=== PATIENT | male | born 1960 | race Caucasian/White ===

== ENCOUNTER → 2016-10-28 | Outpatient (REF) | payer MEDICARE, OTHER ==
[2016-10-28 08:29] LABS: BASO # 0.1 K/mm3 (0.0-0.2); BASO % 1.2 % (0.0-1.0); EOS # 0.4 K/mm3 (0.0-0.50); EOS % 6.2 % (0.0-3.0); LARGE UNSTAINED CELL # 0.1 K/mm3 (0.0-0.4); LARGE UNSTAINED CELL % 1.9 % (0.0-4.0); LYMPH # 1.8 K/mm3 (1.5-4.5); LYMPH % 24.3 % (24.0-44.0); MEAN CORPUSCULAR HEMOGLOBIN 29.3 pg (27.0-33.0); MEAN CORPUSCULAR HGB CONC 34.1 g/dl (32.0-36.5); MEAN CORPUSCULAR VOLUME 86.1 fl (80.0-96.0); MONO # 0.4 K/mm3 (0.0-0.8); MONO % 5.2 % (0.0-5.0); NEUTROPHILS # 4.1 K/mm3 (1.8-7.7); NEUTROPHILS % 61.2 % (36.0-66.0); PLATELET COUNT, AUTOMATED 217 k/mm3 (150-450); RED CELL DISTRIBUTION WIDTH 14.1 % (11.5-14.5); WHITE BLOOD COUNT 6.7 K/mm3 (4.0-10.0)
[2016-10-28 09:59] LABS: ANION GAP 10 MEQ/L (8-16); BLOOD UREA NITROGEN 18 MG/DL (7-18); CALCIUM LEVEL 9.3 MG/DL (8.5-10.1); CARBON DIOXIDE LEVEL 29 MEQ/L (21-32); CHLORIDE LEVEL 101 MEQ/L (98-107); CHOLESTEROL LEVEL 179 MG/DL (<200); CREATININE FOR GFR 0.52 MG/DL (0.70-1.30); GLOMERULAR FILTRATION RATE > 60.0 (>56); GLUCOSE, FASTING 139 MG/DL (70-105); POTASSIUM SERUM 3.7 MEQ/L (3.5-5.1); SODIUM LEVEL 140 MEQ/L (136-145); TRIGLYCERIDES LEVEL 194 MG/DL (<150)
== END ==
LOC: SKLAB7 07:00
PROVIDERS: ATTEND Family Medicine
DX: E11.9 Type 2 diabetes mellitus without complications (principal); I10 Essential (primary) hypertension; E78.5 Hyperlipidemia, unspecified; G40.909 Epilepsy, unspecified, not intractable, without status epilepticus; E55.9 Vitamin D deficiency, unspecified

== ENCOUNTER → 2017-01-24 | Outpatient (REF) | payer MEDICARE, OTHER ==
[2017-01-24 08:45] LABS: BASO # 0.1 K/mm3 (0.0-0.2); BASO % 0.7 % (0.0-1.0); EOS # 0.4 K/mm3 (0.0-0.50); EOS % 4.3 % (0.0-3.0); LARGE UNSTAINED CELL # 0.1 K/mm3 (0.0-0.4); LARGE UNSTAINED CELL % 1.4 % (0.0-4.0); LYMPH # 1.7 K/mm3 (1.5-4.5); MEAN CORPUSCULAR HEMOGLOBIN 28.8 pg (27.0-33.0); MEAN CORPUSCULAR HGB CONC 33.3 g/dl (32.0-36.5); MEAN CORPUSCULAR VOLUME 86.4 fl (80.0-96.0); MONO # 0.5 K/mm3 (0.0-0.8); MONO % 5.5 % (0.0-5.0); NEUTROPHILS # 5.8 K/mm3 (1.8-7.7); NEUTROPHILS % 69.1 % (36.0-66.0); PLATELET COUNT, AUTOMATED 284 k/mm3 (150-450); WHITE BLOOD COUNT 8.4 K/mm3 (4.0-10.0)
[2017-01-24 09:26] LABS: ALT/SGPT 18 U/L (12-78); ANION GAP 7 MEQ/L (8-16); BLOOD UREA NITROGEN 15 MG/DL (7-18); CALCIUM LEVEL 9.1 MG/DL (8.5-10.1); CARBON DIOXIDE LEVEL 31 MEQ/L (21-32); CHLORIDE LEVEL 103 MEQ/L (98-107); CHOLESTEROL LEVEL 169 MG/DL (<200); CREATININE FOR GFR 0.58 MG/DL (0.70-1.30); GLOMERULAR FILTRATION RATE > 60.0 (>56); GLUCOSE, FASTING 157 MG/DL (70-105); POTASSIUM SERUM 3.5 MEQ/L (3.5-5.1); SODIUM LEVEL 141 MEQ/L (136-145); TRIGLYCERIDES LEVEL 280 MG/DL (<150)
== END ==
LOC: SKLAB7 08:00
PROVIDERS: ATTEND Family Medicine
DX: Z87.820 Personal history of traumatic brain injury (principal); E11.9 Type 2 diabetes mellitus without complications; I10 Essential (primary) hypertension; E56.9 Vitamin deficiency, unspecified

== ENCOUNTER → 2017-01-26 | Outpatient (REF) | LOC: SKLAB7 08:00 | PROVIDERS: ATTEND Family Medicine | DX: Z51.81 Encounter for therapeutic drug level monitoring (principal); Z79.899 Other long term (current) drug therapy ==

== ENCOUNTER → 2017-04-28 | Outpatient (REF) | payer MEDICARE, OTHER ==
[2017-04-28 08:18] LABS: BASO % 0.4 % (0.0-1.0); EOS # 0.3 K/mm3 (0.0-0.50); EOS % 4.8 % (0.0-3.0); LARGE UNSTAINED CELL # 0.1 K/mm3 (0.0-0.4); LARGE UNSTAINED CELL % 1.5 % (0.0-4.0); LYMPH # 1.2 K/mm3 (1.5-4.5); LYMPH % 16.5 % (24.0-44.0); MEAN CORPUSCULAR HEMOGLOBIN 29.5 pg (27.0-33.0); MEAN CORPUSCULAR HGB CONC 34.3 g/dl (32.0-36.5); MONO # 0.5 K/mm3 (0.0-0.8); MONO % 7.3 % (0.0-5.0); NEUTROPHILS # 4.7 K/mm3 (1.8-7.7); NEUTROPHILS % 69.4 % (36.0-66.0); PLATELET COUNT, AUTOMATED 213 k/mm3 (150-450); RED CELL DISTRIBUTION WIDTH 13.5 % (11.5-14.5); WHITE BLOOD COUNT 6.8 K/mm3 (4.0-10.0)
[2017-04-28 09:10] LABS: ANION GAP 10 MEQ/L (8-16); BLOOD UREA NITROGEN 16 MG/DL (7-18); CALCIUM LEVEL 9.2 MG/DL (8.5-10.1); CARBON DIOXIDE LEVEL 28 MEQ/L (21-32); CHLORIDE LEVEL 101 MEQ/L (98-107); CREATININE FOR GFR 0.56 MG/DL (0.70-1.30); GLOMERULAR FILTRATION RATE > 60.0 (>56); GLUCOSE, FASTING 158 MG/DL (70-105); POTASSIUM SERUM 3.3 MEQ/L (3.5-5.1); SODIUM LEVEL 139 MEQ/L (136-145)
== END ==
LOC: SKLAB7 07:00
PROVIDERS: ATTEND Family Medicine
DX: I10 Essential (primary) hypertension (principal); Z86.73 Personal history of transient ischemic attack (TIA), and cerebral infarction without residual deficits; Z86.69 Personal history of other diseases of the nervous system and sense organs; E55.9 Vitamin D deficiency, unspecified; E11.9 Type 2 diabetes mellitus without complications

== ENCOUNTER → 2017-07-28 | Outpatient (REF) | payer MEDICARE, OTHER ==
[2017-07-28 09:28] LABS: BASO % 0.6 % (0.0-1.0); EOS # 0.3 10^3/uL (0.0-0.50); EOS % 3.9 % (0.0-3.0); IMMATURE GRANULOCYTE % 0.7 % (0-0); LYMPH # 1.2 10^3/uL (1.5-4.5); LYMPH % 17.1 % (24.0-44.0); MEAN CORPUSCULAR HEMOGLOBIN 28.7 pg (27.0-33.0); MONO # 0.6 10^3/uL (0.0-0.8); NEUTROPHILS # 5.1 10^3/uL (1.8-7.7); NEUTROPHILS % 69.7 % (36.0-66.0); PLATELET COUNT, AUTOMATED 277 10^3/uL (150-450); RED CELL DISTRIBUTION WIDTH 13.4 % (11.5-14.5); WHITE BLOOD COUNT 7.3 10^3/uL (4.0-10.0)
[2017-07-28 10:18] LABS: ALT/SGPT 28 U/L (12-78); ANION GAP 7 MEQ/L (8-16); BLOOD UREA NITROGEN 14 MG/DL (7-18); CALCIUM LEVEL 9.8 MG/DL (8.5-10.1); CARBON DIOXIDE LEVEL 32 MEQ/L (21-32); CHLORIDE LEVEL 100 MEQ/L (98-107); CREATININE FOR GFR 0.57 MG/DL (0.70-1.30); GLOMERULAR FILTRATION RATE > 60.0 (>56); GLUCOSE, FASTING 178 MG/DL (70-105); POTASSIUM SERUM 3.4 MEQ/L (3.5-5.1); SODIUM LEVEL 139 MEQ/L (136-145)
== END ==
LOC: SKLAB7 07:00
PROVIDERS: ATTEND Family Medicine
DX: I10 Essential (primary) hypertension (principal); E11.9 Type 2 diabetes mellitus without complications

== ENCOUNTER → 2017-08-17 | Outpatient (REF) | payer MEDICARE, OTHER | LOC: SKLAB7 13:42 | PROVIDERS: ATTEND Family Medicine | DX: N39.0 Urinary tract infection, site not specified (principal); J31.0 Chronic rhinitis ==

== ENCOUNTER → 2017-09-29 | Outpatient (REF) | payer MEDICARE, OTHER | LOC: SKLAB7 07:00 | PROVIDERS: ATTEND Family Medicine | DX: E78.5 Hyperlipidemia, unspecified (principal) ==

== ENCOUNTER → 2017-10-27 | Outpatient (REF) | payer MEDICARE, OTHER ==
[2017-10-27 09:40] LABS: BASO % 0.5 % (0.0-1.0); EOS # 0.3 10^3/uL (0.0-0.50); HEMATOCRIT 43.5 % (42.0-52.0); HEMOGLOBIN 14.5 g/dl (14.0-18.0); IMMATURE GRANULOCYTE % 0.5 % (0-0); LYMPH # 1.2 10^3/uL (1.5-4.5); LYMPH % 19.3 % (24.0-44.0); MEAN CORPUSCULAR HEMOGLOBIN 28.3 pg (27.0-33.0); MEAN CORPUSCULAR HGB CONC 33.3 g/dl (32.0-36.5); MONO # 0.5 10^3/uL (0.0-0.8); MONO % 7.3 % (0.0-5.0); NEUTROPHILS # 4.3 10^3/uL (1.8-7.7); NEUTROPHILS % 68.4 % (36.0-66.0); PLATELET COUNT, AUTOMATED 222 10^3/uL (150-450); RED BLOOD COUNT 5.12 10^6/uL (4.30-6.10); RED CELL DISTRIBUTION WIDTH 13.2 % (11.5-14.5); WHITE BLOOD COUNT 6.3 10^3/uL (4.0-10.0)
[2017-10-27 09:55] LABS: ESTIMATED AVERAGE GLUCOSE 151 MG/DL (60-110); HEMOGLOBIN A1c 6.9 %
[2017-10-27 10:11] LABS: ALT/SGPT 49 U/L (12-78); ANION GAP 9 MEQ/L (8-16); BLOOD UREA NITROGEN 15 MG/DL (7-18); CALCIUM LEVEL 8.9 MG/DL (8.5-10.1); CARBON DIOXIDE LEVEL 30 MEQ/L (21-32); CHLORIDE LEVEL 102 MEQ/L (98-107); CREATININE FOR GFR 0.48 MG/DL (0.70-1.30); GLOMERULAR FILTRATION RATE > 60.0 (>56); GLUCOSE, FASTING 145 MG/DL (70-105); PHENYTOIN (DILANTIN) 15.2 UG/ML (10.0-20.0); POTASSIUM SERUM 3.5 MEQ/L (3.5-5.1); SODIUM LEVEL 141 MEQ/L (136-145)
[2017-10-27 10:18] LABS: TOTAL 25(OH) VITAMIN D 38.3 NG/ML (30.0-100.0)
== END ==
LOC: SKLAB7 07:00
DX: E11.9 Type 2 diabetes mellitus without complications (principal); I10 Essential (primary) hypertension; R56.9 Unspecified convulsions
CPT/HCPCS: 84460

== ENCOUNTER → 2017-11-21 | Outpatient (REF) | payer MEDICARE, OTHER ==
[2017-11-21 14:45] LABS: INFLUENZA A AMPLIFICATION NEGATIVE (NEGATIVE); INFLUENZA B AMPLIFICATION NEGATIVE (NEGATIVE); RSV AMPLIFICATION POSITIVE (NEGATIVE)
== END ==
LOC: SKLAB3 10:55
DX: R05 Cough (principal)
CPT/HCPCS: 87631

== ENCOUNTER → 2017-12-07 | Outpatient (REF) | payer MEDICARE, OTHER ==
[2017-12-07 12:11] LABS: CHOLESTEROL LEVEL 156 MG/DL (<200); CHOLESTEROL RISK RATIO 4.333 (<5); HDL CHOLESTEROL 36 MG/DL (>40); LDL CHOLESTEROL 64.8 MG/DL (<100); NON-HDL-C 120 MG/DL; TRIGLYCERIDES LEVEL 276 MG/DL (<150)
== END ==
LOC: SKLAB7 14:42
DX: E78.5 Hyperlipidemia, unspecified (principal)
CPT/HCPCS: 36415

== ENCOUNTER → 2018-01-26 | Outpatient (REF) | payer MEDICARE, OTHER ==
[2018-01-26 11:33] LABS: BASO % 0.5 % (0.0-1.0); EOS # 0.4 10^3/uL (0.0-0.50); EOS % 4.3 % (0.0-3.0); HEMATOCRIT 45.8 % (42.0-52.0); HEMOGLOBIN 15.3 g/dl (13.5-17.5); IMMATURE GRANULOCYTE % 0.6 % (0-3.0); LYMPH # 1.3 10^3/uL (1.5-4.5); LYMPH % 14.9 % (24.0-44.0); MEAN CORPUSCULAR HEMOGLOBIN 28.1 pg (27.0-33.0); MEAN CORPUSCULAR HGB CONC 33.4 g/dl (32.0-36.5); MEAN CORPUSCULAR VOLUME 84.2 fl (80.0-96.0); MONO # 0.7 10^3/uL (0.0-0.8); MONO % 7.8 % (0.0-5.0); NEUTROPHILS # 6.4 10^3/uL (1.8-7.7); NEUTROPHILS % 71.9 % (36.0-66.0); PLATELET COUNT, AUTOMATED 240 10^3/uL (150-450); RED BLOOD COUNT 5.44 10^6/uL (4.30-6.10); WHITE BLOOD COUNT 8.8 10^3/uL (4.0-10.0)
[2018-01-26 12:08] LABS: ALBUMIN 3.8 GM/DL (3.2-5.2); ALBUMIN/GLOBULIN RATIO 1.03 (1.00-1.93); ALKALINE PHOSPHATASE 155 U/L (45-117); ALT/SGPT 29 U/L (12-78); ANION GAP 10 MEQ/L (8-16); AST/SGOT 62 U/L (7-37); BILIRUBIN,TOTAL 0.3 MG/DL (0.2-1.0); BLOOD UREA NITROGEN 8 MG/DL (7-18); CALCIUM LEVEL 9.5 MG/DL (8.5-10.1); CARBON DIOXIDE LEVEL 29 MEQ/L (21-32); CHLORIDE LEVEL 101 MEQ/L (98-107); CREATININE FOR GFR 0.51 MG/DL (0.70-1.30); GLOMERULAR FILTRATION RATE > 60.0 (>56); GLUCOSE, FASTING 176 MG/DL (70-100); PHENYTOIN (DILANTIN) 11.2 UG/ML (10.0-20.0); POTASSIUM SERUM 3.6 MEQ/L (3.5-5.1); SODIUM LEVEL 140 MEQ/L (136-145); TOTAL PROTEIN 7.5 GM/DL (6.4-8.2)
[2018-01-26 12:25] LABS: ESTIMATED AVERAGE GLUCOSE 140 MG/DL (60-110); HEMOGLOBIN A1c 6.5 %
[2018-01-27 08:46] LABS: TOTAL 25(OH) VITAMIN D 53.3 NG/ML (30.0-100.0)
== END ==
LOC: SKLAB7 11:43
DX: R56.9 Unspecified convulsions (principal); E11.9 Type 2 diabetes mellitus without complications; I10 Essential (primary) hypertension; Z79.899 Other long term (current) drug therapy; E55.9 Vitamin D deficiency, unspecified
CPT/HCPCS: 80185

== ENCOUNTER → 2018-03-22 | Outpatient (CLI) | payer MEDICARE, OTHER | LOC: M RAD 12:45 | DX: G24.3 Spasmodic torticollis (principal); M50.21 Other cervical disc displacement, high cervical region; M50.221 Other cervical disc displacement at C4-C5 level | CPT/HCPCS: 72141 ==

== ENCOUNTER → 2018-04-27 | Outpatient (REF) | payer MEDICARE, OTHER ==
[2018-04-27 09:11] LABS: BASO % 0.4 % (0.0-1.0); EOS # 0.3 10^3/uL (0.0-0.50); EOS % 3.1 % (0.0-3.0); HEMATOCRIT 42.4 % (42.0-52.0); HEMOGLOBIN 14.1 g/dl (13.5-17.5); LYMPH # 1.4 10^3/uL (1.5-4.5); LYMPH % 15.5 % (24.0-44.0); MEAN CORPUSCULAR HEMOGLOBIN 28.3 pg (27.0-33.0); MEAN CORPUSCULAR HGB CONC 33.3 g/dl (32.0-36.5); MEAN CORPUSCULAR VOLUME 85.1 fl (80.0-96.0); MONO # 0.7 10^3/uL (0.0-0.8); NEUTROPHILS # 6.7 10^3/uL (1.8-7.7); PLATELET COUNT, AUTOMATED 248 10^3/uL (150-450); RED BLOOD COUNT 4.98 10^6/uL (4.30-6.10); RED CELL DISTRIBUTION WIDTH 13.9 % (11.5-14.5); WHITE BLOOD COUNT 9.2 10^3/uL (4.0-10.0)
[2018-04-27 09:22] LABS: ESTIMATED AVERAGE GLUCOSE 157 MG/DL (60-110); HEMOGLOBIN A1c 7.1 %
[2018-04-27 09:36] LABS: ALBUMIN 3.3 GM/DL (3.2-5.2); ALBUMIN/GLOBULIN RATIO 0.97 (1.00-1.93); ALKALINE PHOSPHATASE 152 U/L (45-117); ALT/SGPT 31 U/L (12-78); ANION GAP 12 MEQ/L (8-16); AST/SGOT 87 U/L (7-37); BILIRUBIN,TOTAL 0.3 MG/DL (0.2-1.0); BLOOD UREA NITROGEN 10 MG/DL (7-18); CALCIUM LEVEL 8.8 MG/DL (8.5-10.1); CARBON DIOXIDE LEVEL 31 MEQ/L (21-32); CHLORIDE LEVEL 100 MEQ/L (98-107); CREATININE FOR GFR 0.46 MG/DL (0.70-1.30); GLOMERULAR FILTRATION RATE > 60.0 (>56); GLUCOSE, FASTING 141 MG/DL (70-100); PHENYTOIN (DILANTIN) 12.5 UG/ML (10.0-20.0); POTASSIUM SERUM 3.7 MEQ/L (3.5-5.1); SODIUM LEVEL 143 MEQ/L (136-145); TOTAL PROTEIN 6.7 GM/DL (6.4-8.2)
== END ==
LOC: SKLAB7 08:00
DX: I10 Essential (primary) hypertension (principal); E11.9 Type 2 diabetes mellitus without complications
CPT/HCPCS: 80185

== ENCOUNTER → 2018-06-29 | Outpatient (REF) | payer MEDICARE, OTHER ==
[2018-06-29 09:50] LABS: CHOLESTEROL LEVEL 188 MG/DL (<200); CHOLESTEROL RISK RATIO 5.222 (<5); HDL CHOLESTEROL 36 MG/DL (>40); LDL CHOLESTEROL 95 MG/DL (<100); NON-HDL-C 152 MG/DL; TRIGLYCERIDES LEVEL 284 MG/DL (<150)
== END ==
LOC: SKLAB7 12:50
DX: E78.5 Hyperlipidemia, unspecified (principal)
CPT/HCPCS: 80061

== ENCOUNTER → 2018-07-27 | Outpatient (REF) | payer MEDICARE, OTHER ==
[2018-07-27 08:35] LABS: BASO % 0.5 % (0.0-1.0); EOS # 0.3 10^3/uL (0.0-0.50); EOS % 3.8 % (0.0-3.0); HEMATOCRIT 42.5 % (42.0-52.0); HEMOGLOBIN 13.7 g/dl (13.5-17.5); IMMATURE GRANULOCYTE % 0.4 % (0-3.0); LYMPH # 1.2 10^3/uL (1.5-4.5); LYMPH % 16.1 % (24.0-44.0); MEAN CORPUSCULAR HEMOGLOBIN 27.3 pg (27.0-33.0); MEAN CORPUSCULAR HGB CONC 32.2 g/dl (32.0-36.5); MEAN CORPUSCULAR VOLUME 84.7 fl (80.0-96.0); MONO # 0.6 10^3/uL (0.0-0.8); MONO % 7.9 % (0.0-5.0); NEUTROPHILS # 5.4 10^3/uL (1.8-7.7); NEUTROPHILS % 71.3 % (36.0-66.0); PLATELET COUNT, AUTOMATED 270 10^3/uL (150-450); RED BLOOD COUNT 5.02 10^6/uL (4.30-6.10); RED CELL DISTRIBUTION WIDTH 14.3 % (11.5-14.5); WHITE BLOOD COUNT 7.6 10^3/uL (4.0-10.0)
[2018-07-27 08:56] LABS: ALBUMIN 3.5 GM/DL (3.2-5.2); ALBUMIN/GLOBULIN RATIO 0.95 (1.00-1.93); ALKALINE PHOSPHATASE 186 U/L (45-117); ALT/SGPT 31 U/L (12-78); ANION GAP 9 MEQ/L (8-16); AST/SGOT 101 U/L (7-37); BILIRUBIN,TOTAL 0.3 MG/DL (0.2-1.0); BLOOD UREA NITROGEN 13 MG/DL (7-18); CALCIUM LEVEL 9.3 MG/DL (8.5-10.1); CARBON DIOXIDE LEVEL 32 MEQ/L (21-32); CHLORIDE LEVEL 101 MEQ/L (98-107); CREATININE FOR GFR 0.33 MG/DL (0.70-1.30); GLOMERULAR FILTRATION RATE > 60.0 (>56); GLUCOSE, FASTING 119 MG/DL (70-100); PHENYTOIN (DILANTIN) 13.4 UG/ML (10.0-20.0); POTASSIUM SERUM 3.5 MEQ/L (3.5-5.1); SODIUM LEVEL 142 MEQ/L (136-145); TOTAL PROTEIN 7.2 GM/DL (6.4-8.2)
[2018-07-27 11:46] LABS: ESTIMATED AVERAGE GLUCOSE 134 MG/DL (60-110); HEMOGLOBIN A1c 6.3 %
== END ==
LOC: SKLAB7 07:00
DX: R56.9 Unspecified convulsions (principal); I10 Essential (primary) hypertension; E11.9 Type 2 diabetes mellitus without complications
CPT/HCPCS: 80185

== ENCOUNTER → 2018-08-03 | Outpatient (REF) | payer MEDICARE, OTHER ==
[2018-08-05 16:16] LABS: LEVETIRACETAM (KEPPRA) 11.5 ug/mL (10.0-40.0)
== END ==
LOC: SKLAB7 09:47
DX: R56.9 Unspecified convulsions (principal)
CPT/HCPCS: 36415

== ENCOUNTER → 2018-10-05 | Outpatient (REF) | payer MEDICARE, OTHER | LOC: SKLAB7 12:57 | PROVIDERS: ATTEND Family Medicine | DX: J06.9 Acute upper respiratory infection, unspecified (principal) ==

== ENCOUNTER → 2018-10-25 | Outpatient (REF) | payer MEDICARE, OTHER ==
[2018-10-25 14:00] LABS: HEMOGLOBIN 15.5 g/dl (13.5-17.5); MEAN CORPUSCULAR HEMOGLOBIN 27.4 pg (27.0-33.0); MEAN CORPUSCULAR VOLUME 83.2 fl (80.0-96.0); PLATELET COUNT, AUTOMATED 309 10^3/uL (150-450); RED BLOOD COUNT 5.65 10^6/uL (4.30-6.10); WHITE BLOOD COUNT 9.1 10^3/uL (4.0-10.0)
[2018-10-25 14:36] LABS: ALBUMIN 3.4 GM/DL (3.2-5.2); ALT/SGPT 31 U/L (12-78); BILIRUBIN,TOTAL 0.2 MG/DL (0.2-1.0); BLOOD UREA NITROGEN 12 MG/DL (7-18); CALCIUM LEVEL 9.1 MG/DL (8.5-10.1); CARBON DIOXIDE LEVEL 30 MEQ/L (21-32); CHLORIDE LEVEL 100 MEQ/L (98-107); GLOMERULAR FILTRATION RATE > 60.0 (>56); GLUCOSE, FASTING 123 MG/DL (70-100); PHENYTOIN (DILANTIN) 12.6 UG/ML (10.0-20.0); SODIUM LEVEL 140 MEQ/L (136-145); TOTAL PROTEIN 7.2 GM/DL (6.4-8.2)
[2018-10-25 15:00] LABS: HEMOGLOBIN A1c 6.4 %
== END ==
LOC: SKLAB7 13:13
PROVIDERS: ATTEND Family Medicine
DX: R56.9 Unspecified convulsions (principal); E03.9 Hypothyroidism, unspecified; E11.9 Type 2 diabetes mellitus without complications; I10 Essential (primary) hypertension; E55.9 Vitamin D deficiency, unspecified; E78.5 Hyperlipidemia, unspecified

== ENCOUNTER → 2018-11-09 | Outpatient (REF) | payer MEDICARE, OTHER ==
[2018-11-09 16:24] LABS: BASO # 0.1 10^3/uL (0.0-0.2); BASO % 0.4 % (0.0-1.0); EOS # 0.7 10^3/uL (0.0-0.50); EOS % 4.8 % (0.0-3.0); HEMATOCRIT 44.3 % (42.0-52.0); HEMOGLOBIN 14.2 g/dl (13.5-17.5); LYMPH % 7.2 % (24.0-44.0); MEAN CORPUSCULAR HEMOGLOBIN 27.4 pg (27.0-33.0); MEAN CORPUSCULAR HGB CONC 32.1 g/dl (32.0-36.5); MEAN CORPUSCULAR VOLUME 85.4 fl (80.0-96.0); MONO # 0.6 10^3/uL (0.0-0.8); MONO % 4.5 % (0.0-5.0); NEUTROPHILS # 11.4 10^3/uL (1.8-7.7); NEUTROPHILS % 81.9 % (36.0-66.0); PLATELET COUNT, AUTOMATED 320 10^3/uL (150-450); RED BLOOD COUNT 5.19 10^6/uL (4.30-6.10); WHITE BLOOD COUNT 13.9 10^3/uL (4.0-10.0)
[2018-11-09 16:43] LABS: ALBUMIN 2.9 GM/DL (3.2-5.2); ALT/SGPT 25 U/L (12-78); BILIRUBIN,TOTAL 0.1 MG/DL (0.2-1.0); BLOOD UREA NITROGEN 18 MG/DL (7-18); CALCIUM LEVEL 8.9 MG/DL (8.5-10.1); CARBON DIOXIDE LEVEL 27 MEQ/L (21-32); CHLORIDE LEVEL 100 MEQ/L (98-107); CREATININE FOR GFR 0.46 MG/DL (0.70-1.30); GLOMERULAR FILTRATION RATE > 60.0 (>56); GLUCOSE, FASTING 165 MG/DL (70-100); POTASSIUM SERUM 3.9 MEQ/L (3.5-5.1); SODIUM LEVEL 139 MEQ/L (136-145); TOTAL PROTEIN 6.9 GM/DL (6.4-8.2)
== END ==
LOC: SKLAB7 14:51
PROVIDERS: ATTEND Family Medicine
DX: R21 Rash and other nonspecific skin eruption (principal)

== ENCOUNTER → 2018-11-22 | Outpatient (REF) | payer MEDICARE, OTHER ==
[~2018-11-22] MED LIST: ACET650S3 PR; ACTO30TA15 PO; ALB2.5NEB INH; AMLO5TAB6 PO; ASPI81TAEC PO; ATOR80TA59 PO; BENA25TA10 PO; BYST10TA2 PO; CHLO125TA PO; DULC10SU2 PR; ENEMENE6 PR; FIRS3SUS GT; FLOM0.4C39 PO; INSUHUMDS SC; KEPP1TAB PO; KETO2CR TOP; LEVE15SO GT; METF10004 PO; MILK120011 PO; MINO100C4 PO; NYST10CR TOP; PERCOCET FT; POTA10CA32 PO; POTA20EL PO; PRED20TA PO; RANI150T PO; SALI0.6528; SIME80TA GT; SODI3NEB INH; TELM1TAB37 PO; TYLE325T5 PO; VITA500055 PO
== END ==
LOC: SKLAB7 07:00
PROVIDERS: ATTEND Family Medicine
DX: Z79.899 Other long term (current) drug therapy (principal)

== ENCOUNTER 2018-11-26 12:54 | Inpatient (IN) | payer OTHER, MEDICARE ==
[2018-11-26] VITALS (15 sets, daily range): BP systolic 85–122; BP diastolic 54–77; O2SAT 99
[~2018-11-26] VITALS: Ht 172.7 cm; Wt 71.2 kg
[2018-11-26 13:14] LABS: ABG BASE EXCESS 4.2 (-2.0-2.0); ABG HCO3 39.7 MEQ/L (22.0-26.0); ABG O2 SATURATION 81.2 % (95.0-99.0); ABG STANDARD HCO3 27.7 MEQ/L (22.0-26.0); ABG TOTAL CO2 43.5 MEQ/L (22.0-29.0)
[2018-11-26] MEDS ORDERED: VANCOMYCIN HCL 1,000 MG, VIAL MATE ADAPTER 1 EACH in D5W 250 ML IV ONE ×2 (13:15→17:00)
[2018-11-26] MEDS ORDERED: PIPERACILLIN/TAZOBACTAM SOD 3.375 GM in D5W MINI-BAG PLUS 50 ML IV ONE (13:15)
[2018-11-26] MEDS ORDERED: IPRATROPIUM 0.5MG/ALBUTEROL 2.5MG INH SOL UD 3ML (DUONEB)(J7620) NEB ONE (13:15)
[2018-11-26 13:18] LABS: ABG PARTIAL PRESSURE CO2 124.1 mmHg (35.0-45.0); ABG pH (ARTERIAL) 7.123 UNITS (7.350-7.450)
[2018-11-26] MEDS ORDERED: PROPOFOL 1,000 MG/100 ML VIAL As Ordered ONE ×2 (13:22→18:14)
[2018-11-26 13:23] LABS: HEMATOCRIT 56.4 % (42.0-52.0); HEMOGLOBIN 17.7 g/dl (13.5-17.5); MEAN CORPUSCULAR HEMOGLOBIN 27.6 pg (27.0-33.0); MEAN CORPUSCULAR HGB CONC 31.4 g/dl (32.0-36.5); MEAN CORPUSCULAR VOLUME 87.9 fl (80.0-96.0); PLATELET COUNT, AUTOMATED 361 10^3/uL (150-450); RED BLOOD COUNT 6.42 10^6/uL (4.30-6.10); WHITE BLOOD COUNT 20.1 10^3/uL (4.0-10.0)
[2018-11-26] MEDS ORDERED: PROPOFOL 200 MG/20 ML VIAL IV ONE (13:30)
[2018-11-26 13:56] LABS: BLOOD UREA NITROGEN 26 MG/DL (7-18); CALCIUM LEVEL 9.5 MG/DL (8.5-10.1); CARBON DIOXIDE LEVEL 37 MEQ/L (21-32); CHLORIDE LEVEL 103 MEQ/L (98-107); CREATININE FOR GFR 0.44 MG/DL (0.70-1.30); GLOMERULAR FILTRATION RATE > 60.0 (>56); GLUCOSE, FASTING 326 MG/DL (70-100); POTASSIUM SERUM 4.5 MEQ/L (3.5-5.1); SODIUM LEVEL 146 MEQ/L (136-145)
[2018-11-26 13:59] LABS: ANISOCYTOSIS 1+; ATYPICAL LYMPH 1 % (0-5); EOSINOPHILS 1 % (0-5); LYMPHOCYTES 19 % (16-52); MONOCYTES 10 % (0-8); NEUTROPHILS 69 % (35-75); PLATELET ESTIMATE NORMAL (NORMAL)
[2018-11-26] MEDS ORDERED: SALI0.6528 (14:03)
[2018-11-26] MEDS ORDERED: ALB2.5NEB INH ×2 (14:03)
[2018-11-26] MEDS ORDERED: PRED20TA PO (14:03)
[2018-11-26] MEDS ORDERED: RANI150T PO (14:03)
[2018-11-26] MEDS ORDERED: DULC10SU2 PR (14:03)
[2018-11-26] MEDS ORDERED: AMLO5TAB6 PO (14:03)
[2018-11-26] MEDS ORDERED: ACET650S3 PR (14:03)
[2018-11-26] MEDS ORDERED: ASPI81TAEC PO (14:03)
[2018-11-26] MEDS ORDERED: BENA25TA10 PO (14:03)
[2018-11-26] MEDS ORDERED: MINO100C4 PO (14:03)
[2018-11-26] MEDS ORDERED: ATOR80TA59 PO (14:03)
[2018-11-26] MEDS ORDERED: METF10004 PO (14:03)
[2018-11-26] MEDS ORDERED: TYLE325T5 PO (14:03)
[2018-11-26] MEDS ORDERED: MILK120011 PO (14:03)
[2018-11-26] MEDS ORDERED: KEPP1TAB PO (14:03)
[2018-11-26] MEDS ORDERED: VITA500055 PO (14:14)
[2018-11-26] MEDS ORDERED: ACTO30TA15 PO (14:14)
[2018-11-26] MEDS ORDERED: BYST10TA2 PO (14:14)
[2018-11-26] MEDS ORDERED: TELM1TAB37 PO (14:26)
[2018-11-26] MEDS ORDERED: CHLO125TA PO (14:26)
[2018-11-26] MEDS ORDERED: POTA10CA32 PO (14:26)
[2018-11-26] MEDS ORDERED: FLOM0.4C39 PO (14:26)
[2018-11-26] MEDS ORDERED: PROPOFOL 1,000 MG in APPROPRIATE DILUENT 1 EA IV SCH (14:30)
[2018-11-26] MEDS ORDERED: ONDANSETRON 4MG/2ML VIAL (J2405) IV PRN (14:30)
[2018-11-26] MEDS ORDERED: ACETAMINOPHEN 650 MG SUPP PR PRN (14:30)
[2018-11-26] MEDS ORDERED: BISACODYL 10 MG SUPP PR PRN (14:30)
[2018-11-26] MEDS ORDERED: MORPHINE 4 MG/ML 1ML VIAL/SYRINGE (J2270) IV PRN (14:30)
[2018-11-26] MEDS ORDERED: MIDAZOLAM INJ 2 MG/2 ML VIAL (J2250) IV PRN (14:30)
[2018-11-26] MEDS ORDERED: VANCOMYCIN HCL 1,000 MG in IV FLUID PLACE HOLDER 1 EA IV SCH (14:30)
[2018-11-26] MEDS ORDERED: ALBUTEROL SULFATE 2.5 MG/0.5 ML INH NEB SOLN NEB PRN (14:30)
[2018-11-26] MEDS ORDERED: ENEMENE6 PR (14:35)
--- NOTE | 2018-11-26 14:37 | REP ---
AP PORTABLE CHEST: 11/26/2018 at 01:36PM. COMPARISON: Portable chest this a.m. CLINICAL HISTORY: Intubation. FINDINGS: Endotracheal tube is seen, now with its tip about 3.5 cm from the kimberlee. The right lung shows further consolidation/collapse with only a small apical air space remaining opacified and worsening atelectasis, infiltrate and/or effusion. Left lung remains clear. Electronically Signed by Clarence Obrien MD 11/26/2018 07:19 P
--- NOTE | 2018-11-26 14:39 | REP ---
AP PORTABLE CHEST: 11/26/2018 at 2:10 PM. COMPARISON: Two prior chest x-rays today. CLINICAL HISTORY: Right subclavian placement. FINDINGS: Endotracheal tube again seen, tip about 4 cm from the kimberlee. There is a nasogastric tube now present with its tip well into the body of the stomach. A new right subclavian central catheter is noted. Appearance suggests it is in the SVC. No pneumothorax. Extensive consolidation and atelectasis with right effusion filling most of the right hemithorax. There is some volume loss. Degree of aeration similar to the study 1/2 hour ago upon intubation. The left lung remains clear. Electronically Signed by Clarence Obrien MD 11/26/2018 07:20 P
[2018-11-26] MEDS ORDERED: LIDOCAINE 1% MDV 20ML VIAL As Ordered ONE (14:52)
[2018-11-26] MEDS ORDERED: LevoFLOXacin IV 750 MG in APPROPRIATE DILUENT 1 EA IV ONE (15:00)
[2018-11-26] MEDS ORDERED: LIDOCAINE 1% MDV 20ML VIAL SC ONE (15:30)
[2018-11-26] MEDS: ALBUTEROL SULFATE 2.5 MG/0.5 ML INH NEB SOLN NEB SCH ×3 (16:00→23:52)
[2018-11-26] MEDS ORDERED: PIPERACILLIN/TAZOBACTAM SOD 3.375 GM in D5W MINI-BAG PLUS 50 ML IV SCH (16:00)
[2018-11-26] MEDS: HEPARIN SOD (PORCINE) 5000 UNITS/ML VIAL SC SCH ×2 (16:43→21:13)
--- NOTE | 2018-11-26 16:43 | ECGEPIP ---
Stationary ECG Study [facility] [place] - ED Test Date: 2018-11-26 Pat Name: LIZ THAPA Department: Room: - Gender: M Stockfeed Miller: : 1960 Requested By: DARSHANA Argueta Order Number: [id number] Reading MD: Ann Sheets Measurements Intervals [place] Rate: 124 P: 29 [place]: 173 QRS: 20 QRSD: 98 T: 55 QT: 287 QTc: 413 Interpretive Statements SINUS TACHYCARDIA LEFT VENTRICULAR HYPERTROPHY AND ST-T CHANGE VS ISCHEMIA, CLINICAL CORRELATION Electronically Signed On 11-26-2018 16:43:19 EST by Ann Sheets
[2018-11-26] MEDS: NS 1,000 ML IV SCH ×2 (16:44→20:43)
[2018-11-26] MEDS ORDERED: VANCOMYCIN HCL 500 MG in D5W MINI-BAG PLUS 100 ML IV ONE (18:00)
[2018-11-26] MEDS: PANTOPRAZOLE 40MG INJ (PROTONIX) (C9113) IV SCH (18:15)
[2018-11-26] MEDS: PROPOFOL 1,000 MG in APPROPRIATE DILUENT 1 EA IV SCH (19:32)
[2018-11-26 20:49] LABS: ABG BASE EXCESS 1.3 (-2.0-2.0); ABG HCO3 26.1 MEQ/L (22.0-26.0); ABG O2 SATURATION 99.6 % (95.0-99.0); ABG PARTIAL PRESSURE O2 216.6 mmHg (75.0-100.0); ABG STANDARD HCO3 25.6 MEQ/L (22.0-26.0); ABG TOTAL CO2 27.4 MEQ/L (22.0-29.0); ABG pH (ARTERIAL) 7.411 UNITS (7.350-7.450)
[2018-11-26] MEDS: CHLORHEXIDINE GLUCONATE 0.12 % 15ML UDC (PERIDEX ORAL RINSE) MT SCH (21:12)
[2018-11-27] VITALS (24 sets, daily range): BP systolic 92–128; BP diastolic 58–77
[2018-11-27] MEDS ORDERED: NS 1,000 ML IV ONE (00:30)
[2018-11-27] MEDS: VANCOMYCIN HCL 1,000 MG, VIAL MATE ADAPTER 1 EACH in D5W 250 ML IV SCH ×4 (00:32→21:16)
[2018-11-27] MEDS ORDERED: GLUCAGON FOR INJ 1 MG VIAL (J1610) SC PRN (01:00)
[2018-11-27] MEDS ORDERED: DEXTROSE 50% 50 ML SYRINGE IV PRN (01:00)
[2018-11-27] MEDS ORDERED: GLUCOSE 4 GM CHEW TABLET PO PRN (01:00)
[2018-11-27] MEDS: levETIRAcetam INJection 1,500 MG in D5W 100 ML IV SCH ×2 (01:43→14:04)
[2018-11-27] MEDS: NS 1,000 ML IV SCH ×3 (03:56→21:17)
[2018-11-27] MEDS: PROPOFOL 1,000 MG in APPROPRIATE DILUENT 1 EA IV SCH ×3 (03:57→18:32)
[2018-11-27 04:04] LABS: BASO % 0.1 % (0.0-1.0); EOS % 0.1 % (0.0-3.0); HEMATOCRIT 39.7 % (42.0-52.0); LYMPH # 1.4 10^3/uL (1.5-4.5); LYMPH % 9.6 % (24.0-44.0); MEAN CORPUSCULAR HEMOGLOBIN 28.1 pg (27.0-33.0); MEAN CORPUSCULAR HGB CONC 32.2 g/dl (32.0-36.5); MEAN CORPUSCULAR VOLUME 87.3 fl (80.0-96.0); MONO # 0.9 10^3/uL (0.0-0.8); MONO % 6.3 % (0.0-5.0); NEUTROPHILS # 11.7 10^3/uL (1.8-7.7); NEUTROPHILS % 83.5 % (36.0-66.0); RED BLOOD COUNT 4.55 10^6/uL (4.30-6.10)
[2018-11-27 04:16] LABS: HEMOGLOBIN 12.8 g/dl (13.5-17.5)
[2018-11-27 04:33] LABS: ALBUMIN 2.3 GM/DL (3.2-5.2); ALT/SGPT 25 U/L (12-78); BILIRUBIN,TOTAL 0.4 MG/DL (0.2-1.0); BLOOD UREA NITROGEN 23 MG/DL (7-18); CALCIUM LEVEL 7.2 MG/DL (8.5-10.1); CARBON DIOXIDE LEVEL 29 MEQ/L (21-32); CHLORIDE LEVEL 108 MEQ/L (98-107); CHOLESTEROL LEVEL 108 MG/DL (< 200); CPK CREATINE PHOSPHOKINASE 485 U/L (39-308); CREATININE FOR GFR 0.32 MG/DL (0.70-1.30); GLOMERULAR FILTRATION RATE > 60.0 (>56); GLUCOSE, FASTING 244 MG/DL (70-100); LDH LACTATE DEHYDROGENASE 186 U/L (87-241); PHOSPHORUS LEVEL 2.4 MG/DL (2.5-4.9); POTASSIUM SERUM 2.8 MEQ/L (3.5-5.1); SODIUM LEVEL 145 MEQ/L (136-145); TOTAL PROTEIN 5.2 GM/DL (6.4-8.2); TRIGLYCERIDES LEVEL 234 MG/DL (<150)
[2018-11-27] MEDS: KCL 20MEQ IN 100ML SWI (KRUN) 20 MEQ in APPROPRIATE DILUENT 1 EA IV SCH ×6 (05:00→06:58)
[2018-11-27] MEDS: ALBUTEROL SULFATE 2.5 MG/0.5 ML INH NEB SOLN NEB SCH ×6 (05:17→23:20)
[2018-11-27] MEDS: HEPARIN SOD (PORCINE) 5000 UNITS/ML VIAL SC SCH ×3 (05:59→21:16)
[2018-11-27] MEDS: HumaLOG INSULIN (NovoLOG) PER UNIT SC SCH ×5 (06:00→23:54)
--- NOTE | 2018-11-27 07:34 | REP ---
AP PORTABLE CHEST: 11/26/2018 at 4:04 PM. Comparison: Study today at 2:09 PM. Clinical history: Hypoxemia, status post bronchoscopy. Findings: Endotracheal tube and nasogastric tubes along with the right subclavian catheter are unchanged. There is now some better aeration of the mid and upper lung zone than on the previous study. No pneumothorax. There is still consolidation and atelectasis with air bronchograms in the right base representing significant infiltrate and atelectasis. Left lung remains clear. Nasogastric tube seen coursing into the fundus of the stomach in the left upper quadrant. Electronically Signed by Clarence Obrien MD 11/27/2018 09:23 A
--- NOTE | 2018-11-27 08:40 | REP ---
AP PORTABLE CHEST: 11/27/2018. Comparison: 11/26/2018 multiple chest x-rays. Clinical history: Intubated. Findings: Endotracheal tube is again seen about 2.5 cm above the kimberlee. Indwelling right subclavian catheter tip in SVC remains. Nasogastric tube is unchanged. Tip in the gastric fundus. There is some improvement overnight in aeration in the right upper lung zone. Air bronchograms and consolidative opacity in the right base persist. Left lung, unchanged. Impression: 1. Some slight improvement in aeration in the right lung with still extensive consolidative opacity and some air bronchograms in the right base. 2. Endotracheal tube, right subclavian catheter and nasogastric tubes unchanged. Electronically Signed by Clarence Obrien MD 11/27/2018 09:28 A
[2018-11-27] MEDS ORDERED: methylPREDNISolone INJ 125 MG/2 ML VIAL (J2930) IV SCH (09:00)
[2018-11-27] MEDS: CHLORHEXIDINE GLUCONATE 0.12 % 15ML UDC (PERIDEX ORAL RINSE) MT SCH ×2 (09:08→21:16)
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
[2018-11-27] MEDS: NYSTATIN 500,000 U/5 ML SUSP UDC PO SCH ×3 (12:58→23:54)
--- NOTE | 2018-11-27 13:18 | IPN ---
DATE OF SERVICE: 11/27/2018 SUBJECTIVE: Mr. Jones remains critically ill with acute respiratory failure leading to mechanical ventilation. He required one fluid bolus over night Per nursing staff this morning, he continues to have a strong cough with pale green content on suction. The amount of his secretions is large. He is able to follow commands, and he has purposeful movements. He can move all extremities (limited) on command except his left lower extremity. He is status post bronchoscopy yesterday. His urine output over the last 24 hours has been good. OBJECTIVE: PHYSICAL EXAMINATION: VITAL SIGNS: Pulse of 74, respiratory rate of 16, blood pressure 102/60, pulse oximetry 94%, vent settings 30% FIO2, PEEP of 5, respiratory rate of 12, tidal volume of 450. GENERAL: The patient is resting comfortably in bed with endotracheal tube in place. He is blinking his eyes spontaneously and does not appear to be in any acute distress. HEENT: Head is normocephalic, atraumatic. Sclerae are anicteric. Extraocular movements intact (EOMI). NECK: Is supple. No signs of jugular venous distention (JVD). Neck is without thyromegaly or masses. No lymphadenopathy. CARDIOVASCULAR: Regular rate and rhythm. Normal S1 and S2. No murmurs, rubs, or gallops LUNGS: Symmetric chest rise. Rhonchi present throughout lung [place]. Right middle lobe with mild fine crackles. No wheezes. No accessory muscle use or retractions. ABDOMEN: Soft, nontender, nondistended. Positive bowel sounds. EXTREMITIES: Warm. Perfusing well in bilateral upper and lower extremities. No clubbing, cyanosis, or edema. SKIN: There is a red nonraised contiguous discoid-like rash on both posterior upper extremities, only on his forearms, that was present prior to admission. He also has a similar rash present in his right axilla. NEUROLOGIC: Lela Coma Scale (GCS) of 10. Eye equals 4, motor equals 6, verbal equals ET tube in place. Strength is +3/5 in bilateral upper extremities and +2/5 in bilateral lower extremities. Lower extremities: +2/5 in right lower extremity and +0/5 in left lower extremity. Able to wiggle toes on command. Cranial nerves unable to be assessed due to endotracheal tube in the way. LABORATORY DATA: White blood cell count of 14, hemoglobin of 12.8, hematocrit of 39.7, platelet clump seen. Chemistry: Sodium of 145, potassium of 2.8, chloride of 108, carbon dioxide of 29, BUN of 23, creatinine of 0.32, glucose of 244, calcium of 7.2, AST of 30, ALT of 25, alkaline phosphatase of 78, lactate dehydrogenase of 186, total creatine kinase 45, albumin 2.3. His central venous pressure (CVP) is 7. Urinalysis (UA) positive for 3+ blood, negative for nitrites, leukocyte esterase. Gram stain from bronchoalveolar lavage (BAL) showing few gram positive cocci in chains, few gram positive rods. Respiratory panel negative. We reviewed his chest x-ray from 11/27/2018. That xray shows significant improvement in aeration in the right lung with some residual opacity and air bronchograms in the right base, Endotracheal tube, right subclavian catheter, and nasogastric tubes are in good position. IMPRESSION: 1. Acute hypoxemic and hypercapnic respiratory failure secondary to right lung collapse/consolidation and leading to mechanical ventilation. 2. Right lung collapse and consolidation. 3. Traumatic brain injury (TBI). 4. History of seizures. 5. Diabetes mellitus, on sliding scale insulin and every 6 hour fingersticks. 6. Christiano (and perhaps igor) paresis. 7. Hypertension. 8. Upper extremity Rash. 9. Infectious Disease. On levofloxacin and vancomycin. RECOMMENDATIONS: 1. We changed his vent settings to pressure support in anticipation of possible weaning off of ventilation. 2. This morning, he continues to have a pale green sputum suctioned from his lungs. Until he starts to have fewer secretions and we are confident that he is able to clear the secretions on his own, we will keep him on mechanical ventilation. 3. We will narrow these antibiotics as soon as the cultures return. 4. Will start tube feedings today with Glucerna with the intent to wean down his intravenous (IV) fluids. 5. We are currently trying to obtain outside records to find out what his baseline is for both physical activity and mental activity. Currently, he is nonverbal, and we have been told that he is nonverbal. 6. We will continue him with his antiseizure medications. 7. Physical therapy consult and order for MPO boots. 8. He is currently on a proton pump inhibitor for stress ulcer prophylaxis. 9. Trying to obtain outside records regarding his outpatient 60 mg prednisone to see how long he has been on that and if there is any insight as to what the rash is on his posterior forearms. 10. Subcutaneous heparin for deep venous thrombosis (DVT) prophylaxis. Also, thromboembolic deterrents (TEDs) and sequentials. CRITICAL CARE TIME: 40 minutes, not including procedure time. My faculty preceptor for this patient encounter was physically present during the encounter and was fully available. All aspects of the patient interview, examination, medical decision-making process, and medical care plan development were reviewed and approved by the faculty preceptor. The faculty preceptor is aware and concurs with the plan as stated in the body of this note and will attest to such by his/her cosignature. ADDENDUM: I, Dr. Jojo Chris, was present and participated in the history and physical examination and agree with the documentation. I discussed the assessment and plan and agree with the documentation. JEMMA
[2018-11-27] MEDS: methylPREDNISolone INJ 125 MG/2 ML VIAL (J2930) IV SCH (14:05)
[2018-11-27] MEDS: LevoFLOXacin IV 750 MG in APPROPRIATE DILUENT 1 EA IV SCH (15:08)
[2018-11-27] MEDS: PANTOPRAZOLE 40MG INJ (PROTONIX) (C9113) IV SCH (18:32)
--- NOTE | 2018-11-27 20:12 | PHACANCOPD ---
PHARMACY VANCOMYCIN DOSING Pt Demographics Demographics Patient Age:58 , Weight:74.400 , Gender: male Events Past 24 Hours Events Past 24 Hours: YES: Elevation in WBC; NO: Dialysis, Diuretic Therapy, Change in CrCl, Fever, Pending Diagnostics, Pending Procedures, Other Vancomycin Vancomycin indication: HAP Vancomycin Target Ranges: 15-20 mcg/ml Vancomycin Load Y/N: Yes Load Dose Date Time Vancomycin Load Dose: 1500MG Date: 11/26/17 Time: 1700 Vancomycin Dose Date: 11/27/18. Current Vancomycin Dose: 1000MG Q8H Intermittent Dosing?: No Labs Labs Laboratory Tests 11/27/18 04:00 Red Blood Count 4.55, Mean Corpuscular Volume 87.3, Mean Corpuscular Hemoglobin 28.1, Mean Corpuscular Hemoglobin Concent 32.2, Red Cell Distribution Width 15.4 H, Neutrophils (%) (Auto) 83.5 H, Lymphocytes (%) (Auto) 9.6 L, Monocytes (%) (Auto) 6.3 H, Eosinophils (%) (Auto) 0.1, Basophils (%) (Auto) 0.1, Neutrophils # (Auto) 11.7 H, Lymphocytes # (Auto) 1.4 L, Monocytes # (Auto) 0.9 H, Eosinophils # (Auto) 0.0, Basophils # (Auto) 0.0, Calcium Level 7.2 #L, Phosphorus Level 2.4 L, Aspartate Amino Transf (AST/SGOT) 30, Alanine Aminotrans ferase (ALT/SGPT) 25, Lactate Dehydrogenase 186, Total Creatine Kinase 485 H, Alkaline Phosphatase 78, Total Bilirubin 0.4, Triglycerides Level 234 H, Cholesterol Level 108, Total Protein 5.2 L, Albumin 2.3 L Item Value Date Time White Blood Count 14.0 10^3/uL H 11/27/18 0400 White Blood Count 20.1 10^3/uL H 11/26/18 1307 Albumin 2.3 GM/DL L 11/27/18 0400 Blood Urea Nitrogen 26 MG/DL H 11/26/18 1307 Blood Urea Nitrogen 23 MG/DL H 11/27/18 0400 Creatinine 0.44 MG/DL L 11/26/18 1307 Creatinine 0.32 MG/DL L 11/27/18 0400 Vancomycin Level Trough 10.5 UG/ML 11/27/18 1601 Micro Microbiology 11/27/18 MRSA Screen, Received Pending 11/26/18 Gram Stain - Final, Resulted 11/26/18 Bronchoalveolar Lavage Culture, Resulted Pending 11/26/18 Respiratory Virus Panel (PCR) ([facility]) - Final, Complete Creatinine Clearance Date:11/27/18. Creatinine Clearance: >80 ml/min Assessment and Plan Maintaining Current Dose?: Yes Reason for dose change: No Dose Change Pharmacist Note Pharmacist Note Date: 11/27/18. Pharmacist note: On 11/26/2018 gave initial load of 1500mg vanco IV @1700 followed by 1g q8h @0100. Trough taken on 11/27/2018 before the 3rd dose came back low at 10.5. As a result, I scheduled 1G IV vanco @ 1700 followed by 1G q8h @2100. [facility] Nov 27, 2018 20:12
[2018-11-28] VITALS (26 sets, daily range): BP systolic 111–151; BP diastolic 64–83; O2SAT 91–98
[2018-11-28] MEDS: levETIRAcetam INJection 1,500 MG in D5W 100 ML IV SCH ×2 (03:00→15:20)
[2018-11-28] MEDS: ALBUTEROL SULFATE 2.5 MG/0.5 ML INH NEB SOLN NEB SCH ×6 (03:58→23:59)
[2018-11-28] MEDS: HEPARIN SOD (PORCINE) 5000 UNITS/ML VIAL SC SCH ×3 (05:17→21:24)
[2018-11-28] MEDS: VANCOMYCIN HCL 1,000 MG, VIAL MATE ADAPTER 1 EACH in D5W 250 ML IV SCH ×3 (05:17→21:24)
[2018-11-28] MEDS: NYSTATIN 500,000 U/5 ML SUSP UDC PO SCH ×4 (05:17→23:45)
[2018-11-28] MEDS: PROPOFOL 1,000 MG in APPROPRIATE DILUENT 1 EA IV SCH (05:18)
[2018-11-28 05:51] LABS: BASO % 0.1 % (0.0-1.0); EOS % 0.4 % (0.0-3.0); HEMATOCRIT 37.6 % (42.0-52.0); HEMOGLOBIN 12.3 g/dl (13.5-17.5); LYMPH # 1.1 10^3/uL (1.5-4.5); MEAN CORPUSCULAR HEMOGLOBIN 27.8 pg (27.0-33.0); MEAN CORPUSCULAR HGB CONC 32.7 g/dl (32.0-36.5); MEAN CORPUSCULAR VOLUME 84.9 fl (80.0-96.0); MONO # 0.6 10^3/uL (0.0-0.8); MONO % 6.5 % (0.0-5.0); NEUTROPHILS # 7.8 10^3/uL (1.8-7.7); NEUTROPHILS % 81.6 % (36.0-66.0); PLATELET COUNT, AUTOMATED 168 10^3/uL (150-450); RED BLOOD COUNT 4.43 10^6/uL (4.30-6.10); WHITE BLOOD COUNT 9.6 10^3/uL (4.0-10.0)
[2018-11-28 06:16] LABS: ALBUMIN 2.3 GM/DL (3.2-5.2); ALT/SGPT 29 U/L (12-78); BILIRUBIN,TOTAL 0.5 MG/DL (0.2-1.0); BLOOD UREA NITROGEN 14 MG/DL (7-18); CALCIUM LEVEL 7.8 MG/DL (8.5-10.1); CARBON DIOXIDE LEVEL 33 MEQ/L (21-32); CHLORIDE LEVEL 101 MEQ/L (98-107); CHOLESTEROL LEVEL 118 MG/DL (< 200); CPK CREATINE PHOSPHOKINASE 927 U/L (39-308); GLOMERULAR FILTRATION RATE > 60.0 (>56); GLUCOSE, FASTING 281 MG/DL (70-100); LDH LACTATE DEHYDROGENASE 221 U/L (87-241); PHOSPHORUS LEVEL 2.1 MG/DL (2.5-4.9); POTASSIUM SERUM 2.7 MEQ/L (3.5-5.1); SODIUM LEVEL 139 MEQ/L (136-145); TOTAL PROTEIN 5.1 GM/DL (6.4-8.2); TRIGLYCERIDES LEVEL 337 MG/DL (<150)
[2018-11-28] MEDS: HumaLOG INSULIN (NovoLOG) PER UNIT SC SCH ×4 (06:30→23:45)
[2018-11-28] MEDS: KCL 20MEQ IN 100ML SWI (KRUN) 20 MEQ in APPROPRIATE DILUENT 1 EA IV SCH ×6 (06:46→10:34)
[2018-11-28 06:52] LABS: MAGNESIUM LEVEL 1.4 MG/DL (1.8-2.4)
[2018-11-28] MEDS: methylPREDNISolone INJ 125 MG/2 ML VIAL (J2930) IV SCH (08:25)
[2018-11-28] MEDS: CHLORHEXIDINE GLUCONATE 0.12 % 15ML UDC (PERIDEX ORAL RINSE) MT SCH (08:26)
--- NOTE | 2018-11-28 08:50 | REP ---
Chest one-view HISTORY: Intubated Comparison: 11/27/2018 Parenchymal densities are present in the right lower lobe consistent with atelectasis or infiltrate unchanged compared to the previous study. The left lung is clear. The heart is normal in size. The pulmonary vasculature is normal in appearance. An ET tube , NG tube and central line are present. Impression: Right lower lobe atelectasis or infiltrate unchanged compared to the previous study. Electronically Signed by Mikal Johnson MD 11/28/2018 08:42 A
[2018-11-28] MEDS ORDERED: MAG SULF 1GM/100ML (MAG RUN) 1 GM in APPROPRIATE DILUENT 1 EA IV ONE (10:15)
--- NOTE | 2018-11-28 11:53 | RO ---
DATE OF PROCEDURE: 11/26/2018 PREOPERATIVE DIAGNOSES: Hypoxemia, near total right lung collapse. POSTOPERATIVE DIAGNOSES: Hypoxemia, near total right lung collapse. PROCEDURE: Bronchoscopy with aspiration of secretions and right middle lobe bronchoalveolar lavage (BAL). SURGEON: Dr. Jennifer Chris BROADCAST MAINTENANCE TECHNICIAN: ANESTHESIA: DESCRIPTION OF PROCEDURE: Procedure note: The procedure was considered emergent, given hypoxemia despite intubation and on an FIO2 of 1.0. Whiting procedure was followed. The patient's tidal volume was decreased for the procedure. 2 mg of Versed was given in addition to the propofol drip. Following this, the bronchoscope was introduced through the endotracheal tube into the trachea. The left lung was examined, and showed normal-appearing mucosa with with no significant secretions. On the right there were secretions up to the kimberlee which were these were evacuated. There were significant secretions in right upper lobe, right middle lobe, and right lower lobe. The mucosa was beefy and erythematous. All visible secretions from the three lobes were evacuated. Following this, the bronchoscope was positioned in the right middle lobe, and a BAL was done. Following this, a revisit to all orifices was done and any residual secretions were removed. The bronchoscope was then withdrawn. He also had had several breaks throughout the procedure to allow ventilation. Tolerated well. Post procedure CXR pending. FINDINGS: 1. Secretions throughout the right lung, which were evacuated. 2. Beefy erythematous right lung mucosa. SPECIMENS: Right middle lobe BAL sent for gram stain and culture. JEMMA
[2018-11-28 13:18] LABS: ABG BASE EXCESS 5.8 (-2.0-2.0); ABG HCO3 29.9 MEQ/L (22.0-26.0); ABG O2 SATURATION 97.9 % (95.0-99.0); ABG PARTIAL PRESSURE CO2 41.5 mmHg (35.0-45.0); ABG PARTIAL PRESSURE O2 98.2 mmHg (75.0-100.0); ABG STANDARD HCO3 29.7 MEQ/L (22.0-26.0); ABG TOTAL CO2 31.1 MEQ/L (22.0-29.0); ABG pH (ARTERIAL) 7.475 UNITS (7.350-7.450)
[2018-11-28 15:36] LABS: BLOOD UREA NITROGEN 11 MG/DL (7-18); CALCIUM LEVEL 8.4 MG/DL (8.5-10.1); CARBON DIOXIDE LEVEL 31 MEQ/L (21-32); CHLORIDE LEVEL 101 MEQ/L (98-107); CREATININE FOR GFR 0.31 MG/DL (0.70-1.30); GLOMERULAR FILTRATION RATE > 60.0 (>56); GLUCOSE, FASTING 339 MG/DL (70-100); POTASSIUM SERUM 3.7 MEQ/L (3.5-5.1); SODIUM LEVEL 139 MEQ/L (136-145)
[2018-11-28] MEDS: POTASSIUM CHLORIDE 10% LIQ 20 MEQ/15 ML UDC PO SCH ×2 (15:47→21:00)
[2018-11-28] MEDS: LevoFLOXacin IV 750 MG in APPROPRIATE DILUENT 1 EA IV SCH (15:47)
[2018-11-28] MEDS ORDERED: POTASSIUM CHLORIDE 10 MEQ SR TABLET PO SCH (16:00)
[2018-11-28] MEDS ORDERED: SODIUM CHLORIDE HYPERTONIC 3% 15ML NEB SOL INH PRN (16:15)
[2018-11-28] MEDS: PANTOPRAZOLE 40MG INJ (PROTONIX) (C9113) IV SCH (17:14)
[2018-11-28] MEDS: D5W/0.45% SODIUM CHLORIDE 1,000 ML IV SCH (17:14)
--- NOTE | 2018-11-28 22:59 | CCN ---
DATE: 11/28/2018 NOTE: Mr. Jones remains critically ill with acute hypoxemic and hypercapnic respiratory failure leading to mechanical ventilation secondary to right lung collapse/consolidation. He has had no hemodynamic difficulties. On his sedation holiday, he appears to be nodding appropriately. He has quadriparesis and cannot move significantly. He does wiggle his right toes and will move both upper extremities and squeeze hands to command. He indicated some chest discomfort, though we could not elicit the type of discomfort from him. He believes he is getting enough air. He remains with a large amount of secretions that are predominantly thin with an occasional mucous plug. He has a good cough. He is tolerating full tube feeds. PHYSICAL EXAMINATION: General: Mr. Jones is lying in bed in no acute distress. He is synchronous with the ventilator. Vital Signs: Temperature 97.8 with a maximum temperature (T max) of 98.8, pulse 74, respiratory rate 14, SpO2 of 93% and FiO2 of 0.3. HEENT: Anicteric. Nares: Patent bilaterally. Moist mucosa. Oropharynx: Endotracheal (ET) tube and orogastric (OG) tube in place. Neck: Supple, without thyromegaly or masses. Trachea is midline. Lymph: Without cervical or supraclavicular lymphadenopathy. Lungs: Symmetric excursion, good air entry. No rhonchi on the right when I first listened, occasional rhonchi depending upon when he had been suctioned. No crackle or wheezes. Normal I:E. No accessory muscle use or retractions. Cardiovascular: Regular rate and rhythm with a normal S1, S2. No murmur, rub, or gallop appreciated. Abdomen: Positive bowel sounds. Soft, nondistended. He does not indicate tenderness. No hepatosplenomegaly or masses appreciated. Extremities: Warm and well perfused, without significant edema. No clubbing or cyanosis. Palpable pedal pulses bilaterally. LABORATORY DATA: CBC showed a hemoglobin of 12.3, hematocrit of 37.6, platelet count 168,000, white blood cell count 9600 with a differential of 82% neutrophils, 11% lymphocytes, and 7% monocytes. Chemistry showed a sodium of 139, potassium 3.7, chloride 101, bicarbonate 31, anion gap 7, BUN 11, creatinine 0.3, glucose 339, calcium 8.4. Bronchoalveolar lavage (BAL) showed a few yeast-like organisms but otherwise was negative. I reviewed his chest x-ray, as well as the report from earlier today. That x-ray showed normal appearing cardiac silhouette, pulmonary vascular shadows. Normal appearing mediastinal region. There is a right lower lobe infiltrate. No consolidated region. ET tube is in good position. Yesterday's intake and output showed 4518 in and 1330 out, making him positive 3188. Weight 74.4 kg. IMPRESSION: 1. Acute hypoxic and hypercapnic respiratory failure secondary to pneumonia and malclearance of secretions leading to atelectasis. 2. Right lower lobe pneumonia. 3. Quadriparesis. Apparently at baseline he can minimally move three extremities but cannot move his left leg. 4. Diabetes mellitus, on sliding scale insulin. 5. History of seizures. 6. Hypertension. 7. DVT and stress ulcer prophylaxis in place. 8. Nutrition, tolerating full tube feeds. RECOMMENDATIONS: 1. Will go on to a weaning trial. 2. Continue current antibiotics and will begin to wean given bronchoscopy results. 3. Will continue full tube feeds pending evaluation for extubation. ADDENDUM #1: Mr. Jones went on for a weaning trial consisting of pressure support of 5 and PEEP of 5. He did well on that trial with a rapid shallow breathing index in the 30s. An arterial blood gas on these settings was 7.48/42/98 with a measured saturation of 98%. All of these aiyana well for extubation. Initially extubation was not considered as a vest or means of hyperinflation therapy was not available. ADDENDUM #2: The hoses for the vest became available this afternoon, and it was felt reasonable to extubate him with plans to use the vest and positioning to help with sputum clearance. He did well post-extubation, but he did not a great cough. We, therefore, instituted the vest and hypertonic saline nebulization and he had a good response to that therapy. Given that he is no longer on tube feeds, we will start gentle hydration. CRITICAL CARE TIME: 40 minutes not including procedure time. [facility]
[2018-11-29] VITALS (24 sets, daily range): BP systolic 124–160; BP diastolic 72–94; O2SAT 95–100
[2018-11-29] MEDS: levETIRAcetam INJection 1,500 MG in D5W 100 ML IV SCH ×2 (01:49→15:03)
[2018-11-29] MEDS: ALBUTEROL SULFATE 2.5 MG/0.5 ML INH NEB SOLN NEB SCH ×6 (04:03→23:47)
[2018-11-29] MEDS: VANCOMYCIN HCL 1,000 MG, VIAL MATE ADAPTER 1 EACH in D5W 250 ML IV SCH (05:22)
[2018-11-29] MEDS: HEPARIN SOD (PORCINE) 5000 UNITS/ML VIAL SC SCH ×3 (05:22→21:18)
[2018-11-29] MEDS: NYSTATIN 500,000 U/5 ML SUSP UDC PO SCH (05:23)
[2018-11-29 05:41] LABS: BASO % 0.1 % (0.0-1.0); EOS # 0.1 10^3/uL (0.0-0.50); EOS % 1.3 % (0.0-3.0); HEMATOCRIT 38.8 % (42.0-52.0); HEMOGLOBIN 12.8 g/dl (13.5-17.5); LYMPH # 1.1 10^3/uL (1.5-4.5); LYMPH % 12.9 % (24.0-44.0); MEAN CORPUSCULAR HEMOGLOBIN 27.8 pg (27.0-33.0); MEAN CORPUSCULAR VOLUME 84.2 fl (80.0-96.0); MONO # 0.6 10^3/uL (0.0-0.8); MONO % 7.6 % (0.0-5.0); NEUTROPHILS # 6.6 10^3/uL (1.8-7.7); NEUTROPHILS % 77.6 % (36.0-66.0); PLATELET COUNT, AUTOMATED 177 10^3/uL (150-450); RED BLOOD COUNT 4.61 10^6/uL (4.30-6.10); WHITE BLOOD COUNT 8.4 10^3/uL (4.0-10.0)
[2018-11-29 06:43] LABS: ALBUMIN 2.3 GM/DL (3.2-5.2); ALT/SGPT 30 U/L (12-78); BILIRUBIN,TOTAL 0.6 MG/DL (0.2-1.0); BLOOD UREA NITROGEN 8 MG/DL (7-18); CALCIUM LEVEL 8.1 MG/DL (8.5-10.1); CARBON DIOXIDE LEVEL 33 MEQ/L (21-32); CHLORIDE LEVEL 104 MEQ/L (98-107); CHOLESTEROL LEVEL 127 MG/DL (< 200); CPK CREATINE PHOSPHOKINASE 887 U/L (39-308); CREATININE FOR GFR 0.15 MG/DL (0.70-1.30); GLOMERULAR FILTRATION RATE > 60.0 (>56); GLUCOSE, FASTING 239 MG/DL (70-100); LDH LACTATE DEHYDROGENASE 355 U/L (87-241); MAGNESIUM LEVEL 1.8 MG/DL (1.8-2.4); PHOSPHORUS LEVEL 2.5 MG/DL (2.5-4.9); POTASSIUM SERUM 3.2 MEQ/L (3.5-5.1); SODIUM LEVEL 143 MEQ/L (136-145); TOTAL PROTEIN 5.2 GM/DL (6.4-8.2); TRIGLYCERIDES LEVEL 153 MG/DL (<150)
[2018-11-29] MEDS: HumaLOG INSULIN (NovoLOG) PER UNIT SC SCH ×4 (07:24→23:33)
[2018-11-29] MEDS: D5W/0.45% SODIUM CHLORIDE 1,000 ML IV SCH (07:53)
--- NOTE | 2018-11-29 09:01 | NUR ---
Pt w/ severe oropharyngeal phase dysphagia which is complicated by inability to self-feed & poor positioning. Recommend pureed solids and pudding thick liquids by spoon. Medications crushed in puree. Pt must be positioned upright and fed by staff only. Please give pt extra time to swallow and provide cues to tilt head up to right side. Please complete thorough oral care 3x/day w/ suction toothbrush. Addendum: 11/29/[address] [facility] Amended: Links added.
--- NOTE | 2018-11-29 09:14 | REP ---
AP PORTABLE CHEST: 11/29/2018. Comparison: 11/28, 11/27 and 11/26/2018. Clinical history: Extubated. Findings: Right sided central catheter again seen and unchanged, tip in SVC. The endotracheal tube has been removed. Consolidation with infiltrate and/or atelectasis or both in the right base persists with some effusion suspected as well. Left lung shows some linear atelectatic change. Subsegmental atelectasis with crowding of markings in the base. No gross effusion. Left atrium appears enlarged. The aorta is mildly tortuous, unchanged. Heart not grossly enlarged. Impression: 1. Endotracheal tube removed with slightly lesser degree of inflation overall. The consolidative opacity with atelectasis, infiltrate with probable effusion at the right base similar to yesterday's study. Left base now with a little more linear atelectatic change and crowding of markings but otherwise unchanged. 2. Indwelling central catheter on the right with tip in SVC unchanged. Electronically Signed by Clarence Obrien MD 11/29/2018 09:12 P
[2018-11-29] MEDS: methylPREDNISolone INJ 40 MG/1 ML VIAL (J2920) IV SCH (10:17)
[2018-11-29] MEDS: KCL 20MEQ IN 100ML SWI (KRUN) 20 MEQ in APPROPRIATE DILUENT 1 EA IV SCH ×6 (10:18→21:20)
[2018-11-29] MEDS: NYSTATIN 500,000 U/5 ML SUSP UDC SS SCH ×3 (13:16→23:33)
[2018-11-29] MEDS: LevoFLOXacin IV 750 MG in APPROPRIATE DILUENT 1 EA IV SCH (15:03)
[2018-11-29] MEDS: PANTOPRAZOLE 40MG INJ (PROTONIX) (C9113) IV SCH (18:08)
[2018-11-30] VITALS (41 sets, daily range): BP systolic 122–188; BP diastolic 72–105; O2SAT 97
[2018-11-30] MEDS: levETIRAcetam INJection 1,500 MG in D5W 100 ML IV SCH ×2 (01:58→14:17)
[2018-11-30] MEDS: ALBUTEROL SULFATE 2.5 MG/0.5 ML INH NEB SOLN NEB SCH ×6 (04:24→23:34)
[2018-11-30] MEDS: D5W/0.45% SODIUM CHLORIDE 1,000 ML IV SCH (05:10)
[2018-11-30 05:33] LABS: BASO % 0.1 % (0.0-1.0); EOS # 0.3 10^3/uL (0.0-0.50); EOS % 2.9 % (0.0-3.0); HEMATOCRIT 43.8 % (42.0-52.0); HEMOGLOBIN 14.1 g/dl (13.5-17.5); LYMPH # 1.4 10^3/uL (1.5-4.5); LYMPH % 13.8 % (24.0-44.0); MEAN CORPUSCULAR HEMOGLOBIN 27.4 pg (27.0-33.0); MEAN CORPUSCULAR HGB CONC 32.2 g/dl (32.0-36.5); MEAN CORPUSCULAR VOLUME 85.2 fl (80.0-96.0); MONO # 0.8 10^3/uL (0.0-0.8); MONO % 8.1 % (0.0-5.0); NEUTROPHILS # 7.3 10^3/uL (1.8-7.7); NEUTROPHILS % 74.3 % (36.0-66.0); PLATELET COUNT, AUTOMATED 217 10^3/uL (150-450); RED BLOOD COUNT 5.14 10^6/uL (4.30-6.10); WHITE BLOOD COUNT 9.8 10^3/uL (4.0-10.0)
[2018-11-30 05:57] LABS: ALBUMIN 2.5 GM/DL (3.2-5.2); ALT/SGPT 34 U/L (12-78); BILIRUBIN,TOTAL 0.7 MG/DL (0.2-1.0); BLOOD UREA NITROGEN 5 MG/DL (7-18); CALCIUM LEVEL 8.4 MG/DL (8.5-10.1); CARBON DIOXIDE LEVEL 37 MEQ/L (21-32); CHLORIDE LEVEL 100 MEQ/L (98-107); CHOLESTEROL LEVEL 143 MG/DL (< 200); CPK CREATINE PHOSPHOKINASE 874 U/L (39-308); CREATININE FOR GFR 0.15 MG/DL (0.70-1.30); GLOMERULAR FILTRATION RATE > 60.0 (>56); GLUCOSE, FASTING 169 MG/DL (70-100); LDH LACTATE DEHYDROGENASE 322 U/L (87-241); MAGNESIUM LEVEL 1.5 MG/DL (1.8-2.4); PHOSPHORUS LEVEL 2.9 MG/DL (2.5-4.9); POTASSIUM SERUM 3.3 MEQ/L (3.5-5.1); SODIUM LEVEL 142 MEQ/L (136-145); TOTAL PROTEIN 5.6 GM/DL (6.4-8.2); TRIGLYCERIDES LEVEL 228 MG/DL (<150)
[2018-11-30] MEDS: NYSTATIN 500,000 U/5 ML SUSP UDC SS SCH ×4 (06:09→23:58)
[2018-11-30] MEDS: HEPARIN SOD (PORCINE) 5000 UNITS/ML VIAL SC SCH ×3 (06:09→21:58)
[2018-11-30] MEDS: HumaLOG INSULIN (NovoLOG) PER UNIT SC SCH ×4 (06:10→23:59)
[2018-11-30] MEDS: KCL 20MEQ IN 100ML SWI (KRUN) 20 MEQ in APPROPRIATE DILUENT 1 EA IV SCH ×6 (07:22→08:31)
[2018-11-30] MEDS: methylPREDNISolone INJ 40 MG/1 ML VIAL (J2920) IV SCH (08:32)
[2018-11-30] MEDS ORDERED: MIDAZOLAM INJ 2 MG/2 ML VIAL (J2250) As Ordered ONE ×2 (08:50→08:51)
[2018-11-30] MEDS ORDERED: LIDOCAINE 1% MDV 20ML VIAL As Ordered ONE (08:52)
[2018-11-30] MEDS ORDERED: FLUMAZENIL 0.5 MG/5 ML VIAL As Ordered ONE (08:53)
[2018-11-30] MEDS ORDERED: POTASSIUM CHLORIDE 10% LIQ 20 MEQ/15 ML UDC PO SCH (09:00)
--- NOTE | 2018-11-30 09:12 | REP ---
Portable chest, 06:43 a.m., single AP view, the patient upright: Comparison is 11/29/2018. There is a large opacity occupying the inferior three force of the right hemithorax, increased in size. This is likely a combination of infiltrate and effusion. Left lung remains clear. Cardiac size is normal. There is a right IJ central venous catheter with the tip in the superior vena cava, unchanged. Impression: Enlarging large opacity in the right hemithorax as described Electronically Signed by Kenroy Srinivasan MD 11/30/2018 09:05 A
[2018-11-30] MEDS ORDERED: MIDAZOLAM INJ 2 MG/2 ML VIAL (J2250) IV STA (09:20)
[2018-11-30] MEDS ORDERED: LIDOCAINE 1% MDV 20ML VIAL SC ONE (09:30)
[2018-11-30] MEDS ORDERED: MAG SULF 1GM/100ML (MAG RUN) 1 GM in APPROPRIATE DILUENT 1 EA IV ONE (10:45)
--- NOTE | 2018-11-30 10:56 | REP ---
AP PORTABLE CHEST: 11/30/2018 at 9:34 AM. Comparison: AP chest earlier this AM, 11/29/2018, 11/28/2018. Clinical history: Post bronchoscopy. Findings: Right jugular central catheter is again seen. There is slightly improved inflation since this morning. Elevation of the right diaphragm with volume loss noted. Some air bronchograms with compressive atelectasis and opacity in the perihilar region again seen but less patchy opacity above them. Visualized portion of the mid and lower left lung intact. The left upper lobe is obscured by the patient's mandible. No other change. No pneumothorax. Electronically Signed by Clarence Obrien MD 11/30/2018 02:21 P
[2018-11-30] MEDS: LevoFLOXacin IV 750 MG in APPROPRIATE DILUENT 1 EA IV SCH (14:17)
[2018-11-30] MEDS ORDERED: VARIBAR PUDDING 40% w/v 230ML TUBE As Ordered ONE (15:42)
[2018-11-30] MEDS ORDERED: E-Z-PAQUE 96% w/w SUSP 176GM BTL As Ordered ONE (15:43)
[2018-11-30] MEDS ORDERED: VARIBAR NECTAR 40% w/v 240ML SUSP BTL As Ordered ONE (15:43)
[2018-11-30] MEDS ORDERED: BARIUM SULFATE 700 MG TABLET (E-Z-DISK) As Ordered ONE (15:57)
[2018-11-30] MEDS: KCL 20MEQ IN D5/0.45NS 1000ML 1,000 ML IV SCH (16:00)
--- NOTE | 2018-11-30 16:27 | IPN ---
DATE: 11/30/2018 NOTE: Mr. Jones did reasonably well post-extubation. However, despite aggressive pulmonary hyperinflation therapy, his chest x-ray this morning again showed partial collapse of the right lung. He underwent bronchoscopy which again showed significant secretions. This time, they were pooled toward the end of the bronchus intermedius. These were easily evacuated. Prior to starting that procedure, he indicated that he was getting enough air. He has a cough that is weak. It had seemed more vigorous when he was stimulated on the ventilator and even immediately post-extubation. He did tolerate feedings with thickened liquids and pureed food. He continues to have difficulty with hypokalemia which he had a difficulty with as an outpatient. No new problems overnight. OBJECTIVE: PHYSICAL EXAMINATION: Temperature 97.7 with a maximum temperature (Tmax) of 98, pulse 91, blood pressure 149/87 with a mean arterial pressure (MAP) of 107, SpO2 initially was 91% on 2 liters and then 97% on 2 liters after the bronchoscopy. HEENT: Mildly injected sclerae, pupils equal, round, and reactive to light. Nares: Patent bilaterally, moist mucosa. Oropharynx: Clear, no lesions. Neck: Without jugular venous distention (JVD), without thyromegaly, trachea initially deviated slightly to the right. CHEST: Normal shape. Lungs: Symmetric excursion, near absent breath sounds on the right, clear on the left (pre-bronchoscopy). He is clear bilaterally post-bronchoscopy. Normal I:E. No accessory muscle usage or retractions. No wheeze or crackle or significant rhonchi. CARDIOVASCULAR: Regular rate and rhythm with a normal S1 and S2, no murmur, rub, or gallop appreciated. ABDOMEN: Positive bowel sounds, soft, nondistended, nontender, no hepatosplenomegaly or masses appreciated. EXTREMITIES: Warm and well perfused, without clubbing, cyanosis, or edema, palpable pedal pulses bilaterally. LABORATORY DATA: CBC from this morning showed a hemoglobin of 14.1, hematocrit 43.8, platelet count 217,000, white blood cell count 9800 with a differential of 74% neutrophils, 14% lymphocytes, and 8% monocytes. Chemistry shows sodium 142, potassium 3.3, chloride 100, bicarbonate 37, anion gap, BUN 5, creatinine 0.2, glucose 169, calcium 8.4, phosphorous 2.9, magnesium 1.5, total bilirubin 0.7, AST 59, ALT 34, alkaline phosphatase 88, LDH 322 (down from 355), CK 874 (down from 887), total protein 5.6, albumin 2.2. Yesterday's intake and output were 2550 in and 3675 out, making him negative 1125. Thus far today, 415 in and 1400 out, making him negative 985. Weight 70.5 kg. I reviewed his chest x-ray as well as the report from earlier today. That x-ray showed partial collapse of the right lung with deviation of the trachea toward that side. The level of atelectasis has increased from yesterday. What is seen of the cardiac silhouette appears normal as does his mediastinal region. I reviewed the chest x-ray as well as the report after bronchoscopy which showed increased inflation of the right lung with an elevation of the right hemidiaphragm. There remain some atelectasis more in the perihilar region. Left lung remains clear. IMPRESSION: 1. Acute hypoxemic respiratory failure secondary to likely pneumonia and mal-clearance of secretions leading to atelectasis. 2. Recurrence of atelectasis with mal-clearance of secretions. Cultures have remained negative and he has a normal white count. It should be noted that in suctioning routinely after his initial bronchoscopy pill fragments were obtained from his secretions which would be consistent with aspiration. 3. Possible right lower lobe pneumonia, on Levaquin. Cultures negative. He did have a history of respiratory syncytial virus (RSV) perhaps 2 weeks ago. 4. Essentially quadriparesis. At baseline he can minimally move three extremities but does not move his left leg. 5. Diabetes mellitus, on sliding scale insulin. 6. History of seizures. 7. Hypertension. 8. Hypokalemia, he has difficulties with hypokalemia at baseline. 9. Bullous pemphigoid. Followed by dermatology. Their recommendation is that he remain on 30 mg of prednisone until he is seen again by them. RECOMMENDATIONS: 1. Continue to work with speech therapy in regards to nutrition and appropriate feedings. 2. Will need aspiration precautions as it is clear from the substances in his secretions (such as pill fragments) that he is aspirating at baseline. 3. Will try to move toward more of an oral supplementation of his hypokalemia. He was on 60 mg routinely as an outpatient. 4. Continue current seizure medications. 5. Will decrease his Solu-Medrol to the equivalent of 30 mg of Solu-Medrol (24 mg) as it was recommended by dermatology that he stay on this level until he is seen again by them. JEREMYD
--- NOTE | 2018-11-30 16:40 | NUR ---
Exam is largely inconclusive as pt unable to initiate swallow response. Recommend NPO. Will f/u dysphagia tx for vocal fold adduction exercises and to re-assess safety of PO intake as tolerated by pt. Addendum: 11/30/18 at [address] [facility] Amended: Links added.
[2018-11-30] MEDS: PANTOPRAZOLE 40MG INJ (PROTONIX) (C9113) IV SCH (18:03)
--- NOTE | 2018-11-30 19:27 | REP ---
VALIE SWALLOW The procedure was performed under the direct supervision of Dr. Obrien. The procedure was performed with Kanika Vazquez from speech pathology present. A 5 ml aliquots of pudding consistency barium was administered. The patient, however, was unable to initiate a swallow response. The detailed report of this examination will be provided by speech pathology. 2 minutes of fluoroscopy time was utilized for this procedure. Reviewed by TORIBIO Sanchez 11/30/2018 04:53 P Electronically Signed by Clarence Obrien MD 11/30/2018 07:18 P
--- NOTE | 2018-11-30 23:15 | RO ---
DATE OF PROCEDURE: 11/30/2018 PREPROCEDURE DIAGNOSIS: Right-sided partial atelectasis from malclearance of secretions. POSTPROCEDURE DIAGNOSIS: Right-sided partial atelectasis from malclearance of secretions. OPERATIVE PROCEDURE: Bronchoscopy with aspiration of secretions. SURGEON: Jojo Chris MD MEDICAL RECORDS MANAGER: ANESTHESIA: DESCRIPTION OF PROCEDURE: Procedure explained and patient consented to both myself and nurse by nodding his head. He was given 4 mg of Versed. He was bagged during the procedure. The bronchoscope was introduced through the mask into his left nares and down to the vocal cords. The vocal cords were normal in appearance and appeared to move well. He did not, however, require any lidocaine to go past the cords into the trachea. There were secretions that were welling up at the end of the bronchus intermedius. These were aspirated. No significant mucus plugs. He would cough and the secretions would well up come up predominantly from the right lower lobe and those were aspirated. When this was no longer occurring the bronchoscope was withdrawn. Overall his mucosa on the right was very beefy and red. Surprisingly it was not friable. The mucosa on the left was mildly erythematous, but far less edematous. There were no significant secretions on the left. Tolerated well. Postoperative chest x-ray showed essential clearing of the atelectasis and he now appeared to have a residual right elevated hemidiaphragm. FINDINGS: [place] of secretions to the bottom of the bronchus intermedius. SPECIMENS: None. JEREMYD
[2018-12-01] VITALS (24 sets, daily range): BP systolic 121–194; BP diastolic 76–102; O2SAT 96–98
[2018-12-01] MEDS: levETIRAcetam INJection 1,500 MG in D5W 100 ML IV SCH ×2 (02:02→13:45)
[2018-12-01] MEDS: ALBUTEROL SULFATE 2.5 MG/0.5 ML INH NEB SOLN NEB SCH ×6 (04:19→23:47)
[2018-12-01] MEDS: KCL 20MEQ IN D5/0.45NS 1000ML 1,000 ML IV SCH (05:31)
[2018-12-01] MEDS: HumaLOG INSULIN (NovoLOG) PER UNIT SC SCH ×3 (05:31→18:42)
[2018-12-01] MEDS: NYSTATIN 500,000 U/5 ML SUSP UDC SS SCH ×3 (05:31→18:42)
[2018-12-01] MEDS: HEPARIN SOD (PORCINE) 5000 UNITS/ML VIAL SC SCH ×3 (05:31→21:52)
[2018-12-01 05:58] LABS: BASO % 0.2 % (0.0-1.0); EOS # 0.3 10^3/uL (0.0-0.50); EOS % 4.1 % (0.0-3.0); HEMATOCRIT 41.9 % (42.0-52.0); HEMOGLOBIN 13.6 g/dl (13.5-17.5); LYMPH # 1.4 10^3/uL (1.5-4.5); LYMPH % 17.2 % (24.0-44.0); MEAN CORPUSCULAR HEMOGLOBIN 27.9 pg (27.0-33.0); MEAN CORPUSCULAR HGB CONC 32.5 g/dl (32.0-36.5); MEAN CORPUSCULAR VOLUME 85.9 fl (80.0-96.0); MONO # 0.7 10^3/uL (0.0-0.8); MONO % 8.8 % (0.0-5.0); NEUTROPHILS # 5.7 10^3/uL (1.8-7.7); NEUTROPHILS % 68.7 % (36.0-66.0); PLATELET COUNT, AUTOMATED 215 10^3/uL (150-450); RED BLOOD COUNT 4.88 10^6/uL (4.30-6.10); WHITE BLOOD COUNT 8.3 10^3/uL (4.0-10.0)
[2018-12-01 06:12] LABS: ALBUMIN 2.4 GM/DL (3.2-5.2); ALT/SGPT 33 U/L (12-78); BILIRUBIN,TOTAL 0.7 MG/DL (0.2-1.0); BLOOD UREA NITROGEN 9 MG/DL (7-18); CALCIUM LEVEL 8.1 MG/DL (8.5-10.1); CARBON DIOXIDE LEVEL 36 MEQ/L (21-32); CHLORIDE LEVEL 100 MEQ/L (98-107); CHOLESTEROL LEVEL 134 MG/DL (< 200); CPK CREATINE PHOSPHOKINASE 555 U/L (39-308); CREATININE FOR GFR 0.15 MG/DL (0.70-1.30); GLOMERULAR FILTRATION RATE > 60.0 (>56); GLUCOSE, FASTING 191 MG/DL (70-100); LDH LACTATE DEHYDROGENASE 278 U/L (87-241); MAGNESIUM LEVEL 1.6 MG/DL (1.8-2.4); POTASSIUM SERUM 3.4 MEQ/L (3.5-5.1); SODIUM LEVEL 141 MEQ/L (136-145); TOTAL PROTEIN 5.3 GM/DL (6.4-8.2); TRIGLYCERIDES LEVEL 213 MG/DL (<150)
[2018-12-01] MEDS: methylPREDNISolone INJ 40 MG/1 ML VIAL (J2920) IV SCH (08:07)
--- NOTE | 2018-12-01 08:35 | REP ---
Chest one-view HISTORY: Intubation Comparison: 11/30/2018 Parenchymal density is present in the right lower lobe consistent with atelectasis or infiltrate. A mild size right pleural effusion is present. Linear densities are present in the left lower lobe consistent with atelectasis or scar. The heart is normal in size. The pulmonary vasculature is normal in appearance. A PICC line is present in the superior vena cava. Impression: 1. Right lower lobe atelectasis or infiltrate. 2. Mild size right pleural effusion. 3. Left lower lobe atelectasis or scar. Electronically Signed by Mikal Johnson MD 12/01/2018 08:27 A
[2018-12-01] MEDS ORDERED: KCL 20MEQ IN 100ML SWI (KRUN) 20 MEQ in APPROPRIATE DILUENT 1 EA IV SCH ×2 (09:00)
[2018-12-01] MEDS: KCL 20MEQ IN 100ML SWI (KRUN) 100 ML IV SCH ×3 (09:00→11:17)
[2018-12-01] MEDS: KCL 40MEQ IN D5/0.45NS 1000ML 1,000 ML IV SCH (09:58)
--- NOTE | 2018-12-01 10:10 | CCN ---
DATE: 12/01/2018 START TIME: 829 STOP TIME: 925 I attended Adolph Jones here in the intensive care unit (ICU). The patient has been examined and the chart has been reviewed. I have spoken at length with the patient at the bedside, as well as his father, who is his decision maker, by phone. He remains extubated on high flow nasal cannula. His cough is very poor in efficiency. He is unable to adequately swallow and has poor initiation of cough actually. Maximum temperature (t-max) overnight 97.9, blood pressure 131/40, heart rate is in the 50s to 70s with sinus mechanism, respiratory rate 17 to 19 and is unlabored. Pulse oximetry remains 90 to 100% on 2 liters high flow cannula. Chest x-ray this morning compared to yesterday shows atelectasis of the right lower lobe. Most recent laboratories show a white blood cell count of 8.3, hemoglobin 13.6, platelet count 258,000, 68.7% segmented neutrophils, no bands. Sodium 141, potassium 3.4, chloride 101, CO2 of 36, BUN 9, creatinine 0.15. Liver function tests unremarkable. LDH down to 278. CK 555, albumin 2.4. PHYSICAL EXAMINATION: He has his weakness noted chronically. He is easily arousable. He is awake and interactive. He is able to respond by pointing, as well as shaking of his head and nodding. Pupils do react, sclerae clear. Membranes are moist. Trachea is in the midline. Chest shows diminished but symmetric expansion. Decreased breath sound intensity at the right base. There are some rhonchi. No convincing wheeze. Cardiac exam is regular. Peripheral pulses are palpable with trace edema. Abdomen is soft with active bowel sounds. No convincing hepatosplenomegaly or masses. Extremities without cyanosis or clubbing. Neurologically, his weakness is again noted. The most pressing problems requiring my immediate presence at the bedside are: 1. Malclearance of secretions. 2. Hypoxemic respiratory failure, oxygen requiring. 3. Quadriparesis secondary to previous brain injury. 4. Aspiration. I had a very lengthy discussion with the patient and as well with his father, who is his decision maker. Given the above chain of events, we are the point where continued bronchoscopy and bruising of his airways is counterproductive. We need to aide him in secretion clearance or limit his care. The patient clearly wishes to proceed with tracheostomy and feeding tube placement. His father certainly agrees with honoring his wishes. I spoke with Dr. Garcia from ENT and Dr. Coelho from general surgery. I am hopeful that we can get tracheostomy and feeding jejunostomy done in the next 24 to 48 hours. In the interim, he is nothing by mouth. We will continue IV hydration. If we are not able to get his feeding tube done today, then we will need to place a nasogastric tube and gingerly feed him that way, although that does not at all limit his aspiration risk. We will continue on current antimicrobials as he is on Levaquin. Ulcer and deep vein thrombosis (DVT) prophylaxis are in place. In the interim, we will also continue to push our current interventions regarding secretion clearance, but clearly now he is not able to get even 24 to 48 hours without needing other intervention. In view of the above, his prognosis is guarded, at best. We will continue as outlined above. I left the bedside at 0926, a total of 56 minutes of time was spent at the bedside and in coordination of care, that does not include procedures.
[2018-12-01 10:35] LABS: PROTHROMBIN TIME 13.3 SECONDS (12.1-14.4)
[2018-12-01 10:36] LABS: PARTIAL THROMBOPLASTIN TIME 29.4 SECONDS (25.4-37.6)
[2018-12-01 13:48] LABS: BLOOD UREA NITROGEN 7 MG/DL (7-18); CARBON DIOXIDE LEVEL 34 MEQ/L (21-32); CHLORIDE LEVEL 101 MEQ/L (98-107); CREATININE FOR GFR 0.22 MG/DL (0.70-1.30); GLOMERULAR FILTRATION RATE > 60.0 (>56); GLUCOSE, FASTING 266 MG/DL (70-100); POTASSIUM SERUM 4.6 MEQ/L (3.5-5.1); SODIUM LEVEL 139 MEQ/L (136-145)
[2018-12-01] MEDS: LevoFLOXacin IV 750 MG in APPROPRIATE DILUENT 1 EA IV SCH (14:09)
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
[2018-12-01] MEDS ORDERED: fentaNYL 250 MCG/5 ML INJECTION (J3010) As Ordered ONE (16:09)
[2018-12-01] MEDS ORDERED: dexameTHASONE 4 MG/ML 1ML VIAL (J1100) As Ordered ONE (16:09)
[2018-12-01] MEDS ORDERED: PHENYLephrine HCL 500 MCG/5 ML (100MCG/ML) SYRINGE (J2370) As Ordered ONE (16:09)
[2018-12-01] MEDS ORDERED: LIDOCAINE 2% INJ 100 MG/5 ML SDV (FOR ANES.) As Ordered ONE (16:09)
[2018-12-01] MEDS ORDERED: ONDANSETRON 4MG/2ML VIAL (J2405) As Ordered ONE (16:09)
[2018-12-01] MEDS ORDERED: PROPOFOL 200 MG/20 ML VIAL As Ordered ONE (16:09)
[2018-12-01] MEDS ORDERED: MIDAZOLAM INJ 2 MG/2 ML VIAL (J2250) As Ordered ONE (16:09)
[2018-12-01] MEDS ORDERED: ROCURONIUM BROMIDE 50 MG/5 ML VIAL As Ordered ONE (16:09)
[2018-12-01] MEDS ORDERED: SUGAMMADEX SODIUM 500 MG/5 ML VIAL (BRIDION) As Ordered ONE (16:13)
[2018-12-01] MEDS ORDERED: LIDOCAINE W/EPINEPHRINE 1% 20ML VIAL As Ordered ONE (17:30)
--- NOTE | 2018-12-01 18:36 | REP ---
Portable chest, 05:49 p.m., single AP view, patient sitting: Comparison is the portable chest performed earlier today. There is a tracheostomy tube with the tip overlying the trachea above the [place]. The lower lung del angel are obscured by patient positioning or high diaphragms or bilateral pleural effusions/infiltrates. The visualized upper lung zones are clear. There is a right subclavian central venous catheter with the tip in the superior vena cava, unchanged. Impression: Tracheostomy tube is in satisfactory location in this single projection. The lower lung del angel are obscured as described. Electronically Signed by Kenroy Srinivasan MD 12/01/2018 06:27 P
[2018-12-01] MEDS: PANTOPRAZOLE 40MG INJ (PROTONIX) (C9113) IV SCH (18:41)
[2018-12-01] MEDS: NEBIVOLOL 5 MG TAB (BYSTOLIC) PO SCH ×2 (20:00→22:17)
[2018-12-01] MEDS: ATORVASTATIN 20 MG TAB PO SCH (21:52)
[2018-12-02] VITALS (26 sets, daily range): BP systolic 112–139; BP diastolic 66–82; O2SAT 96–98
[2018-12-02] MEDS: HumaLOG INSULIN (NovoLOG) PER UNIT SC SCH ×5 (00:52→23:57)
[2018-12-02] MEDS: NYSTATIN 500,000 U/5 ML SUSP UDC SS SCH ×5 (00:52→23:57)
[2018-12-02] MEDS: KCL 40MEQ IN D5/0.45NS 1000ML 1,000 ML IV SCH ×2 (02:14→14:55)
[2018-12-02] MEDS: levETIRAcetam INJection 1,500 MG in D5W 100 ML IV SCH ×2 (02:14→14:07)
[2018-12-02] MEDS: ALBUTEROL SULFATE 2.5 MG/0.5 ML INH NEB SOLN NEB SCH ×5 (04:30→20:10)
[2018-12-02 05:56] LABS: BASO % 0.2 % (0.0-1.0); EOS # 0.1 10^3/uL (0.0-0.50); EOS % 0.5 % (0.0-3.0); HEMATOCRIT 41.4 % (42.0-52.0); HEMOGLOBIN 13.4 g/dl (13.5-17.5); LYMPH # 0.9 10^3/uL (1.5-4.5); LYMPH % 10.1 % (24.0-44.0); MEAN CORPUSCULAR HEMOGLOBIN 27.5 pg (27.0-33.0); MEAN CORPUSCULAR HGB CONC 32.4 g/dl (32.0-36.5); MEAN CORPUSCULAR VOLUME 84.8 fl (80.0-96.0); MONO # 0.6 10^3/uL (0.0-0.8); MONO % 6.8 % (0.0-5.0); NEUTROPHILS # 7.6 10^3/uL (1.8-7.7); NEUTROPHILS % 81.5 % (36.0-66.0); PLATELET COUNT, AUTOMATED 208 10^3/uL (150-450); RED BLOOD COUNT 4.88 10^6/uL (4.30-6.10); WHITE BLOOD COUNT 9.3 10^3/uL (4.0-10.0)
[2018-12-02 06:15] LABS: ALBUMIN 2.4 GM/DL (3.2-5.2); ALT/SGPT 30 U/L (12-78); BILIRUBIN,TOTAL 0.6 MG/DL (0.2-1.0); BLOOD UREA NITROGEN 8 MG/DL (7-18); CALCIUM LEVEL 8.4 MG/DL (8.5-10.1); CARBON DIOXIDE LEVEL 35 MEQ/L (21-32); CHLORIDE LEVEL 100 MEQ/L (98-107); CHOLESTEROL LEVEL 140 MG/DL (< 200); CPK CREATINE PHOSPHOKINASE 401 U/L (39-308); CREATININE FOR GFR 0.16 MG/DL (0.70-1.30); GLOMERULAR FILTRATION RATE > 60.0 (>56); GLUCOSE, FASTING 219 MG/DL (70-100); LDH LACTATE DEHYDROGENASE 254 U/L (87-241); MAGNESIUM LEVEL 1.6 MG/DL (1.8-2.4); PHOSPHORUS LEVEL 2.7 MG/DL (2.5-4.9); POTASSIUM SERUM 3.9 MEQ/L (3.5-5.1); SODIUM LEVEL 140 MEQ/L (136-145); TOTAL PROTEIN 5.1 GM/DL (6.4-8.2); TRIGLYCERIDES LEVEL 179 MG/DL (<150)
[2018-12-02] MEDS: HEPARIN SOD (PORCINE) 5000 UNITS/ML VIAL SC SCH ×3 (06:31→21:19)
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
--- NOTE | 2018-12-02 07:47 | REP ---
Portable chest, 06:50 a.m., single AP view, the patient upright: Comparison is 12/01/2018. The tracheostomy remains in satisfactory position, unchanged. The right subclavian central venous catheter remains in satisfactory position, unchanged. The lower lung del angel are again obscured by high diaphragms. There is atelectasis above the right hemidiaphragm. The visualized lung del angel otherwise clear. Impression: Atelectasis above the elevated right hemidiaphragm. Otherwise, no interval change. Electronically Signed by Kenroy Srinivasan MD 12/02/2018 07:38 A
[2018-12-02] MEDS: NEBIVOLOL 5 MG TAB (BYSTOLIC) PO SCH (08:45)
[2018-12-02] MEDS: methylPREDNISolone INJ 40 MG/1 ML VIAL (J2920) IV SCH (08:46)
[2018-12-02] MEDS ORDERED: POTASSIUM CHLORIDE 10 MEQ SR TABLET PO SCH (09:00)
[2018-12-02] MEDS ORDERED: amLODIPine 5 MG TAB PO SCH (09:00)
[2018-12-02] MEDS: ACETAMINOPHEN 325 MG/10.15 ML UDC GT PRN (09:44)
--- NOTE | 2018-12-02 11:30 | RO ---
DATE OF PROCEDURE: 12/01/2018 PREPROCEDURE DIAGNOSIS: Respiratory failure. POSTPROCEDURE DIAGNOSIS: Respiratory failure. PROCEDURE: Tracheotomy. SURGEON: Dr. Wilbur Garcia. BRANCH OFFICER: Ze Sarmiento PA-C ANESTHESIA: General. DESCRIPTION OF PROCEDURE: Under general anesthesia with the patient intubated, the patient was draped in the usual manner. I marked out the incision. I divided the skin, subcutaneous tissues and excised the old tracheotomy site. Bleeding was controlled with cautery. I dissected down to the trachea. A small hole was made into the trachea 1.5 cm below the cricoid. I then opened up the trachea inferiorly and laterally. Once this was done, then we removed the endotracheal tube. Once it was out of view, the #8 Shiley cup fenestrated tube was placed. It was sutured into place with #2-0 silk. The ties were placed. The airway was suctioned. Patient tolerated the procedure well. Almost no blood loss. The patient was then prepped for the gastrostomy.
--- NOTE | 2018-12-02 12:16 | IPNPDOC ---
Subjective General Date/Time Seen The patient was seen on 12/02/18 at 11:56. Subject Chief Complaint/History The patient is a 58-year-old male admitted with a reason for visit of Acute Respiratory Failure With Hypoxia. Patient is examined at bedside while his dressing is being changed. Patient is s/p tracheostomy and PEG tube insertion 12/01/18 evening. Patient has been receiving PO meds through PEG tube. Patient is afebrile with no leukocytosis. No ROS can be obtained d/t patient's mental status. Current Medications Current Medications Current Medications Acetaminophen (Tylenol Suppository) 650 mg Q4HP PRN AR MILD PAIN OR FEVER Last administered on 12/01/18at 22:18; Start 11/26/18 at 14:30; Stop 12/02/18 at 09:13; Status DC Acetaminophen (Tylenol Suspension) 650 mg Q4HP PRN GT PAIN OR FEVER Last administered on 12/02/18at 09:44; Start 12/02/18 at 09:15 Albuterol Sulfate (Proventil Neb) 2.5 mg Q2HP PRN NEB SHORTNESS OF BREATH Last administered on 11/29/18at 05:35; Start 11/26/18 at 14:30 Albuterol Sulfate (Proventil Neb) 2.5 mg RQ4H NEB Last administered on 12/02/18at 07:56; Start 11/26/18 at 16:00 Amlodipine Besylate (Norvasc) 5 mg DAILY PO ; Start 12/02/18 at 09:00; Status Cancel Atorvastatin Calcium (Lipitor) 80 mg QHS PO Last administered on 12/01/18at 21:52; Start 12/01/18 at 21:00 Bisacodyl (Dulcolax Suppository) 10 mg DAILYPRN PRN AR CONSTIPATION; Start 11/26/18 at 14:30 Chlorhexidine Gluconate (Peridex Oral Rinse) SWAB/BRUSH ORAL CAVITY BID MT Last administered on 11/28/18at 08:26; Start 11/26/18 at 21:00; Stop 11/28/18 at 16:25 ; Status DC Dextrose (Dextrose 50%) 25 ml ASDIRECTED PRN IV SEE LABEL COMMENTS; Start 11/27/18 at 01:00 Dextrose/Sodium Chloride 1,000 ml @ 50 mls/hr Q20H IV Last administered on 11/30/18at 05:10; Start 11/28/18 at 18:00; Stop 11/30/18 at 15:28; Status DC Glucagon (Glucagon) 1 mg ASDIRECTED PRN SC SEE LABEL COMMENTS; Start 11/27/18 at 01:00 Glucose (Glucose) 16 GM ASDIRECTED PRN PO SEE LABEL COMMENTS; Start 11/27/18 at 01:00 Heparin Sodium (Porcine) (Heparin) 5,000 units Q8H SC Last administered on 12/02/18at 06:31; Start 11/26/18 at 14:00 Home Med (Med Rec Complete!) ASDIRECTED XX ; Start 11/26/18 at 14:45; Stop 11/26/18 at 14:45; Status DC Insulin Human Lispro (HumaLOG INSULIN) SEE PROTOCOL TABLE Q6H SC Last administered on 12/02/18at 06:31; Start 11/27/18 at 00:00 Levetiracetam 1500 mg/Dextrose 115 ml @ 460 mls/hr Q12H IV Last administered on 12/02/18at 02:14; Start 11/27/18 at 02:00 Levofloxacin 750 mg/IV Miscellaneous Supplies 150 ml @ 100 mls/hr Q24H IV Last administered on 12/01/18at 14:09; Start 11/27/18 at 15:00 Methylprednisolone (SOLU medrol) 24 mg DAILY IV Last administered on 12/02/18at 08:46; Start 12/01/18 at 09:00 Methylprednisolone (SOLU medrol) 30 mg DAILY IV Last administered on 11/30/18at 08:32; Start 11/29/18 at 09:00; Stop 11/30/18 at 09:24; Status DC Methylprednisolone (SOLUmedrol) 48 mg DAILY IV ; Start 11/27/18 at 09:00; Stop 11/27/18 at 13:36; Status DC Methylprednisolone (SOLUmedrol) 50 mg DAILY IV Last administered on 11/28/18at 08:25; Start 11/27/18 at 09:00; Stop 11/28/18 at 09:45; Status DC Midazolam HCl (Versed) 2 mg Q15MP PRN IV AGITATION Last administered on 11/26/18at 16:33; Start 11/26/18 at 14:30; Stop 11/28/18 at 16:25; Status DC Midazolam HCl (Versed) 4 mg STAT STAT IV Last administered on 11/30/18at 10:10; Start 11/30/18 at 09:20; Stop 11/30/18 at 09:23; Status DC Morphine Sulfate (Morphine Sulfate Inj) 2 mg Q2HP PRN IV PAIN Last administered on 11/28/18at 11:18; Start 11/26/18 at 14:30; Stop 11/28/18 at 16:25; Status DC Nebivolol (Bystolic) 10 mg DAILY PO Last administered on 12/01/18at 22:17; Start 12/01/18 at 20:00 Nystatin (Mycostatin) 1 ml Q6H PO Last administered on 11/29/18at 05:23; Start 11/27/18 at 12:00; Stop 11/29/18 at 12:11; Status DC Nystatin (Mycostatin) 5 ml Q6H SS Last administered on 12/02/18at 06:30; Start 11/29/18 at 12:00 Ondansetron HCl (ZOFRAN INJection) 4 mg Q6HP PRN IV NAUSEA OR VOMITING; Start 11/26/18 at 14:30 Pantoprazole Sodium (Protonix) 40 mg Q24H IV Last administered on 12/01/18at 18:41; Start 11/26/18 at 18:00 Piperacillin Sod/ Tazobactam Sod 3.375 gm/Dextrose 50 ml @ 50 mls/hr RQ8H IV ; Start 11/26/18 at 16:00; Stop 11/26/18 at 16:00; Status DC Potassium Chloride 20 meq/ IV Miscellaneous Supplies 100 ml @ 100 mls/hr 0500,0600,0700 IV Last administered on 11/27/18at 06:58; Start 11/27/18 at 05:00; Stop 11/27/18 at 13:00; Status DC Potassium Chloride 20 meq/ IV Miscellaneous Supplies 100 ml @ 100 mls/hr 0700,0800 IV Last administered on 11/30/18at 08:31; Start 11/30/18 at 07:00; Stop 11/30/18 at 11:00; Status DC Potassium Chloride 20 meq/ IV Miscellaneous Supplies 100 ml @ 100 mls/hr 0700,0800,0900 IV Last administered on 11/28/18at 10:34; Start 11/28/18 at 07:00; Stop 11/28/18 at 12:00; Status DC Potassium Chloride 20 meq/ IV Miscellaneous Supplies 100 ml @ 100 mls/hr DAILY IV Last administered on 12/01/18at 08:08; Start 12/01/18 at 09:00; Stop 12/01/18 at 09:22; Status DC Potassium Chloride 20 meq/ IV Miscellaneous Supplies 100 ml @ 100 mls/hr TID IV Last administered on 11/30/18at 08:31; Start 11/29/18 at 09:00; Stop 11/30/18 at 09:27; Status DC Potassium Chloride/Dextrose/ Sod Cl 1,000 ml @ 75 mls/hr [id number] IV Last administered on 12/01/18at 05:31; Start 11/30/18 at 16:00; Stop 12/01/18 at 09:30; Status DC Potassium Chloride/Dextrose/ Sod Cl 1,000 ml @ 75 mls/hr [id number] IV Last administered on 12/02/18at 02:14; Start 12/01/18 at 09:15 Potassium Chloride 100 ml @ 100 mls/hr DAILY@0900,1000,1100 IV Last administered on 12/01/18at 11:17; Start 12/01/18 at 09:00; Stop 12/01/18 at 19:24; Status DC Potassium Chloride (Micro-K Extencaps) 20 meq TID PO ; Start 11/28/18 at 16:00; Stop 11/28/18 at 16:00; Status DC Potassium Chloride (Micro-K Extencaps) 20 meq TID PO ; Start 12/02/18 at 09:00; Stop 12/02/18 at 09:00; Status DC Potassium Chloride (Potassium Chloride Liquid) 20 meq TID PO Last administered on 11/28/18at 15:47; Start 11/28/18 at 16:00; Stop 11/29/18 at 09:53; Status DC Potassium Chloride (Potassium Chloride Liquid) 60 meq DAILY PO ; Start 11/30/18 at 09:00; Stop 11/30/18 at 19:23; Status DC Propofol 1000 mg/ IV Miscellaneous Supplies 100 ml @ 3.88 mls/hr Q24H IV Last administered on 11/28/18at 05:18; Start 11/26/18 at 18:45; Stop 11/28/18 at 16:25; Status DC Propofol 1000 mg/ IV Miscellaneous Supplies 100 ml @ 0 mls/hr Q0M IV Last administered on 11/26/18at 18:16; Start 11/26/18 at 14:30; Stop 11/26/18 at 18:38; Status DC Sodium Chloride 1,000 ml @ 50 mls/hr Q20H IV Last administered on 11/27/18at 21:17; Start 11/26/18 at 14:16; Stop 11/27/18 at 23:04; Status DC Sodium Chloride (Sodium Chloride 3% Neb Casandra) 3 ml Q4HP PRN INH rhonchi, secretion clearance Last administered on 11/29/18at 11:23; Start 11/28/18 at 16:15 Vancomycin HCl 1000 mg/IV Miscellaneous Supplies 20 ml @ 20 mls/hr Q8H IV ; Start 11/26/18 at 14:30; Stop 11/26/18 at 18:31; Status DC Vancomycin HCl 1000 mg/IV Miscellaneous Supplies 1 each/ Dextrose 270 ml @ 270 mls/hr Q8H IV Last administered on 11/27/18at 17:13; Start 11/27/18 at 01:00; Stop 11/27/18 at 19:12; Status DC Vancomycin HCl 1000 mg/IV Miscellaneous Supplies 1 each/ Dextrose 270 ml @ 270 mls/hr Q8H IV Last administered on 11/29/18at 05:22; Start 11/27/18 at 21:00; Stop 11/29/18 at 08:29; Status DC Allergies Coded Allergies: Cefuroxime (Verified Allergy, Unknown, 11/26/18) Dapagliflozin (Verified Allergy, Unknown, 11/26/18) Oxacillin (Verified Allergy, Unknown, 11/26/18) Sulfamethoxazole w/Trimethoprim (Verified Allergy, Unknown, 11/26/18) Objective Physical Examination Examination GENERAL APPEARANCE:Patient seen, laying in bed, awake, alert, and interactive. Not oriented and does not appear to be following commands. SKIN: Warm and dry NECK: tracheostomy tube in place. LUNGS: Symmetrical chest expansion. No wheezing appreciated. HEART: RRR, no murmur, normal S1 and S2. No obvious chest wall abnormalities. ABDOMEN: soft,non-distended. PEG tube in place with no blood at site of G tube. No masses appreciated]. EXTREMITIES: No obvious cyanosis or edema noted in extremities. Vital Signs Vital Signs Date Time Temp Pulse Resp B/P (MAP) Pulse Ox O2 Delivery O2 Flow Rate FiO2 12/02/18 08:45 62 130/79 12/02/18 05:00 17 98 10.0 40 12/02/18 04:31 Trach Collar 12/02/18 04:00 97.2 I&Os I&O- Last 24 Hours up to 6 AM 12/02/18 06:00 Intake Total 2315 ml Output Total 3335 ml Balance -1020 ml Laboratory Data Labs 24H Laboratory Tests 2 12/01/18 12:00: Bedside Glucose (Misc Panel) 247H 12/01/18 12:55: Anion Gap 4L, Glomerular Filtration Rate > 60.0, Blood Urea Nitrogen 7, Creatinine 0.22L, Sodium Level 139, Potassium Level 4.6#, Chloride Level 101, Carbon Dioxide Level 34H, Calcium Level 9.0 12/01/18 15:01: Bedside Glucose (Misc Panel) 249H 12/01/18 18:37: Bedside Glucose (Misc Panel) 226H 12/02/18 00:35: Bedside Glucose (Misc Panel) 228H 12/02/18 05:36: Immature Granulocyte % (Auto) 0.9, White Blood Count 9.3, Red Blood Count 4.88, Hemoglobin 13.4L, Hematocrit 41.4L, Mean Corpuscular Volume 84.8, Mean Corpuscular Hemoglobin 27.5, Mean Corpuscular Hemoglobin Concent 32.4, Red Cell Distribution Width 14.7H, Platelet Count 208, Neutrophils (%) (Auto) 81.5H, Lymphocytes (%) (Auto) 10.1L, Monocytes (%) (Auto) 6.8H, Eosinophils (%) (Auto) 0.5, Basophils (%) (Auto) 0.2, Neutrophils # (Auto) 7.6, Lymphocytes # (Auto) 0.9L, Monocytes # (Auto) 0.6, Eosinophils # (Auto) 0.1, Basophils # (Auto) 0.0, Nucleated Red Blood Cells % (auto) 0.0, Anion Gap 5L, Glomerular Filtration Rate > 60.0, Blood Urea Nitrogen 8, Creatinine 0.16L, Sodium Level 140, Potassium Level 3.9, Chloride Level 100, Carbon Dioxide Level 35H, Calcium Level 8.4L, Phosphorus Level 2.7, Aspartate Amino Transf (AST/SGOT) 34, Alanine Aminotransferase (ALT/SGPT) 30, Lactate Dehydrogenase 254H, Total Creatine Kinase 401H, Alkaline Phosphatase 82, Total Bilirubin 0.6, Triglycerides Level 179H, Cholesterol Level 140, Total Protein 5.1L, Albumin 2.4L, Magnesium Level 1.6L, Albumin/Globulin Ratio 0.89L CBC/BMP Laboratory Tests 12/01/18 12:55 Calcium Level 9.0 12/02/18 05:36 Calcium Level 8.4 L, Red Blood Count 4.88, Mean Corpuscular Volume 84.8, Mean Corpuscular Hemoglobin 27.5, Mean Corpuscular Hemoglobin Concent 32.4, Red Cell Distribution Width 14.7 H, Neutrophils (%) (Auto) 81.5 H, Lymphocytes (%) (Auto) 10.1 L, Monocytes (%) (Auto) 6.8 H, Eosinophils (%) (Auto) 0.5, Basophils (%) (Auto) 0.2, Neutrophils # (Auto) 7.6, Lymphocytes # (Auto) 0.9 L, Monocytes # (Auto) 0.6, Eosinophils # (Auto) 0.1, Basophils # (Auto) 0.0, Phosphorus Level 2.7, Aspartate Amino Transf (AST/SGOT) 34, Alanine Aminotransferase (ALT/SGPT) 30, Lactate Dehydrogenase 254 H, Total Creatine Kinase 401 H, Alkaline Phosphatase 82, Total Bilirubin 0.6, Triglycerides Level 179 H, Cholesterol Level 140, Total Protein 5.1 L, Albumin 2.4 L Microbiology Microbiology 11/27/18 MRSA Screen - Final, Complete 11/26/18 Gram Stain - Final, Complete 11/26/18 Bronchoalveolar Lavage Culture - Final, Complete Yeast Like Organism 11/26/18 Respiratory Virus Panel (PCR) ([facility]) - Final, Complete Impression Traumatic brain injury Impaired Swallowing Aspiration Status PEG tube and tracheostomy tube insertion. Patient appears to be comfortable with no mentation changes compared to yesterday prior to the procedure. He is afebrile without leukocytosis. PEG tube in place with no bleeding noted on G tube site. PEG tube site appears to be clean without obvious signs of infection. There was no free air noted on CXR. Patient may use PEG tube for medications and may start PEG tube feeding. Thank you for letting us to participate in the care of this patient. Please call us or contact us if there is need from surgery team. Plan / VTE VTE Prophylaxis Ordered?: Yes (Heparin SC) ASIA JONES DO Dec 02, 2018 12:16 PAT GONZALEZ MD Dec 27, 2018 07:28
[2018-12-02] MEDS: LevoFLOXacin IV 750 MG in APPROPRIATE DILUENT 1 EA IV SCH (14:38)
[2018-12-02] MEDS: PANTOPRAZOLE 40MG INJ (PROTONIX) (C9113) IV SCH (17:54)
[2018-12-02] MEDS: ATORVASTATIN 20 MG TAB PO SCH (21:19)
[2018-12-03] VITALS (19 sets, daily range): BP systolic 118–157; BP diastolic 70–88; O2SAT 97–98
[2018-12-03] MEDS: ALBUTEROL SULFATE 2.5 MG/0.5 ML INH NEB SOLN NEB SCH ×6 (00:07→20:19)
[2018-12-03] MEDS ORDERED: SUCRALFATE SUSP 1GM/10ML UD PEG ONE (00:15)
[2018-12-03] MEDS: levETIRAcetam INJection 1,500 MG in D5W 100 ML IV SCH (02:00)
[2018-12-03] MEDS: KCL 40MEQ IN D5/0.45NS 1000ML 1,000 ML IV SCH (04:20)
[2018-12-03 04:34] LABS: BASO % 0.2 % (0.0-1.0); EOS # 0.4 10^3/uL (0.0-0.50); EOS % 2.9 % (0.0-3.0); HEMATOCRIT 37.7 % (42.0-52.0); HEMOGLOBIN 12.1 g/dl (13.5-17.5); LYMPH # 1.9 10^3/uL (1.5-4.5); LYMPH % 15.2 % (24.0-44.0); MEAN CORPUSCULAR HEMOGLOBIN 27.8 pg (27.0-33.0); MEAN CORPUSCULAR HGB CONC 32.1 g/dl (32.0-36.5); MEAN CORPUSCULAR VOLUME 86.7 fl (80.0-96.0); MONO # 0.9 10^3/uL (0.0-0.8); MONO % 7.5 % (0.0-5.0); NEUTROPHILS # 8.9 10^3/uL (1.8-7.7); NEUTROPHILS % 73.1 % (36.0-66.0); PLATELET COUNT, AUTOMATED 233 10^3/uL (150-450); RED BLOOD COUNT 4.35 10^6/uL (4.30-6.10); WHITE BLOOD COUNT 12.2 10^3/uL (4.0-10.0)
[2018-12-03 05:08] LABS: ALBUMIN 2.1 GM/DL (3.2-5.2); ALT/SGPT 29 U/L (12-78); BILIRUBIN,TOTAL 0.5 MG/DL (0.2-1.0); BLOOD UREA NITROGEN 16 MG/DL (7-18); CALCIUM LEVEL 7.9 MG/DL (8.5-10.1); CARBON DIOXIDE LEVEL 34 MEQ/L (21-32); CHLORIDE LEVEL 104 MEQ/L (98-107); CHOLESTEROL LEVEL 114 MG/DL (< 200); CPK CREATINE PHOSPHOKINASE 330 U/L (39-308); CREATININE FOR GFR 0.15 MG/DL (0.70-1.30); GLOMERULAR FILTRATION RATE > 60.0 (>56); GLUCOSE, FASTING 197 MG/DL (70-100); LDH LACTATE DEHYDROGENASE 222 U/L (87-241); MAGNESIUM LEVEL 1.6 MG/DL (1.8-2.4); PHOSPHORUS LEVEL 2.5 MG/DL (2.5-4.9); POTASSIUM SERUM 4.3 MEQ/L (3.5-5.1); SODIUM LEVEL 144 MEQ/L (136-145); TOTAL PROTEIN 4.7 GM/DL (6.4-8.2); TRIGLYCERIDES LEVEL 136 MG/DL (<150)
[2018-12-03] MEDS: HEPARIN SOD (PORCINE) 5000 UNITS/ML VIAL SC SCH ×3 (05:52→21:00)
[2018-12-03] MEDS: NYSTATIN 500,000 U/5 ML SUSP UDC SS SCH ×3 (05:53→17:57)
[2018-12-03] MEDS: HumaLOG INSULIN (NovoLOG) PER UNIT SC SCH ×3 (05:53→17:57)
[2018-12-03] MEDS ORDERED: PANTOPRAZOLE 40MG INJ (PROTONIX) (C9113) IV SCH (09:00)
[2018-12-03] MEDS: methylPREDNISolone INJ 40 MG/1 ML VIAL (J2920) IV SCH (09:24)
--- NOTE | 2018-12-03 10:30 | REP ---
Portable chest, 06:57 a.m., AP view, patient sitting: Comparison is 12/02/2018. There is subsegmental atelectasis above the right hemidiaphragm, unchanged. Right hemidiaphragm is elevated, unchanged. Lung del angel otherwise clear. Cardiac size is normal. There is an endotracheal tube, unchanged. Impression: No interval change. Electronically Signed by Kenroy Srinivasan MD 12/03/2018 07:52 A
[2018-12-03] MEDS ORDERED: ONDANSETRON 4 MG TAB (S0181) PEG PRN (12:45)
--- NOTE | 2018-12-03 13:15 | IPNPDOC ---
Subjective Date Seen The patient was seen on 12/03/18. Subjective Chief Complaint/HPI none. nurses observed blood in stool and blood at feeding tube insertion site. has been evaluated by Dr. Coelho. Constitutional: Denies: Chills ENT: Denies: Head Aches Pulmonary: Denies: Pleuritic Chest Pain Cardiovascular: Denies: Chest Pain Gastrointestinal: Denies: Nausea Musculoskeletal: Denies: Neck Pain Neurological: Reports: Other Symptoms (quadriplegic. some movement of toes, pastor nds) Objective Physical Examination General Exam: Positive: Alert, Cooperative ENT Exam: Positive: Atraumatic Neck Exam: Positive: Other (new tracheostomy in place) Chest Exam: Positive: Normal air movement; Negative: Rales, Wheezing Heart Exam: Positive: Rate Normal, Regular Rhythm; Negative: Murmurs Telemetry: Positive: Sinus Abdomen Exam: Positive: Normal bowel sounds, Other (feeding tube in place.); Negative: Tenderness Extremity Exam: Negative: Clubbing, Edema Skin Exam: Positive: Nl turgor and temperature, Rash (circular red lesions w/o blisters at this time.) Neuro Exam: Positive: Other (quadriplegic. some movement of thumb and index b ilaterally. acknowledges light touch awareness upper extremities. wiggles toes on right but not left. does not endorse awareness of light touch on LE's) Psych Exam: Positive: Mental status NL Assessment /Plan Plan/VTE VTE Prophylaxis Ordered?: Yes (Heparin SC) VS, I&O, 24H, Fishbone Vital Signs/I&O Vital Signs Date Time Temp Pulse Resp B/P (MAP) Pulse Ox O2 Delivery O2 Flow Rate FiO2 12/03/18 04:30 77 17 120/74 (89) 95 5.0 28 12/03/18 04:00 98.2 12/02/18 20:10 Trach Collar I&O- Last 24 Hours up to 6 AM 12/03/18 06:00 Intake Total 2365 ml Output Total 2420 ml Balance -55 ml Laboratory Data 24H LABS Laboratory Tests 2 12/02/18 17:46: Bedside Glucose (Misc Panel) 290H 12/02/18 23:50: Bedside Glucose (Misc Panel) 284H 12/03/18 04:25: Immature Granulocyte % (Auto) 1.1, White Blood Count 12.2H, Red Blood Count 4.35, Hemoglobin 12.1L, Hematocrit 37.7L, Mean Corpuscular Volume 86.7, Mean Corpuscular Hemoglobin 27.8, Mean Corpuscular Hemoglobin Concent 32.1, Red Cell Distribution Width 15.0H, Platelet Count 233, Neutrophils (%) (Auto) 73.1H, Lymphocytes (%) (Auto) 15.2L, Monocytes (%) (Auto) 7.5H, Eosinophils (%) (Auto) 2.9, Basophils (%) (Auto) 0.2, Neutrophils # (Auto) 8.9H, Lymphocytes # (Auto) 1.9, Monocytes # (Auto) 0.9H, Eosinophils # (Auto) 0.4, Basophils # (Auto) 0.0, Nucleated Red Blood Cells % (auto) 0.0, Anion Gap 6L, Glomerular Filtration Rate > 60.0, Blood Urea Nitrogen 16#, Creatinine 0.15L, Sodium Level 144, Potassium Level 4.3, Chloride Level 104, Carbon Dioxide Level 34H, Calcium Level 7.9L, Phosphorus Level 2.5, Aspartate Amino Transf (AST/SGOT) 24, Alanine Aminotransferase (ALT/SGPT) 29, Lactate Dehydrogenase 222, Total Creatine Kinase 330H, Alkaline Phosphatase 72, Total Bilirubin 0.5, Triglycerides Level 136, Cholesterol Level 114, Total Protein 4.7L, Albumin 2.1L, Magnesium Level 1.6L, Albumin/Globulin Ratio 0.81L 12/03/18 11:58: Bedside Glucose (Misc Panel) 306H CBC/BMP Laboratory Tests 12/03/18 04:25 Red Blood Count 4.35, Mean Corpuscular Volume 86.7, Mean Corpuscular Hemoglobin 27.8, Mean Corpuscular Hemoglobin Concent 32.1, Red Cell Distribution Width 15.0 H, Neutrophils (%) (Auto) 73.1 H, Lymphocytes (%) (Auto) 15.2 L, Monocytes (%) (Auto) 7.5 H, Eosinophils (%) (Auto) 2.9, Basophils (%) (Auto) 0.2, Neutrophils # (Auto) 8.9 H, Lymphocytes # (Auto) 1.9, Monocytes # (Auto) 0.9 H, Eosinophils # (Auto) 0.4, Basophils # (Auto) 0.0, Calcium Level 7.9 L, Phosphorus Level 2.5, Aspartate Amino Transf (AST/SGOT) 24, Alanine Aminotransferase (ALT/SGPT) 29, Lactate Dehydrogenase 222, Total Creatine Kinase 330 H, Alkaline Phosphatase 72, Total Bilirubin 0.5, Triglycerides Level 136, Cholesterol Level 114, Total Protein 4.7 L, Albumin 2.1 L Microbiology Microbiology 12/03/18 Gram Stain - Final, Resulted 12/03/18 Sputum Culture, Resulted Pending 11/27/18 MRSA Screen - Final, Complete 11/26/18 Gram Stain - Final, Complete 11/26/18 Bronchoalveolar Lavage Culture - Final, Complete Yeast Like Organism 11/26/18 Respiratory Virus Panel (PCR) ([facility]) - Final, Complete Francisco Infante MD Dec 03, 2018 13:15
[2018-12-03] MEDS ORDERED: MAG SULF 1GM/100ML (MAG RUN) 1 GM in APPROPRIATE DILUENT 1 EA IV ONE (14:00)
[2018-12-03] MEDS ORDERED: PILL CRUSHER/CUTTER 1 EACH XX PRN (14:45)
[2018-12-03] MEDS: levETIRAcetam ORAL SOLUTION 500 MG/5 ML UDC GT SCH ×2 (15:31→21:00)
[2018-12-03] MEDS: LevoFLOXacin 750 MG TABLET FT SCH (15:31)
--- NOTE | 2018-12-03 19:43 | IPNPDOC ---
Subjective General Date/Time Seen The patient was seen on 12/03/18 at 09:00 Patient had a percutaneous gastrostomy tube placed last Tuesday. Overnight he his nurse reports bloody return from the gastrostomy tube and there were checking for residuals. His tube feeds were placed on hold in the gastrostomy tube was placed to a Mao bag to drain by gravity. Not much drainage came off from this. Subject Chief Complaint/History The patient is a 58-year-old male admitted with a reason for visit of Acute Respiratory Failure With Hypoxia. Current Medications Current Medications Current Medications Acetaminophen (Tylenol Suppository) 650 mg Q4HP PRN ID MILD PAIN OR FEVER Last administered on 12/01/18at 22:18; Start 11/26/18 at 14:30; Stop 12/02/18 at 09:13; Status DC Acetaminophen (Tylenol Suspension) 650 mg Q4HP PRN GT PAIN OR FEVER Last administered on 12/02/18at 09:44; Start 12/02/18 at 09:15 Albuterol Sulfate (Proventil Neb) 2.5 mg Q2HP PRN NEB SHORTNESS OF BREATH Last administered on 11/29/18at 05:35; Start 11/26/18 at 14:30 Albuterol Sulfate (Proventil Neb) 2.5 mg RQ4H NEB Last administered on 12/03/18at 16:14; Start 11/26/18 at 16:00 Amlodipine Besylate (Norvasc) 5 mg DAILY PO ; Start 12/02/18 at 09:00; Status Cancel Atorvastatin Calcium (Lipitor) 80 mg QHS PO Last administered on 12/02/18at 21:19; Start 12/01/18 at 21:00 Bisacodyl (Dulcolax Suppository) 10 mg DAILYPRN PRN ID CONSTIPATION; Start 11/26/18 at 14:30 Chlorhexidine Gluconate (Peridex Oral Rinse) SWAB/BRUSH ORAL CAVITY BID MT Last administered on 11/28/18at 08:26; Start 11/26/18 at 21:00; Stop 11/28/18 at 16:25; Status DC Dextrose (Dextrose 50%) 25 ml ASDIRECTED PRN IV SEE LABEL COMMENTS; Start 11/27/18 at 01:00 Dextrose/Sodium Chloride 1,000 ml @ 50 mls/hr Q20H IV Last administered on 11/30/18at 05:10; Start 11/28/18 at 18:00; Stop 11/30/18 at 15:28; Status DC Glucagon (Glucagon) 1 mg ASDIRECTED PRN SC SEE LABEL COMMENTS; Start 11/27/18 at 01:00 Glucose (Glucose) 16 GM ASDIRECTED PRN PO SEE LABEL COMMENTS; Start 11/27/18 at 01:00 Heparin Sodium (Porcine) (Heparin) 5,000 units Q8H SC Last administered on 12/03/18at 14:41; Start 11/26/18 at 14:00 Home Med (Med Rec Complete!) ASDIRECTED XX ; Start 11/26/18 at 14:45; Stop 11/26/18 at 14:45; Status DC Insulin Human Lispro (HumaLOG INSULIN) SEE PROTOCOL TABLE Q6H SC Last administered on 12/03/18 17:57; Start 11/27/18 at 00:00 Lansoprazole (First-Lansoprazole Oral Suspension) 30 mg BID FT ; Start 12/03/18 at 21:00 Levetiracetam (Keppra Oral Solution) 1,500 mg BID GT Last administered on 12/03/18 15:31; Start 12/03/18 at 14:00 Levetiracetam 1500 mg/Dextrose 115 ml @ 460 mls/hr Q12H IV Last administered on 12/03/18 02:00; Start 11/27/18 at 02:00; Stop 12/03/18 at 12:52; Status DC Levofloxacin (Levaquin) 750 mg DAILY@06 FT Last administered on 12/03/18 15:31; Start 12/03/18 at 06:00 Levofloxacin 750 mg/IV Miscellaneous Supplies 150 ml @ 100 mls/hr Q24H IV Last administered on 12/02/18 14:38; Start 11/27/18 at 15:00; Stop 12/03/18 at 12:52; Status DC Methylprednisolone (SOLU medrol) 24 mg DAILY IV Last administered on 12/03/18at 09:24; Start 12/01/18 at 09:00; Stop 12/03/18 at 12:52; Status DC Methylprednisolone (SOLU medrol) 30 mg DAILY IV Last administered on 11/30/18at 08:32; Start 11/29/18 at 09:00; Stop 11/30/18 at 09:24; Status DC Methylprednisolone (SOLUmedrol) 48 mg DAILY IV ; Start 11/27/18 at 09:00; Stop 11/27/18 at 13:36; Status DC Methylprednisolone (SOLUmedrol) 50 mg DAILY IV Last administered on 11/28/18 08:25; Start 11/27/18 at 09:00; Stop 11/28/18 at 09:45; Status DC Midazolam HCl (Versed) 2 mg Q15MP PRN IV AGITATION Last administered on 11/26/18at 16:33; Start 11/26/18 at 14:30; Stop 11/28/18 at 16:25; Status DC Midazolam HCl (Versed) 4 mg STAT STAT IV Last administered on 11/30/18at 10:10; Start 11/30/18 at 09:20; Stop 11/30/18 at 09:23; Status DC Morphine Sulfate (Morphine Sulfate Inj) 2 mg Q2HP PRN IV PAIN Last administered on 11/28/18at 11:18; Start 11/26/18 at 14:30; Stop 11/28/18 at 16:25; Status DC Nebivolol (Bystolic) 10 mg DAILY PO Last administered on 12/01/18at 22:17; Start 12/01/18 at 20:00; Stop 12/02/18 at 12:30; Status DC Nystatin (Mycostatin) 1 ml Q6H PO Last administered on 11/29/18at 05:23; Start 11/27/18 at 12:00; Stop 11/29/18 at 12:11; Status DC Nystatin (Mycostatin) 5 ml Q6H SS Last administered on 12/03/18at 17:57; Start 11/29/18 at 12:00 Ondansetron HCl (ZOFRAN INJection) 4 mg Q6HP PRN IV NAUSEA OR VOMITING; Start 11/26/18 at 14:30; Stop 12/03/18 at 12:52; Status DC Ondansetron HCl (Zofran) 4 mg Q6HP PRN PEG NAUSEA OR VOMITING; Start 12/03/18 at 12:45 Pantoprazole Sodium (Protonix) 40 mg BID IV Last administered on 12/03/18at 09:24; Start 12/03/18 at 09:00; Stop 12/03/18 at 12:52; Status DC Pantoprazole Sodium (Protonix) 40 mg Q24H IV Last administered on 12/02/18at 17:54; Start 11/26/18 at 18:00; Stop 12/03/18 at 00:23; Status DC Piperacillin Sod/ Tazobactam Sod 3.375 gm/Dextrose 50 ml @ 50 mls/hr RQ8H IV ; Start 11/26/18 at 16:00; Stop 11/26/18 at 16:00; Status DC Potassium Chloride 20 meq/ IV Miscellaneous Supplies 100 ml @ 100 mls/hr 0500,0600,0700 IV Last administered on 11/27/18at 06:58; Start 11/27/18 at 05:00; Stop 11/27/18 at 13:00; Status DC Potassium Chloride 20 meq/ IV Miscellaneous Supplies 100 ml @ 100 mls/hr 0700,0800 IV Last administered on 11/30/18at 08:31; Start 11/30/18 at 07:00; Stop 11/30/18 at 11:00; Status DC Potassium Chloride 20 meq/ IV Miscellaneous Supplies 100 ml @ 100 mls/hr 0700,0800,0900 IV Last administered on 11/28/18at 10:34; Start 11/28/18 at 07:00; Stop 11/28/18 at 12:00; Status DC Potassium Chloride 20 meq/ IV Miscellaneous Supplies 100 ml @ 100 mls/hr DAILY IV Last administered on 12/01/18at 08:08; Start 12/01/18 at 09:00; Stop 12/01/18 at 09:22; Status DC Potassium Chloride 20 meq/ IV Miscellaneous Supplies 100 ml @ 100 mls/hr TID IV Last administered on 11/30/18at 08:31; Start 11/29/18 at 09:00; Stop 11/30/18 at 09:27; Status DC Potassium Chloride/Dextrose/ Sod Cl 1,000 ml @ 75 mls/hr [id number] IV Last administered on 12/01/18at 05:31; Start 11/30/18 at 16:00; Stop 12/01/18 at 09:30; Status DC Potassium Chloride/Dextrose/ Sod Cl 1,000 ml @ 75 mls/hr [id number] IV Last administered on 12/03/18 04:20; Start 12/01/18 at 09:15; Stop 12/03/18 at 12:52; Status DC Potassium Chloride 100 ml @ 100 mls/hr DAILY@0900,1000,1100 IV Last administered on 12/01/18at 11:17; Start 12/01/18 at 09:00; Stop 12/01/18 at 19:24; Status DC Potassium Chloride (Micro-K Extencaps) 20 meq TID PO ; Start 11/28/18 at 16:00; Stop 11/28/18 at 16:00; Status DC Potassium Chloride (Micro-K Extencaps) 20 meq TID PO ; Start 12/02/18 at 09:00; Stop 12/02/18 at 09:00; Status DC Potassium Chloride (Potassium Chloride Liquid) 20 meq TID PO Last administered on 11/28/18at 15:47; Start 11/28/18 at 16:00; Stop 11/29/18 at 09:53; Status DC Potassium Chloride (Potassium Chloride Liquid) 60 meq DAILY PO ; Start 11/30/18 at 09:00; Stop 11/30/18 at 19:23; Status DC Prednisone (Deltasone) 30 mg DAILY FT ; Start 12/04/18 at 09:00 Propofol 1000 mg/ IV Miscellaneous Supplies 100 ml @ 3.88 mls/hr Q24H IV Last administered on 11/28/18at 05:18; Start 11/26/18 at 18:45; Stop 11/28/18 at 16:25; Status DC Propofol 1000 mg/ IV Miscellaneous Supplies 100 ml @ 0 mls/hr Q0M IV Last administered on 11/26/18at 18:16; Start 11/26/18 at 14:30; Stop 11/26/18 at 18:38; Status DC Sodium Chloride 1,000 ml @ 50 mls/hr Q20H IV Last administered on 11/27/18at 21:17; Start 11/26/18 at 14:16; Stop 11/27/18 at 23:04; Status DC Sodium Chloride (Sodium Chloride 3% Neb Casandra) 3 ml Q4HP PRN INH rhonchi, secretion clearance Last administered on 11/29/18at 11:23; Start 11/28/18 at 16:15 Sucralfate (Carafate Suspension) 1 gm BID PO ; Start 12/03/18 at 21:00 Vancomycin HCl 1000 mg/IV Miscellaneous Supplies 20 ml @ 20 mls/hr Q8H IV ; Start 11/26/18 at 14:30; Stop 11/26/18 at 18:31; Status DC Vancomycin HCl 1000 mg/IV Miscellaneous Supplies 1 each/ Dextrose 270 ml @ 270 mls/hr Q8H IV Last administered on 11/27/18at 17:13; Start 11/27/18 at 01:00; Stop 11/27/18 at 19:12; Status DC Vancomycin HCl 1000 mg/IV Miscellaneous Supplies 1 each/ Dextrose 270 ml @ 270 mls/hr Q8H IV Last administered on 11/29/18at 05:22; Start 11/27/18 at 21:00; Stop 11/29/18 at 08:29; Status DC Allergies Coded Allergies: Cefuroxime (Verified Allergy, Unknown, 11/26/18) Dapagliflozin (Verified Allergy, Unknown, 11/26/18) Oxacillin (Verified Allergy, Unknown, 11/26/18) Sulfamethoxazole w/Trimethoprim (Verified Allergy, Unknown, 11/26/18) Objective Physical Examination Examination GENERAL APPEARANCE: Looks comfortable, awake, Responds to qyestions with nodding SKIN: Warm and moist. HEENT: Normocephalic, atraumatic. [place] palpebral conjunctiva, anicteric sclerae. Lips and mucosa appear moist. NECK: Supple, no thyromegaly. No obvious jugular venous distention. LUNGS: Clear to auscultation bilaterally. No wheezing appreciated. HEART: No chest wall abnormalities. Regular rate and rhythm with no murmurs appreciated. ABDOMEN: Abdomen is minimally distended, soft, and mildly tender at the gastrostomy tube site. Gastrostomy tube exit site is relatively clean and dry. No active bleeding noted.. EXTREMITIES: Extremities have no deformities. No edema identified. Vital Signs Vital Signs Date Time Temp Pulse Resp B/P (MAP) Pulse Ox O2 Delivery O2 Flow Rate FiO2 12/03/18 18:00 91 98 5.0 28 12/03/18 16:16 Trach Collar 12/03/18 16:00 98.1 19 127/76 (93) I&Os I&O- Last 24 Hours up to 6 AM 12/03/18 06:00 Intake Total 2365 ml Output Total 2420 ml Balance -55 ml Laboratory Data Labs 24H Laboratory Tests 2 12/02/18 23:50: Bedside Glucose (Misc Panel) 284H 12/03/18 04:25: Immature Granulocyte % (Auto) 1.1, White Blood Count 12.2H, Red Blood Count 4.35, Hemoglobin 12.1L, Hematocrit 37.7L, Mean Corpuscular Volume 86.7, Mean Corpuscular Hemoglobin 27.8, Mean Corpuscular Hemoglobin Concent 32.1, Red Cell Distribution Width 15.0H, Platelet Count 233, Neutrophils (%) (Auto) 73.1H, Lymphocytes (%) (Auto) 15.2L, Monocytes (%) (Auto) 7.5H, Eosinophils (%) (Auto) 2.9, Basophils (%) (Auto) 0.2, Neutrophils # (Auto) 8.9H, Lymphocytes # (Auto) 1.9, Monocytes # (Auto) 0.9H, Eosinophils # (Auto) 0.4, Basophils # (Auto) 0.0, Nucleated Red Blood Cells % (auto) 0.0, Anion Gap 6L, Glomerular Filtration Rate > 60.0, Blood Urea Nitrogen 16#, Creatinine 0.15L, Sodium Level 144, Potassium Level 4.3, Chloride Level 104, Carbon Dioxide Level 34H, Calcium Level 7.9L, Phosphorus Level 2.5, Aspartate Amino Transf (AST/SGOT) 24, Alanine Aminotransferase (ALT/SGPT) 29, Lactate Dehydrogenase 222, Total Creatine Kinase 330H, Alkaline Phosphatase 72, Total Bilirubin 0.5, Triglycerides Level 136, Cholesterol Level 114, Total Protein 4.7L, Albumin 2.1L, Magnesium Level 1.6L, Albumin/Globulin Ratio 0.81L 12/03/18 11:58: Bedside Glucose (Misc Panel) 306H 12/03/18 17:53: Bedside Glucose (Misc Panel) 303H CBC/BMP Laboratory Tests 12/03/18 04:25 Red Blood Count 4.35, Mean Corpuscular Volume 86.7, Mean Corpuscular Hemoglobin 27.8, Mean Corpuscular Hemoglobin Concent 32.1, Red Cell Distribution Width 15.0 H, Neutrophils (%) (Auto) 73.1 H, Lymphocytes (%) (Auto) 15.2 L, Monocytes (%) (Auto) 7.5 H, Eosinophils (%) (Auto) 2.9, Basophils (%) (Auto) 0.2, Neutrophils # (Auto) 8.9 H, Lymphocytes # (Auto) 1.9, Monocytes # (Auto) 0.9 H, Eosinophils # (Auto) 0.4, Basophils # (Auto) 0.0, Calcium Level 7.9 L, Phosphorus Level 2.5, Aspartate Amino Transf (AST/SGOT) 24, Alanine Aminotransferase (ALT/SGPT) 29, Lactate Dehydrogenase 222, Total Creatine Kinase 330 H, Alkaline Phosphatase 72, Total Bilirubin 0.5, Triglycerides Level 136, Cholesterol Level 114, Total Protein 4.7 L, Albumin 2.1 L Microbiology Microbiology 12/03/18 Gram Stain - Final, Resulted 12/03/18 Sputum Culture, Resulted Pending 11/27/18 MRSA Screen - Final, Complete 11/26/18 Gram Stain - Final, Complete 11/26/18 Bronchoalveolar Lavage Culture - Final, Complete Yeast Like Organism 11/26/18 Respiratory Virus Panel (PCR) ([facility]) - Final, Complete Impression Status post percutaneous endoscopic gastrostomy tube placement Suspected bleeding at gastrostomy tube site I had the nurse lavage the abdomen via the gastrostomy and we did not get any further bloody-appearing output thus a had them resume tube feedings. After a while the nurse informed me that he had a maroon-colored bowel movement. I suspect this must be from the previous night's bleeding. His hemoglobin and hematocrit remained stable. We'll continue to monitor for now and will continue on tube feedings. Plan / VTE VTE Prophylaxis Ordered?: Yes (Heparin SC) PAT GONZALEZ MD Dec 03, 2018 19:43
[2018-12-03] MEDS: SUCRALFATE SUSP 1GM/10ML UD PO SCH (21:00)
[2018-12-03] MEDS: ATORVASTATIN 20 MG TAB PO SCH (21:00)
[2018-12-03] MEDS: LANSOPRAZOLE SUSPENSION 30 MG/10 ML ORAL SYRINGE (FIRST-LANSOPRAZOLE) FT SCH (21:00)
[2018-12-04] VITALS (11 sets, daily range): BP systolic 110–126; BP diastolic 63–76; O2SAT 97
[2018-12-04] MEDS: NYSTATIN 500,000 U/5 ML SUSP UDC SS SCH ×4 (00:13→17:34)
[2018-12-04] MEDS: HumaLOG INSULIN (NovoLOG) PER UNIT SC SCH ×4 (00:13→17:35)
[2018-12-04] MEDS: ALBUTEROL SULFATE 2.5 MG/0.5 ML INH NEB SOLN NEB SCH ×7 (00:27→23:55)
[2018-12-04] MEDS: LevoFLOXacin 750 MG TABLET FT SCH (05:12)
[2018-12-04] MEDS: HEPARIN SOD (PORCINE) 5000 UNITS/ML VIAL SC SCH ×3 (05:13→22:14)
[2018-12-04 05:39] LABS: BASO % 0.2 % (0.0-1.0); EOS # 0.3 10^3/uL (0.0-0.50); EOS % 3.6 % (0.0-3.0); HEMATOCRIT 32.8 % (42.0-52.0); HEMOGLOBIN 10.6 g/dl (13.5-17.5); LYMPH # 1.4 10^3/uL (1.5-4.5); LYMPH % 15.7 % (24.0-44.0); MEAN CORPUSCULAR HGB CONC 32.3 g/dl (32.0-36.5); MEAN CORPUSCULAR VOLUME 86.5 fl (80.0-96.0); MONO # 0.7 10^3/uL (0.0-0.8); MONO % 8.3 % (0.0-5.0); NEUTROPHILS # 6.1 10^3/uL (1.8-7.7); NEUTROPHILS % 70.8 % (36.0-66.0); PLATELET COUNT, AUTOMATED 243 10^3/uL (150-450); RED BLOOD COUNT 3.79 10^6/uL (4.30-6.10); WHITE BLOOD COUNT 8.7 10^3/uL (4.0-10.0)
[2018-12-04 06:01] LABS: ALBUMIN 2.2 GM/DL (3.2-5.2); ALT/SGPT 27 U/L (12-78); BILIRUBIN,TOTAL 0.4 MG/DL (0.2-1.0); BLOOD UREA NITROGEN 21 MG/DL (7-18); CALCIUM LEVEL 7.8 MG/DL (8.5-10.1); CARBON DIOXIDE LEVEL 34 MEQ/L (21-32); CHLORIDE LEVEL 103 MEQ/L (98-107); CHOLESTEROL LEVEL 100 MG/DL (< 200); CPK CREATINE PHOSPHOKINASE 307 U/L (39-308); CREATININE FOR GFR 0.28 MG/DL (0.70-1.30); GLOMERULAR FILTRATION RATE > 60.0 (>56); GLUCOSE, FASTING 337 MG/DL (70-100); LDH LACTATE DEHYDROGENASE 197 U/L (87-241); PHOSPHORUS LEVEL 2.3 MG/DL (2.5-4.9); POTASSIUM SERUM 3.5 MEQ/L (3.5-5.1); SODIUM LEVEL 141 MEQ/L (136-145); TOTAL PROTEIN 5.3 GM/DL (6.4-8.2); TRIGLYCERIDES LEVEL 282 MG/DL (<150)
[2018-12-04] MEDS: SUCRALFATE SUSP 1GM/10ML UD PO SCH (08:23)
[2018-12-04] MEDS: predniSONE 10 MG TAB FT SCH (08:23)
[2018-12-04] MEDS: levETIRAcetam ORAL SOLUTION 500 MG/5 ML UDC GT SCH ×2 (08:24→22:13)
[2018-12-04] MEDS: ACETAMINOPHEN 325 MG/10.15 ML UDC GT PRN ×3 (08:24→16:22)
[2018-12-04] MEDS: LANSOPRAZOLE SUSPENSION 30 MG/10 ML ORAL SYRINGE (FIRST-LANSOPRAZOLE) FT SCH ×2 (08:25→22:14)
--- NOTE | 2018-12-04 08:56 | REP ---
Clinical: Status post intubation. Comparison: 12/03/2018. Findings: Tracheostomy overlies the airway. Right-sided central line with tip in the SVC. Cardiac silhouette is within normal limits. Left hemithorax is clear. Elevation to the right hemidiaphragm is again noted and right basilar atelectasis cannot definitively be excluded. No pneumothorax. Skeletal structures stable. Impression: Cannot exclude right basilar atelectasis. Electronically Signed by Tripp Son MD 12/04/2018 08:47 A
--- NOTE | 2018-12-04 12:35 | IPNPDOC ---
Subjective General Date/Time Seen The patient was seen on 12/04/18 at 12:09. Subject Chief Complaint/History The patient is a 58-year-old male admitted with a reason for visit of Acute Respiratory Failure With Hypoxia. Patient was examined at bedside. It was noted that patient had some tinge maroon-colored blood in stool today. There was also some bloody residues noted in G tube. ROS non-obtainable due to patient's baseline mental status. Current Medications Current Medications Current Medications Acetaminophen (Tylenol Suppository) 650 mg Q4HP PRN [place] MILD PAIN OR FEVER Last administered on 12/01/18at 22:18; Start 11/26/18 at 14:30; Stop 12/02/18 at 09:13 ; Status DC Acetaminophen (Tylenol Suspension) 650 mg Q4HP PRN GT PAIN OR FEVER Last administered on 12/04/18at 08:24; Start 12/02/18 at 09:15 Albuterol Sulfate (Proventil Neb) 2.5 mg Q2HP PRN NEB SHORTNESS OF BREATH Last administered on 11/29/18at 05:35; Start 11/26/18 at 14:30 Albuterol Sulfate (Proventil Neb) 2.5 mg RQ4H NEB Last administered on 12/04/18at 11:50; Start 11/26/18 at 16:00 Amlodipine Besylate (Norvasc) 5 mg DAILY PO ; Start 12/02/18 at 09:00; Status Cancel Atorvastatin Calcium (Lipitor) 80 mg QHS PO Last administered on 12/03/18at 21:00; Start 12/01/18 at 21:00 Bisacodyl (Dulcolax Suppository) 10 mg DAILYPRN PRN [place] CONSTIPATION; Start 11/26/18 at 14:30 Chlorhexidine Gluconate (Peridex Oral Rinse) SWAB/BRUSH ORAL CAVITY BID MT Last administered on 11/28/18at 08:26; Start 11/26/18 at 21:00; Stop 11/28/18 at 16:25; Status DC Dextrose (Dextrose 50%) 25 ml ASDIRECTED PRN IV SEE LABEL COMMENTS; Start 11/27/18 at 01:00 Dextrose/Sodium Chloride 1,000 ml @ 50 mls/hr Q20H IV Last administered on 11/30/18at 05:10; Start 11/28/18 at 18:00; Stop 11/30/18 at 15:28; Status DC Glucagon (Glucagon) 1 mg ASDIRECTED PRN SC SEE LABEL COMMENTS; Start 11/27/18 at 01:00 Glucose (Glucose) 16 GM ASDIRECTED PRN PO SEE LABEL COMMENTS; Start 11/27/18 at 01:00 Heparin Sodium (Porcine) (Heparin) 5,000 units Q8H SC Last administered on 12/04/18at 05:13; Start 11/26/18 at 14:00 Home Med (Med Rec Complete!) ASDIRECTED XX ; Start 11/26/18 at 14:45; Stop 11/26/18 at 14:45; Status DC Insulin Human Lispro (HumaLOG INSULIN) SEE PROTOCOL TABLE Q6H SC Last administered on 12/04/18at 05:27; Start 11/27/18 at 00:00 Lansoprazole (First-Lansoprazole Oral Suspension) 30 mg BID FT Last adm inistered on 12/04/18at 08:25; Start 12/03/18 at 21:00 Levetiracetam (Keppra Oral Solution) 1,500 mg BID GT Last administered on 12/04/18 08:24; Start 12/03/18 at 14:00 Levetiracetam 1500 mg/Dextrose 115 ml @ 460 mls/hr Q12H IV Last administered on 12/03/18at 02:00; Start 11/27/18 at 02:00; Stop 12/03/18 at 12:52; Status DC Levofloxacin (Levaquin) 750 mg DAILY@06 FT Last administered on 12/04/18at 05:12; Start 12/03/18 at 06:00 Levofloxacin 750 mg/IV Miscellaneous Supplies 150 ml @ 100 mls/hr Q24H IV Last administered on 12/02/18at 14:38; Start 11/27/18 at 15:00; Stop 12/03/18 at 12:52; Status DC Methylprednisolone (SOLU medrol) 24 mg DAILY IV Last administered on 12/03/18at 09:24; Start 12/01/18 at 09:00; Stop 12/03/18 at 12:52; Status DC Methylprednisolone (SOLU medrol) 30 mg DAILY IV Last administered on 11/30/18at 08:32; Start 11/29/18 at 09:00; Stop 11/30/18 at 09:24; Status DC Methylprednisolone (SOLUmedrol) 48 mg DAILY IV ; Start 11/27/18 at 09:00; Stop 11/27/18 at 13:36; Status DC Methylprednisolone (SOLUmedrol) 50 mg DAILY IV Last administered on 11/28/18at 08:25; Start 11/27/18 at 09:00; Stop 11/28/18 at 09:45; Status DC Midazolam HCl (Versed) 2 mg Q15MP PRN IV AGITATION Last administered on 11/26/18at 16:33; Start 11/26/18 at 14:30; Stop 11/28/18 at 16:25; Status DC Midazolam HCl (Versed) 4 mg STAT STAT IV Last administered on 11/30/18at 10:10; Start 11/30/18 at 09:20; Stop 11/30/18 at 09:23; Status DC Morphine Sulfate (Morphine Sulfate Inj) 2 mg Q2HP PRN IV PAIN Last administered on 11/28/18at 11:18; Start 11/26/18 at 14:30; Stop 11/28/18 at 16:25; Status DC Nebivolol (Bystolic) 10 mg DAILY PO Last administered on 12/01/18at 22:17; Start 12/01/18 at 20:00; Stop 12/02/18 at 12:30; Status DC Nystatin (Mycostatin) 1 ml Q6H PO Last administered on 11/29/18at 05:23; Start 11/27/18 at 12:00; Stop 11/29/18 at 12:11; Status DC Nystatin (Mycostatin) 5 ml Q6H SS Last administered on 12/04/18at 05:13; Start 11/29/18 at 12:00 Ondansetron HCl (ZOFRAN INJection) 4 mg Q6HP PRN IV NAUSEA OR VOMITING; Start 11/26/18 at 14:30; Stop 12/03/18 at 12:52; Status DC Ondansetron HCl (Zofran) 4 mg Q6HP PRN PEG NAUSEA OR VOMITING; Start 12/03/18 at 12:45 Pantoprazole Sodium (Protonix) 40 mg BID IV Last administered on 12/03/18at 09:24; Start 12/03/18 at 09:00; Stop 12/03/18 at 12:52; Status DC Pantoprazole Sodium (Protonix) 40 mg Q24H IV Last administered on 12/02/18at 17:54; Start 11/26/18 at 18:00; Stop 12/03/18 at 00:23; Status DC Piperacillin Sod/ Tazobactam Sod 3.375 gm/Dextrose 50 ml @ 50 mls/hr RQ8H IV ; Start 11/26/18 at 16:00; Stop 11/26/18 at 16:00; Status DC Potassium Chloride 20 meq/ IV Miscellaneous Supplies 100 ml @ 100 mls/hr 0500 ,0600,0700 IV Last administered on 11/27/18at 06:58; Start 11/27/18 at 05:00; Stop 11/27/18 at 13:00; Status DC Potassium Chloride 20 meq/ IV Miscellaneous Supplies 100 ml @ 100 mls/hr 0700,0800 IV Last administered on 11/30/18at 08:31; Start 11/30/18 at 07:00; Stop 11/30/18 at 11:00; Status DC Potassium Chloride 20 meq/ IV Miscellaneous Supplies 100 ml @ 100 mls/hr 0700,0800,0900 IV Last administered on 11/28/18at 10:34; Start 11/28/18 at 07:00; Stop 11/28/18 at 12:00; Status DC Potassium Chloride 20 meq/ IV Miscellaneous Supplies 100 ml @ 100 mls/hr DAILY IV Last administered on 12/01/18at 08:08; Start 12/01/18 at 09:00; Stop 12/01/18 at 09:22; Status DC Potassium Chloride 20 meq/ IV Miscellaneous Supplies 100 ml @ 100 mls/hr TID IV Last administered on 11/30/18at 08:31; Start 11/29/18 at 09:00; Stop 11/30/18 at 09:27; Status DC Potassium Chloride/Dextrose/ Sod Cl 1,000 ml @ 75 mls/hr [id number] IV Last administered on 12/01/18at 05:31; Start 11/30/18 at 16:00; Stop 12/01/18 at 09:30; Status DC Potassium Chloride/Dextrose/ Sod Cl 1,000 ml @ 75 mls/hr [id number] IV Last admin istered on 12/03/18 04:20; Start 12/01/18 at 09:15; Stop 12/03/18 at 12:52; Status DC Potassium Chloride 100 ml @ 100 mls/hr DAILY@0900,1000,1100 IV Last administered on 12/01/18at 11:17; Start 12/01/18 at 09:00; Stop 12/01/18 at 19:24; Status DC Potassium Chloride (Micro-K Extencaps) 20 meq TID PO ; Start 11/28/18 at 16:00; Stop 11/28/18 at 16:00; Status DC Potassium Chloride (Micro-K Extencaps) 20 meq TID PO ; Start 12/02/18 at 09:00; Stop 12/02/18 at 09:00; Status DC Potassium Chloride (Potassium Chloride Liquid) 20 meq TID PO Last administered on 11/28/18at 15:47; Start 11/28/18 at 16:00; Stop 11/29/18 at 09:53; Status DC Potassium Chloride (Potassium Chloride Liquid) 60 meq DAILY PO ; Start 11/30/18 at 09:00; Stop 11/30/18 at 19:23; Status DC Prednisone (Deltasone) 30 mg DAILY FT Last administered on 12/04/18at 08:23; Start 12/04/18 at 09:00 Propofol 1000 mg/ IV Miscellaneous Supplies 100 ml @ 3.88 mls/hr Q24H IV Last administered on 11/28/18at 05:18; Start 11/26/18 at 18:45; Stop 11/28/18 at 16:25; Status DC Propofol 1000 mg/ IV Miscellaneous Supplies 100 ml @ 0 mls/hr Q0M IV Last administered on 11/26/18at 18:16; Start 11/26/18 at 14:30; Stop 11/26/18 at 18:38; Status DC Sodium Chloride 1,000 ml @ 50 mls/hr Q20H IV Last administered on 11/27/18at 21:17; Start 11/26/18 at 14:16; Stop 11/27/18 at 23:04; Status DC Sodium Chloride (Sodium Chloride 3% Neb Casandra) 3 ml Q4HP PRN INH rhonchi, secretion clearance Last administered on 11/29/18at 11:23; Start 11/28/18 at 16:15 Sucralfate (Carafate Suspension) 1 gm BID PO Last administered on 12/04/18at 08:23; Start 12/03/18 at 21:00 Vancomycin HCl 1000 mg/IV Miscellaneous Supplies 20 ml @ 20 mls/hr Q8H IV ; Start 11/26/18 at 14:30; Stop 11/26/18 at 18:31; Status DC Vancomycin HCl 1000 mg/IV Miscellaneous Supplies 1 each/ Dextrose 270 ml @ 270 mls/hr Q8H IV Last administered on 11/27/18at 17:13; Start 11/27/18 at 01:00; Stop 11/27/18 at 19:12; Status DC Vancomycin HCl 1000 mg/IV Miscellaneous Supplies 1 each/ Dextrose 270 ml @ 270 mls/hr Q8H IV Last administered on 11/29/18at 05:22; Start 11/27/18 at 21:00; Stop 11/29/18 at 08:29; Status DC Allergies Coded Allergies: Cefuroxime (Verified Allergy, Unknown, 11/26/18) Dapagliflozin (Verified Allergy, Unknown, 11/26/18) Oxacillin (Verified Allergy, Unknown, 11/26/18) Sulfamethoxazole w/Trimethoprim (Verified Allergy, Unknown, 11/26/18) Objective Physical Examination Examination GENERAL APPEARANCE:Patient seen, laying in bed, awake, alert. Patient is not oriented which appears to be his baseline. Comfortable, in no acute distress. SKIN: Warm and moist. Mildly pale. HEENT: Normocephalic, atraumatic. [place] palpebral conjunctiva, anicteric sclerae. Lips and mucosa appear moist. NECK: Tracheostomy tube in place. No obvious jugular venous distention. LUNGS: Clear to auscultation bilaterally. No rales or wheezing appreciated. HEART: Regular rate and rhythm with no murmurs appreciated. ABDOMEN: Abdomen is soft, minimal to mildly distended. Gastrostomy tube site is relatively clean without any obvious signs of infection. No active bleeding not ed.No obvious mass noted. No obvious umbilical herniations noted.. EXTREMITIES: No obvious cyanosis or edema identified. Vital Signs Vital Signs Date Time Temp Pulse Resp B/P (MAP) Pulse Ox O2 Delivery O2 Flow Rate FiO2 12/04/18 10:00 96 18 110/63 (79) 98 5.0 28 12/04/18 08:00 97.4 12/04/18 00:27 Trach Collar I&Os I&O- Last 24 Hours up to 6 AM 12/04/18 06:00 Intake Total 2165 ml Output Total 1780 ml Balance 385 ml Laboratory Data Labs 24H Laboratory Tests 2 12/03/18 17:53: Bedside Glucose (Misc Panel) 303H 12/03/18 23:59: Bedside Glucose (Misc Panel) 265H 12/04/18 05:20: Immature Granulocyte % (Auto) 1.4, White Blood Count 8.7, Red Blood Count 3.79L, Hemoglobin 10.6L, Hematocrit 32.8L, Mean Corpuscular Volume 86.5, Mean Corpuscular Hemoglobin 28.0, Mean Corpuscular Hemoglobin Concent 32.3, Red Cell Distribution Width 15.6H, Platelet Count 243, Neutrophils (%) (Auto) 70.8H, Lymphocytes (%) (Auto) 15.7L, Monocytes (%) (Auto) 8.3H, Eosinophils (%) (Auto) 3.6H, Basophils (%) (Auto) 0.2, Neutrophils # (Auto) 6.1, Lymphocytes # (Auto) 1.4L, Monocytes # (Auto) 0.7, Eosinophils # (Auto) 0.3, Basophils # (Auto) 0.0, Nucleated Red Blood Cells % (auto) 0.0, Anion Gap 4L, Glomerular Filtration Rate > 60.0, Blood Urea Nitrogen 21H, Creatinine 0.28#L, Sodium Level 141, Potassium Level 3.5, Chloride Level 103, Carbon Dioxide Level 34H, Calcium Level 7.8L, Phosphorus Level 2.3L, Aspartate Amino Transf (AST/SGOT) 22, Alanine Aminotransferase (ALT/SGPT) 27, Lactate Dehydrogenase 197, Total Creatine Kinase 307, Alkaline Phosphatase 76, Total Bilirubin 0.4, Triglycerides Level 282H, Cholesterol Level 100, Total Protein 5.3L, Albumin 2.2L, Albumin/Globulin Ratio 0.71L 12/04/18 05:23: Bedside Glucose (Misc Panel) 327H CBC/BMP Laboratory Tests 12/04/18 05:20 Red Blood Count 3.79 L, Mean Corpuscular Volume 86.5, Mean Corpuscular Hemoglobin 28.0, Mean Corpuscular Hemoglobin Concent 32.3, Red Cell Distribution Width 15.6 H, Neutrophils (%) (Auto) 70.8 H, Lymphocytes (%) (Auto) 15.7 L, Monocytes (%) (Auto) 8.3 H, Eosinophils (%) (Auto) 3.6 H, Basophils (%) (Auto) 0.2, Neutrophils # (Auto) 6.1, Lymphocytes # (Auto) 1.4 L, Monocytes # (Auto) 0.7, Eosinophils # (Auto) 0.3, Basophils # (Auto) 0.0, Calcium Level 7.8 L, Phosphorus Level 2.3 L, Aspartate Amino Transf (AST/SGOT) 22, Alanine Aminotransferase (ALT/SGPT) 27, Lactate Dehydrogenase 197, Total Creatine Kinase 307, Alkaline Phosphatase 76, Total Bilirubin 0.4, Triglycerides Level 282 H, Cholesterol Level 100, Total Protein 5.3 L, Albumin 2.2 L Microbiology Microbiology 12/03/18 Gram Stain - Final, Resulted 12/03/18 Sputum Culture, Resulted Pending 11/27/18 MRSA Screen - Final, Complete 11/26/18 Gram Stain - Final, Complete 11/26/18 Bronchoalveolar Lavage Culture - Final, Complete Yeast Like Organism 11/26/18 Respiratory Virus Panel (PCR) ([facility]) - Final, Complete Impression Status post percutaneous endoscopic gastrostomy tube placement Suspected bleeding at gastrostomy tube site It is noted that patient still has maroon-colored bowel movement. There was also some blood noted in G tube residue. Patient's H&H decreased from yesterday with Hg at 10.6. Patient remains hemodynamically stable. We'll continue to monitor patient's H&H and vital signs as scheduled. Patient has mildly hypophosphatemia which is likely d/t refeeding after prolonged undernutrition. Potassium phosphate 500mg BID for 1 day ordered. Continue tube feeding. We will work with medicine team together for the care of this patient. Plan / VTE VTE Prophylaxis Ordered?: Yes (Heparin SC) ASIA JONES DO Dec 04, 2018 12:35 PAT GONZALEZ MD Dec 27, 2018 08:41
[2018-12-04] MEDS ORDERED: K-PHOS ORIGINAL (POT.ACID PHOSPHATE) 500MG TAB PO SCH (14:00)
--- NOTE | 2018-12-04 16:11 | REP ---
CT Head without contrast HISTORY: Possible pontine infarction COMPARISON: 08/09/2014 Areas of decreased attenuation are present in the periventricular and subcortical white matter. This represents small-vessel ischemic disease. There is no intraparenchymal hemorrhage, acute infarct, mass or midline shift. There is marked dilatation of the lateral ventricles greater on the right than on the left. There is dilatation of the hemispheric cortical sulci as consistent with volume loss greater on the right than on the left. There is marked dilatation of the third and fourth ventricles with associated cerebellar volume loss. 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 There is no extra cerebral collection. There is no fracture. The visualized sinuses are clear. IMPRESSION: 1. There is no acute intracranial lesion. 2. Marked supra and infratentorial volume loss. Electronically Signed by Mikal Johnson MD 12/04/2018 04:02 P
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
[2018-12-04] MEDS: SUCRALFATE SUSP 1GM/10ML UD PEG SCH (22:13)
[2018-12-04] MEDS: K-PHOS ORIGINAL (POT.ACID PHOSPHATE) 500MG TAB PEG SCH (22:13)
[2018-12-04] MEDS: ATORVASTATIN 20 MG TAB PEG SCH (22:14)
[2018-12-05] MEDS: NYSTATIN 500,000 U/5 ML SUSP UDC SS SCH ×3 (00:51→12:00)
[2018-12-05] MEDS: HumaLOG INSULIN (NovoLOG) PER UNIT SC SCH ×4 (00:52→17:43)
[2018-12-05] MEDS: ALBUTEROL SULFATE 2.5 MG/0.5 ML INH NEB SOLN NEB SCH ×6 (03:19→23:56)
[2018-12-05 04:00] VITALS: BP 127/67
[2018-12-05] MEDS: HEPARIN SOD (PORCINE) 5000 UNITS/ML VIAL SC SCH ×3 (06:16→21:33)
[2018-12-05] MEDS: LevoFLOXacin 750 MG TABLET FT SCH (06:16)
[2018-12-05 07:20] LABS: HEMATOCRIT 32.2 % (42.0-52.0); HEMOGLOBIN 10.1 g/dl (13.5-17.5); MEAN CORPUSCULAR HEMOGLOBIN 27.4 pg (27.0-33.0); MEAN CORPUSCULAR HGB CONC 31.4 g/dl (32.0-36.5); MEAN CORPUSCULAR VOLUME 87.3 fl (80.0-96.0); PLATELET COUNT, AUTOMATED 227 10^3/uL (150-450); RED BLOOD COUNT 3.69 10^6/uL (4.30-6.10); WHITE BLOOD COUNT 6.3 10^3/uL (4.0-10.0)
[2018-12-05 07:30] VITALS: BP 126/75
[2018-12-05 08:27] LABS: ALBUMIN 2.3 GM/DL (3.2-5.2); ALT/SGPT 25 U/L (12-78); BILIRUBIN,TOTAL 0.3 MG/DL (0.2-1.0); BLOOD UREA NITROGEN 17 MG/DL (7-18); CALCIUM LEVEL 8.1 MG/DL (8.5-10.1); CARBON DIOXIDE LEVEL 34 MEQ/L (21-32); CHLORIDE LEVEL 105 MEQ/L (98-107); CREATININE FOR GFR 0.17 MG/DL (0.70-1.30); GLOMERULAR FILTRATION RATE > 60.0 (>56); GLUCOSE, FASTING 305 MG/DL (70-100); PHOSPHORUS LEVEL 2.6 MG/DL (2.5-4.9); POTASSIUM SERUM 3.4 MEQ/L (3.5-5.1); SODIUM LEVEL 145 MEQ/L (136-145)
[2018-12-05 08:37] LABS: VITAMIN B12 LEVEL 380 PG/ML (247-911)
[2018-12-05] MEDS: levETIRAcetam ORAL SOLUTION 500 MG/5 ML UDC GT SCH ×2 (10:04→21:33)
[2018-12-05] MEDS: SUCRALFATE SUSP 1GM/10ML UD PEG SCH ×2 (10:04→21:33)
[2018-12-05] MEDS: K-PHOS ORIGINAL (POT.ACID PHOSPHATE) 500MG TAB PEG SCH ×2 (10:04→22:05)
[2018-12-05] MEDS: predniSONE 10 MG TAB FT SCH (10:04)
[2018-12-05] MEDS: LANSOPRAZOLE SUSPENSION 30 MG/10 ML ORAL SYRINGE (FIRST-LANSOPRAZOLE) FT SCH ×2 (10:05→21:32)
[2018-12-05 12:00] VITALS: BP 123/71
[2018-12-05] MEDS: ACETAMINOPHEN 325 MG/10.15 ML UDC GT PRN (13:07)
[2018-12-05] MEDS ORDERED: POTASSIUM CHLORIDE 10% LIQ 20 MEQ/15 ML UDC PO ONE (13:30)
[2018-12-05 16:00] VITALS: BP 129/71
[2018-12-05 16:30] VITALS: O2SAT 94
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
[2018-12-05 20:00] VITALS: BP 132/73
[2018-12-05] MEDS: ATORVASTATIN 20 MG TAB PEG SCH (21:33)
[2018-12-06] VITALS: BP 141/79
[2018-12-06] MEDS: ALBUTEROL SULFATE 2.5 MG/0.5 ML INH NEB SOLN NEB SCH ×5 (03:47→21:01)
[2018-12-06 04:00] VITALS: BP 131/69
[2018-12-06] MEDS: HEPARIN SOD (PORCINE) 5000 UNITS/ML VIAL SC SCH ×3 (06:00→21:57)
[2018-12-06] MEDS: LevoFLOXacin 750 MG TABLET FT SCH (06:01)
[2018-12-06] MEDS: HumaLOG INSULIN (NovoLOG) PER UNIT SC SCH ×4 (06:47→18:08)
[2018-12-06 08:00] VITALS: BP 124/74
[2018-12-06 08:32] LABS: HEMATOCRIT 29.7 % (42.0-52.0); HEMOGLOBIN 9.5 g/dl (13.5-17.5); MEAN CORPUSCULAR HEMOGLOBIN 28.1 pg (27.0-33.0); MEAN CORPUSCULAR VOLUME 87.9 fl (80.0-96.0); PLATELET COUNT, AUTOMATED 226 10^3/uL (150-450); RED BLOOD COUNT 3.38 10^6/uL (4.30-6.10); WHITE BLOOD COUNT 6.9 10^3/uL (4.0-10.0)
[2018-12-06 08:49] LABS: BLOOD UREA NITROGEN 20 MG/DL (7-18); CALCIUM LEVEL 8.1 MG/DL (8.5-10.1); CARBON DIOXIDE LEVEL 33 MEQ/L (21-32); CHLORIDE LEVEL 104 MEQ/L (98-107); CREATININE FOR GFR 0.18 MG/DL (0.70-1.30); GLOMERULAR FILTRATION RATE > 60.0 (>56); GLUCOSE, FASTING 279 MG/DL (70-100); POTASSIUM SERUM 3.6 MEQ/L (3.5-5.1); SODIUM LEVEL 143 MEQ/L (136-145)
--- NOTE | 2018-12-06 08:58 | CR ---
DATE OF CONSULTATION: DATE: 12/05/2018 REFERRING PROVIDER: Dr. Hesham Oliver. REASON FOR CONSULTATION: Progressive dysphagia. Adolph Jones is a 58-year-old male with past medical history significant for traumatic brain injury occurring several decades ago. [facility] a [facility]. The patient has a history of seizure disorder. He was last seen in the neurology clinic on November 21, 2018. The patient had his antiepileptic medications adjusted by his [facility] at the [facility]. His Dilantin was discontinued after November 08 of this year and Keppra was increased from 1000 twice a day to 1500 mg twice a day. The patient was noted to be more lethargic and sleepy after the change antiepileptic dosing. The patient had been receiving Botox injections under the care of Dr. Ramon Corral and last received Botox approximately 8 weeks ago. The patient has developed progressive dysphagia over the last few weeks as per the primary team. The patient has required percutaneous endoscopic gastrostomy tube placement. No seizure-like activity has been noted. Head CT has been completed which shows diffuse volume loss unchanged from prior CAT scans in previous years including comparison to 2005. The patient is in need of an MRI to rule out any stroke causing dysphasia. It is possible that Botox may have contributed if there were any muscles proximal to the throat injected. The patient himself says limited function due to his traumatic brain injury. He can lift his arms minimally. He can flex his right upper extremity well spontaneously and try to touch his nose on command with 1 finger. Patient is able to lift his left arm off of the bed but with a grade of 2+. The patient is able to wiggle his left foot at the ankle. He is able to wiggle his right toes on command. He states that he feels light touch in all four extremities. The patient was able to stick his tongue out. He is able to follow using his eyes. The patient has significant weakness in all four extremities noted. The patient does not have any spontaneous movement of his proximal lower extremities. REVIEW OF SYSTEMS: The patient denies being in any pain, chest pain or shortness breath. He does agree that he has had some progressive difficulty with swallowing. He is mostly able to answer questions with yes or no and mouth words. PAST MEDICAL HISTORY: Traumatic brain injury, diabetes, hypertension, coronary artery disease, history of seizures. ALLERGIES: Zinacef, Bactrim, Farxiga, Prostaphlin. CURRENT MEDICATIONS: Include Keppra 1500 mg by mouth twice a day, the patient is no longer on Dilantin, Lipitor 80 mg, Bystolic 10 mg, Actos 30 mg, potassium chloride 20 mEq three times a day, Flomax 0.4 mg daily, chlorthalidone 12.5 mg daily, Micardis 80 mg by mouth daily, vitamin D 5000 international units by mouth daily, aspirin 81 mg daily, Lipitor 80 mg by mouth daily, Norvasc 5 mg daily and 150 mg daily, Benadryl 25 mg by mouth every 6 hours as needed for itching, minocycline 100 mg, albuterol nebulizer. FAMILY HISTORY: Noncontributory. SOCIAL HISTORY: The patient does not drink alcohol, use tobacco or illicit drugs. PHYSICAL EXAMINATION: Blood pressure is 129/71, pulse rate is 75, respiratory rate is 16, temperature 98.7 degrees Fahrenheit, oxygenation 94%. Next the patient is 94% on 5 liters oxygen through his tracheostomy. Next pupils are round, reactive to light. Extraocular movements are intact in all directions. Tongue is midline. The patient is able to follow commands. He reports presence of light touch in all four extremities. He can wiggle his right toes. He can wiggle his left foot at the ankle. He can raise his right arm well off of the bed and flex at the elbow easily. His hand vegetable loader is diminished though still present. He has dexterity of his right hand present. The patient is able to lift his left arm off of the bed but with a grade 2+ 3-. The patient is able to follow commands with simple yes or no answers for the most part. ASSESSMENT: 1. 58-year-old male with progressive dysphagia with the last few weeks. PLAN: 1. Rule out ischemic stroke. Obtain MRI brain without contrast. Obtain outside records of muscles injected with Botox. Botox certainly may have contributed towards progressive dysphagia as it is a non-side effect of Botox, particularly when injected around the cervical muscles and soft tissue of the neck. 2. Patient was noted to be slightly more sedated lethargic on the higher dose of Keppra at first and does not appear to be the case presently. Obtain EEG rule out any underlying seizures. Agree with myasthenia workup, although symptoms do not appear to wax and wane. 3. Continue supportive care
--- NOTE | 2018-12-06 09:04 | REP ---
MRA BRAIN WITHOUT CONTRAST: HISTORY: Rule out infarction. 3D [id number] MR angiography was performed at the level of the [place]. There is no aneurysm, arteriovenous malformation, or atherosclerotic lesion. 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 Major intracranial vessels are patent. The right vertebral artery is dominant. IMPRESSION: Normal MRA brain. Electronically Signed by Mikal Johnson MD 12/06/2018 09:06 A
--- NOTE | 2018-12-06 09:24 | REP ---
MR BRAIN WITHOUT CONTRAST: HISTORY: Rule out infarction. COMPARISON: CT 12/04/2018 Areas of increased signal intensity on T2 weighted images are present in the periventricular and subcortical white matter. This represents small vessel ischemic disease. There is no intraparenchymal hemorrhage, acute infarct, mass or midline shift. There is marked dilatation of the lateral ventricles greater on the right than on the left. There is dilatation of the cortical sulci. There is marked dilatation of the 3rd and 4th ventricles. There is volume loss in the cerebellum. The cerebellar vermis is hypoplastic. The findings are suggestive of a Dandy Walker variant. There is no extracerebral collection. Mucosal thickening is present in the maxillary sinuses. IMPRESSION: 1. Small vessel ischemic disease. 2. Marked super and inferior tentorial volume loss. 3. Findings consistent with a Dandy-Walker variant. Electronically Signed by Mikal Johnson MD 12/06/2018 09:32 A
[2018-12-06] MEDS: predniSONE 10 MG TAB FT SCH (09:49)
[2018-12-06] MEDS: levETIRAcetam ORAL SOLUTION 500 MG/5 ML UDC GT SCH ×2 (09:50→21:56)
[2018-12-06] MEDS: POTASSIUM CHLORIDE 10% LIQ 20 MEQ/15 ML UDC PO SCH (09:50)
[2018-12-06] MEDS: LANSOPRAZOLE SUSPENSION 30 MG/10 ML ORAL SYRINGE (FIRST-LANSOPRAZOLE) FT SCH ×2 (09:50→21:56)
[2018-12-06] MEDS: SUCRALFATE SUSP 1GM/10ML UD PEG SCH ×2 (09:50→21:56)
[2018-12-06] MEDS: K-PHOS ORIGINAL (POT.ACID PHOSPHATE) 500MG TAB PEG SCH ×2 (09:53→21:56)
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
--- NOTE | 2018-12-06 11:35 | NUR ---
Pt discharged from dysphagia tx this date. Currently NPO w/ PEG tube in place and tolerating cuffed tracheostomy tube. Please request re-evaluation for dysphagia as pt's respiratory status improves. Will repeat swallow evaluation when pt is tolerating uncuffed trach and Passy Newell valve. Addendum: 12/06/[address] [facility] Amended: Links added.
[2018-12-06] MEDS ORDERED: SLF 3 ML SYR IV PRN (11:45)
[2018-12-06 12:00] VITALS: BP 130/76
[2018-12-06 12:19] LABS: PREALBUMIN 18.9 MG/DL (20.0-40.0)
[2018-12-06] MEDS: SLF 3 ML SYR IV SCH ×2 (14:21→22:00)
[2018-12-06] MEDS: ACETAMINOPHEN 325 MG/10.15 ML UDC GT PRN (14:26)
[2018-12-06 16:00] VITALS: BP 138/82
[2018-12-06 20:00] VITALS: BP 145/80
[2018-12-06] MEDS: ATORVASTATIN 20 MG TAB PEG SCH (21:56)
[2018-12-07] VITALS (9 sets, daily range): BP systolic 84–133; BP diastolic 50–82; O2SAT 98
[2018-12-07 00:08] LABS: Lyme Disease IgG/IgM Antibodie <0.91 ISR (0.00-0.90); Lyme Disease IgM Ab Quantitati <0.80 index (0.00-0.79)
[2018-12-07] MEDS: ALBUTEROL SULFATE 2.5 MG/0.5 ML INH NEB SOLN NEB SCH ×7 (00:28→23:41)
[2018-12-07] MEDS: HumaLOG INSULIN (NovoLOG) PER UNIT SC SCH ×4 (00:47→18:16)
[2018-12-07] MEDS: HEPARIN SOD (PORCINE) 5000 UNITS/ML VIAL SC SCH ×3 (05:16→21:24)
[2018-12-07] MEDS: ACETAMINOPHEN 325 MG/10.15 ML UDC GT PRN ×2 (05:18→21:23)
[2018-12-07] MEDS: SLF 3 ML SYR IV SCH ×3 (06:00→20:23)
[2018-12-07] MEDS: LevoFLOXacin 750 MG TABLET FT SCH (06:05)
[2018-12-07] MEDS: POTASSIUM CHLORIDE 10% LIQ 20 MEQ/15 ML UDC PO SCH (08:40)
[2018-12-07] MEDS: levETIRAcetam ORAL SOLUTION 500 MG/5 ML UDC GT SCH ×2 (08:40→21:23)
[2018-12-07] MEDS: SUCRALFATE SUSP 1GM/10ML UD PEG SCH ×2 (08:40→21:24)
[2018-12-07] MEDS: LANSOPRAZOLE SUSPENSION 30 MG/10 ML ORAL SYRINGE (FIRST-LANSOPRAZOLE) FT SCH ×2 (08:41→21:23)
[2018-12-07] MEDS: K-PHOS ORIGINAL (POT.ACID PHOSPHATE) 500MG TAB PEG SCH ×2 (08:41→21:23)
[2018-12-07] MEDS: predniSONE 10 MG TAB FT SCH (08:41)
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
[2018-12-07] MEDS: ATORVASTATIN 20 MG TAB PEG SCH (21:23)
[2018-12-07] MEDS ORDERED: NS 1,000 ML IV ONE ×2 (23:00→23:15)
[2018-12-08] VITALS (8 sets, daily range): BP systolic 100–136; BP diastolic 60–84; O2SAT 97
[2018-12-08] MEDS: HumaLOG INSULIN (NovoLOG) PER UNIT SC SCH ×4 (00:45→18:00)
[2018-12-08] MEDS: ACETAMINOPHEN 325 MG/10.15 ML UDC GT PRN ×2 (03:16→21:02)
[2018-12-08] MEDS: ALBUTEROL SULFATE 2.5 MG/0.5 ML INH NEB SOLN NEB SCH ×5 (03:53→20:05)
[2018-12-08 05:10] LABS: TROPONIN I 0.28 NG/ML (< 0.10)
[2018-12-08 05:12] LABS: BLOOD UREA NITROGEN 31 MG/DL (7-18); CALCIUM LEVEL 7.7 MG/DL (8.5-10.1); CARBON DIOXIDE LEVEL 30 MEQ/L (21-32); CHLORIDE LEVEL 111 MEQ/L (98-107); CREATININE FOR GFR 0.25 MG/DL (0.70-1.30); GLOMERULAR FILTRATION RATE > 60.0 (>56); GLUCOSE, FASTING 399 MG/DL (70-100); POTASSIUM SERUM 3.9 MEQ/L (3.5-5.1); SODIUM LEVEL 147 MEQ/L (136-145)
--- NOTE | 2018-12-08 05:21 | REPVR ---
EXAM: CT Abdomen and Pelvis Without Contrast EXAM DATE/TIME: 12/08/2018 3:32 AM CLINICAL HISTORY: 58 years old, male; Pain; Abdominal pain; Generalized TECHNIQUE: Axial computed tomography images of the abdomen and pelvis without contrast. All CT scans at this facility use at least one of these dose optimization techniques: automated exposure control; mA and/or kV adjustment per patient size (includes targeted exams where dose is matched to clinical indication); or iterative reconstruction. Coronal and sagittal reformatted images were created and reviewed. COMPARISON: CT ABD PELVIS W/O CONTRAST 03/19/2016 1:18 PM FINDINGS: Lower thorax: There is significantly elevated right and left hemidiaphragms with basilar atelectatic changes. ABDOMEN: Liver: The dome of the liver is not included on this exam. Gallbladder and bile ducts: Normal. No calcified stones. No ductal dilation. Pancreas: Normal. No ductal dilation. Spleen: Normal. No splenomegaly. Adrenals: There is nodular thickening of the left adrenal gland measuring up to 1.4 cm, more prominent than 2016. Kidneys and ureters: Normal. No hydronephrosis. Stomach and bowel: Gastrostomy tube is seen in the stomach Appendix: No evidence of appendicitis. PELVIS: Bladder: Unremarkable as visualized. Reproductive: Unremarkable as visualized. ABDOMEN and PELVIS: Intraperitoneal space: Normal. No free air. No significant fluid collection. Bones/joints: There are bulky anterior lumbar spine osteophytes. There is lower lumbar spine facet arthrosis. There are bilateral hip DJD. Soft tissues: There is a small bilateral fat-containing inguinal hernias. Vasculature: There is moderate aortic mural calcifications. The infrarenal aorta is ectatic measuring 2.7 cm per Lymph nodes: Normal. No enlarged lymph nodes. IMPRESSION: 1. Gastrostomy tube in place. 2. Significant thickening of the left adrenal gland much more prominent than 2016 likely hyperplasia however given the significant interval change further characterization with MRI should be considered. 3. Significantly elevated bilateral hemidiaphragms with basilar atelectatic changes. 4. Small bilateral fat-containing inguinal hernias. Electronically signed by: Jaswant Matta On 12/08/2018 05:20:41 AM
[2018-12-08] MEDS: SLF 3 ML SYR IV SCH ×3 (06:00→21:03)
[2018-12-08 06:34] LABS: HEMATOCRIT 23.3 % (42.0-52.0); MEAN CORPUSCULAR HEMOGLOBIN 28.3 pg (27.0-33.0); MEAN CORPUSCULAR HGB CONC 31.3 g/dl (32.0-36.5); MEAN CORPUSCULAR VOLUME 90.3 fl (80.0-96.0); PLATELET COUNT, AUTOMATED 291 10^3/uL (150-450); RED BLOOD COUNT 2.58 10^6/uL (4.30-6.10); WHITE BLOOD COUNT 16.3 10^3/uL (4.0-10.0)
[2018-12-08 06:37] LABS: HEMOGLOBIN 7.3 g/dl (13.5-17.5)
[2018-12-08] MEDS: HEPARIN SOD (PORCINE) 5000 UNITS/ML VIAL SC SCH ×3 (06:42→21:03)
[2018-12-08] MEDS: LevoFLOXacin 750 MG TABLET FT SCH (06:42)
[2018-12-08] MEDS ORDERED: NS 1,000 ML IV SCH (06:55)
--- NOTE | 2018-12-08 08:06 | REP ---
Portable chest x-ray: Single view. History: Elevated white blood cell count. Comparison study: December 04, 2018. Findings: There is discoid atelectasis in the right base above a somewhat elevated right hemidiaphragm. This is improved from the December 04, 2018 study. The left lung is clear. Tracheostomy tube remains in good position. EKG monitoring electrodes are seen in place. Impression: Plate-like atelectasis right base somewhat improved. No new infiltrate. Tracheostomy tube in good position. Electronically Signed by Ousmane Tyson MD 12/08/2018 08:30 A
[2018-12-08 08:34] LABS: ALBUMIN 2.1 GM/DL (3.2-5.2); BILIRUBIN,DIRECT 0.1 MG/DL (0.0-0.2); BILIRUBIN,TOTAL 0.3 MG/DL (0.2-1.0); TOTAL PROTEIN 4.9 GM/DL (6.4-8.2)
[2018-12-08] MEDS: LANSOPRAZOLE SUSPENSION 30 MG/10 ML ORAL SYRINGE (FIRST-LANSOPRAZOLE) FT SCH ×2 (08:35→21:02)
[2018-12-08] MEDS: predniSONE 10 MG TAB FT SCH (08:35)
[2018-12-08] MEDS: SUCRALFATE SUSP 1GM/10ML UD PEG SCH ×2 (08:35→21:02)
[2018-12-08] MEDS: levETIRAcetam ORAL SOLUTION 500 MG/5 ML UDC GT SCH ×2 (08:35→21:02)
[2018-12-08] MEDS: K-PHOS ORIGINAL (POT.ACID PHOSPHATE) 500MG TAB PEG SCH ×2 (08:36→21:02)
[2018-12-08] MEDS: POTASSIUM CHLORIDE 10% LIQ 20 MEQ/15 ML UDC PO SCH (08:36)
--- NOTE | 2018-12-08 08:55 | REP ---
MRI CERVICAL SPINE WITHOUT CONTRAST: HISTORY: Dysphagia. COMPARISON: 03/22/2018. Facet hypertrophy is present on the left at the C2-3 level. This produces mild narrowing of the left C2 neural foramen. The right C2 neural foramen is patent. A disc bulge with associated osteophyte formation is present at the C3-4 level. There is mild effacement of the thecal sac without spinal cord compression. Bilateral uncinate process hypertrophy is present. This produces moderate narrowing of the C3 neural foramina. A disc bulge with associated osteophyte formation is present at the C4-5 level. There is moderate effacement of the thecal sac without spinal cord compression. Bilateral uncinate process and left facet hypertrophy are present. These findings produce moderate narrowing of the C4 neural foramina. A disc bulge with associated osteophyte formation is present at the C5-6 level. There is mild effacement of the thecal sac without spinal cord compression. Bilateral uncinate process and left facet hypertrophy are present. These findings produce mild and moderate narrowing of the right and left C5 neural foramina respectively. There is no other disc bulge or herniation. The remaining neural foramina are patent. The spinal cord is normal in signal intensity. The C3-4 through C5-6 intervertebral discs are decreased in height consistent with disc degeneration. Normal signal intensity is present in the cervical vertebral bodies. IMPRESSION: There is cervical spondylosis at the C2-3 through C5-6 levels without spinal cord compression. There is no significant change compared to the previous study. Electronically Signed by Mikal Johnson MD 12/08/2018 09:22 A
[2018-12-08 14:05] LABS: MB/CK RELATIVE INDEX 8.06 (< OR =4); TROPONIN I 0.15 NG/ML (< 0.10)
--- NOTE | 2018-12-08 14:21 | ECGEPIP ---
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
--- NOTE | 2018-12-08 16:38 | IPNPDOC ---
Subjective General Date/Time Seen The patient was seen on 12/08/18 at 16:35. Subject Chief Complaint/History Patient overnight had an episode of hypotension. Bowel movements recorded yesterday afternoon was noted to be mottled and a colored. Hemoglobin today is down to 7.3. Current Medications Current Medications Current Medications Acetaminophen (Tylenol Suppository) 650 mg Q4HP PRN MS MILD PAIN OR FEVER Last administered on 12/01/18at 22:18; Start 11/26/18 at 14:30; Stop 12/02/18 at 09:13; Status DC Acetaminophen (Tylenol Suspension) 650 mg Q4HP PRN GT PAIN OR FEVER Last administered on 12/08/18 03:16; Start 12/02/18 at 09:15 Albuterol Sulfate (Proventil Neb) 2.5 mg Q2HP PRN NEB SHORTNESS OF BREATH Last administered on 11/29/18at 05:35; Start 11/26/18 at 14:30 Albuterol Sulfate (Proventil Neb) 2.5 mg RQ4H NEB Last administered on 12/08/18at 15:08; Start 11/26/18 at 16:00 Amlodipine Besylate (Norvasc) 5 mg DAILY PO ; Start 12/02/18 at 09:00; Status Cancel Atorvastatin Calcium (Lipitor) 80 mg QHS PEG Last administered on 12/07/18at 21:23; Start 12/04/18 at 21:00 Atorvastatin Calcium (Lipitor) 80 mg QHS PO Last administered on 12/03/18at 21:00; Start 12/01/18 at 21:00; Stop 12/04/18 at 19:58; Status DC Bisacodyl (Dulcolax Suppository) 10 mg DAILYPRN PRN MS CONSTIPATION; Start 11/26/18 at 14:30 Chlorhexidine Gluconate (Peridex Oral Rinse) SWAB/BRUSH ORAL CAVITY BID MT Last administered on 11/28/18at 08:26; Start 11/26/18 at 21:00; Stop 11/28/18 at 16:25; Status DC Dextrose (Dextrose 50%) 25 ml ASDIRECTED PRN IV SEE LABEL COMMENTS; Start 11/27/18 at 01:00 Dextrose/Sodium Chloride 1,000 ml @ 50 mls/hr Q20H IV Last administered on 11/30/18at 05:10; Start 11/28/18 at 18:00; Stop 11/30/18 at 15:28; Status DC Glucagon (Glucagon) 1 mg ASDIRECTED PRN SC SEE LABEL COMMENTS; Start 11/27/18 at 01:00 Glucose (Glucose) 16 GM ASDIRECTED PRN PO SEE LABEL COMMENTS; Start 11/27/18 at 01:00 Heparin Sodium (Porcine) (Heparin) 5,000 units Q8H SC Last administered on 12/08/18at 06:42; Start 11/26/18 at 14:00 Home Med (Med Rec Complete!) ASDIRECTED XX ; Start 11/26/18 at 14:45; Stop 11/26/18 at 14:45; Status DC Insulin Human Lispro (HumaLOG INSULIN) SEE PROTOCOL TABLE Q6H SC Last administered on 12/08/18at 12:00; Start 11/27/18 at 00:00 Lansoprazole (First-Lansoprazole Oral Suspension) 30 mg BID FT Last administered on 12/07/18at 21:23; Start 12/03/18 at 21:00 Levetiracetam (Keppra Oral Solution) 1,500 mg BID GT Last administered on at 21:23; Start 12/03/18 at 14:00 Levetiracetam 1500 mg/Dextrose 115 ml @ 460 mls/hr Q12H IV Last administered on 12/03/18at 02:00; Start 11/27/18 at 02:00; Stop 12/03/18 at 12:52; Status DC Levofloxacin (Levaquin) 750 mg DAILY@06 FT Last administered on 12/08/18at 06:42; Start 12/03/18 at 06:00 Levofloxacin 750 mg/IV Miscellaneous Supplies 150 ml @ 100 mls/hr Q24H IV Last administered on 12/02/18at 14:38; Start 11/27/18 at 15:00; Stop 12/03/18 at 12:52; Status DC Methylprednisolone (SOLU medrol) 24 mg DAILY IV Last administered on 12/03/18at 09:24; Start 12/01/18 at 09:00; Stop 12/03/18 at 12:52; Status DC Methylprednisolone (SOLU medrol) 30 mg DAILY IV Last administered on 11/30/18at 08:32; Start 11/29/18 at 09:00; Stop 11/30/18 at 09:24; Status DC Methylprednisolone (SOLUmedrol) 48 mg DAILY IV ; Start 11/27/18 at 09:00; Stop 11/27/18 at 13:36; Status DC Methylprednisolone (SOLUmedrol) 50 mg DAILY IV Last administered on 11/28/18at 08:25; Start 11/27/18 at 09:00; Stop 11/28/18 at 09:45; Status DC Midazolam HCl (Versed) 2 mg Q15MP PRN IV AGITATION Last administered on at 16:33; Start 11/26/18 at 14:30; Stop 11/28/18 at 16:25; Status DC Midazolam HCl (Versed) 4 mg STAT STAT IV Last administered on 11/30/18at 10:10; Start 11/30/18 at 09:20; Stop 11/30/18 at 09:23; Status DC Miscellaneous (Unresolved Clarification Entry) SEE LABEL COMMENTS DAILY XX ; Start 12/05/18 at 09:00; Stop 12/05/18 at 13:22; Status DC Miscellaneous (Unresolved Clarification Entry) SEE LABEL COMMENTS DAILY XX ; Start 12/08/18 at 09:00 Morphine Sulfate (Morphine Sulfate Inj) 2 mg Q2HP PRN IV PAIN Last administered on 11/28/18at 11:18; Start 11/26/18 at 14:30; Stop 11/28/18 at 16:25; Status DC Nebivolol (Bystolic) 10 mg DAILY PO Last administered on 12/01/18at 22:17; Start 12/01/18 at 20:00; Stop 12/02/18 at 12:30; Status DC Nystatin (Mycostatin) 1 ml Q6H PO Last administered on 11/29/18at 05:23; Start 11/27/18 at 12:00; Stop 11/29/18 at 12:11; Status DC Nystatin (Mycostatin) 5 ml Q6H SS Last administered on 12/05/18at 06:16; Start 11/29/18 at 12:00; Stop 12/05/18 at 13:20; Status DC Ondansetron HCl (ZOFRAN INJection) 4 mg Q6HP PRN IV NAUSEA OR VOMITING; Start 11/26/18 at 14:30; Stop 12/03/18 at 12:52; Status DC Ondansetron HCl (Zofran) 4 mg Q6HP PRN PEG NAUSEA OR VOMITING; Start 12/03/18 at 12:45 Pantoprazole Sodium (Protonix) 40 mg BID IV Last administered on 12/03/18at 09:24; Start 12/03/18 at 09:00; Stop 12/03/18 at 12:52; Status DC Pantoprazole Sodium (Protonix) 40 mg Q24H IV Last administered on 12/02/18at 17:54; Start 11/26/18 at 18:00; Stop 12/03/18 at 00:23; Status DC Piperacillin Sod/ Tazobactam Sod 3.375 gm/Dextrose 50 ml @ 50 mls/hr RQ8H IV ; Start 11/26/18 at 16:00; Stop 11/26/18 at 16:00; Status DC Potassium Chloride 20 meq/ IV Miscellaneous Supplies 100 ml @ 100 mls/hr 0500,0600,0700 IV Last administered on 11/27/18at 06:58; Start 11/27/18 at 05:00; Stop 11/27/18 at 13:00; Status DC Potassium Chloride 20 meq/ IV Miscellaneous Supplies 100 ml @ 100 mls/hr 0700,0800 IV Last administered on 11/30/18at 08:31; Start 11/30/18 at 07:00; Stop 11/30/18 at 11:00; Status DC Potassium Chloride 20 meq/ IV Miscellaneous Supplies 100 ml @ 100 mls/hr 0700,0800,0900 IV Last administered on 11/28/18at 10:34; Start 11/28/18 at 07:00; Stop 11/28/18 at 12:00; Status DC Potassium Chloride 20 meq/ IV Miscellaneous Supplies 100 ml @ 100 mls/hr DAILY IV Last administered on 12/01/18at 08:08; Start 12/01/18 at 09:00; Stop 12/01/18 at 09:22; Status DC Potassium Chloride 20 meq/ IV Miscellaneous Supplies 100 ml @ 100 mls/hr TID IV Last administered on 11/30/18at 08:31; Start 11/29/18 at 09:00; Stop 11/30/18 at 09:27; Status DC Potassium Chloride/Dextrose/ Sod Cl 1,000 ml @ 75 mls/hr [id number] IV Last administered on 12/01/18at 05:31; Start 11/30/18 at 16:00; Stop 12/01/18 at 09:30; Status DC Potassium Chloride/Dextrose/ Sod Cl 1,000 ml @ 75 mls/hr [id number] IV Last administered on 12/03/18at 04:20; Start 12/01/18 at 09:15; Stop 12/03/18 at 12:52; Status DC Potassium Phosphate (K-Phos Original) 500 mg BID PEG Last administered on 12/07/18at 21:23; Start 12/04/18 at 21:00 Potassium Phosphate (K-Phos Original) 500 mg BID PO Last administered on 12/04/18at 16:22; Start 12/04/18 at 14:00; Stop 12/04/18 at 19:58; Status DC Potassium Chloride 100 ml @ 100 mls/hr DAILY@0900,1000,1100 IV Last administered on 12/01/18at 11:17; Start 12/01/18 at 09:00; Stop 12/01/18 at 19:24; Status DC Potassium Chloride (Micro-K Extencaps) 20 meq TID PO ; Start 11/28/18 at 16:00; Stop 11/28/18 at 16:00; Status DC Potassium Chloride (Micro-K Extencaps) 20 meq TID PO ; Start 12/02/18 at 09:00; Stop 12/02/18 at 09:00; Status DC Potassium Chloride (Potassium Chloride Liquid) 20 meq DAILY PO Last administered on 12/07/18at 08:40; Start 12/06/18 at 09:00 Potassium Chloride (Potassium Chloride Liquid) 20 meq TID PO Last administered on 11/28/18at 15:47; Start 11/28/18 at 16:00; Stop 11/29/18 at 09:53; Status DC Potassium Chloride (Potassium Chloride Liquid) 60 meq DAILY PO ; Start 11/30/18 at 09:00; Stop 11/30/18 at 19:23; Status DC Prednisone (Deltasone) 30 mg DAILY FT Last administered on 12/07/18at 08:41; Start 12/04/18 at 09:00 Propofol 1000 mg/ IV Miscellaneous Supplies 100 ml @ 3.88 mls/hr Q24H IV Last administered on 11/28/18 05:18; Start 11/26/18 at 18:45; Stop 11/28/18 at 16:25; Status DC Propofol 1000 mg/ IV Miscellaneous Supplies 100 ml @ 0 mls/hr Q0M IV Last administered on 11/26/18at 18:16; Start 11/26/18 at 14:30; Stop 11/26/18 at 18:38; Status DC Sodium Chloride 1,000 ml @ 50 mls/hr Q20H IV Last administered on 11/27/18at 21:17; Start 11/26/18 at 14:16; Stop 11/27/18 at 23:04; Status DC Sodium Chloride 1,000 ml @ 100 mls/hr Q10H IV Last administered on 12/08/18 07:42; Start 12/08/18 at 06:55 Sodium Chloride (Saline Lock Flush) 2 ml ASDIRECTED PRN IV SEE LABEL COMMENTS Last administered on 12/07/18 20:23; Start 12/06/18 at 11:45 Sodium Chloride (Saline Lock Flush) 2 ml SLF IV Last administered on 12/08/18 14:00; Start 12/06/18 at 14:00 Sodium Chloride (Sodium Chloride 3% Neb [place]) 3 ml Q4HP PRN INH rhonchi, secretion clearance Last administered on 11/29/18 11:23; Start 11/28/18 at 16:15 Sucralfate (Carafate Suspension) 1 gm BID PEG Last administered on 12/07/18 21:24; Start 12/04/18 at 21:00 Sucralfate (Carafate Suspension) 1 gm BID PO Last administered on 12/04/18 08:23; Start 12/03/18 at 21:00; Stop 12/04/18 at 19:58; Status DC Vancomycin HCl 1000 mg/IV Miscellaneous Supplies 20 ml @ 20 mls/hr Q8H IV ; Start 11/26/18 at 14:30; Stop 11/26/18 at 18:31; Status DC Vancomycin HCl 1000 mg/IV Miscellaneous Supplies 1 each/ Dextrose 270 ml @ 270 mls/hr Q8H IV Last administered on 11/27/18at 17:13; Start 11/27/18 at 01:00; Stop 11/27/18 at 19:12; Status DC Vancomycin HCl 1000 mg/IV Miscellaneous Supplies 1 each/ Dextrose 270 ml @ 270 mls/hr Q8H IV Last administered on 11/29/18at 05:22; Start 11/27/18 at 21:00; Stop 11/29/18 at 08:29; Status DC Allergies Coded Allergies: Cefuroxime (Verified Allergy, Unknown, 11/26/18) Dapagliflozin (Verified Allergy, Unknown, 11/26/18) Oxacillin (Verified Allergy, Unknown, 11/26/18) Sulfamethoxazole w/Trimethoprim (Verified Allergy, Unknown, 11/26/18) Objective Physical Examination Examination GENERAL APPEARANCE: Patient awake and responds by nodding to questions. Looks comfortable.. SKIN: Warm and dry. HEENT: Mild pale palpebral conjunctiva, tracheostomy in place. LUNGS: Clear to auscultation bilaterally. No wheezing appreciated. HEART: Slightly tachycardic, regular rhythm. ABDOMEN: Abdomen is flat and nondistended, soft, gastrostomy tube site with a small amount of dried blood does not seem to have any active bleeding around the tube site. External bumpers noted on the skin. Mild tenderness around the tube site. Vital Signs Vital Signs Date Time Temp Pulse Resp B/P (MAP) Pulse Ox O2 Delivery O2 Flow Rate FiO2 12/08/18 16:00 5.0 28 12/08/18 16:00 99.3 119 19 136/84 (101) 96 12/08/18 13:27 Trach Collar I&Os I&O- Last 24 Hours up to 6 AM 12/08/18 06:00 Intake Total 1800 ml Output Total 200 ml Balance 1600 ml Laboratory Data Labs 24H Laboratory Tests 2 12/07/18 17:29: Bedside Glucose (Misc Panel) 297H 12/07/18 22:08: Bedside Glucose (Misc Panel) 319H 12/07/18 23:23: Troponin I 0.21H 12/08/18 00:21: Bedside Glucose (Misc Panel) 319H 12/08/18 04:21: Nucleated Red Blood Cells % (auto) 0.3H 12/08/18 04:23: Anion Gap 6L, Glomerular Filtration Rate > 60.0, Blood Urea Nitrogen 31#H, Creatinine 0.25L, Sodium Level 147H, Potassium Level 3.9, Chloride Level 111H, Carbon Dioxide Level 30, Calcium Level 7.7L, Aspartate Amino Transf (AST/SGOT) 26, Alanine Aminotransferase (ALT/SGPT) 26, Alkaline Phosphatase 82, Total Bilirubin 0.3, Direct Bilirubin 0.1, Troponin I 0.28#H, Total Protein 4.9L, Albumin 2.1L, Albumin/Globulin Ratio 0.75L 12/08/18 06:21: Bedside Glucose (Misc Panel) 370H 12/08/18 11:57: Bedside Glucose (Misc Panel) 256H 12/08/18 13:20: Total Creatine Kinase 216, Creatine Kinase MB 17.0H, Creatine Kinase MB Relative Index 8.06H, Troponin I 0.15#H CBC/BMP Laboratory Tests 12/08/18 04:21 Red Blood Count 2.58 L, Mean Corpuscular Volume 90.3, Mean Corpuscular Hemoglobin 28.3, Mean Corpuscular Hemoglobin Concent 31.3 L, Red Cell Distribution Width 16.5 H 12/08/18 04:23 Calcium Level 7.7 L Microbiology Microbiology 12/08/18 Blood Culture, Received Pending 12/08/18 Blood Culture, Received Pending 12/03/18 Gram Stain - Final, Complete 12/03/18 Sputum Culture - Final, Complete Impression Suspect upper GI bleeding 1 week after gastrostomy tube placement Patient is receiving 2 units of packed RBCs. Patient may be bleeding from the gastrostomy tube site. I've asked the nurse to lavage the stomach. We will set him up for an upper GI endoscopy. I have spoken to his father and obtaining consent Plan / VTE VTE Prophylaxis Ordered?: No VTE Exclusion Pharmacological: Active Bleeding PAT GONZALEZ MD Dec 08, 2018 16:38
[2018-12-08 17:04] LABS: HEMATOCRIT 30.2 % (42.0-52.0); HEMOGLOBIN 9.8 g/dl (13.5-17.5)
[2018-12-08] MEDS ORDERED: LIDOCAINE 2% INJ 100 MG/5 ML SDV (FOR ANES.) As Ordered ONE (17:49)
[2018-12-08] MEDS ORDERED: PROPOFOL 200 MG/20 ML VIAL As Ordered ONE (17:49)
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
--- NOTE | 2018-12-08 18:47 | ROOR ---
Patient Name: Adolph Jones Procedure Date: 12/08/2018 4:44 PM Date of : 1960 Age: 58 Gender: Male Note Status: Finalized Procedure: Upper GI endoscopy Indications: Melena, Recent gastrointestinal bleeding Providers: Zach Coelho MD Referring MD: Francisco Infante MD Requesting Provider: Medicines: Monitored Anesthesia Care Complications: No immediate complications. Procedure: Pre-Anesthesia Assessment: - Prior to the procedure, a History and Physical was performed, and patient medications and allergies were reviewed. The patient is unable to give consent secondary to the patient's altered mental status. The risks and benefits of the procedure and the sedation options and risks were discussed with the patient's father. All questions were answered and informed consent was obtained. Patient identification and proposed procedure were verified by the physician, the nurse and the publishing editor in the procedure room. Mental Status Examination: Awake, alert, responds by nodding, nonverbal. Airway Examination: normal oropharyngeal airway and neck mobility. Respiratory Examination: clear to auscultation. CV Examination: normal. Prophylactic Antibiotics: The patient does not require prophylactic antibiotics. Prior Anticoagulants: The patient has taken no previous anticoagulant or antiplatelet agents. ASA Grade Assessment: IV - A patient with severe systemic disease that is a constant threat to life. After reviewing the risks and benefits, the patient was deemed in satisfactory condition to undergo the procedure. The anesthesia plan was to use monitored anesthesia care (MAC). Immediately prior to administration of medications, the patient was re-assessed for adequacy to receive sedatives. The heart rate, respiratory rate, oxygen saturations, blood pressure, adequacy of pulmonary ventilation, and response to care were monitored throughout the procedure. The physical status of the patient was re-assessed after the procedure. The Endoscope was introduced through the mouth, and advanced to the second part of duodenum. The upper GI endoscopy was accomplished without difficulty. The patient tolerated the procedure well. Findings: There is no endoscopic evidence of bleeding, areas of erosion, esophagitis, inflammation, ulcerations or varices in the entire esophagus. A single localized, around gastrostomy bumper (pressure necrosis/bleeding non-bleeding erosion was found on the anterior wall of the stomach. There were stigmata of recent bleeding. Estimated blood loss: none. Old healed ulcer on 2nd portion of duodenum, duodenal bulb normal The gastrostomy internal bumper has old blood around it. On loosening the bumper, evidence of slight pressure necrosis with old blood but no active bleeding. There is old hematin containing blood/fluid inside the stomach. No ulcers found, no other eroded areas. Mild localized erythema opposite the bumper. No active bleeding. Impression: - Non-bleeding erosive gastropathy. - No specimens collected. Recommendation: - Admit the patient to [facility] for ongoing care. - Resume tube feedings. Monitor course. Make sure bumper is loose enough so as not to cause too much traction in the internal bumper. Attending Participation: I personally performed the entire procedure. Zach Coelho MD Zach Coelho MD 12/08/2018 6:47:17 PM This report has been signed electronically. Number of Addenda: 0 Note Initiated On: 12/08/2018 4:44 PM Estimated Blood Loss: Estimated blood loss: none.
--- NOTE | 2018-12-08 18:55 | POST-OPPD ---
Postoperative Procedure Note Date Of Procedure: Dec 08, 2018 PREOPERATIVE DIAGNOSIS: upper gi bleeding, s/p peg tube placement 7 days prior POSTOPERATIVE DIAGNOSIS: same, pressure, necrosis bleeding around gastrostomy tube site FINDINGS: pressure necrosis at internal bumper of gastrostomy tube, no active bleeding PROCEDURE: Upper GI endoscopy SURGEON: Zach Coelho MD ANESTHESIA: MAC SPECIMENS: none ESTIMATED BLOOD LOSS: none COMPLICATIONS: none POSTOPERATIVE CONDITION: stable ZACH COELHO MD Dec 08, 2018 18:55
[2018-12-08] MEDS ORDERED: LR 1,000 ML IV SCH (19:00)
[2018-12-08] MEDS ORDERED: ONDANSETRON 4MG/2ML VIAL (J2405) IV PRN (19:00)
[2018-12-08] MEDS ORDERED: fentaNYL 100 MCG/2 ML INJECTION (J3010) IV PRN (19:00)
[2018-12-08] MEDS: ATORVASTATIN 20 MG TAB PEG SCH (21:02)
[2018-12-09] MEDS: ALBUTEROL SULFATE 2.5 MG/0.5 ML INH NEB SOLN NEB SCH ×6 (00:24→23:01)
[2018-12-09] MEDS: HumaLOG INSULIN (NovoLOG) PER UNIT SC SCH ×4 (00:29→17:37)
[2018-12-09 04:45] VITALS: BP 118/76
[2018-12-09 05:33] LABS: BASO # 0.1 10^3/uL (0.0-0.2); BASO % 0.5 % (0.0-1.0); EOS # 0.1 10^3/uL (0.0-0.50); EOS % 1.4 % (0.0-3.0); HEMATOCRIT 28.1 % (42.0-52.0); MEAN CORPUSCULAR HEMOGLOBIN 28.6 pg (27.0-33.0); MEAN CORPUSCULAR VOLUME 89.2 fl (80.0-96.0); MONO # 0.6 10^3/uL (0.0-0.8); MONO % 6.5 % (0.0-5.0); NEUTROPHILS # 6.6 10^3/uL (1.8-7.7); PLATELET COUNT, AUTOMATED 253 10^3/uL (150-450); RED BLOOD COUNT 3.15 10^6/uL (4.30-6.10); WHITE BLOOD COUNT 9.7 10^3/uL (4.0-10.0)
[2018-12-09 05:55] LABS: BLOOD UREA NITROGEN 31 MG/DL (7-18); CALCIUM LEVEL 8.1 MG/DL (8.5-10.1); CARBON DIOXIDE LEVEL 32 MEQ/L (21-32); CHLORIDE LEVEL 116 MEQ/L (98-107); GLOMERULAR FILTRATION RATE > 60.0 (>56); GLUCOSE, FASTING 284 MG/DL (70-100); POTASSIUM SERUM 3.5 MEQ/L (3.5-5.1); SODIUM LEVEL 151 MEQ/L (136-145)
[2018-12-09] MEDS: SLF 3 ML SYR IV SCH ×3 (06:00→21:24)
[2018-12-09] MEDS: HEPARIN SOD (PORCINE) 5000 UNITS/ML VIAL SC SCH ×3 (06:25→21:24)
[2018-12-09] MEDS: LevoFLOXacin 750 MG TABLET FT SCH (06:26)
[2018-12-09] MEDS: ACETAMINOPHEN 325 MG/10.15 ML UDC GT PRN ×2 (07:39→21:24)
[2018-12-09 08:01] VITALS: BP 114/76
[2018-12-09] MEDS ORDERED: PANTOPRAZOLE 40MG INJ (PROTONIX) (C9113) IV SCH (09:00)
[2018-12-09] MEDS: levETIRAcetam ORAL SOLUTION 500 MG/5 ML UDC GT SCH ×2 (09:50→21:23)
[2018-12-09] MEDS: POTASSIUM CHLORIDE 10% LIQ 20 MEQ/15 ML UDC PO SCH (09:50)
[2018-12-09] MEDS: SUCRALFATE SUSP 1GM/10ML UD PEG SCH ×2 (09:50→21:23)
[2018-12-09] MEDS: LANSOPRAZOLE SUSPENSION 30 MG/10 ML ORAL SYRINGE (FIRST-LANSOPRAZOLE) FT SCH ×2 (09:50→21:24)
[2018-12-09] MEDS: predniSONE 10 MG TAB FT SCH (09:51)
[2018-12-09] MEDS: K-PHOS ORIGINAL (POT.ACID PHOSPHATE) 500MG TAB PEG SCH ×3 (09:51→21:24)
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
[2018-12-09 12:00] VITALS: BP 126/72
[2018-12-09 16:00] VITALS: BP 123/68
[2018-12-09 20:00] VITALS: BP 128/66
[2018-12-09] MEDS: ATORVASTATIN 20 MG TAB PEG SCH (21:24)
[2018-12-09 23:59] VITALS: BP 126/71
[2018-12-10] MEDS: ALBUTEROL SULFATE 2.5 MG/0.5 ML INH NEB SOLN NEB SCH ×6 (03:53→23:06)
[2018-12-10 04:00] VITALS: BP 136/73
[2018-12-10 05:50] LABS: BASO % 0.5 % (0.0-1.0); EOS # 0.1 10^3/uL (0.0-0.50); EOS % 1.5 % (0.0-3.0); HEMATOCRIT 25.4 % (42.0-52.0); LYMPH # 1.5 10^3/uL (1.5-4.5); LYMPH % 23.7 % (24.0-44.0); MEAN CORPUSCULAR HEMOGLOBIN 29.3 pg (27.0-33.0); MEAN CORPUSCULAR HGB CONC 31.5 g/dl (32.0-36.5); MONO # 0.5 10^3/uL (0.0-0.8); MONO % 7.6 % (0.0-5.0); NEUTROPHILS % 64.9 % (36.0-66.0); PLATELET COUNT, AUTOMATED 237 10^3/uL (150-450); RED BLOOD COUNT 2.73 10^6/uL (4.30-6.10); WHITE BLOOD COUNT 6.2 10^3/uL (4.0-10.0)
[2018-12-10] MEDS: SLF 3 ML SYR IV SCH ×3 (06:00→20:50)
[2018-12-10 06:14] LABS: BLOOD UREA NITROGEN 26 MG/DL (7-18); CALCIUM LEVEL 7.7 MG/DL (8.5-10.1); CARBON DIOXIDE LEVEL 33 MEQ/L (21-32); CHLORIDE LEVEL 116 MEQ/L (98-107); GLOMERULAR FILTRATION RATE > 60.0 (>56); GLUCOSE, FASTING 261 MG/DL (70-100); POTASSIUM SERUM 3.6 MEQ/L (3.5-5.1); SODIUM LEVEL 154 MEQ/L (136-145)
[2018-12-10] MEDS: LevoFLOXacin 750 MG TABLET FT SCH (06:34)
[2018-12-10] MEDS: HumaLOG INSULIN (NovoLOG) PER UNIT SC SCH ×5 (06:35→23:32)
[2018-12-10] MEDS: HEPARIN SOD (PORCINE) 5000 UNITS/ML VIAL SC SCH ×3 (06:35→20:49)
[2018-12-10 08:00] VITALS: BP 121/71
[2018-12-10] MEDS ORDERED: FERROUS SULFATE 325MG TAB PO SCH (09:00)
[2018-12-10] MEDS: SUCRALFATE SUSP 1GM/10ML UD PEG SCH ×2 (09:10→20:49)
[2018-12-10] MEDS: predniSONE 20 MG TAB FT SCH (09:10)
[2018-12-10] MEDS: LANSOPRAZOLE SUSPENSION 30 MG/10 ML ORAL SYRINGE (FIRST-LANSOPRAZOLE) FT SCH ×2 (09:10→20:48)
[2018-12-10] MEDS: K-PHOS ORIGINAL (POT.ACID PHOSPHATE) 500MG TAB PEG SCH ×3 (09:10→20:48)
[2018-12-10] MEDS: levETIRAcetam ORAL SOLUTION 500 MG/5 ML UDC GT SCH ×2 (09:10→20:48)
[2018-12-10] MEDS: POTASSIUM CHLORIDE 10% LIQ 20 MEQ/15 ML UDC PO SCH (09:11)
[2018-12-10] MEDS: ACETAMINOPHEN 325 MG/10.15 ML UDC GT PRN (09:21)
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
[2018-12-10] MEDS: NS 1,000 ML IV SCH (11:32)
[2018-12-10 12:00] VITALS: BP 119/65
[2018-12-10] MEDS: FERROUS SULFATE 300MG/5ML UDC LIQUID GT SCH (12:01)
[2018-12-10] MEDS: CYANOCOBALAMIN 500 MCG TAB PO SCH (12:02)
[2018-12-10 16:00] VITALS: BP 114/67
[2018-12-10 16:46] LABS: ACETYLCHOLINE RCPTOR BLOCK AB 19 % (0-25); ACETYLCHOLINE RCPTOR MODULATIN <12 % (0-20)
[2018-12-10 20:00] VITALS: BP 131/74
[2018-12-10] MEDS: ATORVASTATIN 20 MG TAB PEG SCH (20:49)
[2018-12-10 21:07] LABS: HEMATOCRIT 27.3 % (42.0-52.0); HEMOGLOBIN 8.6 g/dl (13.5-17.5); MEAN CORPUSCULAR HEMOGLOBIN 29.4 pg (27.0-33.0); MEAN CORPUSCULAR HGB CONC 31.5 g/dl (32.0-36.5); MEAN CORPUSCULAR VOLUME 93.2 fl (80.0-96.0); PLATELET COUNT, AUTOMATED 211 10^3/uL (150-450); RED BLOOD COUNT 2.93 10^6/uL (4.30-6.10); WHITE BLOOD COUNT 7.5 10^3/uL (4.0-10.0)
[2018-12-10 23:59] VITALS: BP 127/74
[2018-12-11] VITALS (10 sets, daily range): BP systolic 72–139; BP diastolic 32–83
[2018-12-11] MEDS: ALBUTEROL SULFATE 2.5 MG/0.5 ML INH NEB SOLN NEB SCH ×5 (03:25→20:21)
[2018-12-11 05:15] LABS: BASO % 0.1 % (0.0-1.0); EOS # 0.2 10^3/uL (0.0-0.50); EOS % 2.2 % (0.0-3.0); HEMATOCRIT 27.3 % (42.0-52.0); HEMOGLOBIN 8.6 g/dl (13.5-17.5); LYMPH # 1.5 10^3/uL (1.5-4.5); MEAN CORPUSCULAR HGB CONC 31.5 g/dl (32.0-36.5); MEAN CORPUSCULAR VOLUME 91.9 fl (80.0-96.0); MONO # 0.5 10^3/uL (0.0-0.8); NEUTROPHILS # 4.5 10^3/uL (1.8-7.7); NEUTROPHILS % 67.8 % (36.0-66.0); PLATELET COUNT, AUTOMATED 230 10^3/uL (150-450); RED BLOOD COUNT 2.97 10^6/uL (4.30-6.10); WHITE BLOOD COUNT 6.7 10^3/uL (4.0-10.0)
[2018-12-11 05:44] LABS: BLOOD UREA NITROGEN 22 MG/DL (7-18); CALCIUM LEVEL 8.1 MG/DL (8.5-10.1); CARBON DIOXIDE LEVEL 35 MEQ/L (21-32); CHLORIDE LEVEL 111 MEQ/L (98-107); CREATININE FOR GFR 0.17 MG/DL (0.70-1.30); FERRITIN 44 NG/ML (26-388); GLOMERULAR FILTRATION RATE > 60.0 (>56); GLUCOSE, FASTING 230 MG/DL (70-100); POTASSIUM SERUM 3.8 MEQ/L (3.5-5.1); SODIUM LEVEL 150 MEQ/L (136-145)
[2018-12-11] MEDS: SLF 3 ML SYR IV SCH ×3 (06:00→20:58)
[2018-12-11] MEDS: HumaLOG INSULIN (NovoLOG) PER UNIT SC SCH ×3 (06:17→18:08)
[2018-12-11] MEDS: HEPARIN SOD (PORCINE) 5000 UNITS/ML VIAL SC SCH ×3 (06:18→20:58)
[2018-12-11] MEDS: SUCRALFATE SUSP 1GM/10ML UD PEG SCH ×2 (10:29→20:55)
[2018-12-11] MEDS: FERROUS SULFATE 300MG/5ML UDC LIQUID GT SCH (10:29)
[2018-12-11] MEDS: LANSOPRAZOLE SUSPENSION 30 MG/10 ML ORAL SYRINGE (FIRST-LANSOPRAZOLE) FT SCH ×2 (10:29→20:53)
[2018-12-11] MEDS: K-PHOS ORIGINAL (POT.ACID PHOSPHATE) 500MG TAB PEG SCH ×3 (10:29→20:56)
[2018-12-11] MEDS: levETIRAcetam ORAL SOLUTION 500 MG/5 ML UDC GT SCH ×2 (10:29→20:55)
[2018-12-11] MEDS: POTASSIUM CHLORIDE 10% LIQ 20 MEQ/15 ML UDC PO SCH (10:30)
[2018-12-11] MEDS: predniSONE 20 MG TAB FT SCH (10:30)
[2018-12-11] MEDS: CYANOCOBALAMIN 500 MCG TAB PO SCH (10:31)
[2018-12-11] MEDS: NS 1,000 ML IV SCH (12:39)
[2018-12-11 14:36] LABS: HEMATOCRIT 27.5 % (42.0-52.0); HEMOGLOBIN 8.7 g/dl (13.5-17.5); MEAN CORPUSCULAR HEMOGLOBIN 28.8 pg (27.0-33.0); MEAN CORPUSCULAR HGB CONC 31.6 g/dl (32.0-36.5); MEAN CORPUSCULAR VOLUME 91.1 fl (80.0-96.0); PLATELET COUNT, AUTOMATED 231 10^3/uL (150-450); RED BLOOD COUNT 3.02 10^6/uL (4.30-6.10); WHITE BLOOD COUNT 7.7 10^3/uL (4.0-10.0)
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
[2018-12-11 19:59] LABS: HEMATOCRIT 26.8 % (42.0-52.0); HEMOGLOBIN 8.4 g/dl (13.5-17.5); MEAN CORPUSCULAR HEMOGLOBIN 28.8 pg (27.0-33.0); MEAN CORPUSCULAR HGB CONC 31.3 g/dl (32.0-36.5); MEAN CORPUSCULAR VOLUME 91.8 fl (80.0-96.0); PLATELET COUNT, AUTOMATED 230 10^3/uL (150-450); RED BLOOD COUNT 2.92 10^6/uL (4.30-6.10); WHITE BLOOD COUNT 7.5 10^3/uL (4.0-10.0)
[2018-12-11] MEDS: ATORVASTATIN 20 MG TAB PEG SCH (20:56)
[2018-12-11] MEDS ORDERED: NS 1,000 ML IV ONE (21:30)
[2018-12-11 21:58] LABS: HEMOGLOBIN 7.2 g/dl (13.5-17.5); MEAN CORPUSCULAR HEMOGLOBIN 29.4 pg (27.0-33.0); MEAN CORPUSCULAR HGB CONC 31.3 g/dl (32.0-36.5); MEAN CORPUSCULAR VOLUME 93.9 fl (80.0-96.0); PLATELET COUNT, AUTOMATED 308 10^3/uL (150-450); RED BLOOD COUNT 2.45 10^6/uL (4.30-6.10); WHITE BLOOD COUNT 13.9 10^3/uL (4.0-10.0)
[2018-12-12] VITALS (73 sets, daily range): BP systolic 57–161; BP diastolic 33–81
[2018-12-12] MEDS: ALBUTEROL SULFATE 2.5 MG/0.5 ML INH NEB SOLN NEB SCH ×8 (00:39→23:43)
[2018-12-12] MEDS: SLF 3 ML SYR IV SCH ×3 (06:00→21:42)
[2018-12-12] MEDS: HumaLOG INSULIN (NovoLOG) PER UNIT SC SCH ×4 (06:00→18:00)
[2018-12-12] MEDS: HEPARIN SOD (PORCINE) 5000 UNITS/ML VIAL SC SCH (06:00)
[2018-12-12 06:15] LABS: BASO % 0.2 % (0.0-1.0); EOS # 0.2 10^3/uL (0.0-0.50); EOS % 1.2 % (0.0-3.0); HEMATOCRIT 27.6 % (42.0-52.0); HEMOGLOBIN 9.1 g/dl (13.5-17.5); LYMPH # 2.3 10^3/uL (1.5-4.5); LYMPH % 15.6 % (24.0-44.0); MEAN CORPUSCULAR HEMOGLOBIN 29.7 pg (27.0-33.0); MEAN CORPUSCULAR VOLUME 90.2 fl (80.0-96.0); MONO % 6.6 % (0.0-5.0); NEUTROPHILS # 10.8 10^3/uL (1.8-7.7); NEUTROPHILS % 74.3 % (36.0-66.0); PLATELET COUNT, AUTOMATED 219 10^3/uL (150-450); RED BLOOD COUNT 3.06 10^6/uL (4.30-6.10); WHITE BLOOD COUNT 14.6 10^3/uL (4.0-10.0)
[2018-12-12 06:46] LABS: BLOOD UREA NITROGEN 32 MG/DL (7-18); CALCIUM LEVEL 7.3 MG/DL (8.5-10.1); CARBON DIOXIDE LEVEL 30 MEQ/L (21-32); CHLORIDE LEVEL 109 MEQ/L (98-107); CREATININE FOR GFR < 0.15 MG/DL (0.70-1.30); GLOMERULAR FILTRATION RATE > 60.0 (>56); GLUCOSE, FASTING 246 MG/DL (70-100); SODIUM LEVEL 145 MEQ/L (136-145)
[2018-12-12] MEDS ORDERED: BISACODYL 5 MG TAB PO ONE (08:00)
[2018-12-12] MEDS ORDERED: GOLYTELY SOLN 4000 ML BTL PO ONE (08:00)
[2018-12-12] MEDS: SUCRALFATE SUSP 1GM/10ML UD PEG SCH ×2 (08:09→21:00)
[2018-12-12] MEDS: predniSONE 20 MG TAB FT SCH (08:09)
[2018-12-12] MEDS: K-PHOS ORIGINAL (POT.ACID PHOSPHATE) 500MG TAB PEG SCH (08:09)
[2018-12-12] MEDS: LANSOPRAZOLE SUSPENSION 30 MG/10 ML ORAL SYRINGE (FIRST-LANSOPRAZOLE) FT SCH (08:09)
[2018-12-12] MEDS: levETIRAcetam ORAL SOLUTION 500 MG/5 ML UDC GT SCH ×2 (08:09→21:00)
[2018-12-12] MEDS: CYANOCOBALAMIN 500 MCG TAB PO SCH (08:09)
[2018-12-12] MEDS: POTASSIUM CHLORIDE 10% LIQ 20 MEQ/15 ML UDC PO SCH (08:09)
[2018-12-12] MEDS: FERROUS SULFATE 300MG/5ML UDC LIQUID GT SCH (08:10)
--- NOTE | 2018-12-12 08:48 | IPNPDOC ---
Subjective General Date/Time Seen The patient was seen on 12/12/18 at 08:42. Subject Chief Complaint/History Patient had another episode like GI bleeding overnight where his blood pressure dropped into the 70s set with elisa-appearing loose stools also overnight and in the afternoon. His hemoglobin dropped to 7 for which he received 2 units of packed RBCs. His blood pressures have lysed after a bolus of normal saline and blood transfusion. Current Medications Current Medications Current Medications Acetaminophen (Tylenol Suppository) 650 mg Q4HP PRN [place] MILD PAIN OR FEVER Last administered on 12/01/18 22:18; Start 11/26/18 at 14:30; Stop 12/02/18 at 09:1 3; Status DC Acetaminophen (Tylenol Suspension) 650 mg Q4HP PRN GT PAIN OR FEVER Last administered on 12/10/18 09:21; Start 12/02/18 at 09:15 Albuterol Sulfate (Proventil Neb) 2.5 mg Q2HP PRN NEB SHORTNESS OF BREATH Last administered on 11/29/18at 05:35; Start 11/26/18 at 14:30 Albuterol Sulfate (Proventil Neb) 2.5 mg RQ4H NEB Last administered on 12/12/18 07:08; Start 11/26/18 at 16:00 Amlodipine Besylate (Norvasc) 5 mg DAILY PO ; Start 12/02/18 at 09:00; Status Cancel Atorvastatin Calcium (Lipitor) 80 mg QHS PEG Last administered on 12/11/18 20:56; Start 12/04/18 at 21:00 Atorvastatin Calcium (Lipitor) 80 mg QHS PO Last administered on 12/03/18at 21:00; Start 12/01/18 at 21:00; Stop 12/04/18 at 19:58; Status DC Bisacodyl (Dulcolax Suppository) 10 mg DAILYPRN PRN [place] CONSTIPATION; Start 11/26/18 at 14:30 Chlorhexidine Gluconate (Peridex Oral Rinse) SWAB/BRUSH ORAL CAVITY BID MT Last administered on 11/28/18at 08:26; Start 11/26/18 at 21:00; Stop 11/28/18 at 16:25; Status DC Cyanocobalamin (Vitamin B12) 1,000 mcg DAILY PO Last administered on 12/12/18 08:09; Start 12/10/18 at 09:00 Dextrose (Dextrose 50%) 25 ml ASDIRECTED PRN IV SEE LABEL COMMENTS; Start 11/27/18 at 01:00 Dextrose/Sodium Chloride 1,000 ml @ 50 mls/hr Q20H IV Last administered on 11/30/18at 05:10; Start 11/28/18 at 18:00; Stop 11/30/18 at 15:28; Status DC Fentanyl Citrate (Sublimaze) 25 mcg Q5MP PRN IV MODERATE PAIN (PS 4-7); Start 12/08/18 at 19:00; Stop 12/08/18 at 20:00; Status DC Ferrous Sulfate (Ferrous Sulfate) 300 mg DAILY GT Last administered on 12/12/18at 08:10; Start 12/10/18 at 09:00 Ferrous Sulfate (Ferrous Sulfate) 325 mg DAILY PO ; Start 12/10/18 at 09:00; Status Cancel Glucagon (Glucagon) 1 mg ASDIRECTED PRN SC SEE LABEL COMMENTS; Start 11/27/18 at 01:00 Glucose (Glucose) 16 GM ASDIRECTED PRN PO SEE LABEL COMMENTS; Start 11/27/18 at 01:00 Heparin Sodium (Porcine) (Heparin) 5,000 units Q8H SC Last administered on 12/12/18at 06:00; Start 11/26/18 at 14:00 Home Med (Med Rec Complete!) ASDIRECTED XX ; Start 11/26/18 at 14:45; Stop 11/26/18 at 14:45; Status DC Insulin Human Lispro (HumaLOG INSULIN) SEE PROTOCOL TABLE Q6H SC Last administered on 12/11/18at 18:08; Start 11/27/18 at 00:00 Lactated Ringer's 1,000 ml @ 80 mls/hr [id number] IV ; Start 12/08/18 at 19:00; Stop 12/08/18 at 20:00; Status DC Lansoprazole (First-Lansoprazole Oral Suspension) 30 mg BID FT Last administer ed on 12/12/18at 08:09; Start 12/03/18 at 21:00 Levetiracetam (Keppra Oral Solution) 1,500 mg BID GT Last administered on 12/12/18at 08:09; Start 12/03/18 at 14:00 Levetiracetam 1500 mg/Dextrose 115 ml @ 460 mls/hr Q12H IV Last administered on 12/03/18at 02:00; Start 11/27/18 at 02:00; Stop 12/03/18 at 12:52; Status DC Levofloxacin (Levaquin) 750 mg DAILY@06 FT Last administered on 12/10/18 06:34; Start 12/03/18 at 06:00; Stop 12/10/18 at 10:50; Status DC Levofloxacin 750 mg/IV Miscellaneous Supplies 150 ml @ 100 mls/hr Q24H IV Last administered on 12/02/18at 14:38; Start 11/27/18 at 15:00; Stop 12/03/18 at 12:52; Status DC Methylprednisolone (SOLU medrol) 24 mg DAILY IV Last administered on 12/03/18at 09:24; Start 12/01/18 at 09:00; Stop 12/03/18 at 12:52; Status DC Methylprednisolone (SOLU medrol) 30 mg DAILY IV Last administered on 11/30/18at 08:32; Start 11/29/18 at 09:00; Stop 11/30/18 at 09:24; Status DC Methylprednisolone (SOLUmedrol) 48 mg DAILY IV ; Start 11/27/18 at 09:00; Stop 11/27/18 at 13:36; Status DC Methylprednisolone (SOLUmedrol) 50 mg DAILY IV Last administered on 11/28/18 08:25; Start 11/27/18 at 09:00; Stop 11/28/18 at 09:45; Status DC Midazolam HCl (Versed) 2 mg Q15MP PRN IV AGITATION Last administered on 11/26/18at 16:33; Start 11/26/18 at 14:30; Stop 11/28/18 at 16:25; Status DC Midazolam HCl (Versed) 4 mg STAT STAT IV Last administered on 11/30/18at 10:10; Start 11/30/18 at 09:20; Stop 11/30/18 at 09:23; Status DC Miscellaneous (Unresolved Clarification Entry) SEE LABEL COMMENTS DAILY XX ; Start 12/05/18 at 09:00; Stop 12/05/18 at 13:22; Status DC Miscellaneous (Unresolved Clarification Entry) SEE LABEL COMMENTS DAILY XX ; Start 12/08/18 at 09:00; Stop 12/09/18 at 07:12; Status DC Miscellaneous (Unresolved Clarification Entry) SEE LABEL COMMENTS DAILY XX ; Start 12/09/18 at 09:00; Stop 12/09/18 at 10:04; Status DC Miscellaneous (Unresolved Clarification Entry) SEE LABEL COMMENTS DAILY XX ; Start 12/12/18 at 09:00; Stop 12/12/18 at 09:00; Status DC Morphine Sulfate (Morphine Sulfate Inj) 2 mg Q2HP PRN IV PAIN Last administered on 11/28/18at 11:18; Start 11/26/18 at 14:30; Stop 11/28/18 at 16:25; Status DC Nebivolol (Bystolic) 10 mg DAILY PO Last administered on 12/01/18at 22:17; Start 12/01/18 at 20:00; Stop 12/02/18 at 12:30; Status DC Nystatin (Mycostatin) 1 ml Q6H PO Last administered on 11/29/18at 05:23; Start 11/27/18 at 12:00; Stop 11/29/18 at 12:11; Status DC Nystatin (Mycostatin) 5 ml Q6H SS Last administered on 12/05/18at 06:16; Start 11/29/18 at 12:00; Stop 12/05/18 at 13:20; Status DC Ondansetron HCl (ZOFRAN INJection) 4 mg Q4HP PRN IV NAUSEA OR VOMITING; Start 12/08/18 at 19:00; Stop 12/08/18 at 20:00; Status DC Ondansetron HCl (ZOFRAN INJection) 4 mg Q6HP PRN IV NAUSEA OR VOMITING; Start 11/26/18 at 14:30; Stop 12/03/18 at 12:52; Status DC Ondansetron HCl (Zofran) 4 mg Q6HP PRN PEG NAUSEA OR VOMITING; Start 12/03/18 at 12:45 Pantoprazole Sodium (Protonix) 40 mg BID IV Last administered on 12/03/18at 09:24; Start 12/03/18 at 09:00; Stop 12/03/18 at 12:52; Status DC Pantoprazole Sodium (Protonix) 40 mg DAILY IV ; Start 12/09/18 at 09:00; Stop 12/09/18 at 09:00; Status DC Pantoprazole Sodium (Protonix) 40 mg Q24H IV Last administered on 12/02/18at 17:54; Start 11/26/18 at 18:00; Stop 12/03/18 at 00:23; Status DC Piperacillin Sod/ Tazobactam Sod 3.375 gm/Dextrose 50 ml @ 50 mls/hr RQ8H IV ; Start 11/26/18 at 16:00; Stop 11/26/18 at 16:00; Status DC Potassium Chloride 20 meq/ IV Miscellaneous Supplies 100 ml @ 100 mls/hr 0500,0600,0700 IV Last administered on 11/27/18at 06:58; Start 11/27/18 at 05:00; Stop 11/27/18 at 13:00; Status DC Potassium Chloride 20 meq/ IV Miscellaneous Supplies 100 ml @ 100 mls/hr 0700,0800 IV Last administered on 11/30/18at 08:31; Start 11/30/18 at 07:00; Stop 11/30/18 at 11:00; Status DC Potassium Chloride 20 meq/ IV Miscellaneous Supplies 100 ml @ 100 mls/hr 0700,0800,0900 IV Last administered on 11/28/18at 10:34; Start 11/28/18 at 07:00; Stop 11/28/18 at 12:00; Status DC Potassium Chloride 20 meq/ IV Miscellaneous Supplies 100 ml @ 100 mls/hr DAILY IV Last administered on 12/01/18at 08:08; Start 12/01/18 at 09:00; Stop 12/01/18 at 09:22; Status DC Potassium Chloride 20 meq/ IV Miscellaneous Supplies 100 ml @ 100 mls/hr TID IV Last administered on 11/30/18at 08:31; Start 11/29/18 at 09:00; Stop 11/30/18 at 09:27; Status DC Potassium Chloride/Dextrose/ Sod Cl 1,000 ml @ 75 mls/hr [id number] IV Last administered on 12/01/18at 05:31; Start 11/30/18 at 16:00; Stop 12/01/18 at 09:30; Status DC Potassium Chloride/Dextrose/ Sod Cl 1,000 ml @ 75 mls/hr [id number] IV Last administered on 12/03/18 04:20; Start 12/01/18 at 09:15; Stop 12/03/18 at 12:52; Status DC Potassium Phosphate (K-Phos Original) 500 mg BID PEG Last administered on 12/09/18 09:51; Start 12/04/18 at 21:00; Stop 12/09/18 at 15:22; Status DC Potassium Phosphate (K-Phos Original) 500 mg BID PO Last administered on 12/04/18 16:22; Start 12/04/18 at 14:00; Stop 12/04/18 at 19:58; Status DC Potassium Phosphate (K-Phos Original) 500 mg TID PEG Last administered on 12/12/18 08:09; Start 12/09/18 at 16:00 Potassium Chloride 100 ml @ 100 mls/hr DAILY@0900,1000,1100 IV Last administered on 12/01/18 11:17; Start 12/01/18 at 09:00; Stop 12/01/18 at 19:24; Status DC Potassium Chloride (Micro-K Extencaps) 20 meq TID PO ; Start 11/28/18 at 16:00; Stop 11/28/18 at 16:00; Status DC Potassium Chloride (Micro-K Extencaps) 20 meq TID PO ; Start 12/02/18 at 09:00; Stop 12/02/18 at 09:00; Status DC Potassium Chloride (Potassium Chloride Liquid) 20 meq DAILY PO Last administered on 12/12/18 08:09; Start 12/06/18 at 09:00 Potassium Chloride (Potassium Chloride Liquid) 20 meq TID PO Last administered on 11/28/18at 15:47; Start 11/28/18 at 16:00; Stop 11/29/18 at 09:53; Status DC Potassium Chloride (Potassium Chloride Liquid) 60 meq DAILY PO ; Start 11/30/18 at 09:00; Stop 11/30/18 at 19:23; Status DC Prednisone (Deltasone) 20 mg DAILY FT Last administered on 12/12/18 08:09; Start 12/10/18 at 09:00 Prednisone (Deltasone) 30 mg DAILY FT Last administered on 12/09/18 09:51; Start 12/04/18 at 09:00; Stop 12/09/18 at 15:21; Status DC Propofol 1000 mg/ IV Miscellaneous Supplies 100 ml @ 3.88 mls/hr Q24H IV Last administered on 11/28/18 05:18; Start 11/26/18 at 18:45; Stop 11/28/18 at 16:25; Status DC Propofol 1000 mg/ IV Miscellaneous Supplies 100 ml @ 0 mls/hr Q0M IV Last administered on 11/26/18at 18:16; Start 11/26/18 at 14:30; Stop 11/26/18 at 18:38; Status DC Sodium Chloride 1,000 ml @ 15 mls/hr Q24H IV Last administered on 12/11/18at 12 :39; Start 12/10/18 at 11:00 Sodium Chloride 1,000 ml @ 50 mls/hr Q20H IV Last administered on 11/27/18at 21:17; Start 11/26/18 at 14:16; Stop 11/27/18 at 23:04; Status DC Sodium Chloride 1,000 ml @ 100 mls/hr Q10H IV Last administered on 12/08/18at 07:42; Start 12/08/18 at 06:55; Stop 12/08/18 at 18:47; Status DC Sodium Chloride (Saline Lock Flush) 2 ml ASDIRECTED PRN IV SEE LABEL COMMENTS Last administered on 12/07/18 20:23; Start 12/06/18 at 11:45 Sodium Chloride (Saline Lock Flush) 2 ml SLF IV Last administered on 12/12/18 06:00; Start 12/06/18 at 14:00 Sodium Chloride (Sodium Chloride 3% Neb Casandra) 3 ml Q4HP PRN INH rhonchi, secretion clearance Last administered on 11/29/18at 11:23; Start 11/28/18 at 16:15 Sucralfate (Carafate Suspension) 1 gm BID PEG Last administered on 12/12/18at 0 8:09; Start 12/04/18 at 21:00 Sucralfate (Carafate Suspension) 1 gm BID PO Last administered on 12/04/18 08:23; Start 12/03/18 at 21:00; Stop 12/04/18 at 19:58; Status DC Vancomycin HCl 1000 mg/IV Miscellaneous Supplies 20 ml @ 20 mls/hr Q8H IV ; Start 11/26/18 at 14:30; Stop 11/26/18 at 18:31; Status DC Vancomycin HCl 1000 mg/IV Miscellaneous Supplies 1 each/ Dextrose 270 ml @ 270 mls/hr Q8H IV Last administered on 11/27/18at 17:13; Start 11/27/18 at 01:00; Stop 11/27/18 at 19:12; Status DC Vancomycin HCl 1000 mg/IV Miscellaneous Supplies 1 each/ Dextrose 270 ml @ 270 mls/hr Q8H IV Last administered on 11/29/18at 05:22; Start 11/27/18 at 21:00; Stop 11/29/18 at 08:29; Status DC Allergies Coded Allergies: Cefuroxime (Verified Allergy, Unknown, 11/26/18) Dapagliflozin (Verified Allergy, Unknown, 11/26/18) Oxacillin (Verified Allergy, Unknown, 11/26/18) Sulfamethoxazole w/Trimethoprim (Verified Allergy, Unknown, 11/26/18) Objective Physical Examination Examination GENERAL APPEARANCE: Awake, comfortable, not appropriately to questions.. SKIN: Warm and dry. HEENT: That appear dry, mild pale palpebral conjunctiva.. NECK: Supple, no thyromegaly. No obvious jugular venous distention. LUNGS: Clear to auscultation bilaterally. No wheezing appreciated. HEART: No chest wall abnormalities. Regular rate and rhythm with no murmurs appreciated. ABDOMEN: Abdomen is flat, soft, and nondistended. Patient complains of mild discomfort and palpating around the G-tube site. G-tube site does not have any active bleeding. Nontender other parts of the abdomen. EXTREMITIES: No edema. Vital Signs Vital Signs Date Time Temp Pulse Resp B/P (MAP) Pulse Ox O2 Delivery O2 Flow Rate FiO2 12/12/18 06:23 97.9 113 22 135/77 (96) 98 5.0 12/12/18 04:10 Trach Collar 28 I&Os I&O- Last 24 Hours up to 6 AM 12/12/18 06:00 Intake Total 1560 ml Output Total 0 ml Balance 1560 ml Laboratory Data Labs 24H Laboratory Tests 2 12/11/18 12:07: Bedside Glucose (Misc Panel) 309H 12/11/18 14:14: Nucleated Red Blood Cells % (auto) 0.0 12/11/18 17:02: Bedside Glucose (Misc Panel) 285H 12/11/18 19:52: Nucleated Red Blood Cells % (auto) 0.3H 12/11/18 21:12: Bedside Glucose (Misc Panel) 269H 12/11/18 21:48: Nucleated Red Blood Cells % (auto) 0.6H, Activated Partial Thromboplast Time 40.8H 12/11/18 23:50: Bedside Glucose (Misc Panel) 245H 12/12/18 05:59: Bedside Glucose (Misc Panel) 244H 12/12/18 06:03: Immature Granulocyte % (Auto) 2.1, White Blood Count 14.6H, Red Blood Count 3.0 6L, Hemoglobin 9.1L, Hematocrit 27.6L, Mean Corpuscular Volume 90.2, Mean Corpuscular Hemoglobin 29.7, Mean Corpuscular Hemoglobin Concent 33.0, Red Cell Distribution Width 16.4H, Platelet Count 219, Neutrophils (%) (Auto) 74.3H, Lymphocytes (%) (Auto) 15.6L, Monocytes (%) (Auto) 6.6H, Eosinophils (%) (Auto) 1.2, Basophils (%) (Auto) 0.2, Neutrophils # (Auto) 10.8H, Lymphocytes # (Auto) 2.3, Monocytes # (Auto) 1.0H, Eosinophils # (Auto) 0.2, Basophils # (Auto) 0.0, Nucleated Red Blood Cells % (auto) 0.4H, Anion Gap 6L, Glomerular Filtration Rate > 60.0, Blood Urea Nitrogen 32H, Creatinine < 0.15L, Sodium Level 145, Potassium Level 4.0, Chloride Level 109H, Carbon Dioxide Level 30, Calcium Level 7.3L CBC/BMP Laboratory Tests 12/11/18 14:14 Red Blood Count 3.02 L, Mean Corpuscular Volume 91.1, Mean Corpuscular Hemoglobin 28.8, Mean Corpuscular Hemoglobin Concent 31.6 L, Red Cell Distribution Width 18.5 H 12/11/18 19:52 Red Blood Count 2.92 L, Mean Corpuscular Volume 91.8, Mean Corpuscular Hemoglobin 28.8, Mean Corpuscular Hemoglobin Concent 31.3 L, Red Cell Distribution Width 17.8 H 12/11/18 21:48 Red Blood Count 2.45 L, Mean Corpuscular Volume 93.9, Mean Corpuscular Hemoglobin 29.4, Mean Corpuscular Hemoglobin Concent 31.3 L, Red Cell Distribution Width 18.0 H 12/12/18 06:03 Red Blood Count 3.06 L, Mean Corpuscular Volume 90.2, Mean Corpuscular Hemoglobin 29.7, Mean Corpuscular Hemoglobin Concent 33.0, Red Cell Distribution Width 16.4 H, Neutrophils (%) (Auto) 74.3 H, Lymphocytes (%) (Auto) 15.6 L, Monocytes (%) (Auto) 6.6 H, Eosinophils (%) (Auto) 1.2, Basophils (%) (Auto) 0.2, Neutrophils # (Auto) 10.8 H, Lymphocytes # (Auto) 2.3, Monocytes # (Auto) 1.0 H, Eosinophils # (Auto) 0.2, Basophils # (Auto) 0.0, Calcium Level 7.3 L Microbiology Microbiology 12/08/18 Blood Culture - Preliminary, Resulted No Growth after 72 hours. All specime... 12/08/18 Blood Culture - Preliminary, Resulted No Growth after 72 hours. All specime... 12/03/18 Gram Stain - Final, Complete 12/03/18 Sputum Culture - Final, Complete Impression GI bleeding Status post PEG tube placement Patient had another episodic bleeding last night for which he transiently got hypotensive and responded to an IV fluid bolus. He subsequently received 2 units of packed RBCs after his hemoglobin was found to drop from 8.7 to 7.2. He is reported to have had some blackish maroon-colored stool in the afternoon and also in the evening associated with this drop in hemoglobin. He had an upper endoscopy last Tuesday that did not reveal any active bleeding but some erosion associated with the PEG tube. No other sources of bleeding found. At this point I will shown that the source of bleeding is the colon, but I would also like to recheck the stomach the erosion related to the PEG tube. I will schedule him for an upper GI endoscopy as well as colonoscopy. I'll give him bowel prep through the PEG tube today. Consent was obtained from Mrs. Aminata Jones (mother). The designated healthcare proxy Thom is currently hospitalized. Monitor for any signs of active bleeding. Case discussed with Dr. Infante Plan / VTE VTE Prophylaxis Ordered?: No VTE Exclusion Pharmacological: Active Bleeding PAT GONZALEZ MD Dec 12, 2018 08:48
[2018-12-12 09:53] LABS: HEMATOCRIT 26.8 % (42.0-52.0); HEMOGLOBIN 8.8 g/dl (13.5-17.5); MEAN CORPUSCULAR HEMOGLOBIN 29.6 pg (27.0-33.0); MEAN CORPUSCULAR HGB CONC 32.8 g/dl (32.0-36.5); MEAN CORPUSCULAR VOLUME 90.2 fl (80.0-96.0); PLATELET COUNT, AUTOMATED 209 10^3/uL (150-450); RED BLOOD COUNT 2.97 10^6/uL (4.30-6.10); WHITE BLOOD COUNT 13.1 10^3/uL (4.0-10.0)
[2018-12-12] MEDS: NS 1,000 ML IV SCH (11:34)
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
[2018-12-12 13:46] LABS: HEMATOCRIT 26.8 % (42.0-52.0); HEMOGLOBIN 8.7 g/dl (13.5-17.5)
[2018-12-12] MEDS: PANTOPRAZOLE 40MG INJ (PROTONIX) (C9113) IV SCH (16:00)
[2018-12-12] MEDS ORDERED: NS 1,000 ML IV ONE (16:00)
[2018-12-12] MEDS ORDERED: OCTREOTIDE ACETATE 100 MCG/ML VIAL (J2354) IV SCH (16:00)
[2018-12-12] MEDS ORDERED: MIDAZOLAM INJ 2 MG/2 ML VIAL (J2250) As Ordered ONE ×2 (16:17→19:24)
[2018-12-12] MEDS ORDERED: fentaNYL 100 MCG/2 ML INJECTION (J3010) As Ordered ONE ×2 (16:17→18:23)
[2018-12-12 16:36] LABS: HEMATOCRIT 24.5 % (42.0-52.0); MEAN CORPUSCULAR HEMOGLOBIN 30.4 pg (27.0-33.0); MEAN CORPUSCULAR HGB CONC 32.7 g/dl (32.0-36.5); MEAN CORPUSCULAR VOLUME 93.2 fl (80.0-96.0); PLATELET COUNT, AUTOMATED 202 10^3/uL (150-450); RED BLOOD COUNT 2.63 10^6/uL (4.30-6.10); WHITE BLOOD COUNT 11.3 10^3/uL (4.0-10.0)
[2018-12-12] MEDS ORDERED: EPINEPHrine INJ 1 MG/ML 1ML AMP IV ONE (17:00)
--- NOTE | 2018-12-12 17:08 | IPNPDOC ---
Text Note Date of Service The patient was seen on 12/12/18. NOTE Rapid Assessment: This afternoon patient had a rapid assessment called after he was experiencing massive rectal bleeding and become hypotensive in the PCU. Patient was found to have his disposable underwear / diaper saturated in maroon colored output. His SBP was found to be in the 50s-70s and was tachycardic at 130s. Review of the record has indicated that patient has been here for GI bleed and had received an EGD prior. Aspiration of the patient's PEG tube had revealed that there was bright red blood; suggesting upper GI bleed. Massive transfusion protocol was called and transfusions were started using peripheral IV access. Patient was transferred to the ICU. Protonix drip and Octreotide drip were ordered. Case was discussed with surgery, Dr. Coelho, who has arrived and will be scoping the patient again at the bedside. Paper Cone Machine Operator, Dr. Mejia is present at the bedside and will be placing a central line for access. Patient's SBP has improved to 110s, although still remains tachycardic while in ICU. Case has been discussed with attending physician, Dr. Infante, who will be resuming care moving forward. VS,Fishbone, I+O VS, Fishbone, I+O Laboratory Tests 12/11/18 19:52 Red Blood Count 2.92 L, Mean Corpuscular Volume 91.8, Mean Corpuscular Hemoglobin 28.8, Mean Corpuscular Hemoglobin Concent 31.3 L, Red Cell Distribution Width 17.8 H 12/11/18 21:48 Red Blood Count 2.45 L, Mean Corpuscular Volume 93.9, Mean Corpuscular Hemoglobin 29.4, Mean Corpuscular Hemoglobin Concent 31.3 L, Red Cell Distribution Width 18.0 H 12/12/18 06:03 Red Blood Count 3.06 L, Mean Corpuscular Volume 90.2, Mean Corpuscular Hemoglobin 29.7, Mean Corpuscular Hemoglobin Concent 33.0, Red Cell Distribution Width 16.4 H, Neutrophils (%) (Auto) 74.3 H, Lymphocytes (%) (Auto) 15.6 L, Monocytes (%) (Auto) 6.6 H, Eosinophils (%) (Auto) 1.2, Basophils (%) (Auto) 0.2, Neutrophils # (Auto) 10.8 H, Lymphocytes # (Auto) 2.3, Monocytes # (Auto) 1.0 H, Eosinophils # (Auto) 0.2, Basophils # (Auto) 0.0, Calcium Level 7.3 L 12/12/18 09:25 Red Blood Count 2.97 L, Mean Corpuscular Volume 90.2, Mean Corpuscular Hemoglobin 29.6, Mean Corpuscular Hemoglobin Concent 32.8, Red Cell Distribution Width 16.8 H 12/12/18 13:24 12/12/18 16:29 Red Blood Count 2.63 L, Mean Corpuscular Volume 93.2, Mean Corpuscular Hemoglobin 30.4, Mean Corpuscular Hemoglobin Concent 32.7, Red Cell Distribution Width 16.1 H Vital Signs Date Time Temp Pulse Resp B/P (MAP) Pulse Ox O2 Delivery O2 Flow Rate FiO2 12/12/18 16:17 97.2 140 22 57/39 98 5.0 28 12/12/18 04:10 Trach Collar I&O- Last 24 Hours up to 6 AM 12/12/18 06:00 Intake Total 1560 ml Output Total 0 ml Balance 1560 ml ESTEBAN JACOBSEN MD Dec 12, 2018 17:07
[2018-12-12] MEDS ORDERED: CALCIUM GLUCONATE 1,000MG/10ML VIAL (100MG/ML) (J0610) As Ordered ONE (17:11)
[2018-12-12] MEDS ORDERED: fentaNYL 100 MCG/2 ML INJECTION (J3010) IV ONE (18:00)
[2018-12-12] MEDS ORDERED: CALCIUM GLUCONATE 1,000 MG in D5W MINI-BAG PLUS 100 ML IV ONE (18:00)
[2018-12-12] MEDS ORDERED: MIDAZOLAM INJ 2 MG/2 ML VIAL (J2250) IV ONE (18:00)
[2018-12-12] MEDS ORDERED: ETOMIDATE INJ 20MG/10ML VIAL As Ordered ONE (18:23)
[2018-12-12] MEDS ORDERED: PHENYLephrine HCL 500 MCG/5 ML (100MCG/ML) SYRINGE (J2370) As Ordered ONE (18:23)
[2018-12-12] MEDS ORDERED: DESFLURANE 240 ML INHALANT As Ordered ONE (18:23)
[2018-12-12] MEDS ORDERED: ROCURONIUM BROMIDE 50 MG/5 ML VIAL As Ordered ONE (18:23)
[2018-12-12] MEDS ORDERED: ePHEDrine SULFATE 25 MG/5 ML(5MG/ML) SYRINGE As Ordered ONE (18:23)
--- NOTE | 2018-12-12 18:57 | RO ---
DATE OF PROCEDURE: 12/12/2018 PREPROCEDURE DIAGNOSIS: Hypotension. POSTPROCEDURE DIAGNOSIS: Hypotension. PROCEDURE: Left femoral arterial line. SURGEON: Margarito Mejia DO OBIEE REPORT DEVELOPER: None. ANESTHESIA: 1% lidocaine. Consent deemed urgent in response to a rapid response and acute blood loss. DESCRIPTION OF PROCEDURE: The left groin was prepped and draped in a sterile manner. Chlorhexidine was used along with full barrier precautions. The [employer] medical syringe was introduced into the femoral artery on the first pass. This was actually during an attempt for a central line; however, it was deemed arterial line was needed, also. Therefore, the procedure was converted to an arterial line. Wire was fed through the needle. The needle was removed. Arterial line was placed over the wire, wire was attached to arterial monitoring with a good pulsatile flow. There were no observed complications. Therefore, I switched to the right groin to proceed with triple-lumen catheter.
--- NOTE | 2018-12-12 18:58 | RO ---
DATE OF PROCEDURE: 12/12/2018 PREPROCEDURE DIAGNOSIS: Acute blood loss anemia. POSTPROCEDURE DIAGNOSIS: Acute blood loss anemia. PROCEDURE: Right triple lumen femoral venous catheter. PROCEDURIST: Margarito Mejia DO CARAMEL CUTTER HELPER: None. ANESTHESIA: 1% lidocaine was used. DESCRIPTION OF PROCEDURE Deemed urgent, the patient had a rapid response with acute blood loss. The patient was full code. The patient was unable to be conversant, however, did have his eyes open. The right groin was prepped and draped in a sterile manner with chlorhexidine and full sterile prep barrier precautions. Ultrasound was used. The [place] syringe was introduced into the vein on the first pass with return of venous blood flow. Wire was fed through the needle and the needle was removed. Kyree in the skin was made. Dilator was placed over the wire and removed. Triple-lumen catheter was placed via modified Seldinger technique and wire was removed. All three ports returned venous blood flow and flushed easily. This was sutured into place. A sterile impregnated dressing was placed over the site. There were no observed complications.
--- NOTE | 2018-12-12 19:04 | CCN ---
DATE: 12/12/2018 CRITICAL CARE NOTE Critical care time was 1 hour. This excludes all procedures. Rapid assessment was called on Adolph Jones. On my arrival, rapid transfusion had already been called by the hospitalist team. The bed was soaked with bloody stool. There was blood being aspirated from the percutaneous endoscopic gastrostomy (PEG) tube. The patient was diaphoretic, tachycardiac, hypotensive with systolic blood pressures in the 50s. He was back to the intensive care unit (ICU), rapid transfusion was initiated. He had received a total of 3 units of packed red blood cells. He received one fresh frozen plasma and was also receiving his third unit of normal saline. He was awake during the whole event until he received Versed for his esophagogastroduodenoscopy (EGD). During the EGD, there was pulsatile arterial bleeding from the percutaneous gastric tube adjacent to the opening. Therefore, electrocautery was tried briefly; however, the patient had continuous bleeding and thought it was best to bring him immediately to the operating room. The patient was brought immediately to the operating room. I signed out to anesthesia and will await for further call back. I expect him to be in the ICU after his procedure. CRITICAL CARE DIAGNOSES: 1. Acute blood loss. 2. Hypotension. 3. Shock. 4. Tachycardia. 5. 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 6. Respiratory failure requiring prolonged mechanical ventilation, tracheostomy. The patient has copious amounts of secretions. These were suctioned. Will await postsurgical management. [facility]
[2018-12-12] MEDS ORDERED: LevoFLOXacin(LEVAQUIN)500 MG/100 ML BAG (J1956) As Ordered ONE (19:07)
[2018-12-12] MEDS ORDERED: HumuLIN R (REGULAR) INSULIN (NovoLIN R) **100U/ML** PER UNIT As Ordered ONE (19:40)
[2018-12-12] MEDS ORDERED: KCL 10MEQ IN STERILE WATER 100ML As Ordered ONE (19:43)
[2018-12-12 20:16] LABS: HEMATOCRIT 20.1 % (42.0-52.0); MEAN CORPUSCULAR HEMOGLOBIN 30.4 pg (27.0-33.0); MEAN CORPUSCULAR HGB CONC 34.3 g/dl (32.0-36.5); MEAN CORPUSCULAR VOLUME 88.5 fl (80.0-96.0); RED BLOOD COUNT 2.27 10^6/uL (4.30-6.10); WHITE BLOOD COUNT 9.1 10^3/uL (4.0-10.0)
[2018-12-12 20:17] LABS: HEMOGLOBIN 6.9 g/dl (13.5-17.5)
[2018-12-12 20:26] LABS: PLATELET COUNT, AUTOMATED 104 10^3/uL (150-450)
[2018-12-12 20:43] LABS: HEMATOCRIT 21.4 % (42.0-52.0); HEMOGLOBIN 7.3 g/dl (13.5-17.5); MEAN CORPUSCULAR HEMOGLOBIN 30.8 pg (27.0-33.0); MEAN CORPUSCULAR HGB CONC 34.1 g/dl (32.0-36.5); MEAN CORPUSCULAR VOLUME 90.3 fl (80.0-96.0); PLATELET COUNT, AUTOMATED 102 10^3/uL (150-450); RED BLOOD COUNT 2.37 10^6/uL (4.30-6.10); WHITE BLOOD COUNT 8.9 10^3/uL (4.0-10.0)
[2018-12-12] MEDS: CHLORHEXIDINE GLUCONATE 0.12 % 15ML UDC (PERIDEX ORAL RINSE) MT SCH (21:00)
[2018-12-12 21:28] LABS: INR 1.15; PROTHROMBIN TIME 14.9 SECONDS (12.1-14.4)
--- NOTE | 2018-12-12 21:43 | CCN ---
DATE: 12/12/2018 I was in the ICU when the patient was brought back to the ICU from the OR. He had received an additional 4 units of packed red blood cells. According to the anesthesiologist 4 units of FFP and another gram of calcium gluconate along with one platelet pack. Therefore, a total of 7 units PRBC, 5 units FFP, 2 grams of the calcium and 1 platelets. The patient is currently paralyzed. Had vecuronium 1/2 hour prior to the arrival at is not spontaneously breathing. On physical examination, he has edematous sclerae, edematous facies. Trache 8, fenestrated cuffed Shiley is in place without surrounding erythema or exudate. There is copious amounts of secretions, left of cervical supraclavicular axillary adenopathy. Cardiac: Regular S1, S2 without audible murmur, rub or gallop. No elevated JVP. No discernible systemic edema. Pulmonary: A few scattered rhonchi without significant rales. Fairly good air movement. No wheezing. No accessory muscle use. Abdomen: He It is nondistended. No active bowel sounds. Extremities: No cyanosis or clubbing. Skin is pale, some edema. Neuro: He is quadriplegic with minimal ability to flex his arms. Currently is not moving. His pupils are reactive to light. New laboratory evaluation shows a hemoglobin of 6.9, platelet count of 104, white count of 9.1, sodium 145, potassium 109, bicarb 30, BUN of 32, creatinine 0.15 with a glucose of 246, calcium of 7.3 and a ferritin of 44. IMPRESSION Acute GI bleed. Baggs that after procedure that this was well managed and isolated and contained. Due to the most recent hemoglobin of 6.9, further transfusion was given, after that CBC was drawn therefore will give two more units along with one FFP and then recheck. H and H at midnight. Will continue on mechanical ventilation overnight. Likely as patient recovers will take off mechanical ventilation in the morning. Will obtain a chest x-ray to monitor for volume overload.
[2018-12-12 21:54] LABS: BLOOD UREA NITROGEN 26 MG/DL (7-18); CREATININE FOR GFR 0.24 MG/DL (0.70-1.30); GLUCOSE, FASTING 293 MG/DL (70-100)
[2018-12-12 21:55] LABS: ALBUMIN 2.2 GM/DL (3.2-5.2); ALT/SGPT 20 U/L (12-78); BILIRUBIN,TOTAL 0.9 MG/DL (0.2-1.0); CALCIUM LEVEL 7.3 MG/DL (8.5-10.1); CARBON DIOXIDE LEVEL 28 MEQ/L (21-32); CHLORIDE LEVEL 113 MEQ/L (98-107); CHOLESTEROL LEVEL 107 MG/DL (< 200); CPK CREATINE PHOSPHOKINASE 272 U/L (39-308); GLOMERULAR FILTRATION RATE > 60.0 (>56); LDH LACTATE DEHYDROGENASE 224 U/L (87-241); POTASSIUM SERUM 3.2 MEQ/L (3.5-5.1); SODIUM LEVEL 150 MEQ/L (136-145); TOTAL PROTEIN 4.1 GM/DL (6.4-8.2); TRIGLYCERIDES LEVEL 196 MG/DL (<150)
[2018-12-13] VITALS (28 sets, daily range): BP systolic 121–167; BP diastolic 69–96; O2SAT 96
[2018-12-13] MEDS ORDERED: COMBIVENT RESPIMAT 100-20MCG INHALER 4GM INH SCH
[2018-12-13] MEDS: HumaLOG INSULIN (NovoLOG) PER UNIT SC SCH ×5 (00:36→23:44)
[2018-12-13 03:22] LABS: HEMATOCRIT 26.5 % (42.0-52.0)
--- NOTE | 2018-12-13 03:59 | POST-OPPD ---
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
[2018-12-13] MEDS: PANTOPRAZOLE 40MG INJ (PROTONIX) (C9113) IV SCH ×2 (04:00→15:07)
--- NOTE | 2018-12-13 04:04 | ROOPDOC ---
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 Michaels to assist intraoperatively in the middle of the case this patient had large amounts of adhesions to free up the stomach and place a new feeding tube. He arrived after abdominal wedge excision of the bleeding portion of the stomach. He assisted me up to the closure of the abdomen. ANESTHESIA: General Anesthesia SPECIMENS: wedge portion of stomach containing the gastrostomy ESTIMATED BLOOD LOSS: 100 mL REPLACED: in total 5 u prbc, 4 u FFP, i u packed platelets DRAINS: none COMPLICATIONS: in ICU stable condition POSTOPERATIVE CONDITION: stable PROCEDURE NOTE: Patient initially underwent emergency upper gastrointestinal endoscopy in the ICU [place] brought after in an episode of hypertension and melena. During endoscopy was noted he had active bleeding around the gastrostomy tube site which was not able to be controlled endoscopic only. Details of this is dictated in a separate procedure. DESCRIPTION OF PROCEDURE: He was brought to the operating room in a critical condition. He continues to have active bleeding from the stomach around the gastrostomy tube site and is receiving blood and FFP. He has a tracheostomy in place. In the ICU a femoral triple-lumen catheter had been placed over the left side and a right-sided arterial femoral catheter has also been placed. He has a gastrostomy tube tube in place. He was laid supine in the operating room table he was placed under general anesthesia. The previous tracheostomy in place. He had arterial and central venous catheters placed in the ICU and this was used for monitoring and delivery of fluids and blood products during the procedure. SCD boots were placed in both lower extremities. A mazariegos catheter was placed for urine output monitoring. His abdomen was prepped and draped in the usual sterile fashion using Betadine including the PEG tube in the operative field. Surgical timeout was performed We began by making an upper midline incision. This was carefully taken down thro [facility] to his subcutaneous tissue which is thin. In a controlled fashion we enter the abdomen opening up the fascia throughout the length of the skin incision. There was a lot of adhesions to prevent immediate entry into the abdomen. We carefully lysed the interior adhesions, . The incision was enlarged for adequate visualization. The gastrostomy tube site is towards the patient's left side of the midline. Most of the stomach appears adhered to the abdominal wall. He had a previous gastrostomy site from his accident that also adhered portion of the stomach far out to the left upper quadrant area. I carefully took down the adhesions of the omentum and mobilized the gastrocolic omentum dividing it to bring down the transverse colon. Eventually, I was able to free up most of the stomach but it still appears tethered on the left upper quadrant area at the previous gastrostomy site. There was a good amount of thickened adiposity and scar tissue surrounding around where the gastrostomy and this was taken down with the harmonic scalpel. After freeing up the stomach enough that I could pull out the gastrostomy tube into full view the gastrostomy was trimmed and the remaining gastrostomy tube delivered into the incision site. I could see continued arterial bleeding within the wall itself. There is no visible bleeding vessel. This seems to have retracted inside of the muscular wall of the stomach surrounding the gastrostomy primarily at the 11 o'clock position. The medial portion of the gastrostomy site has necrotic mucosa and the muscular wall is thin compared to the lateral side which appears more moderately thickened including the overlying added adipose tissue fat pad and omentum that it went through with the gastrostomy site. I evaluated this location. This is the distal portion of the body of the stomach along or close to the greater curvature of the stomach. I feel I could wedge it out without duly creating narrowing in the stomach itself. Thus, I included the gastrostomy in the wedge portion of the stomach and excise this using TA 60 stapler with a green load. I reinforced the staple line with 30 silks in a Lembert fashion along the lateral portion of the staple line which was initially bleeding. At this point I tried mobilizing further the stomach to gain more purchase to it the trilobite evaluate area where I could better place a new gastrostomy tube. A portion of the stomach appears still tethered to the left side of the abdominal wall from the previous gastrostomy site. I used the harmonic scalpel to divide this portion of the stomach. This probably was a previous Janeway gastrostomy as it stretches a portion of the stomach as it stretches away from the stomach wall. I decided to use this as my new gastrostomy site. A chosen 18 Turkish Devries gastrostomy tube. I placed 2 circular pursestrings of 30 silks in opposite direction The previous gastrostomy insertion site was opened up and the ga strostomy tube was threaded towards the distal portion the stomach. The balloon is inflated to 20 ML's. The pursestring sutures were tied off. The gastrostomy was tethered to the abdominal wall using 3-0 silks At this point I scrubbed out and performed an upper endoscopy. I evaluated the staple line as well as the placement of the gastrostomy tube. Ie suctioned most of the liquid portion of the blood within the stomach. There's a good amount of solidified hematoma. The staple line is intact and does not seem to be bleeding and there is no leakage along the staple line externally. The new placement of gastrostomy was close to the pyloric antrum so I decided to bring down the balloon further about 10 ML's. I have inflated this to 20 ML's after securing it to the abdominal wall and this seems adequate enough not to cause an obstruction. The gastrostomy tube is pointed towards the pylorus with the tip beyond the pyloric opening. I then remove the scope with initial inspection of the rest of the stomach and esophagus were did not see any bleeding and scrubbed in again. The fascial incision was closed with zero PDS in a running fashion. Th e skin was closed with seth. The gastrostomy tube was secured to the skin. Patient was then brought to the directly to the ICU hemodynamically stable towards the end of the case. During the case he received several units of blood components including packed RBC, FFP and platelets in accordance with her massive transfusion protocol. ZACH COELHO MD Dec 13, 2018 04:04
[2018-12-13] MEDS: ALBUTEROL SULFATE 2.5 MG/0.5 ML INH NEB SOLN NEB SCH ×6 (04:10→23:49)
[2018-12-13] MEDS: SLF 3 ML SYR IV SCH ×3 (06:00→22:00)
[2018-12-13 06:04] LABS: BASO % 0.2 % (0.0-1.0); EOS # 0.1 10^3/uL (0.0-0.50); EOS % 0.6 % (0.0-3.0); HEMATOCRIT 25.7 % (42.0-52.0); HEMOGLOBIN 8.9 g/dl (13.5-17.5); LYMPH # 1.2 10^3/uL (1.5-4.5); LYMPH % 14.9 % (24.0-44.0); MEAN CORPUSCULAR HEMOGLOBIN 30.4 pg (27.0-33.0); MEAN CORPUSCULAR HGB CONC 34.6 g/dl (32.0-36.5); MEAN CORPUSCULAR VOLUME 87.7 fl (80.0-96.0); MONO # 0.5 10^3/uL (0.0-0.8); MONO % 6.5 % (0.0-5.0); NEUTROPHILS # 6.2 10^3/uL (1.8-7.7); NEUTROPHILS % 76.3 % (36.0-66.0); PLATELET COUNT, AUTOMATED 101 10^3/uL (150-450); RED BLOOD COUNT 2.93 10^6/uL (4.30-6.10); WHITE BLOOD COUNT 8.1 10^3/uL (4.0-10.0)
[2018-12-13 06:15] LABS: ABG BASE EXCESS 0.9 (-2.0-2.0); ABG HCO3 23.7 MEQ/L (22.0-26.0); ABG O2 SATURATION 98.6 % (95.0-99.0); ABG PARTIAL PRESSURE CO2 30.9 mmHg (35.0-45.0); ABG PARTIAL PRESSURE O2 141.5 mmHg (75.0-100.0); ABG STANDARD HCO3 25.3 MEQ/L (22.0-26.0); ABG TOTAL CO2 24.6 MEQ/L (22.0-29.0); ABG pH (ARTERIAL) 7.502 UNITS (7.350-7.450)
[2018-12-13 06:24] LABS: BLOOD UREA NITROGEN 26 MG/DL (7-18); CALCIUM LEVEL 7.4 MG/DL (8.5-10.1); CARBON DIOXIDE LEVEL 30 MEQ/L (21-32); CHLORIDE LEVEL 114 MEQ/L (98-107); CREATININE FOR GFR 0.15 MG/DL (0.70-1.30); GLOMERULAR FILTRATION RATE > 60.0 (>56); GLUCOSE, FASTING 197 MG/DL (70-100); SODIUM LEVEL 150 MEQ/L (136-145)
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
[2018-12-13] MEDS ORDERED: IPRATROPIUM 0.5MG/ALBUTEROL 2.5MG INH SOL UD 3ML (DUONEB)(J7620) NEB SCH (08:00)
[2018-12-13] MEDS: levETIRAcetam ORAL SOLUTION 500 MG/5 ML UDC GT SCH ×2 (08:11→20:21)
[2018-12-13] MEDS: SUCRALFATE SUSP 1GM/10ML UD PEG SCH ×2 (08:11→20:21)
[2018-12-13] MEDS: CHLORHEXIDINE GLUCONATE 0.12 % 15ML UDC (PERIDEX ORAL RINSE) MT SCH (08:11)
[2018-12-13] MEDS: predniSONE 20 MG TAB FT SCH (08:11)
[2018-12-13 08:47] LABS: ACETYLCHOLINE RCPTOR BINDING A < 0.03 nmol/L (0.00-0.24)
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
[2018-12-13] MEDS ORDERED: KCL 10MEQ/100ML SWI (KRUN) 10 MEQ in APPROPRIATE DILUENT 1 EA IV ONE ×3 (09:00→12:45)
--- NOTE | 2018-12-13 09:39 | REP ---
Portable chest x-ray: Single view. History: Respiratory failure. Comparison study: December 08, 2018. Findings: Tracheostomy tube remains in good position. There are air bronchograms and increased density in the distribution of the right middle lobe above the elevated right hemidiaphragm. This finding is more prominent than on the study done December 08, 2018. There is mild plate-like atelectasis again seen in the left perihilar region. Left lung is otherwise clear. The the patient is rotated slightly to the right.. Impression: Atelectasis and/or infiltrate right middle lobe distribution with air bronchograms. Plate-like atelectasis on the left. Tracheostomy tube in good position. Electronically Signed by Ousmane Tyson MD 12/13/2018 09:30 A
--- NOTE | 2018-12-13 10:36 | CCN ---
DATE: 12/13/2018 CRITICAL CARE TIME: 1 hour. This excludes all procedures. Mr. Jones is a 58-year-old male who had an arterial bleed yesterday adjacent to the gastric tube. The required to significant transfusion overnight. Over the past 24 hours it appears that he has had 8 units of pack red blood cells, 6 FFP and one platelets. This morning he is awake on mechanical ventilation as he came back from the OR sedated and paralyzed. He is able to follow commands. He has good tidal volumes on pressure support 5/5, therefore I took him off mechanical ventilation. He is on a aerosol mask currently doing well. He has no fever, chills and no longer hypotensive, actually on the hypertensive side. Therefore I believe the arterial line can come out. He does have a right femoral central line placed. We will attempt to get peripheral IV access today in order to help discontinue this line. PHYSICAL EXAMINATION: Temperature is 99.2, pulse is 101, respiratory rate is 16, blood pressure is 121/71 with a mean arterial pressure of 88, oxygen saturation 96% on 0.300 FiO2. Intake and output from yesterday are not accurate. General: The patient is awake and nodding his head yes and no to questions. He is using no accessory muscle use for breathing. HEENT: Sclerae clear and anicteric. Less scleral edema than yesterday. Pupils are reactive to light. Mucous membranes are moist. Tongue is midline. Neck: Supple. No jugular deviation. There are minimal amounts of thick secretions. Pulmonary: Clear to auscultation without rales, rhonchi or wheezes. Decreased chest expansion. No accessory muscle use. Abdomen: Soft, nontender, nondistended. No hepatosplenomegaly. No masses or hernia. The dual-lumen tube is in place. The gastric port as on suction. The jejunal port is on tube feeds. Extremities: No cyanosis, clubbing or edema. Inguinal sites are clean without erythema or exudate. He is mostly quadriplegic minimal movement of his hands. Skin is pale without rash, jaundice or bruising. He does have some decubiti. LABS: On laboratory evaluation this morning shows a white count 8.1, platelet count of 101, sodium is 150, potassium 3.0, chloride is 114, bicarb 38, BUN is 26, creatinine of 0.15, glucose is 197. Arterial blood gas shows a pH of 7.50, pCO2 of 31, pAO2 of 142. IMPRESSION: 1. Respiratory failure secondary to hemorrhagic shock. Trial off mechanical ventilation today. Will place on aerosol mask for humidification. Does have a history of significant sputum production. 2. Hypernatremia. Will add free water to tube feeds. 3. Pain. The patient expressing some discomfort to nursing staff and appears is actually not coming from the abdomen but coming from around the trache site, likely from torque of being on mechanical ventilation with extension tube. Therefore we will provide some morphine every 4 hours monitor for signs of sedation and discontinue mechanical ventilation. I have communicated with the primary team. PLAN: At this point in time there is no evidence of recurrent bleeding, blood pressure is more than adequate. The patient is awake and mentating. Critical care time was 1 hour. The need for constant monitoring for mechanical ventilation for hemorrhagic shock and is required.
[2018-12-13 15:33] LABS: HEMATOCRIT 27.8 % (42.0-52.0); HEMOGLOBIN 9.2 g/dl (13.5-17.5); MEAN CORPUSCULAR HEMOGLOBIN 29.7 pg (27.0-33.0); MEAN CORPUSCULAR HGB CONC 33.1 g/dl (32.0-36.5); MEAN CORPUSCULAR VOLUME 89.7 fl (80.0-96.0); PLATELET COUNT, AUTOMATED 109 10^3/uL (150-450); WHITE BLOOD COUNT 9.2 10^3/uL (4.0-10.0)
[2018-12-13 15:55] LABS: BLOOD UREA NITROGEN 22 MG/DL (7-18); CALCIUM LEVEL 7.4 MG/DL (8.5-10.1); CARBON DIOXIDE LEVEL 30 MEQ/L (21-32); CHLORIDE LEVEL 112 MEQ/L (98-107); CREATININE FOR GFR 0.23 MG/DL (0.70-1.30); GLOMERULAR FILTRATION RATE > 60.0 (>56); GLUCOSE, FASTING 255 MG/DL (70-100); POTASSIUM SERUM 3.7 MEQ/L (3.5-5.1); SODIUM LEVEL 146 MEQ/L (136-145)
[2018-12-14] VITALS (13 sets, daily range): BP systolic 107–147; BP diastolic 60–77
[2018-12-14] MEDS: ALBUTEROL SULFATE 2.5 MG/0.5 ML INH NEB SOLN NEB SCH ×6 (03:29→23:19)
[2018-12-14] MEDS: PANTOPRAZOLE 40MG INJ (PROTONIX) (C9113) IV SCH ×2 (04:29→15:00)
[2018-12-14] MEDS: MORPHINE 4 MG/ML 1ML VIAL/SYRINGE (J2270) IV PRN ×2 (04:42→08:59)
[2018-12-14 05:01] LABS: BASO % 0.1 % (0.0-1.0); EOS # 0.1 10^3/uL (0.0-0.50); EOS % 0.9 % (0.0-3.0); HEMATOCRIT 28.5 % (42.0-52.0); HEMOGLOBIN 9.2 g/dl (13.5-17.5); LYMPH % 10.7 % (24.0-44.0); MEAN CORPUSCULAR HEMOGLOBIN 29.5 pg (27.0-33.0); MEAN CORPUSCULAR HGB CONC 32.3 g/dl (32.0-36.5); MEAN CORPUSCULAR VOLUME 91.3 fl (80.0-96.0); MONO # 0.5 10^3/uL (0.0-0.8); MONO % 5.3 % (0.0-5.0); NEUTROPHILS # 7.4 10^3/uL (1.8-7.7); PLATELET COUNT, AUTOMATED 110 10^3/uL (150-450); RED BLOOD COUNT 3.12 10^6/uL (4.30-6.10)
[2018-12-14 05:21] LABS: BLOOD UREA NITROGEN 15 MG/DL (7-18); CALCIUM LEVEL 7.7 MG/DL (8.5-10.1); CARBON DIOXIDE LEVEL 29 MEQ/L (21-32); CHLORIDE LEVEL 112 MEQ/L (98-107); CREATININE FOR GFR < 0.15 MG/DL (0.70-1.30); GLOMERULAR FILTRATION RATE > 60.0 (>56); GLUCOSE, FASTING 195 MG/DL (70-100); POTASSIUM SERUM 3.4 MEQ/L (3.5-5.1); SODIUM LEVEL 146 MEQ/L (136-145)
[2018-12-14] MEDS: HumaLOG INSULIN (NovoLOG) PER UNIT SC SCH ×4 (05:41→23:46)
[2018-12-14 05:44] LABS: ABG HCO3 27.2 MEQ/L (22.0-26.0); ABG O2 SATURATION 97.9 % (95.0-99.0); ABG PARTIAL PRESSURE CO2 40.2 mmHg (35.0-45.0); ABG PARTIAL PRESSURE O2 109.9 mmHg (75.0-100.0); ABG STANDARD HCO3 27.1 MEQ/L (22.0-26.0); ABG TOTAL CO2 28.4 MEQ/L (22.0-29.0); ABG pH (ARTERIAL) 7.448 UNITS (7.350-7.450)
[2018-12-14] MEDS: SLF 3 ML SYR IV SCH ×3 (06:00→21:00)
--- NOTE | 2018-12-14 07:49 | REP ---
Clinical: Respiratory failure. Comparison: 12/13/2018. Findings: Examination is limited by technique, positioning and poor inspiratory effort. Mediastinum and cardiac silhouette are relatively stable. Lung del angel are essentially unchanged area of linear opacity in the left lower lung zone is again identified. Opacity and elevation of the right hemidiaphragm is unchanged. No pneumothorax. No definite effusion. Skeletal structures intact. Tracheostomy overlies the airway. Impression: No significant change from prior examination. Electronically Signed by Tripp Son MD 12/14/2018 07:40 A
[2018-12-14] MEDS: levETIRAcetam ORAL SOLUTION 500 MG/5 ML UDC GT SCH ×2 (08:58→20:05)
[2018-12-14] MEDS: predniSONE 20 MG TAB FT SCH (08:58)
[2018-12-14] MEDS: SUCRALFATE SUSP 1GM/10ML UD PEG SCH ×2 (08:58→20:05)
[2018-12-14] MEDS ORDERED: KCL 10MEQ/100ML SWI (KRUN) 10 MEQ in APPROPRIATE DILUENT 1 EA IV ONE (09:00)
--- NOTE | 2018-12-14 09:26 | CCN ---
DATE OF SERVICE: 12/14/2018 Mr. Jones is seen in the intensive care unit (ICU). Nursing notes no new issues or problems. Mr. Jones is awake and off of mechanical ventilation. He does nonverbally respond to questions and denies any significant pain. He is afebrile with his last fever of 100.4 occurring last night at around 8:00 p.m.. Nursing reports no new issues. VITALS: Temperature 98.7. T-max 100.4 at 8:00 p.m. on 12/13/2018. Pulse 91. Respiratory rate 17. Blood pressure 129/76. Pulse oximetry 95%. General: The patient is awake and alert. He nods his head yes and no to questions. HEENT: Head is normocephalic. The patient does have a trache in place. Moist mucous membranes. Neck is supple. No jugular venous distention (JVD). Pulmonary: Clear to auscultation without rales, rhonchi or wheezes. No accessory muscle use. Heart: Regular rate and rhythm. Abdomen: Positive bowel sounds, soft, nontender. Extremities: No edema. LABORATORY DATA: ABG: pH 7.448, pCO2 is 40.2, pO2 is 109.9, HCO3 is 27.2. WBC 9.0, hemoglobin 9.2, hematocrit 28.5, platelets 110. Sodium of 146, potassium 3.4, chloride 112, carbon dioxide 29, BUN 15, creatinine less than 0.15, glucose 195, calcium 7.7. Chest x-ray shows trache in place. There is elevation of the right hemidiaphragm which appears to be posterior. ASSESSMENT/PLAN: 1. Respiratory failure secondary to hemorrhagic shock. The patient is now off mechanical ventilation. He has a trache in place. 2. Hypokalemia. Will give the patient a K run. Continue to monitor. The patient is now off mechanical ventilation. Pulmonary critical care team will sign off; however, we will be available for reconsultation if needed.
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
--- NOTE | 2018-12-14 12:41 | IPNPDOC ---
Subjective General Date/Time Seen The patient was seen on 12/14/18 at 12:37. Subject Chief Complaint/History The patient is a 58-year-old male admitted with a reason for visit of Acute Respiratory Failure With Hypoxia. Patient continues to be hemodynamically stable. He has had some loose Gi colored stools yesterday. He was also noted that he is having some increased drainage off somewhat brownish drainage from the gastrostomy port but no fresh bleeding. H&H stable. Current Medications Current Medications Current Medications Acetaminophen (Tylenol Suppository) 650 mg Q4HP PRN WI MILD PAIN OR FEVER Last administered on 12/01/18at 22:18; Start 11/26/18 at 14:30; Stop 12/02/18 at 09:13; Status DC Acetaminophen (Tylenol Suspension) 650 mg Q4HP PRN GT PAIN OR FEVER Last administered on 12/10/18at 09:21; Start 12/02/18 at 09:15; Stop 12/12/18 at 20:42; Status DC Albuterol Sulfate (Proventil Neb) 2.5 mg Q2HP PRN NEB SHORTNESS OF BREATH Last administered on 11/29/18at 05:35; Start 11/26/18 at 14:30 Albuterol Sulfate (Proventil Neb) 2.5 mg RQ4H NEB Last administered on 12/14/18at 11:20; Start 11/26/18 at 16:00 Albuterol/ Ipratropium (Combivent Respimat 100-20mcg) 4 puff RQ4H INH ; Start 12/13/18 at 00:00; Stop 12/13/18 at 00:00; Status DC Albuterol/ Ipratropium (Duoneb (Ipr 0.5mg/Alb 2.5mg)) 3 ml RQID NEB ; Start 12/13/18 at 08:00; Stop 12/13/18 at 08:00; Status DC Amlodipine Besylate (Norvasc) 5 mg DAILY PO ; Start 12/02/18 at 09:00; Status Cancel Atorvastatin Calcium (Lipitor) 80 mg QHS PEG Last administered on 12/11/18at 20:56; Start 12/04/18 at 21:00; Stop 12/12/18 at 20:30; Status DC Atorvastatin Calcium (Lipitor) 80 mg QHS PO Last administered on 12/03/18at 21:00; Start 12/01/18 at 21:00; Stop 12/04/18 at 19:58; Status DC Bisacodyl (Dulcolax Suppository) 10 mg DAILYPRN PRN WI CONSTIPATION; Start 11/26/18 at 14:30 Chlorhexidine Gluconate (Peridex Oral Rinse) SWAB/BRUSH ORAL CAVITY BID MT Last administered on 11/28/18at 08:26; Start 11/26/18 at 21:00; Stop 11/28/18 at 16:25; Status DC Chlorhexidine Gluconate (Peridex Oral Rinse) SWAB/BRUSH ORAL CAVITY BID MT Last administered on 12/13/18at 08:11; Start 12/12/18 at 21:00; Stop 12/13/18 at 09:59; Status DC Cyanocobalamin (Vitamin B12) 1,000 mcg DAILY PO Last administered on 12/12/18at 08:09; Start 12/10/18 at 09:00; Stop 12/12/18 at 20:30; Status DC Dextrose (Dextrose 50%) 25 ml ASDIRECTED PRN IV SEE LABEL COMMENTS; Start 11/27/18 at 01:00 Dextrose/Sodium Chloride 1,000 ml @ 50 mls/hr Q20H IV Last administered on 11/30/18at 05:10; Start 11/28/18 at 18:00; Stop 11/30/18 at 15:28; Status DC Fentanyl Citrate (Sublimaze) 25 mcg Q5MP PRN IV MODERATE PAIN (PS 4-7); Start 12/08/18 at 19:00; Stop 12/08/18 at 20:00; Status DC Ferrous Sulfate (Ferrous Sulfate) 300 mg DAILY GT Last administered on 12/12/18at 08:10; Start 12/10/18 at 09:00; Stop 12/12/18 at 20:30; Status DC Ferrous Sulfate (Ferrous Sulfate) 325 mg DAILY PO ; Start 12/10/18 at 09:00; Status Cancel Glucagon (Glucagon) 1 mg ASDIRECTED PRN SC SEE LABEL COMMENTS; Start 11/27/18 at 01:00 Glucose (Glucose) 16 GM ASDIRECTED PRN PO SEE LABEL COMMENTS; Start 11/27/18 at 01:00 Heparin Sodium (Porcine) (Heparin) 5,000 units Q8H SC Last administered on 12/12/18 06:00; Start 11/26/18 at 14:00; Stop 12/12/18 at 14:36; Status DC Home Med (Med Rec Complete!) ASDIRECTED XX ; Start 11/26/18 at 14:45; Stop 11/26/18 at 14:45; Status DC Insulin Human Lispro (HumaLOG INSULIN) SEE PROTOCOL TABLE Q6H SC Last administered on 12/14/18at 12:05; Start 11/27/18 at 00:00 Lactated Ringer's 1,000 ml @ 80 mls/hr [id number] IV ; Start 12/08/18 at 19:00; Stop 12/08/18 at 20:00; Status DC Lansoprazole (First-Lansoprazole Oral Suspension) 30 mg BID FT Last administered on 12/12/18at 08:09; Start 12/03/18 at 21:00; Stop 12/12/18 at 20:30; Status DC Levetiracetam (Keppra Oral Solution) 1,500 mg BID GT Last administered on 12/14/18at 08:58; Start 12/03/18 at 14:00 Levetiracetam 1500 mg/Dextrose 115 ml @ 460 mls/hr Q12H IV Last administered on 12/03/18at 02:00; Start 11/27/18 at 02:00; Stop 12/03/18 at 12:52; Status DC Levofloxacin (Levaquin) 750 mg DAILY@06 FT Last administered on 12/10/18at 06:34; Start 12/03/18 at 06:00; Stop 12/10/18 at 10:50; Status DC Levofloxacin 750 mg/IV Miscellaneous Supplies 150 ml @ 100 mls/hr Q24H IV Last administered on 12/02/18at 14:38; Start 11/27/18 at 15:00; Stop 12/03/18 at 12:52; Status DC Methylprednisolone (SOLU medrol) 24 mg DAILY IV Last administered on 12/03/18at 09:24; Start 12/01/18 at 09:00; Stop 12/03/18 at 12:52; Status DC Methylprednisolone (SOLU medrol) 30 mg DAILY IV Last administered on 11/30/18at 08:32; Start 11/29/18 at 09:00; Stop 11/30/18 at 09:24; Status DC Methylprednisolone (SOLUmedrol) 48 mg DAILY IV ; Start 11/27/18 at 09:00; Stop 11/27/18 at 13:36; Status DC Methylprednisolone (SOLUmedrol) 50 mg DAILY IV Last administered on 11/28/18at 08:25; Start 11/27/18 at 09:00; Stop 11/28/18 at 09:45; Status DC Midazolam HCl (Versed) 2 mg Q15MP PRN IV AGITATION Last administered on 11/26/18at 16:33; Start 11/26/18 at 14:30; Stop 11/28/18 at 16:25; Status DC Midazolam HCl (Versed) 4 mg STAT STAT IV Last administered on 11/30/18at 10:10; Start 11/30/18 at 09:20; Stop 11/30/18 at 09:23; Status DC Miscellaneous (Unresolved Clarification Entry) SEE LABEL COMMENTS DAILY XX ; Start 12/05/18 at 09:00; Stop 12/05/18 at 13:22; Status DC Miscellaneous (Unresolved Clarification Entry) SEE LABEL COMMENTS DAILY XX ; Start 12/08/18 at 09:00; Stop 12/09/18 at 07:12; Status DC Miscellaneous (Unresolved Clarification Entry) SEE LABEL COMMENTS DAILY XX ; Start 12/09/18 at 09:00; Stop 12/09/18 at 10:04; Status DC Miscellaneous (Unresolved Clarification Entry) SEE LABEL COMMENTS DAILY XX ; Start 12/12/18 at 09:00; Stop 12/12/18 at 09:00; Status DC Morphine Sulfate (Morphine Sulfate Inj) 2 mg Q2HP PRN IV PAIN Last administered on 11/28/18at 11:18; Start 11/26/18 at 14:30; Stop 11/28/18 at 16:25; Status DC Morphine Sulfate (Morphine Sulfate Inj) 2 mg Q4HP PRN IV PAIN Last administered on 12/14/18at 08:59; Start 12/13/18 at 10:00 Nebivolol (Bystolic) 10 mg DAILY PO Last administered on 12/01/18at 22:17; Start 12/01/18 at 20:00; Stop 12/02/18 at 12:30; Status DC Nystatin (Mycostatin) 1 ml Q6H PO Last administered on 11/29/18at 05:23; Start 11/27/18 at 12:00; Stop 11/29/18 at 12:11; Status DC Nystatin (Mycostatin) 5 ml Q6H SS Last administered on 12/05/18at 06:16; Start 11/29/18 at 12:00; Stop 12/05/18 at 13:20; Status DC Octreotide Acetate (SandoSTATIN) 100 mcg Q8H IV ; Start 12/12/18 at 16:00; Stop 12/12/18 at 20:30; Status DC Ondansetron HCl (ZOFRAN INJection) 4 mg Q4HP PRN IV NAUSEA OR VOMITING; Start 12/08/18 at 19:00; Stop 12/08/18 at 20:00; Status DC Ondansetron HCl (ZOFRAN INJection) 4 mg Q6HP PRN IV NAUSEA OR VOMITING; Start 11/26/18 at 14:30; Stop 12/03/18 at 12:52; Status DC Ondansetron HCl (Zofran) 4 mg Q6HP PRN PEG NAUSEA OR VOMITING; Start 12/03/18 at 12:45; Stop 12/12/18 at 20:30; Status DC Pantoprazole Sodium (Protonix) 40 mg BID IV Last administered on 12/03/18at 09:24; Start 12/03/18 at 09:00; Stop 12/03/18 at 12:52; Status DC Pantoprazole Sodium (Protonix) 40 mg DAILY IV ; Start 12/09/18 at 09:00; Stop 12/09/18 at 09:00; Status DC Pantoprazole Sodium (Protonix) 40 mg Q12H IV Last administered on 12/14/18at 04:29; Start 12/12/18 at 16:00 Pantoprazole Sodium (Protonix) 40 mg Q24H IV Last administered on 12/02/18at 17:54; Start 11/26/18 at 18:00; Stop 12/03/18 at 00:23; Status DC Piperacillin Sod/ Tazobactam Sod 3.375 gm/Dextrose 50 ml @ 50 mls/hr RQ8H IV ; Start 11/26/18 at 16:00; Stop 11/26/18 at 16:00; Status DC Potassium Chloride 20 meq/ IV Miscellaneous Supplies 100 ml @ 100 mls/hr 0500,0600,0700 IV Last administered on 11/27/18at 06:58; Start 11/27/18 at 05:00; Stop 11/27/18 at 13:00; Status DC Potassium Chloride 20 meq/ IV Miscellaneous Supplies 100 ml @ 100 mls/hr 0700,0800 IV Last administered on 11/30/18at 08:31; Start 11/30/18 at 07:00; Stop 11/30/18 at 11:00; Status DC Potassium Chloride 20 meq/ IV Miscellaneous Supplies 100 ml @ 100 mls/hr 0700,0800,0900 IV Last administered on 11/28/18at 10:34; Start 11/28/18 at 07:00; Stop 11/28/18 at 12:00; Status DC Potassium Chloride 20 meq/ IV Miscellaneous Supplies 100 ml @ 100 mls/hr DAILY IV Last administered on 12/01/18at 08:08; Start 12/01/18 at 09:00; Stop 12/01/18 at 09:22; Status DC Potassium Chloride 20 meq/ IV Miscellaneous Supplies 100 ml @ 100 mls/hr TID IV Last administered on 11/30/18at 08:31; Start 11/29/18 at 09:00; Stop 11/30/18 at 09:27; Status DC Potassium Chloride/Dextrose/ Sod Cl 1,000 ml @ 75 mls/hr [id number] IV Last administered on 12/01/18at 05:31; Start 11/30/18 at 16:00; Stop 12/01/18 at 09:30; Status DC Potassium Chloride/Dextrose/ Sod Cl 1,000 ml @ 75 mls/hr [id number] IV Last administered on 12/03/18at 04:20; Start 12/01/18 at 09:15; Stop 12/03/18 at 12:52; Status DC Potassium Phosphate (K-Phos Original) 500 mg BID PEG Last administered on 12/09/18at 09:51; Start 12/04/18 at 21:00; Stop 12/09/18 at 15:22; Status DC Potassium Phosphate (K-Phos Original) 500 mg BID PO Last administered on 12/04/18at 16:22; Start 12/04/18 at 14:00; Stop 12/04/18 at 19:58; Status DC Potassium Phosphate (K-Phos Original) 500 mg TID PEG Last administered on 12/12/18 08:09; Start 12/09/18 at 16:00; Stop 12/12/18 at 18:33; Status DC Potassium Chloride 100 ml @ 100 mls/hr DAILY@0900,1000,1100 IV Last administered on 12/01/18at 11:17; Start 12/01/18 at 09:00; Stop 12/01/18 at 19:24; Status DC Potassium Chloride (Micro-K Extencaps) 20 meq TID PO ; Start 11/28/18 at 16:00; Stop 11/28/18 at 16:00; Status DC Potassium Chloride (Micro-K Extencaps) 20 meq TID PO ; Start 12/02/18 at 09:00; Stop 12/02/18 at 09:00; Status DC Potassium Chloride (Potassium Chloride Liquid) 20 meq DAILY PO Last administered on 12/12/18at 08:09; Start 12/06/18 at 09:00; Stop 12/12/18 at 20:30; Status DC Potassium Chloride (Potassium Chloride Liquid) 20 meq TID PO Last administered on 11/28/18at 15:47; Start 11/28/18 at 16:00; Stop 11/29/18 at 09:53; Status DC Potassium Chloride (Potassium Chloride Liquid) 60 meq DAILY PO ; Start 11/30/18 at 09:00; Stop 11/30/18 at 19:23; Status DC Prednisone (Deltasone) 20 mg DAILY FT Last administered on 12/14/18at 08:58; Start 12/10/18 at 09:00 Prednisone (Deltasone) 30 mg DAILY FT Last administered on 12/09/18 09:51; Start 12/04/18 at 09:00; Stop 12/09/18 at 15:21; Status DC Propofol 1000 mg/ IV Miscellaneous Supplies 100 ml @ 3.88 mls/hr Q24H IV Last administered on 11/28/18at 05:18; Start 11/26/18 at 18:45; Stop 11/28/18 at 16:25; Status DC Propofol 1000 mg/ IV Miscellaneous Supplies 100 ml @ 0 mls/hr Q0M IV Last administered on 11/26/18 18:16; Start 11/26/18 at 14:30; Stop 11/26/18 at 18:38; Status DC Sodium Chloride 1,000 ml @ 15 mls/hr Q24H IV Last administered on 12/12/18 11:34; Start 12/10/18 at 11:00; Stop 12/12/18 at 20:30; Status DC Sodium Chloride 1,000 ml @ 50 mls/hr Q20H IV Last administered on 11/27/18at 21:17; Start 11/26/18 at 14:16; Stop 11/27/18 at 23:04; Status DC Sodium Chloride 1,000 ml @ 100 mls/hr Q10H IV Last administered on 12/08/18at 07:42; Start 12/08/18 at 06:55; Stop 12/08/18 at 18:47; Status DC Sodium Chloride (Saline Lock Flush) 2 ml ASDIRECTED PRN IV SEE LABEL COMMENTS Last administered on 12/07/18 20:23; Start 12/06/18 at 11:45 Sodium Chloride (Saline Lock Flush) 2 ml SLF IV Last administered on 12/14/18 06:00; Start 12/06/18 at 14:00 Sodium Chloride (Sodium Chloride 3% Neb Casandra) 3 ml Q4HP PRN INH rhonchi, secretion clearance Last administered on 11/29/18at 11:23; Start 11/28/18 at 16:15 Sucralfate (Carafate Suspension) 1 gm BID PEG Last administered on 12/14/18 08:58; Start 12/04/18 at 21:00 Sucralfate (Carafate Suspension) 1 gm BID PO Last administered on 12/04/18 08:23; Start 12/03/18 at 21:00; Stop 12/04/18 at 19:58; Status DC Vancomycin HCl 1000 mg/IV Miscellaneous Supplies 20 ml @ 20 mls/hr Q8H IV ; Start 11/26/18 at 14:30; Stop 11/26/18 at 18:31; Status DC Vancomycin HCl 1000 mg/IV Miscellaneous Supplies 1 each/ Dextrose 270 ml @ 270 mls/hr Q8H IV Last administered on 11/27/18at 17:13; Start 11/27/18 at 01:00; Stop 11/27/18 at 19:12; Status DC Vancomycin HCl 1000 mg/IV Miscellaneous Supplies 1 each/ Dextrose 270 ml @ 270 mls/hr Q8H IV Last administered on 11/29/18at 05:22; Start 11/27/18 at 21:00; Stop 11/29/18 at 08:29; Status DC Allergies Coded Allergies: Cefuroxime (Verified Allergy, Unknown, 11/26/18) Dapagliflozin (Verified Allergy, Unknown, 11/26/18) Oxacillin (Verified Allergy, Unknown, 11/26/18) Sulfamethoxazole w/Trimethoprim (Verified Allergy, Unknown, 11/26/18) Objective Physical Examination Examination GENERAL APPEARANCE: Comfortable, awake, alert and responds appropriately. SKIN: Warm and dry. HEENT: Tracheostomy in place LUNGS: [Clear to auscultation bilaterally. No wheezing appreciated]. HEART: [No chest wall abnormalities. Regular rate and rhythm with no murmurs appreciated]. ABDOMEN: Abdomen is flat, soft, minimally tender over the epigastric incision site. Devries gastrostomy tube with tube feedings at the distal port working. Gastrostomy port [place] to low intermittent suction with a mixture of bile then brownish drainage.. Vital Signs Vital Signs Date Time Temp Pulse Resp B/P (MAP) Pulse Ox O2 Delivery O2 Flow Rate FiO2 12/14/18 12:00 28 12/14/18 12:00 98.6 85 15 135/71 (92) 99 12/14/18 06:00 5.0 12/13/18 16:18 Trach Collar I&Os I&O- Last 24 Hours up to 6 AM 12/14/18 06:00 Intake Total 1188 ml Output Total 2296 ml Balance -1108 ml Laboratory Data Labs 24H Laboratory Tests 2 12/13/18 15:01: Nucleated Red Blood Cells % (auto) 0.0, Anion Gap 4L, Glomerular Filtration Rate > 60.0, Blood Urea Nitrogen 22H, Creatinine 0.23#L, Sodium Level 146H, Potassium Level 3.7#, Chloride Level 112H, Carbon Dioxide Level 30, Calcium Level 7.4L 12/13/18 17:52: Bedside Glucose (Misc Panel) 213H 12/13/18 23:32: Bedside Glucose (Misc Panel) 196H 12/14/18 04:50: Nucleated Red Blood Cells % (auto) 0.2H, Anion Gap 5L, Glomerular Filtration Rate > 60.0, Blood Urea Nitrogen 15, Creatinine < 0.15L, Sodium Level 146H, Potassium Level 3.4L, Chloride Level 112H, Carbon Dioxide Level 29, Calcium Level 7.7L, Immature Granulocyte % (Auto) 1.0, White Blood Count 9.0, Red Blood Count 3.12L, Hemoglobin 9.2L, Hematocrit 28.5L, Mean Corpuscular Volume 91.3, Mean Corpuscular Hemoglobin 29.5, Mean Corpuscular Hemoglobin Concent 32.3, Red Cell Distribution Width 15.2H, Platelet Count 110L, Neutrophils (%) (Auto) 82.0H, Lymphocytes (%) (Auto) 10.7L, Monocytes (%) (Auto) 5.3H, Eosinophils (%) (Auto) 0.9, Basophils (%) (Auto) 0.1, Neutrophils # (Auto) 7.4, Lymphocytes # (Auto) 1.0L, Monocytes # (Auto) 0.5, Eosinophils # (Auto) 0.1, Basophils # (Auto) 0.0 12/14/18 05:31: Blood Gas Bicarbonate Standard 27.1H, Arterial Blood pH 7.448, Arterial Blood Partial Pressure CO2 40.2, Arterial Blood Partial Pressure O2 109.9H, Arterial Blood Total CO2 28.4, Arterial Blood HCO3 27.2H, Arterial Blood Base Excess 3.0H, Arterial Blood Oxygen Saturation 97.9 12/14/18 09:58: 12/14/18 11:52: Bedside Glucose (Misc Panel) 228H CBC/BMP Laboratory Tests 12/13/18 15:01 Red Blood Count 3.10 L, Mean Corpuscular Volume 89.7, Mean Corpuscular Hemoglobin 29.7, Mean Corpuscular Hemoglobin Concent 33.1, Red Cell Distribution Width 14.6 H, Calcium Level 7.4 L 12/14/18 04:50 Red Blood Count 3.12 L, Mean Corpuscular Volume 91.3, Mean Corpuscular Hemoglobin 29.5, Mean Corpuscular Hemoglobin Concent 32.3, Red Cell Distribution Width 15.2 H, Calcium Level 7.7 L, Neutrophils (%) (Auto) 82.0 H, Lymphocytes (%) (Auto) 10.7 L, Monocytes (%) (Auto) 5.3 H, Eosinophils (%) (Auto) 0.9, Basophils (%) (Auto) 0.1, Neutrophils # (Auto) 7.4, Lymphocytes # (Auto) 1.0 L, Monocytes # (Auto) 0.5, Eosinophils # (Auto) 0.1, Basophils # (Auto) 0.0 Microbiology Microbiology 12/08/18 Blood Culture - Final, Complete NO GROWTH AFTER 5 DAYS 12/08/18 Blood Culture - Final, Complete NO GROWTH AFTER 5 DAYS Impression POD 2 Wedge excision of bleeding gastrostomy site, new Devries gastroduodenostomy tube Hemodynamically stable. He is tolerating postpyloric feeding. Not much reflux from the gastric port. There is still some brownish colored drainage probably mixed with some refluxed miki in the stomach. No new blood. H/H stable Advance tube feedings continue with intermittent suction at gastric port for now. Devries tube location is quite distal at the close to the antral opening of the stomach and I brought down the balloon to 10 mLs as I was concerned it might cause obstruction. I think thats part of the reason why we are getting a lot from gastric port site (retained blood plus secretions). Plan / VTE VTE Prophylaxis Ordered?: Yes (mechanical prophylaxis only for now, until Surgery permits pharmacologic.) VTE Exclusion Pharmacological: Active Bleeding Plan / Urinary Catheter Reason for insertion/continuin: Critical Pt monitoring PAT GONZALEZ MD Dec 14, 2018 12:41
[2018-12-14] MEDS: PERCOCET 5MG/325MG TAB FT PRN (12:54)
[2018-12-15] VITALS (8 sets, daily range): BP systolic 131–174; BP diastolic 74–88; O2SAT 97
[2018-12-15] MEDS: ALBUTEROL SULFATE 2.5 MG/0.5 ML INH NEB SOLN NEB SCH ×5 (03:35→19:35)
[2018-12-15] MEDS: PANTOPRAZOLE 40MG INJ (PROTONIX) (C9113) IV SCH ×2 (04:12→18:39)
[2018-12-15 05:36] LABS: BASO % 0.2 % (0.0-1.0); EOS # 0.2 10^3/uL (0.0-0.50); EOS % 2.2 % (0.0-3.0); HEMATOCRIT 31.2 % (42.0-52.0); HEMOGLOBIN 9.8 g/dl (13.5-17.5); LYMPH # 0.9 10^3/uL (1.5-4.5); MEAN CORPUSCULAR HEMOGLOBIN 29.8 pg (27.0-33.0); MEAN CORPUSCULAR HGB CONC 31.4 g/dl (32.0-36.5); MEAN CORPUSCULAR VOLUME 94.8 fl (80.0-96.0); MONO # 0.5 10^3/uL (0.0-0.8); MONO % 6.2 % (0.0-5.0); NEUTROPHILS # 6.4 10^3/uL (1.8-7.7); NEUTROPHILS % 79.5 % (36.0-66.0); PLATELET COUNT, AUTOMATED 126 10^3/uL (150-450); RED BLOOD COUNT 3.29 10^6/uL (4.30-6.10); WHITE BLOOD COUNT 8.1 10^3/uL (4.0-10.0)
[2018-12-15] MEDS: HumaLOG INSULIN (NovoLOG) PER UNIT SC SCH ×3 (06:00→18:40)
[2018-12-15] MEDS: SLF 3 ML SYR IV SCH ×3 (06:00→21:51)
[2018-12-15 06:01] LABS: BLOOD UREA NITROGEN 14 MG/DL (7-18); CALCIUM LEVEL 8.1 MG/DL (8.5-10.1); CARBON DIOXIDE LEVEL 29 MEQ/L (21-32); CHLORIDE LEVEL 109 MEQ/L (98-107); CREATININE FOR GFR < 0.15 MG/DL (0.70-1.30); GLOMERULAR FILTRATION RATE > 60.0 (>56); GLUCOSE, FASTING 195 MG/DL (70-100); POTASSIUM SERUM 3.5 MEQ/L (3.5-5.1); SODIUM LEVEL 145 MEQ/L (136-145)
--- NOTE | 2018-12-15 08:30 | REP ---
Portable chest x-ray: Single view. History: Respiratory failure. Comparison study: December 14, 2018. Findings: Tracheostomy tube remains in place. EKG monitoring electrodes are seen. There is an bilateral basilar and perihilar plate-like atelectasis pattern again noted. Right hemidiaphragm remains elevated. Relatively low level of inspiration again noted. No new infiltrate. Electronically Signed by Ousmane Tyson MD 12/15/2018 08:22 A
[2018-12-15] MEDS: predniSONE 20 MG TAB FT SCH (09:23)
[2018-12-15] MEDS: levETIRAcetam ORAL SOLUTION 500 MG/5 ML UDC GT SCH ×2 (09:23→21:30)
[2018-12-15] MEDS: SUCRALFATE SUSP 1GM/10ML UD PEG SCH ×2 (09:23→21:30)
--- NOTE | 2018-12-15 12:23 | IPNPDOC ---
Subjective General Date/Time Seen The patient was seen on 12/15/18 at 12:05. Subject Chief Complaint/History The patient is a 58-year-old male admitted with a reason for visit of Acute Respiratory Failure With Hypoxia. Patient looks comfortable. Nurse reports that he was complaining of abdominal pain this morning and was concerned that there was some bloody drainage from the gastrostomy tube at the time that I saw him he has mostly bilious drainage from the gastrostomy port. He continues to tolerate postprandial feeding at 60 miles an hour. Hemoglobin and hematocrit has been stable. Current Medications Current Medications Current Medications Acetaminophen (Tylenol Suppository) 650 mg Q4HP PRN OR MILD PAIN OR FEVER Last administered on 12/01/18at 22:18; Start 11/26/18 at 14:30; Stop 12/02/18 at 09:13; Status DC Acetaminophen (Tylenol Suspension) 650 mg Q4HP PRN GT PAIN OR FEVER Last administered on 12/10/18at 09:21; Start 12/02/18 at 09:15; Stop 12/12/18 at 20:42; Status DC Albuterol Sulfate (Proventil Neb) 2.5 mg Q2HP PRN NEB SHORTNESS OF BREATH Last administered on 11/29/18at 05:35; Start 11/26/18 at 14:30 Albuterol Sulfate (Proventil Neb) 2.5 mg RQ4H NEB Last administered on 12/15/18at 11:46; Start 11/26/18 at 16:00 Albuterol/ Ipratropium (Combivent Respimat 100-20mcg) 4 puff RQ4H INH ; Start 12/13/18 at 00:00; Stop 12/13/18 at 00:00; Status DC Albuterol/ Ipratropium (Duoneb (Ipr 0.5mg/Alb 2.5mg)) 3 ml RQID NEB ; Start 12/13/18 at 08:00; Stop 12/13/18 at 08:00; Status DC Amlodipine Besylate (Norvasc) 5 mg DAILY PO ; Start 12/02/18 at 09:00; Status Cancel Atorvastatin Calcium (Lipitor) 80 mg QHS PEG Last administered on 12/11/18at 20:56; Start 12/04/18 at 21:00; Stop 12/12/18 at 20:30; Status DC Atorvastatin Calcium (Lipitor) 80 mg QHS PO Last administered on 12/03/18at 21:00; Start 12/01/18 at 21:00; Stop 12/04/18 at 19:58; Status DC Bisacodyl (Dulcolax Suppository) 10 mg DAILYPRN PRN OR CONSTIPATION; Start 11/26/18 at 14:30 Chlorhexidine Gluconate (Peridex Oral Rinse) SWAB/BRUSH ORAL CAVITY BID MT Last administered on 11/28/18at 08:26; Start 11/26/18 at 21:00; Stop 11/28/18 at 16:25; Status DC Chlorhexidine Gluconate (Peridex Oral Rinse) SWAB/BRUSH ORAL CAVITY BID MT Last administered on 12/13/18at 08:11; Start 12/12/18 at 21:00; Stop 12/13/18 at 09:59; Status DC Cyanocobalamin (Vitamin B12) 1,000 mcg DAILY PO Last administered on 12/12/18at 08:09; Start 12/10/18 at 09:00; Stop 12/12/18 at 20:30; Status DC Dextrose (Dextrose 50%) 25 ml ASDIRECTED PRN IV SEE LABEL COMMENTS; Start 11/27/18 at 01:00 Dextrose/Sodium Chloride 1,000 ml @ 50 mls/hr Q20H IV Last administered on 11/30/18at 05:10; Start 11/28/18 at 18:00; Stop 11/30/18 at 15:28; Status DC Fentanyl Citrate (Sublimaze) 25 mcg Q5MP PRN IV MODERATE PAIN (PS 4-7); Start 12/08/18 at 19:00; Stop 12/08/18 at 20:00; Status DC Ferrous Sulfate (Ferrous Sulfate) 300 mg DAILY GT Last administered on 12/12/18at 08:10; Start 12/10/18 at 09:00; Stop 12/12/18 at 20:30; Status DC Ferrous Sulfate (Ferrous Sulfate) 325 mg DAILY PO ; Start 12/10/18 at 09:00; Status Cancel Glucagon (Glucagon) 1 mg ASDIRECTED PRN SC SEE LABEL COMMENTS; Start 11/27/18 at 01:00 Glucose (Glucose) 16 GM ASDIRECTED PRN PO SEE LABEL COMMENTS; Start 11/27/18 at 01:00 Heparin Sodium (Porcine) (Heparin) 5,000 units Q8H SC Last administered on 12/12/18at 06:00; Start 11/26/18 at 14:00; Stop 12/12/18 at 14:36; Status DC Home Med (Med Rec Complete!) ASDIRECTED XX ; Start 11/26/18 at 14:45; Stop 11/26/18 at 14:45; Status DC Insulin Human Lispro (HumaLOG INSULIN) SEE PROTOCOL TABLE Q6H SC Last administered on 12/15/18at 06:00; Start 11/27/18 at 00:00 Lactated Ringer's 1,000 ml @ 80 mls/hr [id number] IV ; Start 12/08/18 at 19:00; Stop 12/08/18 at 20:00; Status DC Lansoprazole (First-Lansoprazole Oral Suspension) 30 mg BID FT Last administered on 12/12/18at 08:09; Start 12/03/18 at 21:00; Stop 12/12/18 at 20:30; Status DC Levetiracetam (Keppra Oral Solution) 1,500 mg BID GT Last administered on 12/15/18at 09:23; Start 12/03/18 at 14:00 Levetiracetam 1500 mg/Dextrose 115 ml @ 460 mls/hr Q12H IV Last administered on 12/03/18at 02:00; Start 11/27/18 at 02:00; Stop 12/03/18 at 12:52; Status DC Levofloxacin (Levaquin) 750 mg DAILY@06 FT Last administered on 12/10/18at 06:34; Start 12/03/18 at 06:00; Stop 12/10/18 at 10:50; Status DC Levofloxacin 750 mg/IV Miscellaneous Supplies 150 ml @ 100 mls/hr Q24H IV Last administered on 12/02/18at 14:38; Start 11/27/18 at 15:00; Stop 12/03/18 at 1 2:52; Status DC Methylprednisolone (SOLU medrol) 24 mg DAILY IV Last administered on 12/03/18at 09:24; Start 12/01/18 at 09:00; Stop 12/03/18 at 12:52; Status DC Methylprednisolone (SOLU medrol) 30 mg DAILY IV Last administered on 11/30/18at 08:32; Start 11/29/18 at 09:00; Stop 11/30/18 at 09:24; Status DC Methylprednisolone (SOLUmedrol) 48 mg DAILY IV ; Start 11/27/18 at 09:00; Stop 11/27/18 at 13:36; Status DC Methylprednisolone (SOLUmedrol) 50 mg DAILY IV Last administered on 11/28/18at 0 8:25; Start 11/27/18 at 09:00; Stop 11/28/18 at 09:45; Status DC Midazolam HCl (Versed) 2 mg Q15MP PRN IV AGITATION Last administered on 11/26/18at 16:33; Start 11/26/18 at 14:30; Stop 11/28/18 at 16:25; Status DC Midazolam HCl (Versed) 4 mg STAT STAT IV Last administered on 11/30/18at 10:10; Start 11/30/18 at 09:20; Stop 11/30/18 at 09:23; Status DC Miscellaneous (Unresolved Clarification Entry) SEE LABEL COMMENTS DAILY XX ; Start 12/05/18 at 09:00; Stop 12/05/18 at 13:22; Status DC Miscellaneous (Unresolved Clarification Entry) SEE LABEL COMMENTS DAILY XX ; Start 12/08/18 at 09:00; Stop 12/09/18 at 07:12; Status DC Miscellaneous (Unresolved Clarification Entry) SEE LABEL COMMENTS DAILY XX ; Start 12/09/18 at 09:00; Stop 12/09/18 at 10:04; Status DC Miscellaneous (Unresolved Clarification Entry) SEE LABEL COMMENTS DAILY XX ; Start 12/12/18 at 09:00; Stop 12/12/18 at 09:00; Status DC Morphine Sulfate (Morphine Sulfate Inj) 2 mg Q2HP PRN IV PAIN Last administered on 11/28/18at 11:18; Start 11/26/18 at 14:30; Stop 11/28/18 at 16:25; Status DC Morphine Sulfate (Morphine Sulfate Inj) 2 mg Q4HP PRN IV PAIN Last administered on 12/14/18at 08:59; Start 12/13/18 at 10:00 Nebivolol (Bystolic) 10 mg DAILY PO Last administered on 12/01/18at 22:17; Start 12/01/18 at 20:00; Stop 12/02/18 at 12:30; Status DC Nystatin (Mycostatin) 1 ml Q6H PO Last administered on 11/29/18at 05:23; Start 11/27/18 at 12:00; Stop 11/29/18 at 12:11; Status DC Nystatin (Mycostatin) 5 ml Q6H SS Last administered on 12/05/18at 06:16; Start 11/29/18 at 12:00; Stop 12/05/18 at 13:20; Status DC Octreotide Acetate (SandoSTATIN) 100 mcg Q8H IV ; Start 12/12/18 at 16:00; Stop 12/12/18 at 20:30; Status DC Ondansetron HCl (ZOFRAN INJection) 4 mg Q4HP PRN IV NAUSEA OR VOMITING; Start 12/08/18 at 19:00; Stop 12/08/18 at 20:00; Status DC Ondansetron HCl (ZOFRAN INJection) 4 mg Q6HP PRN IV NAUSEA OR VOMITING; Start 11/26/18 at 14:30; Stop 12/03/18 at 12:52; Status DC Ondansetron HCl (Zofran) 4 mg Q6HP PRN PEG NAUSEA OR VOMITING; Start 12/03/18 at 12:45; Stop 12/12/18 at 20:30; Status DC Oxycodone/ Acetaminophen (Percocet 5mg/ 325mg Tablet) 1 tab Q4HP PRN FT MILD/MODERATE PAIN (PS 1-7) Last administered on 12/14/18at 12:54; Start 12/14/18 at 12:45 Oxycodone/ Acetaminophen (Percocet 5mg/ 325mg Tablet) 2 tab Q4HP PRN FT SEVERE PAIN (PS 8-10); Start 12/14/18 at 12:45 Pantoprazole Sodium (Protonix) 40 mg BID IV Last administered on 12/03/18at 09:24; Start 12/03/18 at 09:00; Stop 12/03/18 at 12:52; Status DC Pantoprazole Sodium (Protonix) 40 mg DAILY IV ; Start 12/09/18 at 09:00; Stop 12/09/18 at 09:00; Status DC Pantoprazole Sodium (Protonix) 40 mg Q12H IV Last administered on 12/15/18at 04:12; Start 12/12/18 at 16:00 Pantoprazole Sodium (Protonix) 40 mg Q24H IV Last administered on 12/02/18at 17:54; Start 11/26/18 at 18:00; Stop 12/03/18 at 00:23; Status DC Piperacillin Sod/ Tazobactam Sod 3.375 gm/Dextrose 50 ml @ 50 mls/hr RQ8H IV ; Start 11/26/18 at 16:00; Stop 11/26/18 at 16:00; Status DC Potassium Chloride 20 meq/ IV Miscellaneous Supplies 100 ml @ 100 mls/hr 0500,0600,0700 IV Last administered on 11/27/18at 06:58; Start 11/27/18 at 05:00; Stop 11/27/18 at 13:00; Status DC Potassium Chloride 20 meq/ IV Miscellaneous Supplies 100 ml @ 100 mls/hr 0700,0800 IV Last administered on 11/30/18at 08:31; Start 11/30/18 at 07:00; Stop 11/30/18 at 11:00; Status DC Potassium Chloride 20 meq/ IV Miscellaneous Supplies 100 ml @ 100 mls/hr 0700,0800,0900 IV Last administered on 11/28/18at 10:34; Start 11/28/18 at 07:00; Stop 11/28/18 at 12:00; Status DC Potassium Chloride 20 meq/ IV Miscellaneous Supplies 100 ml @ 100 mls/hr DAILY IV Last administered on 12/01/18at 08:08; Start 12/01/18 at 09:00; Stop 12/01/18 at 09:22; Status DC Potassium Chloride 20 meq/ IV Miscellaneous Supplies 100 ml @ 100 mls/hr TID IV Last administered on 11/30/18at 08:31; Start 11/29/18 at 09:00; Stop 11/30/18 at 09:27; Status DC Potassium Chloride/Dextrose/ Sod Cl 1,000 ml @ 75 mls/hr [id number] IV Last administered on 12/01/18at 05:31; Start 11/30/18 at 16:00; Stop 12/01/18 at 09:30; Status DC Potassium Chloride/Dextrose/ Sod Cl 1,000 ml @ 75 mls/hr [id number] IV Last administered on 12/03/18 04:20; Start 12/01/18 at 09:15; Stop 12/03/18 at 12:52; Status DC Potassium Phosphate (K-Phos Original) 500 mg BID PEG Last administered on 12/09/18 09:51; Start 12/04/18 at 21:00; Stop 12/09/18 at 15:22; Status DC Potassium Phosphate (K-Phos Original) 500 mg BID PO Last administered on 12/04/18at 16:22; Start 12/04/18 at 14:00; Stop 12/04/18 at 19:58; Status DC Potassium Phosphate (K-Phos Original) 500 mg TID PEG Last administered on 12/12/18 08:09; Start 12/09/18 at 16:00; Stop 12/12/18 at 18:33; Status DC Potassium Chloride 100 ml @ 100 mls/hr DAILY@0900,1000,1100 IV Last administered on 12/01/18at 11:17; Start 12/01/18 at 09:00; Stop 12/01/18 at 19:24; Status DC Potassium Chloride (Micro-K Extencaps) 20 meq TID PO ; Start 11/28/18 at 16:00; Stop 11/28/18 at 16:00; Status DC Potassium Chloride (Micro-K Extencaps) 20 meq TID PO ; Start 12/02/18 at 09:00; Stop 12/02/18 at 09:00; Status DC Potassium Chloride (Potassium Chloride Liquid) 20 meq DAILY PO Last administered on 12/12/18 08:09; Start 12/06/18 at 09:00; Stop 12/12/18 at 20:30; Status DC Potassium Chloride (Potassium Chloride Liquid) 20 meq TID PO Last administered on 11/28/18at 15:47; Start 11/28/18 at 16:00; Stop 11/29/18 at 09:53; Status DC Potassium Chloride (Potassium Chloride Liquid) 60 meq DAILY PO ; Start 11/30/18 at 09:00; Stop 11/30/18 at 19:23; Status DC Prednisone (Deltasone) 10 mg DAILY PO ; Start 12/16/18 at 09:00 Prednisone (Deltasone) 20 mg DAILY FT Last administered on 12/15/18at 09:23; Start 12/10/18 at 09:00; Stop 12/15/18 at 11:05; Status DC Prednisone (Deltasone) 30 mg DAILY FT Last administered on 12/09/18 09:51; Start 12/04/18 at 09:00; Stop 12/09/18 at 15:21; Status DC Propofol 1000 mg/ IV Miscellaneous Supplies 100 ml @ 3.88 mls/hr Q24H IV Last administered on 11/28/18 05:18; Start 11/26/18 at 18:45; Stop 11/28/18 at 16:25; Status DC Propofol 1000 mg/ IV Miscellaneous Supplies 100 ml @ 0 mls/hr Q0M IV Last administered on 11/26/18 18:16; Start 11/26/18 at 14:30; Stop 11/26/18 at 18:38; Status DC Sodium Chloride 1,000 ml @ 15 mls/hr Q24H IV Last administered on 12/12/18 11:34; Start 12/10/18 at 11:00; Stop 12/12/18 at 20:30; Status DC Sodium Chloride 1,000 ml @ 50 mls/hr Q20H IV Last administered on 11/27/18 21:17; Start 11/26/18 at 14:16; Stop 11/27/18 at 23:04; Status DC Sodium Chloride 1,000 ml @ 100 mls/hr Q10H IV Last administered on 12/08/18 07:42; Start 12/08/18 at 06:55; Stop 12/08/18 at 18:47; Status DC Sodium Chloride (Saline Lock Flush) 2 ml ASDIRECTED PRN IV SEE LABEL COMMENTS Last administered on 12/07/18 20:23; Start 12/06/18 at 11:45 Sodium Chloride (Saline Lock Flush) 2 ml SLF IV Last administered on 12/15/18 06:00; Start 12/06/18 at 14:00 Sodium Chloride (Sodium Chloride 3% Neb Casandra) 3 ml Q4HP PRN INH rhonchi, secretion clearance Last administered on 11/29/18 11:23; Start 11/28/18 at 16:15 Sucralfate (Carafate Suspension) 1 gm BID PEG Last administered on 3/8/19at 09:23; Start 12/04/18 at 21:00 Sucralfate (Carafate Suspension) 1 gm BID PO Last administered on 12/04/18 08:23; Start 12/03/18 at 21:00; Stop 12/04/18 at 19:58; Status DC Vancomycin HCl 1000 mg/IV Miscellaneous Supplies 20 ml @ 20 mls/hr Q8H IV ; Start 11/26/18 at 14:30; Stop 11/26/18 at 18:31; Status DC Vancomycin HCl 1000 mg/IV Miscellaneous Supplies 1 each/ Dextrose 270 ml @ 270 mls/hr Q8H IV Last administered on 11/27/18at 17:13; Start 11/27/18 at 01:00; Stop 11/27/18 at 19:12; Status DC Vancomycin HCl 1000 mg/IV Miscellaneous Supplies 1 each/ Dextrose 270 ml @ 270 mls/hr Q8H IV Last administered on 11/29/18at 05:22; Start 11/27/18 at 21:00; Stop 11/29/18 at 08:29; Status DC Allergies Coded Allergies: Cefuroxime (Verified Allergy, Unknown, 11/26/18) Dapagliflozin (Verified Allergy, Unknown, 11/26/18) Oxacillin (Verified Allergy, Unknown, 11/26/18) Sulfamethoxazole w/Trimethoprim (Verified Allergy, Unknown, 11/26/18) Objective Physical Examination Examination GENERAL APPEARANCE: looks comfortable answers questions by nodding or shaking and appropriately. SKIN: Warm and dry. HEENT: Tracheostomy in place LUNGS: Clear breath sounds bilaterally. HEART: Regular heart rate and rhythm. ABDOMEN: Abdomen is flat, soft, and nondistended. Upper midline incision is clean, dry and intact. Gastrostomy site has slight leakage of serous material around it. The gastric port is draining bilious fluid is no longer maroon colored. The feeding port is working accordingly with 16 ml/hr of tube feedings.. Vital Signs Vital Signs Date Time Temp Pulse Resp B/P (MAP) Pulse Ox O2 Delivery O2 Flow Rate FiO2 12/15/18 08:00 97.8 98 22 168/82 (110) 97 5.0 12/15/18 07:49 Trach Collar 28 I&Os I&O- Last 24 Hours up to 6 AM 12/15/18 06:00 Intake Total 1114 ml Output Total 1725 ml Balance -611 ml Laboratory Data Labs 24H Laboratory Tests 2 12/14/18 14:09: Bedside Glucose (Misc Panel) 225H 12/14/18 18:12: Bedside Glucose (Misc Panel) 223H 12/14/18 23:40: Bedside Glucose (Misc Panel) 131H 12/15/18 04:19: Bedside Glucose (Misc Panel) 174H 12/15/18 05:15: Immature Granulocyte % (Auto) 0.9, White Blood Count 8.1, Red Blood Count 3.29L, Hemoglobin 9.8L, Hematocrit 31.2L, Mean Corpuscular Volume 94.8, Mean Corpuscular Hemoglobin 29.8, Mean Corpuscular Hemoglobin Concent 31.4L, Red Cell Distribution Width 15.7H, Platelet Count 126L, Neutrophils (%) (Auto) 79.5H, Lymphocytes (%) (Auto) 11.0L, Monocytes (%) (Auto) 6.2H, Eosinophils (%) (Auto) 2.2, Basophils (%) (Auto) 0.2, Neutrophils # (Auto) 6.4, Lymphocytes # (Auto) 0.9L, Monocytes # (Auto) 0.5, Eosinophils # (Auto) 0.2, Basophils # (Auto) 0.0, Nucleated Red Blood Cells % (auto) 0.0, Anion Gap 7L, Glomerular Filtration Rate > 60.0, Blood Urea Nitrogen 14, Creatinine < 0.15L, Sodium Level 145, Potassium Level 3.5, Chloride Level 109H, Carbon Dioxide Level 29, Calcium Level 8.1L CBC/BMP Laboratory Tests 12/15/18 05:15 Red Blood Count 3.29 L, Mean Corpuscular Volume 94.8, Mean Corpuscular Hemoglobin 29.8, Mean Corpuscular Hemoglobin Concent 31.4 L, Red Cell Distribution Width 15.7 H, Neutrophils (%) (Auto) 79.5 H, Lymphocytes (%) (Auto) 11.0 L, Monocytes (%) (Auto) 6.2 H, Eosinophils (%) (Auto) 2.2, Basophils (%) (Auto) 0.2, Neutrophils # (Auto) 6.4, Lymphocytes # (Auto) 0.9 L, Monocytes # (Auto) 0.5, Eosinophils # (Auto) 0.2, Basophils # (Auto) 0.0, Calcium Level 8.1 L Microbiology Microbiology 12/08/18 Blood Culture - Final, Complete NO GROWTH AFTER 5 DAYS 12/08/18 Blood Culture - Final, Complete NO GROWTH AFTER 5 DAYS Impression Bleeding around the gastrostomy site status post wedge resection of the gastrostomy and placement of new Devries gastrostomy feeding tube I'll have them clamp the gastrostomy port and used to gastrostomy port for giving meds. I'm concerned about putting the crush medications through the feeding port which is a small caliber port that might get clogged. He can have the nurses check every shift there is any recurrent bleeding or backflow of the tube feedings through the gastrostomy port site. Plan / VTE VTE Prophylaxis Ordered?: Yes (mechanical prophylaxis only for now, until Surgery permits pharmacologic.) VTE Exclusion Pharmacological: Active Bleeding Plan / Urinary Catheter Reason for insertion/continuin: Critical Pt monitoring PAT GONZALEZ MD Dec 15, 2018 12:23
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
[2018-12-15 14:26] LABS: HEMATOCRIT 30.7 % (42.0-52.0); HEMOGLOBIN 9.8 g/dl (13.5-17.5); MEAN CORPUSCULAR HEMOGLOBIN 30.2 pg (27.0-33.0); MEAN CORPUSCULAR HGB CONC 31.9 g/dl (32.0-36.5); MEAN CORPUSCULAR VOLUME 94.5 fl (80.0-96.0); PLATELET COUNT, AUTOMATED 136 10^3/uL (150-450); RED BLOOD COUNT 3.25 10^6/uL (4.30-6.10); WHITE BLOOD COUNT 7.9 10^3/uL (4.0-10.0)
[2018-12-15 23:55] LABS: ABG BASE EXCESS 8.5 (-2.0-2.0); ABG HCO3 33.9 MEQ/L (22.0-26.0); ABG O2 SATURATION 99.4 % (95.0-99.0); ABG PARTIAL PRESSURE CO2 51.5 mmHg (35.0-45.0); ABG PARTIAL PRESSURE O2 189.2 mmHg (75.0-100.0); ABG STANDARD HCO3 32.3 MEQ/L (22.0-26.0); ABG TOTAL CO2 35.5 MEQ/L (22.0-29.0); ABG pH (ARTERIAL) 7.436 UNITS (7.350-7.450)
[2018-12-16] VITALS (12 sets, daily range): BP systolic 112–138; BP diastolic 72–79
[2018-12-16] MEDS: ALBUTEROL SULFATE 2.5 MG/0.5 ML INH NEB SOLN NEB SCH ×7 (00:21→23:44)
[2018-12-16 00:43] LABS: HEMATOCRIT 31.5 % (42.0-52.0); HEMOGLOBIN 9.8 g/dl (13.5-17.5); MEAN CORPUSCULAR HEMOGLOBIN 29.6 pg (27.0-33.0); MEAN CORPUSCULAR HGB CONC 31.1 g/dl (32.0-36.5); MEAN CORPUSCULAR VOLUME 95.2 fl (80.0-96.0); PLATELET COUNT, AUTOMATED 152 10^3/uL (150-450); RED BLOOD COUNT 3.31 10^6/uL (4.30-6.10); WHITE BLOOD COUNT 7.7 10^3/uL (4.0-10.0)
--- NOTE | 2018-12-16 01:03 | REPVR ---
EXAM: CT Head Without Contrast EXAM DATE/TIME: 12/15/2018 11:50 PM CLINICAL HISTORY: 58 years old, male; Signs and symptoms; Coma or unconsciousness; Additional info: Unresponsive TECHNIQUE: Axial computed tomography images of the head/brain without contrast. All CT scans at this facility use at least one of these dose optimization techniques: automated exposure control; mA and/or kV adjustment per patient size (includes targeted exams where dose is matched to clinical indication); or iterative reconstruction. COMPARISON: CT Head without contrast 12/04/2018 3:30 PM FINDINGS: No change in severe symmetric ventricular dilatation with periventricular hypoattenuation. No evidence of hemorrhage, midline shift or intracranial mass. Cerebellar atrophy changes are present, as seen previously. No evidence of acute cortical infarct. No calvarial fracture or destructive process. Imaged paranasal sinuses, mastoid air cells, globes and orbits are unremarkable. IMPRESSION: No acute process or interval change. Electronically signed by: Topher Sun On 12/16/2018 01:03:17 AM
[2018-12-16 01:08] LABS: BLOOD UREA NITROGEN 13 MG/DL (7-18); CALCIUM LEVEL 7.4 MG/DL (8.5-10.1); CARBON DIOXIDE LEVEL 34 MEQ/L (21-32); CHLORIDE LEVEL 106 MEQ/L (98-107); CREATININE FOR GFR 0.18 MG/DL (0.70-1.30); GLOMERULAR FILTRATION RATE > 60.0 (>56); GLUCOSE, FASTING 207 MG/DL (70-100); POTASSIUM SERUM 3.7 MEQ/L (3.5-5.1); SODIUM LEVEL 144 MEQ/L (136-145)
[2018-12-16] MEDS: HumaLOG INSULIN (NovoLOG) PER UNIT SC SCH ×4 (01:41→17:16)
--- NOTE | 2018-12-16 04:31 | IPNPDOC ---
Date Seen The patient was seen on 12/16/18. Progress Note Rapid assessment was called on patient at 2330 when patient was found unresponsive. At bedside patient was vitally stable. He was minimally responsive to sternal rub. Patients pupils were reactive to light. An ABG was performed to assess for hypercarbia. Patient received a stat EKG which was unchanged from previous. He received a stat head CT w/o contrast which was negative for any acute findings. Patient has remained hemodynamically stable although persistently unresponsive. He was transferred to ICU. It was noticed that patient does have a history of seizures. He had received his Keppra. A Keppra and ammonia level were ordered and pending OBJECTIVE PHYSICAL EXAMINATION: VITAL SIGNS: Please see below. GENERAL: Patient is unresonsive to voice. He is minimally responsive to pain. HEENT: Atruamtic, normocephalic. Tracheotomy tube is in place and patent. Pupils are reactive to light. Slight horizontal nystagmus noted. CARDIOVASCULAR: Normal S1, S2. Regular rate and rhythm. No clicks rubs or murmurs RESPIRATORY: Patient receiving high flow through tracheostomy. No wheezes. ABDOMINAL: Soft, nondistended, EXTREMITIES: no edema. Full and equal posterior tibial and radial pulses NEUROLOGICAL: Unresponsive to voice. Does not follow commands. Responsive to painful stimuli LABORATORY DATA, IMAGING STUDIES, MICROBIOLOGY: Please see below. ASSESSMENT AND PLAN: 1. Unresponsive 2/2 nonconvulsive seizure vs acute intercranial pathology -Patient was found to be unresponsive although he was vitally stable. He did receive and ABG which was not impressive. The case was discussed with Dr. Alves who did not feel the patients condition was a pulmonary problem. He had received a CT head w/o contrast which did not demonstrate any acute findings. He does have a history of seizures and currently takes Keppra. It is possible he is having a nonconvulsive seizure. He may benefit from an EEG and neurology consultation. At this point in time the patient is stable and in the ICU. We will continue with supportive treatment. The patient is FULL CODE. VS, I&O, 24H, Fishbone Vital Signs/I&O Vital Signs Date Time Temp Pulse Resp B/P (MAP) Pulse Ox O2 Delivery O2 Flow Rate FiO2 12/16/18 03:38 Trach Collar 8.0 35 12/16/18 02:00 82 18 129/78 (95) 100 12/16/18 01:00 98.9 I&O- Last 24 Hours up to 6 AM 12/16/18 06:00 Intake Total 0 ml Output Total 1200 ml Balance -1200 ml Laboratory Data 24H LABS Laboratory Tests 2 12/15/18 04:19: Bedside Glucose (Misc Panel) 174H 12/15/18 05:15: Immature Granulocyte % (Auto) 0.9, White Blood Count 8.1, Red Blood Count 3.29L, Hemoglobin 9.8L, Hematocrit 31.2L, Mean Corpuscular Volume 94.8, Mean Corpuscular Hemoglobin 29.8, Mean Corpuscular Hemoglobin Concent 31.4L, Red Cell Distribution Width 15.7H, Platelet Count 126L, Neutrophils (%) (Auto) 79.5H, Lymphocytes (%) (Auto) 11.0L, Monocytes (%) (Auto) 6.2H, Eosinophils (%) (Auto) 2.2, Basophils (%) (Auto) 0.2, Neutrophils # (Auto) 6.4, Lymphocytes # (Auto) 0.9L, Monocytes # (Auto) 0.5, Eosinophils # (Auto) 0.2, Basophils # (Auto) 0.0, Nucleated Red Blood Cells % (auto) 0.0, Anion Gap 7L, Glomerular Filtration Rate > 60.0, Blood Urea Nitrogen 14, Creatinine < 0.15L, Sodium Level 145, Potassium Level 3.5, Chloride Level 109H, Carbon Dioxide Level 29, Calcium Level 8.1L 12/15/18 12:01: Bedside Glucose (Misc Panel) 264H 12/15/18 14:07: Nucleated Red Blood Cells % (auto) 0.0 12/15/18 17:55: Bedside Glucose (Misc Panel) 200H 12/15/18 23:36: Bedside Glucose (Misc Panel) 209H 12/15/18 23:44: Blood Gas Bicarbonate Standard 32.3H, Arterial Blood pH 7.436, Arterial Blood Partial Pressure CO2 51.5H, Arterial Blood Partial Pressure O2 189.2H, Arterial Blood Total CO2 35.5H, Arterial Blood HCO3 33.9H, Arterial Blood Base Excess 8.5H, Arterial Blood Oxygen Saturation 99.4H 12/16/18 00:25: Ammonia 19 12/16/18 00:30: 12/16/18 00:34: Nucleated Red Blood Cells % (auto) 0.0, Anion Gap 4L, Glomerular Filtration Rate > 60.0, Blood Urea Nitrogen 13, Creatinine 0.18L, Sodium Level 144, Potassium Level 3.7, Chloride Level 106, Carbon Dioxide Level 34H, Calcium Level 7.4L CBC/BMP Laboratory Tests 12/15/18 05:15 Red Blood Count 3.29 L, Mean Corpuscular Volume 94.8, Mean Corpuscular Hemoglobin 29.8, Mean Corpuscular Hemoglobin Concent 31.4 L, Red Cell Distribution Width 15.7 H, Neutrophils (%) (Auto) 79.5 H, Lymphocytes (%) (Auto) 11.0 L, Monocytes (%) (Auto) 6.2 H, Eosinophils (%) (Auto) 2.2, Basophils (%) (Auto) 0.2, Neutrophils # (Auto) 6.4, Lymphocytes # (Auto) 0.9 L, Monocytes # (Auto) 0.5, Eosinophils # (Auto) 0.2, Basophils # (Auto) 0.0, Calcium Level 8.1 L 12/15/18 14:07 Red Blood Count 3.25 L, Mean Corpuscular Volume 94.5, Mean Corpuscular Hemoglobin 30.2, Mean Corpuscular Hemoglobin Concent 31.9 L, Red Cell Distribution Width 15.3 H 12/16/18 00:34 Red Blood Count 3.31 L, Mean Corpuscular Volume 95.2, Mean Corpuscular Hemoglobin 29.6, Mean Corpuscular Hemoglobin Concent 31.1 L, Red Cell Distribution Width 15.1 H, Calcium Level 7.4 L Microbiology Microbiology 12/08/18 Blood Culture - Final, Complete NO GROWTH AFTER 5 DAYS 12/08/18 Blood Culture - Final, Complete NO GROWTH AFTER 5 DAYS GME ATTESTATION GME ATTESTATION My faculty preceptor for this patient encounter was physically present during the encounter and was fully available. All aspects of the patient interview, examination, medical decision making process, and medical care plan development were reviewed and approved by the faculty preceptor. The faculty preceptor is aware and concurs with the plan as stated in the body of this note and will attest to such by his/her cosignature. RAFAL STACK DO Dec 16, 2018 04:31
[2018-12-16] MEDS: PANTOPRAZOLE 40MG INJ (PROTONIX) (C9113) IV SCH ×2 (05:14→15:23)
[2018-12-16] MEDS: SLF 3 ML SYR IV SCH ×3 (06:43→22:00)
[2018-12-16 07:27] LABS: HEMATOCRIT 30.6 % (42.0-52.0); HEMOGLOBIN 9.6 g/dl (13.5-17.5); MEAN CORPUSCULAR HEMOGLOBIN 29.9 pg (27.0-33.0); MEAN CORPUSCULAR HGB CONC 31.4 g/dl (32.0-36.5); MEAN CORPUSCULAR VOLUME 95.3 fl (80.0-96.0); PLATELET COUNT, AUTOMATED 163 10^3/uL (150-450); RED BLOOD COUNT 3.21 10^6/uL (4.30-6.10); WHITE BLOOD COUNT 6.5 10^3/uL (4.0-10.0)
[2018-12-16 07:55] LABS: ALBUMIN 1.9 GM/DL (3.2-5.2); ALT/SGPT 21 U/L (12-78); BILIRUBIN,TOTAL 0.6 MG/DL (0.2-1.0); BLOOD UREA NITROGEN 13 MG/DL (7-18); CALCIUM LEVEL 7.5 MG/DL (8.5-10.1); CARBON DIOXIDE LEVEL 34 MEQ/L (21-32); CHLORIDE LEVEL 106 MEQ/L (98-107); CREATININE FOR GFR < 0.15 MG/DL (0.70-1.30); GLOMERULAR FILTRATION RATE > 60.0 (>56); GLUCOSE, FASTING 140 MG/DL (70-100); POTASSIUM SERUM 3.4 MEQ/L (3.5-5.1); SODIUM LEVEL 145 MEQ/L (136-145); TOTAL PROTEIN 4.8 GM/DL (6.4-8.2)
--- NOTE | 2018-12-16 08:02 | REP ---
Portable chest, AP upright view, 06:42 a.m., single view: Comparison is 12/15/2018. Elevation of the right hemidiaphragm is again noted. There is discoid atelectasis adjacent to the elevated right hemidiaphragm. Lung del angel otherwise clear. There is a tracheostomy tube, unchanged. Cardiac size is normal. Estefani, mediastinum, skeletal structures are unremarkable. Impression: Elevated right hemidiaphragm. Atelectasis above the elevated right hemidiaphragm. Electronically Signed by Kenroy Srinivasan MD 12/16/2018 07:53 A
[2018-12-16] MEDS: levETIRAcetam ORAL SOLUTION 500 MG/5 ML UDC GT SCH ×2 (08:36→21:45)
[2018-12-16] MEDS: predniSONE 10 MG TAB PO SCH (08:37)
[2018-12-16] MEDS: SUCRALFATE SUSP 1GM/10ML UD PEG SCH ×2 (08:37→21:45)
--- NOTE | 2018-12-16 09:50 | IPNPDOC ---
Text Note Date of Service The patient was seen on 12/16/18. NOTE ENT Covering for Dr. Garcia Aware of recent events. No issues with trach during this set back I will inform Dr. Garcia. VS,Marce, I+O VS, Marce, I+O Laboratory Tests 12/15/18 14:07 Red Blood Count 3.25 L, Mean Corpuscular Volume 94.5, Mean Corpuscular Hemoglobin 30.2, Mean Corpuscular Hemoglobin Concent 31.9 L, Red Cell Distri bution Width 15.3 H 12/16/18 00:34 Red Blood Count 3.31 L, Mean Corpuscular Volume 95.2, Mean Corpuscular Hemoglobin 29.6, Mean Corpuscular Hemoglobin Concent 31.1 L, Red Cell Di stribution Width 15.1 H, Calcium Level 7.4 L 12/16/18 07:18 Red Blood Count 3.21 L, Mean Corpuscular Volume 95.3, Mean Corpuscular Hemoglobin 29.9, Mean Corpuscular Hemoglobin Concent 31.4 L, Red Cell Distribution Width 15.0 H, Calcium Level 7.5 L, Aspartate Amino Transf (AST/S GOT) 22, Alanine Aminotransferase (ALT/SGPT) 21, Alkaline Phosphatase 64, Total Bilirubin 0.6, Total Protein 4.8 L, Albumin 1.9 L Vital Signs Date Time Temp Pulse Resp B/P (MAP) Pulse Ox O2 Delivery O2 Flow Rate FiO2 12/16/18 06:00 98.1 71 17 132/72 (92) 100 5.0 35 12/16/18 03:38 Trach Collar I&O- Last 24 Hours up to 6 AM 12/16/18 06:00 Intake Total 0 ml Output Total 1450 ml Balance -1450 ml IZZY MYLES MD Dec 16, 2018 09:50
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
--- NOTE | 2018-12-16 17:52 | ECGEPIP ---
Stationary ECG Study [facility] Test Date: 2018-12-15 Pat Name: LIZ THAPA Department: Room: [place] [address] Gender: M [employer]: : [id number] Requested By: RAFAL STACK Order Number: [id number] Reading MD: Yimi Cooney Measurements Intervals [place] Rate: 72 P: 34 [place]: 160 QRS: 15 QRSD: 93 T: 16 QT: 385 QTc: 423 Interpretive Statements SINUS RHYTHM Left ventricular hypertrophy and ST-T changes- requires clinical correlation Electronically Signed On 12-16-2018 17:52:10 EST by Yimi Cooney
[2018-12-16] MEDS ORDERED: PILL CRUSHER/CUTTER 1 EACH XX PRN (20:00)
[2018-12-16] MEDS: PERCOCET 5MG/325MG TAB FT PRN (21:46)
[2018-12-17] VITALS (8 sets, daily range): BP systolic 120–146; BP diastolic 62–78
[2018-12-17] MEDS: HumaLOG INSULIN (NovoLOG) PER UNIT SC SCH ×4 (01:44→17:21)
[2018-12-17] MEDS: ALBUTEROL SULFATE 2.5 MG/0.5 ML INH NEB SOLN NEB SCH ×6 (04:16→23:42)
[2018-12-17 04:36] LABS: HEMATOCRIT 30.1 % (42.0-52.0); HEMOGLOBIN 9.4 g/dl (13.5-17.5); MEAN CORPUSCULAR HEMOGLOBIN 29.6 pg (27.0-33.0); MEAN CORPUSCULAR HGB CONC 31.2 g/dl (32.0-36.5); MEAN CORPUSCULAR VOLUME 94.7 fl (80.0-96.0); PLATELET COUNT, AUTOMATED 211 10^3/uL (150-450); RED BLOOD COUNT 3.18 10^6/uL (4.30-6.10); WHITE BLOOD COUNT 6.2 10^3/uL (4.0-10.0)
[2018-12-17 04:55] LABS: ALBUMIN 1.9 GM/DL (3.2-5.2); ALT/SGPT 20 U/L (12-78); BILIRUBIN,TOTAL 0.4 MG/DL (0.2-1.0); BLOOD UREA NITROGEN 14 MG/DL (7-18); CALCIUM LEVEL 7.8 MG/DL (8.5-10.1); CARBON DIOXIDE LEVEL 34 MEQ/L (21-32); CHLORIDE LEVEL 105 MEQ/L (98-107); CREATININE FOR GFR 0.15 MG/DL (0.70-1.30); GLOMERULAR FILTRATION RATE > 60.0 (>56); GLUCOSE, FASTING 170 MG/DL (70-100); POTASSIUM SERUM 3.4 MEQ/L (3.5-5.1); SODIUM LEVEL 142 MEQ/L (136-145); TOTAL PROTEIN 5.2 GM/DL (6.4-8.2)
[2018-12-17] MEDS: PANTOPRAZOLE 40MG INJ (PROTONIX) (C9113) IV SCH (04:59)
[2018-12-17] MEDS: SLF 3 ML SYR IV SCH ×3 (06:10→20:41)
[2018-12-17] MEDS: predniSONE 10 MG TAB PO SCH (08:15)
[2018-12-17] MEDS: SUCRALFATE SUSP 1GM/10ML UD PEG SCH ×2 (08:15→20:41)
[2018-12-17] MEDS: levETIRAcetam ORAL SOLUTION 500 MG/5 ML UDC GT SCH ×2 (08:15→20:41)
[2018-12-17] MEDS: POTASSIUM CHLORIDE 10% LIQ 20 MEQ/15 ML UDC PO SCH (11:23)
[2018-12-17] MEDS: PERCOCET 5MG/325MG TAB FT PRN (17:23)
[2018-12-17] MEDS: SIMETHICONE 80 MG CHEW TAB GT SCH (20:40)
[2018-12-17] MEDS: NYSTATIN CREAM 15 GM TOP SCH (20:41)
[2018-12-17] MEDS: LANSOPRAZOLE SUSPENSION 30 MG/10 ML ORAL SYRINGE (FIRST-LANSOPRAZOLE) GT SCH (20:41)
[2018-12-18 00:07] VITALS: BP 150/81
[2018-12-18 04:00] VITALS: BP 149/86
[2018-12-18] MEDS: ALBUTEROL SULFATE 2.5 MG/0.5 ML INH NEB SOLN NEB SCH ×5 (04:31→20:28)
[2018-12-18 05:23] LABS: HEMATOCRIT 31.8 % (42.0-52.0); HEMOGLOBIN 9.8 g/dl (13.5-17.5); MEAN CORPUSCULAR HEMOGLOBIN 29.2 pg (27.0-33.0); MEAN CORPUSCULAR HGB CONC 30.8 g/dl (32.0-36.5); MEAN CORPUSCULAR VOLUME 94.6 fl (80.0-96.0); PLATELET COUNT, AUTOMATED 245 10^3/uL (150-450); RED BLOOD COUNT 3.36 10^6/uL (4.30-6.10); WHITE BLOOD COUNT 7.7 10^3/uL (4.0-10.0)
[2018-12-18 05:45] LABS: ALBUMIN 2.1 GM/DL (3.2-5.2); ALT/SGPT 21 U/L (12-78); BILIRUBIN,TOTAL 0.7 MG/DL (0.2-1.0); BLOOD UREA NITROGEN 10 MG/DL (7-18); CALCIUM LEVEL 8.1 MG/DL (8.5-10.1); CARBON DIOXIDE LEVEL 32 MEQ/L (21-32); CHLORIDE LEVEL 102 MEQ/L (98-107); CREATININE FOR GFR < 0.15 MG/DL (0.70-1.30); GLOMERULAR FILTRATION RATE > 60.0 (>56); GLUCOSE, FASTING 158 MG/DL (70-100); POTASSIUM SERUM 3.5 MEQ/L (3.5-5.1); SODIUM LEVEL 139 MEQ/L (136-145); TOTAL PROTEIN 5.5 GM/DL (6.4-8.2)
[2018-12-18] MEDS: SLF 3 ML SYR IV SCH ×3 (06:00→20:25)
[2018-12-18] MEDS: HumaLOG INSULIN (NovoLOG) PER UNIT SC SCH ×4 (06:36→17:13)
[2018-12-18 08:00] VITALS: BP 140/76
[2018-12-18] MEDS: levETIRAcetam ORAL SOLUTION 500 MG/5 ML UDC GT SCH ×2 (08:37→20:24)
[2018-12-18] MEDS: SUCRALFATE SUSP 1GM/10ML UD PEG SCH ×2 (08:37→20:24)
[2018-12-18] MEDS: SIMETHICONE 80 MG CHEW TAB GT SCH ×3 (08:38→20:24)
[2018-12-18] MEDS: predniSONE 10 MG TAB GT SCH (08:38)
[2018-12-18] MEDS: LANSOPRAZOLE SUSPENSION 30 MG/10 ML ORAL SYRINGE (FIRST-LANSOPRAZOLE) GT SCH ×2 (08:38→20:24)
[2018-12-18] MEDS: POTASSIUM CHLORIDE 10% LIQ 20 MEQ/15 ML UDC PO SCH (08:38)
[2018-12-18] MEDS: NYSTATIN CREAM 15 GM TOP SCH ×2 (08:39→20:25)
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
--- NOTE | 2018-12-18 11:31 | IPN ---
DATE: 12/17/2018 The patient is seen today in ICU. Since yesterday he has not had any seizure activity. He has not had any troubles with alertness. He has been tolerating his tube feedings. His respirations have been stable. He is still receiving oxygen via his trach collar. He has got tube feedings going. He nods his head in response to review of systems questions and denies pain or dyspnea. He is getting prednisone 10 mg daily, he has as needed medications for pain. He is getting pantoprazole, sucralfate, Keppra, Humalog, scheduled nebulizers. On examination his temperature is 98.9, blood pressure 122/68, pulse 67 and regular, respirations 18. He was sleeping but readily awakened, not in any distress. Breathing is unlabored. His eyes are clear. He has the tracheostomy. His lungs sound clear today. Heart has regular rhythm without any murmur, click or gallop. Abdomen is soft and nontender without any masses or organomegaly. Bowel sounds are active. He has the PEG tube. There is no edema. He has spasticity in his extremities, the right side seems more flaccid than the left which seems more spastic. He does have some contractures, these are chronic. Labs today show a hemoglobin of 9.4, WBCs 6200, platelets 211,000. His BUN is 14, creatinine 0.15, sodium 142, potassium 3.4. Sugar this morning is 170, yesterday it ran 169-182. Chest x-ray done yesterday morning showed discoid atelectasis on the right, tracheostomy tube, normal cardiac size, elevated right joe diaphragm. ASSESSMENT: Unresponsive episode, unclear that this was actually a seizure or postictal condition. He may have just been tired. Respiratory failure with hypoxia, doing well at this time. Seizure disorder. No episodes. Anemia, stable status post GI bleeding. He does not appear to have any issues at this time. Hypokalemia. Will supplement. Dysphagia. Getting tube feeds. 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 Hypertension controlled. Diabetes mellitus, adequately controlled. Pneumonia, probably resolved. 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 Bullous dermatitis. Has been doing well since he was at the shelter last. PLAN: Resident will continue on his current medication regimen. No changes are made today. I would like to keep him on prednisone given his history of this bullous dermatitis. We should change his meds over to per G tube. At some point in the next week I think he will be stable enough to go back to the shelter. The question is whether the tracheostomy and G tube are permanent. I think an argument could be made that they should be. MTDD
[2018-12-18 12:00] VITALS: BP 127/72
[2018-12-18] MEDS ORDERED: FLEET ENEMA PR ONE (15:15)
[2018-12-18 16:00] VITALS: BP 137/85
[2018-12-18 20:00] VITALS: BP 139/78
[2018-12-19] VITALS: BP 130/73
[2018-12-19] MEDS: ALBUTEROL SULFATE 2.5 MG/0.5 ML INH NEB SOLN NEB SCH ×6 (00:18→19:07)
[2018-12-19] MEDS: HumaLOG INSULIN (NovoLOG) PER UNIT SC SCH ×4 (00:21→17:27)
[2018-12-19 04:00] VITALS: BP 117/65
[2018-12-19 05:03] LABS: HEMATOCRIT 35.4 % (42.0-52.0); HEMOGLOBIN 10.9 g/dl (13.5-17.5); MEAN CORPUSCULAR HEMOGLOBIN 28.8 pg (27.0-33.0); MEAN CORPUSCULAR HGB CONC 30.8 g/dl (32.0-36.5); MEAN CORPUSCULAR VOLUME 93.4 fl (80.0-96.0); PLATELET COUNT, AUTOMATED 322 10^3/uL (150-450); RED BLOOD COUNT 3.79 10^6/uL (4.30-6.10); WHITE BLOOD COUNT 8.6 10^3/uL (4.0-10.0)
[2018-12-19 05:25] LABS: ALBUMIN 2.1 GM/DL (3.2-5.2); ALT/SGPT 21 U/L (12-78); BILIRUBIN,TOTAL 0.5 MG/DL (0.2-1.0); BLOOD UREA NITROGEN 8 MG/DL (7-18); CALCIUM LEVEL 7.9 MG/DL (8.5-10.1); CARBON DIOXIDE LEVEL 28 MEQ/L (21-32); CHLORIDE LEVEL 105 MEQ/L (98-107); CREATININE FOR GFR 0.16 MG/DL (0.70-1.30); GLOMERULAR FILTRATION RATE > 60.0 (>56); GLUCOSE, FASTING 160 MG/DL (70-100); POTASSIUM SERUM 3.5 MEQ/L (3.5-5.1); SODIUM LEVEL 140 MEQ/L (136-145); TOTAL PROTEIN 5.9 GM/DL (6.4-8.2)
[2018-12-19] MEDS: SLF 3 ML SYR IV SCH ×3 (05:25→20:32)
[2018-12-19 08:00] VITALS: BP 130/74
[2018-12-19] MEDS: LANSOPRAZOLE SUSPENSION 30 MG/10 ML ORAL SYRINGE (FIRST-LANSOPRAZOLE) GT SCH ×2 (09:54→20:30)
[2018-12-19] MEDS: SUCRALFATE SUSP 1GM/10ML UD PEG SCH ×2 (09:54→20:31)
[2018-12-19] MEDS: SIMETHICONE 80 MG CHEW TAB GT SCH ×3 (09:54→20:32)
[2018-12-19] MEDS: predniSONE 10 MG TAB GT SCH (09:54)
[2018-12-19] MEDS: levETIRAcetam ORAL SOLUTION 500 MG/5 ML UDC GT SCH ×2 (09:54→20:30)
[2018-12-19] MEDS: POTASSIUM CHLORIDE 10% LIQ 20 MEQ/15 ML UDC PO SCH (09:54)
[2018-12-19] MEDS: NYSTATIN CREAM 15 GM TOP SCH ×2 (09:55→20:33)
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
[2018-12-19 12:00] VITALS: BP 111/64
[2018-12-19] MEDS: MORPHINE 4 MG/ML 1ML VIAL/SYRINGE (J2270) IV PRN ×2 (12:40→17:26)
[2018-12-19 16:00] VITALS: BP 123/77
[2018-12-19 20:00] VITALS: BP 127/80
[2018-12-19] MEDS: PERCOCET 5MG/325MG TAB FT PRN (20:31)
[2018-12-20] VITALS: BP 118/78
[2018-12-20] MEDS: ALBUTEROL SULFATE 2.5 MG/0.5 ML INH NEB SOLN NEB SCH ×6 (00:16→19:38)
[2018-12-20 04:00] VITALS: BP 120/73
[2018-12-20 05:28] LABS: HEMATOCRIT 31.4 % (42.0-52.0); HEMOGLOBIN 9.8 g/dl (13.5-17.5); MEAN CORPUSCULAR HEMOGLOBIN 28.7 pg (27.0-33.0); MEAN CORPUSCULAR HGB CONC 31.2 g/dl (32.0-36.5); MEAN CORPUSCULAR VOLUME 92.1 fl (80.0-96.0); PLATELET COUNT, AUTOMATED 371 10^3/uL (150-450); RED BLOOD COUNT 3.41 10^6/uL (4.30-6.10); WHITE BLOOD COUNT 6.7 10^3/uL (4.0-10.0)
[2018-12-20] MEDS: HumaLOG INSULIN (NovoLOG) PER UNIT SC SCH ×4 (05:35→18:00)
[2018-12-20] MEDS: SLF 3 ML SYR IV SCH ×3 (05:37→20:57)
[2018-12-20 05:41] LABS: ALBUMIN 2.1 GM/DL (3.2-5.2); ALT/SGPT 18 U/L (12-78); BILIRUBIN,TOTAL 0.6 MG/DL (0.2-1.0); BLOOD UREA NITROGEN 13 MG/DL (7-18); CARBON DIOXIDE LEVEL 29 MEQ/L (21-32); CHLORIDE LEVEL 107 MEQ/L (98-107); CREATININE FOR GFR 0.15 MG/DL (0.70-1.30); GLOMERULAR FILTRATION RATE > 60.0 (>56); GLUCOSE, FASTING 174 MG/DL (70-100); POTASSIUM SERUM 3.7 MEQ/L (3.5-5.1); SODIUM LEVEL 140 MEQ/L (136-145); TOTAL PROTEIN 5.7 GM/DL (6.4-8.2)
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
[2018-12-20 07:45] VITALS: BP 127/72
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
[2018-12-20] MEDS: levETIRAcetam ORAL SOLUTION 500 MG/5 ML UDC GT SCH ×2 (10:08→20:56)
[2018-12-20] MEDS: SUCRALFATE SUSP 1GM/10ML UD PEG SCH ×2 (10:08→20:55)
[2018-12-20] MEDS: POTASSIUM CHLORIDE 10% LIQ 20 MEQ/15 ML UDC PO SCH (10:09)
[2018-12-20] MEDS: LANSOPRAZOLE SUSPENSION 30 MG/10 ML ORAL SYRINGE (FIRST-LANSOPRAZOLE) GT SCH ×2 (10:09→20:56)
[2018-12-20] MEDS: NYSTATIN CREAM 15 GM TOP SCH ×2 (10:09→20:57)
[2018-12-20] MEDS: SIMETHICONE 80 MG CHEW TAB GT SCH ×3 (10:09→20:56)
[2018-12-20] MEDS: PERCOCET 5MG/325MG TAB FT PRN (11:02)
[2018-12-20 18:00] VITALS: BP 124/73
[2018-12-20 20:00] VITALS: BP 119/72
[2018-12-20 22:55] VITALS: BP 116/62
[2018-12-21] MEDS: ALBUTEROL SULFATE 2.5 MG/0.5 ML INH NEB SOLN NEB SCH ×7 (00:29→23:13)
[2018-12-21] MEDS: HumaLOG INSULIN (NovoLOG) PER UNIT SC SCH ×4 (01:25→17:13)
[2018-12-21 06:00] VITALS: BP 98/56
[2018-12-21 06:23] LABS: HEMATOCRIT 33.3 % (42.0-52.0); HEMOGLOBIN 10.4 g/dl (13.5-17.5); MEAN CORPUSCULAR HEMOGLOBIN 28.8 pg (27.0-33.0); MEAN CORPUSCULAR HGB CONC 31.2 g/dl (32.0-36.5); MEAN CORPUSCULAR VOLUME 92.2 fl (80.0-96.0); PLATELET COUNT, AUTOMATED 440 10^3/uL (150-450); RED BLOOD COUNT 3.61 10^6/uL (4.30-6.10); WHITE BLOOD COUNT 7.1 10^3/uL (4.0-10.0)
[2018-12-21] MEDS: SLF 3 ML SYR IV SCH ×3 (06:27→23:05)
[2018-12-21 06:49] LABS: ALBUMIN 2.2 GM/DL (3.2-5.2); ALT/SGPT 18 U/L (12-78); BILIRUBIN,TOTAL 0.6 MG/DL (0.2-1.0); BLOOD UREA NITROGEN 10 MG/DL (7-18); CALCIUM LEVEL 8.2 MG/DL (8.5-10.1); CARBON DIOXIDE LEVEL 30 MEQ/L (21-32); CHLORIDE LEVEL 105 MEQ/L (98-107); CREATININE FOR GFR < 0.15 MG/DL (0.70-1.30); GLOMERULAR FILTRATION RATE > 60.0 (>56); GLUCOSE, FASTING 159 MG/DL (70-100); POTASSIUM SERUM 3.7 MEQ/L (3.5-5.1); SODIUM LEVEL 137 MEQ/L (136-145); TOTAL PROTEIN 5.9 GM/DL (6.4-8.2)
[2018-12-21 08:40] VITALS: BP 107/59
[2018-12-21] MEDS: SIMETHICONE 80 MG CHEW TAB GT SCH ×3 (09:34→23:05)
[2018-12-21] MEDS: SUCRALFATE SUSP 1GM/10ML UD PEG SCH ×2 (09:34→23:05)
[2018-12-21] MEDS: levETIRAcetam ORAL SOLUTION 500 MG/5 ML UDC GT SCH ×2 (09:34→23:08)
[2018-12-21] MEDS: POTASSIUM CHLORIDE 10% LIQ 20 MEQ/15 ML UDC PO SCH (09:34)
[2018-12-21] MEDS: LANSOPRAZOLE SUSPENSION 30 MG/10 ML ORAL SYRINGE (FIRST-LANSOPRAZOLE) GT SCH ×2 (09:35→23:05)
[2018-12-21] MEDS: NYSTATIN CREAM 15 GM TOP SCH (09:35)
[2018-12-21 14:00] VITALS: BP 115/64
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
[2018-12-21 22:00] VITALS: BP 135/82
[2018-12-21] MEDS: PERCOCET 5MG/325MG TAB FT PRN (23:08)
[2018-12-22] MEDS: NYSTATIN CREAM 15 GM TOP SCH ×3 (00:06→22:41)
[2018-12-22] MEDS: ALBUTEROL SULFATE 2.5 MG/0.5 ML INH NEB SOLN NEB SCH ×6 (03:52→23:52)
[2018-12-22 06:00] VITALS: BP 112/61
[2018-12-22] MEDS: SLF 3 ML SYR IV SCH ×3 (06:19→22:41)
[2018-12-22 06:22] LABS: HEMATOCRIT 32.9 % (42.0-52.0); HEMOGLOBIN 10.2 g/dl (13.5-17.5); MEAN CORPUSCULAR HEMOGLOBIN 28.7 pg (27.0-33.0); MEAN CORPUSCULAR VOLUME 92.4 fl (80.0-96.0); PLATELET COUNT, AUTOMATED 450 10^3/uL (150-450); RED BLOOD COUNT 3.56 10^6/uL (4.30-6.10); WHITE BLOOD COUNT 6.6 10^3/uL (4.0-10.0)
[2018-12-22] MEDS: HumaLOG INSULIN (NovoLOG) PER UNIT SC SCH ×4 (06:26→17:37)
[2018-12-22 06:54] LABS: ALT/SGPT 15 U/L (12-78); BILIRUBIN,TOTAL 0.5 MG/DL (0.2-1.0); BLOOD UREA NITROGEN 13 MG/DL (7-18); CALCIUM LEVEL 8.2 MG/DL (8.5-10.1); CARBON DIOXIDE LEVEL 30 MEQ/L (21-32); CHLORIDE LEVEL 106 MEQ/L (98-107); CREATININE FOR GFR < 0.15 MG/DL (0.70-1.30); GLOMERULAR FILTRATION RATE > 60.0 (>56); GLUCOSE, FASTING 116 MG/DL (70-100); POTASSIUM SERUM 3.7 MEQ/L (3.5-5.1); SODIUM LEVEL 140 MEQ/L (136-145); TOTAL PROTEIN 5.9 GM/DL (6.4-8.2)
[2018-12-22] MEDS: LANSOPRAZOLE SUSPENSION 30 MG/10 ML ORAL SYRINGE (FIRST-LANSOPRAZOLE) GT SCH ×2 (09:51→22:40)
[2018-12-22] MEDS: POTASSIUM CHLORIDE 10% LIQ 20 MEQ/15 ML UDC PO SCH (09:51)
[2018-12-22] MEDS: levETIRAcetam ORAL SOLUTION 500 MG/5 ML UDC GT SCH ×2 (09:51→22:41)
[2018-12-22] MEDS: SUCRALFATE SUSP 1GM/10ML UD PEG SCH ×2 (09:51→22:41)
[2018-12-22] MEDS: SIMETHICONE 80 MG CHEW TAB GT SCH ×3 (09:52→22:41)
[2018-12-22] MEDS: PERCOCET 5MG/325MG TAB FT PRN ×2 (09:52→22:43)
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
[2018-12-22 14:00] VITALS: BP 118/74
[2018-12-22 22:00] VITALS: BP 138/85
[2018-12-23] MEDS: HumaLOG INSULIN (NovoLOG) PER UNIT SC SCH ×4 (00:32→18:15)
[2018-12-23] MEDS: ALBUTEROL SULFATE 2.5 MG/0.5 ML INH NEB SOLN NEB SCH ×7 (04:33→23:45)
[2018-12-23 06:00] VITALS: BP 126/79
[2018-12-23] MEDS: SLF 3 ML SYR IV SCH ×3 (06:35→22:45)
[2018-12-23 06:55] LABS: BASO % 0.6 % (0.0-1.0); EOS # 0.2 10^3/uL (0.0-0.50); EOS % 3.1 % (0.0-3.0); HEMATOCRIT 32.6 % (42.0-52.0); LYMPH # 1.2 10^3/uL (1.5-4.5); LYMPH % 18.2 % (24.0-44.0); MEAN CORPUSCULAR HEMOGLOBIN 28.5 pg (27.0-33.0); MEAN CORPUSCULAR HGB CONC 30.7 g/dl (32.0-36.5); MEAN CORPUSCULAR VOLUME 92.9 fl (80.0-96.0); MONO # 0.6 10^3/uL (0.0-0.8); MONO % 9.4 % (0.0-5.0); NEUTROPHILS # 4.5 10^3/uL (1.8-7.7); NEUTROPHILS % 67.5 % (36.0-66.0); PLATELET COUNT, AUTOMATED 465 10^3/uL (150-450); RED BLOOD COUNT 3.51 10^6/uL (4.30-6.10); WHITE BLOOD COUNT 6.7 10^3/uL (4.0-10.0)
[2018-12-23 07:19] LABS: ALBUMIN 2.2 GM/DL (3.2-5.2); ALT/SGPT 18 U/L (12-78); BILIRUBIN,TOTAL 0.5 MG/DL (0.2-1.0); BLOOD UREA NITROGEN 16 MG/DL (7-18); CALCIUM LEVEL 8.1 MG/DL (8.5-10.1); CARBON DIOXIDE LEVEL 30 MEQ/L (21-32); CHLORIDE LEVEL 107 MEQ/L (98-107); CREATININE FOR GFR < 0.15 MG/DL (0.70-1.30); GLOMERULAR FILTRATION RATE > 60.0 (>56); GLUCOSE, FASTING 95 MG/DL (70-100); POTASSIUM SERUM 3.9 MEQ/L (3.5-5.1); SODIUM LEVEL 142 MEQ/L (136-145); TOTAL PROTEIN 5.4 GM/DL (6.4-8.2)
[2018-12-23] MEDS: POTASSIUM CHLORIDE 10% LIQ 20 MEQ/15 ML UDC PO SCH (09:00)
[2018-12-23] MEDS: NYSTATIN CREAM 15 GM TOP SCH ×2 (09:00→22:44)
[2018-12-23] MEDS: GASTROGRAFIN SOLUTION 30ML PO SCH ×2 (09:39→11:11)
[2018-12-23] MEDS ORDERED: ISOVUE-370 76% 125ML VIAL (Q9967 PER ML) As Ordered ONE (10:37)
[2018-12-23] MEDS: LANSOPRAZOLE SUSPENSION 30 MG/10 ML ORAL SYRINGE (FIRST-LANSOPRAZOLE) GT SCH ×2 (11:10→22:43)
[2018-12-23] MEDS: SUCRALFATE SUSP 1GM/10ML UD PEG SCH ×2 (11:10→22:44)
[2018-12-23] MEDS: levETIRAcetam ORAL SOLUTION 500 MG/5 ML UDC GT SCH ×2 (11:10→22:43)
[2018-12-23] MEDS: SIMETHICONE 80 MG CHEW TAB GT SCH ×3 (11:11→22:44)
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
[2018-12-23 14:00] VITALS: BP 129/78
[2018-12-23 22:00] VITALS: BP 125/74
[2018-12-23] MEDS: PERCOCET 5MG/325MG TAB FT PRN (23:12)
[2018-12-24] MEDS: HumaLOG INSULIN (NovoLOG) PER UNIT SC SCH ×4 (00:34→18:26)
[2018-12-24] MEDS: ALBUTEROL SULFATE 2.5 MG/0.5 ML INH NEB SOLN NEB SCH ×5 (04:24→18:45)
[2018-12-24 06:00] VITALS: BP 121/70
[2018-12-24] MEDS: SLF 3 ML SYR IV SCH ×3 (06:50→21:55)
[2018-12-24] MEDS: POTASSIUM CHLORIDE 10% LIQ 20 MEQ/15 ML UDC PO SCH (10:08)
[2018-12-24] MEDS: SUCRALFATE SUSP 1GM/10ML UD PEG SCH ×2 (10:08→21:54)
[2018-12-24] MEDS: LANSOPRAZOLE SUSPENSION 30 MG/10 ML ORAL SYRINGE (FIRST-LANSOPRAZOLE) GT SCH ×2 (10:08→21:54)
[2018-12-24] MEDS: SIMETHICONE 80 MG CHEW TAB GT SCH ×3 (10:09→21:54)
[2018-12-24] MEDS: NYSTATIN CREAM 15 GM TOP SCH ×2 (10:09→23:23)
[2018-12-24] MEDS: levETIRAcetam ORAL SOLUTION 500 MG/5 ML UDC GT SCH ×2 (10:09→21:54)
--- NOTE | 2018-12-24 10:31 | IPNPDOC ---
Subjective General Date/Time Seen The patient was seen on 12/24/18 at 10:13. Subject Chief Complaint/History Patient remains hemodynamically stable. A wound VAC has been placed for the upper abdominal wound infection. Not much drainage is noted in the canister. He has been tolerating bolus feedings though we're still getting some drainage from the gastrostomy port site. Current Medications Current Medications Current Medications Acetaminophen (Tylenol Suppository) 650 mg Q4HP PRN SD MILD PAIN OR FEVER Last administered on 12/01/18at 22:18; Start 11/26/18 at 14:30; Stop 12/02/18 at 09:13; Status DC Acetaminophen (Tylenol Suspension) 650 mg Q4HP PRN GT PAIN OR FEVER Last administered on 12/10/18at 09:21; Start 12/02/18 at 09:15; Stop 12/12/18 at 20:42; Status DC Albuterol Sulfate (Proventil Neb) 2.5 mg Q2HP PRN NEB SHORTNESS OF BREATH Last administered on 11/29/18at 05:35; Start 11/26/18 at 14:30 Albuterol Sulfate (Proventil Neb) 2.5 mg RQ4H NEB Last administered on 12/24/18at 06:40; Start 11/26/18 at 16:00 Albuterol/ Ipratropium (Combivent Respimat 100-20mcg) 4 puff RQ4H INH ; Start 12/13/18 at 00:00; Stop 12/13/18 at 00:00; Status DC Albuterol/ Ipratropium (Duoneb (Ipr 0.5mg/Alb 2.5mg)) 3 ml RQID NEB ; Start 12/13/18 at 08:00; Stop 12/13/18 at 08:00; Status DC Amlodipine Besylate (Norvasc) 5 mg DAILY PO ; Start 12/02/18 at 09:00; Status Cancel Atorvastatin Calcium (Lipitor) 80 mg QHS PEG Last administered on 12/11/18at 20:56; Start 12/04/18 at 21:00; Stop 12/12/18 at 20:30; Status DC Atorvastatin Calcium (Lipitor) 80 mg QHS PO Last administered on 12/03/18at 21:00; Start 12/01/18 at 21:00; Stop 12/04/18 at 19:58; Status DC Bisacodyl (Dulcolax Suppository) 10 mg DAILYPRN PRN SD CONSTIPATION Last administered on 12/18/18at 13:58; Start 11/26/18 at 14:30 Chlorhexidine Gluconate (Peridex Oral Rinse) SWAB/BRUSH ORAL CAVITY BID MT Last administered on 11/28/18at 08:26; Start 11/26/18 at 21:00; Stop 11/28/18 at 16:25; Status DC Chlorhexidine Gluconate (Peridex Oral Rinse) SWAB/BRUSH ORAL CAVITY BID MT Last administered on 12/13/18at 08:11; Start 12/12/18 at 21:00; Stop 12/13/18 at 09:59; Status DC Cyanocobalamin (Vitamin B12) 1,000 mcg DAILY PO Last administered on 12/12/18at 08:09; Start 12/10/18 at 09:00; Stop 12/12/18 at 20:30; Status DC Dextrose (Dextrose 50%) 25 ml ASDIRECTED PRN IV SEE LABEL COMMENTS; Start 11/27/18 at 01:00 Dextrose/Sodium Chloride 1,000 ml @ 50 mls/hr Q20H IV Last administered on 11/30/18at 05:10; Start 11/28/18 at 18:00; Stop 11/30/18 at 15:28; Status DC Diatrizoate Meglum/ Diatrizoate Sod (Gastrografin) 10 ml Q30M PO Last administered on 12/23/18at 11:11; Start 12/23/18 at 09:30; Stop 12/23/18 at 10:01; Status DC Fentanyl Citrate (Sublimaze) 25 mcg Q5MP PRN IV MODERATE PAIN (PS 4-7); Start 12/08/18 at 19:00; Stop 12/08/18 at 20:00; Status DC Ferrous Sulfate (Ferrous Sulfate) 300 mg DAILY GT Last administered on 12/12/18at 08:10; Start 12/10/18 at 09:00; Stop 12/12/18 at 20:30; Status DC Ferrous Sulfate (Ferrous Sulfate) 325 mg DAILY PO ; Start 12/10/18 at 09:00; Status Cancel Glucagon (Glucagon) 1 mg ASDIRECTED PRN SC SEE LABEL COMMENTS; Start 11/27/18 at 01:00 Glucose (Glucose) 16 GM ASDIRECTED PRN PO SEE LABEL COMMENTS; Start 11/27/18 at 01:00 Heparin Sodium (Porcine) (Heparin) 5,000 units Q8H SC Last administered on 12/12/18at 06:00; Start 11/26/18 at 14:00; Stop 12/12/18 at 14:36; Status DC Home Med (Med Rec Complete!) ASDIRECTED XX ; Start 11/26/18 at 14:45; Stop 11/26/18 at 14:45; Status DC Insulin Human Lispro (HumaLOG INSULIN) SEE PROTOCOL TABLE Q6H SC Last administered on 12/23/18at 18:15; Start 11/27/18 at 00:00 Lactated Ringer's 1,000 ml @ 80 mls/hr [id number] IV ; Start 12/08/18 at 19:00; Stop 12/08/18 at 20:00; Status DC Lansoprazole (First-Lansoprazole Oral Suspension) 30 mg BID FT Last administered on 12/12/18at 08:09; Start 12/03/18 at 21:00; Stop 12/12/18 at 20:30; Status DC Lansoprazole (First-Lansoprazole Oral Suspension) 30 mg BID GT Last administered on 12/24/18at 10:08; Start 12/17/18 at 21:00 Levetiracetam (Keppra Oral Solution) 1,500 mg BID GT Last administered on 12/24/18at 10:09; Start 12/03/18 at 14:00 Levetiracetam 1500 mg/Dextrose 115 ml @ 460 mls/hr Q12H IV Last administered on 12/03/18at 02:00; Start 11/27/18 at 02:00; Stop 12/03/18 at 12:52; Status DC Levofloxacin (Levaquin) 750 mg DAILY@06 FT Last administered on 12/10/18at 06:34; Start 12/03/18 at 06:00; Stop 12/10/18 at 10:50; Status DC Levofloxacin 750 mg/IV Miscellaneous Supplies 150 ml @ 100 mls/hr Q24H IV Last administered on 12/02/18at 14:38; Start 11/27/18 at 15:00; Stop 12/03/18 at 12:52; Status DC Methylprednisolone (SOLU medrol) 24 mg DAILY IV Last administered on 12/03/18at 09:24; Start 12/01/18 at 09:00; Stop 12/03/18 at 12:52; Status DC Methylprednisolone (SOLU medrol) 30 mg DAILY IV Last administered on 11/30/18at 08:32; Start 11/29/18 at 09:00; Stop 11/30/18 at 09:24; Status DC Methylprednisolone (SOLUmedrol) 48 mg DAILY IV ; Start 11/27/18 at 09:00; Stop 11/27/18 at 13:36; Status DC Methylprednisolone (SOLUmedrol) 50 mg DAILY IV Last administered on 11/28/18at 08:25; Start 11/27/18 at 09:00; Stop 11/28/18 at 09:45; Status DC Midazolam HCl (Versed) 2 mg Q15MP PRN IV AGITATION Last administered on 11/26/18at 16:33; Start 11/26/18 at 14:30; Stop 11/28/18 at 16:25; Status DC Midazolam HCl (Versed) 4 mg STAT STAT IV Last administered on 11/30/18at 10:10; Start 11/30/18 at 09:20; Stop 11/30/18 at 09:23; Status DC Miscellaneous (Unresolved Clarification Entry) SEE LABEL COMMENTS DAILY XX ; Start 12/05/18 at 09:00; Stop 12/05/18 at 13:22; Status DC Miscellaneous (Unresolved Clarification Entry) SEE LABEL COMMENTS DAILY XX ; Start 12/08/18 at 09:00; Stop 12/09/18 at 07:12; Status DC Miscellaneous (Unresolved Clarification Entry) SEE LABEL COMMENTS DAILY XX ; Start 12/19/18 at 09:00; Stop 12/19/18 at 12:03; Status DC Miscellaneous (Unresolved Clarification Entry) SEE LABEL COMMENTS DAILY XX ; Start 12/20/18 at 09:00; Stop 12/20/18 at 16:30; Status DC Miscellaneous (Unresolved Clarification Entry) SEE LABEL COMMENTS DAILY XX ; Start 12/09/18 at 09:00; Stop 12/09/18 at 10:04; Status DC Miscellaneous (Unresolved Clarification Entry) SEE LABEL COMMENTS DAILY XX ; Start 12/12/18 at 09:00; Stop 12/12/18 at 09:00; Status DC Morphine Sulfate (Morphine Sulfate Inj) 2 mg Q2HP PRN IV PAIN Last administered on 11/28/18at 11:18; Start 11/26/18 at 14:30; Stop 11/28/18 at 16:25; Status DC Morphine Sulfate (Morphine Sulfate Inj) 2 mg Q4HP PRN IV PAIN Last administered on 12/19/18at 17:26; Start 12/13/18 at 10:00 Nebivolol (Bystolic) 10 mg DAILY PO Last administered on 12/01/18at 22:17; Start 12/01/18 at 20:00; Stop 12/02/18 at 12:30; Status DC Nystatin (Mycostatin) 1 dose BID TOP Last administered on 12/24/18at 10:09; Start 12/17/18 at 21:00 Nystatin (Mycostatin) 1 ml Q6H PO Last administered on 11/29/18at 05:23; Start 11/27/18 at 12:00; Stop 11/29/18 at 12:11; Status DC Nystatin (Mycostatin) 5 ml Q6H SS Last administered on 12/05/18at 06:16; Start 11/29/18 at 12:00; Stop 12/05/18 at 13:20; Status DC Octreotide Acetate (SandoSTATIN) 100 mcg Q8H IV ; Start 12/12/18 at 16:00; Stop 12/12/18 at 20:30; Status DC Ondansetron HCl (ZOFRAN INJection) 4 mg Q4HP PRN IV NAUSEA OR VOMITING; Start 12/08/18 at 19:00; Stop 12/08/18 at 20:00; Status DC Ondansetron HCl (ZOFRAN INJection) 4 mg Q6HP PRN IV NAUSEA OR VOMITING; Start 11/26/18 at 14:30; Stop 12/03/18 at 12:52; Status DC Ondansetron HCl (Zofran) 4 mg Q6HP PRN PEG NAUSEA OR VOMITING; Start 12/03/18 at 12:45; Stop 12/12/18 at 20:30; Status DC Oxycodone/ Acetaminophen (Percocet 5mg/ 325mg Tablet) 1 tab Q4HP PRN FT MILD/MODERATE PAIN (PS 1-7) Last administered on 12/22/18 09:52; Start 12/14/18 at 12:45 Oxycodone/ Acetaminophen (Percocet 5mg/ 325mg Tablet) 2 tab Q4HP PRN FT SEVERE PAIN (PS 8-10) Last administered on 12/23/18at 23:12; Start 12/14/18 at 12:45 Pantoprazole Sodium (Protonix) 40 mg BID IV Last administered on 12/03/18 09: 24; Start 12/03/18 at 09:00; Stop 12/03/18 at 12:52; Status DC Pantoprazole Sodium (Protonix) 40 mg DAILY IV ; Start 12/09/18 at 09:00; Stop 12/09/18 at 09:00; Status DC Pantoprazole Sodium (Protonix) 40 mg Q12H IV Last administered on 12/17/18at 04:59; Start 12/12/18 at 16:00; Stop 12/17/18 at 11:18; Status DC Pantoprazole Sodium (Protonix) 40 mg Q24H IV Last administered on 12/02/18at 17:54; Start 11/26/18 at 18:00; Stop 12/03/18 at 00:23; Status DC Piperacillin Sod/ Tazobactam Sod 3.375 gm/Dextrose 50 ml @ 50 mls/hr RQ8H IV ; Start 11/26/18 at 16:00; Stop 11/26/18 at 16:00; Status DC Potassium Chloride 20 meq/ IV Miscellaneous Supplies 100 ml @ 100 mls/hr 0500,0600,0700 IV Last administered on 11/27/18at 06:58; Start 11/27/18 at 05:00; Stop 11/27/18 at 13:00; Status DC Potassium Chloride 20 meq/ IV Miscellaneous Supplies 100 ml @ 100 mls/hr 0700,0800 IV Last administered on 11/30/18at 08:31; Start 11/30/18 at 07:00; Stop 11/30/18 at 11:00; Status DC Potassium Chloride 20 meq/ IV Miscellaneous Supplies 100 ml @ 100 mls/hr 0700,0800,0900 IV Last administered on 11/28/18at 10:34; Start 11/28/18 at 07:00; Stop 11/28/18 at 12:00; Status DC Potassium Chloride 20 meq/ IV Miscellaneous Supplies 100 ml @ 100 mls/hr DAILY IV Last administered on 12/01/18at 08:08; Start 12/01/18 at 09:00; Stop 12/01/18 at 09:22; Status DC Potassium Chloride 20 meq/ IV Miscellaneous Supplies 100 ml @ 100 mls/hr TID IV Last administered on 11/30/18at 08:31; Start 11/29/18 at 09:00; Stop 11/30/18 at 09:27; Status DC Potassium Chloride/Dextrose/ Sod Cl 1,000 ml @ 75 mls/hr [id number] IV Last administered on 12/01/18at 05:31; Start 11/30/18 at 16:00; Stop 12/01/18 at 09:30; Status DC Potassium Chloride/Dextrose/ Sod Cl 1,000 ml @ 75 mls/hr [id number] IV Last administered on 12/03/18at 04:20; Start 12/01/18 at 09:15; Stop 12/03/18 at 12:52; Status DC Potassium Phosphate (K-Phos Original) 500 mg BID PEG Last administered on 12/09/18at 09:51; Start 12/04/18 at 21:00; Stop 12/09/18 at 15:22; Status DC Potassium Phosphate (K-Phos Original) 500 mg BID PO Last administered on 12/04/18at 16:22; Start 12/04/18 at 14:00; Stop 12/04/18 at 19:58; Status DC Potassium Phosphate (K-Phos Original) 500 mg TID PEG Last administered on 12/12/18at 08:09; Start 12/09/18 at 16:00; Stop 12/12/18 at 18:33; Status DC Potassium Chloride 100 ml @ 100 mls/hr DAILY@0900,1000,1100 IV Last administered on 12/01/18at 11:17; Start 12/01/18 at 09:00; Stop 12/01/18 at 19:24; Status DC Potassium Chloride (Micro-K Extencaps) 20 meq TID PO ; Start 11/28/18 at 16:00; Stop 11/28/18 at 16:00; Status DC Potassium Chloride (Micro-K Extencaps) 20 meq TID PO ; Start 12/02/18 at 09:00; Stop 12/02/18 at 09:00; Status DC Potassium Chloride (Potassium Chloride Liquid) 20 meq DAILY PO Last administered on 12/12/18 08:09; Start 12/06/18 at 09:00; Stop 12/12/18 at 20:30; Status DC Potassium Chloride (Potassium Chloride Liquid) 20 meq DAILY PO Last administer ed on 12/24/18at 10:08; Start 12/17/18 at 09:00 Potassium Chloride (Potassium Chloride Liquid) 20 meq TID PO Last administered on 11/28/18at 15:47; Start 11/28/18 at 16:00; Stop 11/29/18 at 09:53; Status DC Potassium Chloride (Potassium Chloride Liquid) 60 meq DAILY PO ; Start 11/30/18 at 09:00; Stop 11/30/18 at 19:23; Status DC Prednisone (Deltasone) 10 mg DAILY GT Last administered on 12/19/18at 09:54; Start 12/18/18 at 09:00; Stop 12/19/18 at 10:27; Status DC Prednisone (Deltasone) 10 mg DAILY PO Last administered on 12/17/18at 08:15; Start 12/16/18 at 09:00; Stop 12/17/18 at 11:18; Status DC Prednisone (Deltasone) 20 mg DAILY FT Last administered on 12/15/18 09:23; Start 12/10/18 at 09:00; Stop 12/15/18 at 11:05; Status DC Prednisone (Deltasone) 30 mg DAILY FT Last administered on 12/09/18at 09:51; Start 12/04/18 at 09:00; Stop 12/09/18 at 15:21; Status DC Propofol 1000 mg/ IV Miscellaneous Supplies 100 ml @ 3.88 mls/hr Q24H IV Last administered on 11/28/18at 05:18; Start 11/26/18 at 18:45; Stop 11/28/18 at 16:25; Status DC Propofol 1000 mg/ IV Miscellaneous Supplies 100 ml @ 0 mls/hr Q0M IV Last administered on 11/26/18at 18:16; Start 11/26/18 at 14:30; Stop 11/26/18 at 18:38; Status DC Simethicone (Mylicon) 80 mg TID GT Last administered on 12/24/18 10:09; Start 12/17/18 at 21:00 Sodium Chloride 1,000 ml @ 15 mls/hr Q24H IV Last administered on 12/12/18 11:34; Start 12/10/18 at 11:00; Stop 12/12/18 at 20:30; Status DC Sodium Chloride 1,000 ml @ 50 mls/hr Q20H IV Last administered on 11/27/18at 21:17; Start 11/26/18 at 14:16; Stop 11/27/18 at 23:04; Status DC Sodium Chloride 1,000 ml @ 100 mls/hr Q10H IV Last administered on 12/08/18at 07:42; Start 12/08/18 at 06:55; Stop 12/08/18 at 18:47; Status DC Sodium Chloride (Saline Lock Flush) 2 ml ASDIRECTED PRN IV SEE LABEL COMMENTS Last administered on 12/07/18 20:23; Start 12/06/18 at 11:45 Sodium Chloride (Saline Lock Flush) 2 ml SLF IV Last administered on 12/24/18at 06:50; Start 12/06/18 at 14:00 Sodium Chloride (Sodium Chloride 3% Neb Casandra) 3 ml Q4HP PRN INH rhonchi, secretion clearance Last administered on 11/29/18 11:23; Start 11/28/18 at 16:15 Sucralfate (Carafate Suspension) 1 gm BID PEG Last administered on 12/24/18at 10:08; Start 12/04/18 at 21:00 Sucralfate (Carafate Suspension) 1 gm BID PO Last administered on 12/04/18 08:23; Start 12/03/18 at 21:00; Stop 12/04/18 at 19:58; Status DC Vancomycin HCl 1000 mg/IV Miscellaneous Supplies 20 ml @ 20 mls/hr Q8H IV ; Start 11/26/18 at 14:30; Stop 11/26/18 at 18:31; Status DC Vancomycin HCl 1000 mg/IV Miscellaneous Supplies 1 each/ Dextrose 270 ml @ 270 mls/hr Q8H IV Last administered on 11/27/18at 17:13; Start 11/27/18 at 01:00; Stop 11/27/18 at 19:12; Status DC Vancomycin HCl 1000 mg/IV Miscellaneous Supplies 1 each/ Dextrose 270 ml @ 270 mls/hr Q8H IV Last administered on 11/29/18at 05:22; Start 11/27/18 at 21:00; Stop 11/29/18 at 08:29; Status DC Allergies Coded Allergies: MS - Cefuroxime (Verified Allergy, Unknown, 11/26/18) MS - Dapagliflozin (Verified Allergy, Unknown, 11/26/18) MS - Oxacillin (Verified Allergy, Unknown, 11/26/18) MS - Sulfamethoxazole w/Trimethopri (Verified Allergy, Unknown, 11/26/18) Objective Physical Examination Examination GENERAL APPEARANCE: Patient awake looks comfortable. SKIN: Warm and moist. HEENT: Normocephalic, atraumatic. [place] palpebral conjunctiva, anicteric sclerae. Lips and mucosa appear moist. NECK: Supple, no thyromegaly. No obvious jugular venous distention. LUNGS: Clear to auscultation bilaterally. No wheezing appreciated. HEART: No chest wall abnormalities. Regular rate and rhythm with no murmurs appreciated. ABDOMEN: Abdomen is flat, soft, upper midline wound with a wound VAC in place now erythema around the skin opening. Left upper gastroduodenostomy, the exit site is clean, no erythema. EXTREMITIES: No edema. Vital Signs Vital Signs Date Time Temp Pulse Resp B/P (MAP) Pulse Ox O2 Delivery O2 Flow Rate FiO2 12/24/18 06:00 97.4 71 20 121/70 (87) 100 5.0 28 12/23/18 19:25 Aerosol Mask I&Os I&O- Last 24 Hours up to 6 AM 12/24/18 06:00 Intake Total 1365 ml Output Total 1640 ml Balance -275 ml Laboratory Data Labs 24H Laboratory Tests 2 12/24/18 06:38: Bedside Glucose (Misc Panel) 106H Impression Aspiration s/p peg tube placement arterial bleeding from PEG tube s/p exploratory laparotomy wedge excision of bleeding gastrostomy site placement of Muñiz gastroduodenostomy tube wound infection - midline problems with the Gastro-duodenostomy tube Yesterday I noted some purulent drainage from the midline wound, thus I removed his seth and opened this up. Nursing is reporting some problems with the gastroduodenostomy tube in that the feedings get sucked back out of the gastrostomy tube site immediately after pushing the tube feeds to the duodenostomy tube portion of the muñiz tube. He had a CT of the abdomen and pelvis done yesterday after I noted purulent material from the wound which looks a bit like old tube feeds to look for possible fistulization of the gastrostomy site. Also to check for intrabdominal collection/abscess. 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 The muñiz tube is also situated properly. The balloon appears inflated. He also has a very thin abdominal wall. I opened up further the top portion of the incision and got more purulent fluid I tested the tube by flushing the feeding portion while the drainage portion is under suction and I did not get any significant pull back. For now continue feeding. clamp the drainage portion while feeding for 30 mins then resume intermittent suction thereafter. He probably is refluxing back hsi tube feeds to the stomach. The end of the feeding tube is at the 3rd portion of the duodenum. Otherwise, this does not really pose much of a problem. . Plan / VTE VTE Prophylaxis Ordered?: Yes (mechanical prophylaxis only for now, until Surgery permits pharmacologic.) VTE Exclusion Pharmacological: Active Bleeding Plan / Urinary Catheter Reason for insertion/continuin: Critical Pt monitoring PAT GONZALEZ MD Dec 24, 2018 10:16
--- NOTE | 2018-12-24 10:51 | REP ---
CT of the abdomen with IV and oral contrast: The pelvis is not included. Study is performed to evaluate for NG tube leakage. There are bilateral lower lobe infiltrates in the visualized lung del angel. There is a gastric tube with a balloon tip in the gastric lumen. The anterior gastric wall is tightly applied to the anterior abdominal wall. There are surgical clips in the gastric wall. There is no focal fluid collection interposed between the gastric wall anterior abdominal wall. No perigastric fluid collection otherwise. There is a midline surgical wound in the upper abdomen with edema in the adjacent mesentery. There is no focal fluid collection. There is no focal fluid collection within the anterior abdominal wall, either at the G-tube OR at the surgical wound. There is no pneumoperitoneum or ascites. The hepatic parenchyma, gallbladder, pancreas and spleen are unremarkable. The adrenals, kidneys and visualized bowel loops are unremarkable. Impression: No evidence of G tube leakage by CT. No focal fluid collection associated with the surgical midline upper abdominal skin wound. No pneumoperitoneum or ascites. Surgical clips in the gastric wall. Bilateral lower lobe lung infiltrates. Electronically Signed by Kenroy Srinivasan MD 12/24/2018 10:42 A
--- NOTE | 2018-12-24 13:37 | IPN ---
DATE: 12/24/2018 Tube feedings were stopped. I talked to Dr. Coelho. At this point, he is not receiving any nutrition or fluids. He had an arterial bleeding from a percutaneous endoscopic gastrostomy tube, (PEG) status post exploratory laparotomy, wedge excision of bleeding gastrostomy tube site. Wound infection: there was some purulent drainage coming from the wound. Physical exam is unchanged from previously documented. He is afebrile. Blood pressure 121/70. LABS: CBC unchanged. Electrolytes unremarkable. PLAN: Waiting for surgery to see him. Per nursing staff, the tube feedings are currently on hold. CT of the abdomen and pelvis showed no abscess or fluid collection. Hopefully, we will be able to restart the tube feedings. If not I will start some IV fluid today.
[2018-12-24 14:00] VITALS: BP 122/75
[2018-12-24 22:00] VITALS: BP 125/79
[2018-12-25] MEDS: HumaLOG INSULIN (NovoLOG) PER UNIT SC SCH ×4 (00:52→18:30)
[2018-12-25] MEDS: ALBUTEROL SULFATE 2.5 MG/0.5 ML INH NEB SOLN NEB SCH ×6 (02:00→20:05)
[2018-12-25 06:00] VITALS: BP 124/79
[2018-12-25] MEDS: SLF 3 ML SYR IV SCH ×3 (06:00→20:26)
[2018-12-25 06:59] LABS: HEMATOCRIT 35.6 % (42.0-52.0); HEMOGLOBIN 11.1 g/dl (13.5-17.5); MEAN CORPUSCULAR HEMOGLOBIN 27.8 pg (27.0-33.0); MEAN CORPUSCULAR HGB CONC 31.2 g/dl (32.0-36.5); MEAN CORPUSCULAR VOLUME 89.2 fl (80.0-96.0); PLATELET COUNT, AUTOMATED 504 10^3/uL (150-450); RED BLOOD COUNT 3.99 10^6/uL (4.30-6.10); WHITE BLOOD COUNT 7.8 10^3/uL (4.0-10.0)
[2018-12-25 07:21] LABS: BLOOD UREA NITROGEN 9 MG/DL (7-18); CALCIUM LEVEL 8.2 MG/DL (8.5-10.1); CARBON DIOXIDE LEVEL 26 MEQ/L (21-32); CHLORIDE LEVEL 107 MEQ/L (98-107); CREATININE FOR GFR < 0.15 MG/DL (0.70-1.30); GLOMERULAR FILTRATION RATE > 60.0 (>56); GLUCOSE, FASTING 114 MG/DL (70-100); POTASSIUM SERUM 3.5 MEQ/L (3.5-5.1); SODIUM LEVEL 140 MEQ/L (136-145)
[2018-12-25] MEDS: LANSOPRAZOLE SUSPENSION 30 MG/10 ML ORAL SYRINGE (FIRST-LANSOPRAZOLE) GT SCH ×2 (08:23→20:25)
[2018-12-25] MEDS: SIMETHICONE 80 MG CHEW TAB GT SCH ×3 (08:24→20:25)
[2018-12-25] MEDS: SUCRALFATE SUSP 1GM/10ML UD PEG SCH ×2 (08:24→20:25)
[2018-12-25] MEDS: levETIRAcetam ORAL SOLUTION 500 MG/5 ML UDC GT SCH ×2 (08:24→20:25)
[2018-12-25] MEDS: NYSTATIN CREAM 15 GM TOP SCH ×2 (08:24→20:25)
[2018-12-25] MEDS: POTASSIUM CHLORIDE 10% LIQ 20 MEQ/15 ML UDC PO SCH (08:24)
[2018-12-25] MEDS: MORPHINE 4 MG/ML 1ML VIAL/SYRINGE (J2270) IV PRN ×2 (08:58→23:58)
--- NOTE | 2018-12-25 11:09 | IPNPDOC ---
Text Note Date of Service The patient was seen on 12/25/18. NOTE I discussed with nursing how his feeding is going on since we've changed yest bonitaay. He seems to be able to tolerate pushing one can every 6 hours post 1 and also free water without much backflow into the stomach. He had an clamping the gastrostomy drainage port during the feeding. A wound VAC was also been placed on the midline wound I opened up. Wound culture still pending. There is not much cellulitis. I'll place him on Levaquin for now given his allergies to penicillin based antibiotics as well as Bactrim. We will await culture results. There has not been much drainage from the wound VAC. I also noted that the balloon seems quite enlarged on the CT abdomen decreased the balloon by 5 mLs. Plan: For now continue current feeding. If not much drainage comes out the next few days we'll try just leaving the gastrostomy drainage port site to Mao bag for gravity drainage. Eventually would like to have this clamped. Continue with wound VAC for the midline wound. VS,Kevynbone, I+O VS, Fishbone, I+O Laboratory Tests 12/25/18 06:06 Red Blood Count 3.99 L, Mean Corpuscular Volume 89.2, Mean Corpuscular Hemoglobin 27.8, Mean Corpuscular Hemoglobin Concent 31.2 L, Red Cell Distribution Width 15.0 H, Calcium Level 8.2 L Vital Signs Date Time Temp Pulse Resp B/P (MAP) Pulse Ox O2 Delivery O2 Flow Rate FiO2 12/25/18 09:08 20 12/25/18 06:00 97.6 94 124/79 (94) 99 5.0 28 12/23/18 19:25 Aerosol Mask I&O- Last 24 Hours up to 6 AM 12/25/18 06:00 Intake Total 1347 ml Output Total 2365 ml Balance -1018 ml PAT GONZALEZ MD Dec 25, 2018 11:09
[2018-12-25] MEDS: LevoFLOXacin 750 MG TABLET PO SCH (13:01)
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
[2018-12-25 22:00] VITALS: BP 120/79
[2018-12-26] MEDS: ALBUTEROL SULFATE 2.5 MG/0.5 ML INH NEB SOLN NEB SCH ×6 (00:08→20:00)
[2018-12-26] MEDS: HumaLOG INSULIN (NovoLOG) PER UNIT SC SCH ×4 (00:10→18:13)
[2018-12-26 04:01] VITALS: O2SAT 98
[2018-12-26] MEDS: LevoFLOXacin 750 MG TABLET PO SCH (05:31)
[2018-12-26 06:00] VITALS: BP 117/79
[2018-12-26 06:26] LABS: HEMATOCRIT 37.2 % (42.0-52.0); HEMOGLOBIN 11.7 g/dl (13.5-17.5); MEAN CORPUSCULAR HEMOGLOBIN 27.9 pg (27.0-33.0); MEAN CORPUSCULAR HGB CONC 31.5 g/dl (32.0-36.5); MEAN CORPUSCULAR VOLUME 88.6 fl (80.0-96.0); PLATELET COUNT, AUTOMATED 502 10^3/uL (150-450); WHITE BLOOD COUNT 10.7 10^3/uL (4.0-10.0)
[2018-12-26 06:50] LABS: BLOOD UREA NITROGEN 11 MG/DL (7-18); CALCIUM LEVEL 8.4 MG/DL (8.5-10.1); CARBON DIOXIDE LEVEL 25 MEQ/L (21-32); CHLORIDE LEVEL 106 MEQ/L (98-107); CREATININE FOR GFR < 0.15 MG/DL (0.70-1.30); GLOMERULAR FILTRATION RATE > 60.0 (>56); GLUCOSE, FASTING 145 MG/DL (70-100); POTASSIUM SERUM 3.6 MEQ/L (3.5-5.1); SODIUM LEVEL 138 MEQ/L (136-145)
[2018-12-26] MEDS: SLF 3 ML SYR IV SCH ×3 (06:56→21:28)
[2018-12-26 09:50] VITALS: BP 120/82
[2018-12-26] MEDS: LANSOPRAZOLE SUSPENSION 30 MG/10 ML ORAL SYRINGE (FIRST-LANSOPRAZOLE) GT SCH ×2 (10:12→21:27)
[2018-12-26] MEDS: SIMETHICONE 80 MG CHEW TAB GT SCH ×3 (10:13→21:27)
[2018-12-26] MEDS: NYSTATIN CREAM 15 GM TOP SCH ×2 (10:13→21:28)
[2018-12-26] MEDS: POTASSIUM CHLORIDE 10% LIQ 20 MEQ/15 ML UDC PO SCH (10:13)
[2018-12-26] MEDS: SUCRALFATE SUSP 1GM/10ML UD PEG SCH ×2 (10:13→21:27)
[2018-12-26] MEDS: levETIRAcetam ORAL SOLUTION 500 MG/5 ML UDC GT SCH ×2 (10:13→21:27)
[2018-12-26] MEDS: MEROPENEM INJ 1 GM in APPROPRIATE DILUENT 1 EA IV SCH ×2 (10:14→18:13)
[2018-12-26] MEDS: MORPHINE 4 MG/ML 1ML VIAL/SYRINGE (J2270) IV PRN ×2 (12:57→17:02)
[2018-12-26 13:09] VITALS: BP 112/75
[2018-12-26 14:00] VITALS: BP 130/83
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
[2018-12-26] MEDS: PERCOCET 5MG/325MG TAB FT PRN ×2 (15:20→21:28)
--- NOTE | 2018-12-26 15:51 | IPNPDOC ---
Text Note Date of Service The patient was seen on 12/26/18. NOTE Again I discussed ongoing tube feeding regimen with his nurses. He seems to be tolerating bolus tube feedings though the nurse reports he takes quite a long time to push the tube feeds into the small feeding port. Regarding a roughly about 600 ML's from the gastric drainage port which is placed in the low intermittent suction. There is no further leakage noted through the midline incision which is on a wound VAC. He is on Levaquin. Cultures are pending Patient looks comfortable in the bedside. He is awake. He is responding to verbal cues. He is supposed to have the swelling study test today. Abdomen looks benign soft and flat. His symptoms midline incision that is packed with a wound VAC. There is not much straining out of the wound VAC canister. His left upper quadrant Devries gastroduodenostomy tube. The gastric port has only a small amount of clear fluid. The drain site is relatively dry. No surrounding skin cellulitis. Impression: Problems with gastroduodenostomy access Wound infection following emergency surgery for bleeding at the gastrostomy site needing multiple transfusions. Plan Discussed with the nurses. They can call the feeding port to 8200 ML's of fluid to push the bolus feeds. I will have them placed the gastrostomy drain site just a Mao bag to drain to gravity and see how much comes out from this the next few days. My hope is weekend This and patient will tolerate feeding even with that refluxing back to the stomach. VS,Fishbone, I+O VS, Fishbone, I+O Laboratory Tests 12/26/18 06:07 Red Blood Count 4.20 L, Mean Corpuscular Volume 88.6, Mean Corpuscular Hemoglobin 27.9, Mean Corpuscular Hemoglobin Concent 31.5 L, Red Cell Distribution Width 15.2 H, Calcium Level 8.4 L Vital Signs Date Time Temp Pulse Resp B/P (MAP) Pulse Ox O2 Delivery O2 Flow Rate FiO2 12/26/18 15:20 20 12/26/18 15:06 5.0 28 12/26/18 14:00 97.4 100 130/83 (99) 96 12/26/18 04:01 Trach Collar I&O- Last 24 Hours up to 6 AM 12/26/18 06:00 Intake Total 1331 ml Output Total 1645 ml Balance -314 ml PAT GONZALEZ MD Dec 26, 2018 15:51
[2018-12-26] MEDS ORDERED: VARIBAR PUDDING 40% w/v 230ML TUBE As Ordered ONE (16:00)
[2018-12-26] MEDS ORDERED: E-Z-PAQUE 96% w/w SUSP 176GM BTL As Ordered ONE (16:00)
[2018-12-26] MEDS ORDERED: BARIUM SULFATE 700 MG TABLET (E-Z-DISK) As Ordered ONE (16:00)
[2018-12-26] MEDS ORDERED: VARIBAR NECTAR 40% w/v 240ML SUSP BTL As Ordered ONE (16:00)
--- NOTE | 2018-12-26 17:23 | NUR ---
Recommend NPO diet. Dysphagia tx for compensatory strategy training and will reassess for any improvement in swallow function w/ repeat MBSS. Addendum: 12/26/18 at 1726 by TYRELL MCKNIGHT [facility] Amended: Links added.
[2018-12-26 22:00] VITALS: BP 130/70
[2018-12-27] MEDS: HumaLOG INSULIN (NovoLOG) PER UNIT SC SCH ×4 (00:31→17:58)
[2018-12-27] MEDS: ALBUTEROL SULFATE 2.5 MG/0.5 ML INH NEB SOLN NEB SCH ×7 (00:52→23:20)
[2018-12-27] MEDS: MEROPENEM INJ 1 GM in APPROPRIATE DILUENT 1 EA IV SCH ×3 (01:50→17:18)
[2018-12-27 06:00] VITALS: BP 104/64
[2018-12-27] MEDS: SLF 3 ML SYR IV SCH ×3 (06:00→20:46)
[2018-12-27 06:41] LABS: HEMATOCRIT 35.7 % (42.0-52.0); HEMOGLOBIN 11.1 g/dl (13.5-17.5); MEAN CORPUSCULAR HEMOGLOBIN 28.1 pg (27.0-33.0); MEAN CORPUSCULAR HGB CONC 31.1 g/dl (32.0-36.5); MEAN CORPUSCULAR VOLUME 90.4 fl (80.0-96.0); PLATELET COUNT, AUTOMATED 452 10^3/uL (150-450); RED BLOOD COUNT 3.95 10^6/uL (4.30-6.10); WHITE BLOOD COUNT 7.7 10^3/uL (4.0-10.0)
[2018-12-27] MEDS: MORPHINE 4 MG/ML 1ML VIAL/SYRINGE (J2270) IV PRN (06:43)
[2018-12-27 07:09] LABS: BLOOD UREA NITROGEN 14 MG/DL (7-18); CALCIUM LEVEL 8.6 MG/DL (8.5-10.1); CARBON DIOXIDE LEVEL 29 MEQ/L (21-32); CHLORIDE LEVEL 107 MEQ/L (98-107); CREATININE FOR GFR 0.15 MG/DL (0.70-1.30); GLOMERULAR FILTRATION RATE > 60.0 (>56); GLUCOSE, FASTING 124 MG/DL (70-100); POTASSIUM SERUM 3.6 MEQ/L (3.5-5.1); SODIUM LEVEL 141 MEQ/L (136-145)
[2018-12-27] MEDS: LANSOPRAZOLE SUSPENSION 30 MG/10 ML ORAL SYRINGE (FIRST-LANSOPRAZOLE) GT SCH ×2 (08:09→20:46)
[2018-12-27] MEDS: levETIRAcetam ORAL SOLUTION 500 MG/5 ML UDC GT SCH ×2 (08:10→20:46)
[2018-12-27] MEDS: SIMETHICONE 80 MG CHEW TAB GT SCH ×3 (08:11→20:46)
[2018-12-27] MEDS: SUCRALFATE SUSP 1GM/10ML UD PEG SCH (08:11)
[2018-12-27] MEDS: NYSTATIN CREAM 15 GM TOP SCH ×2 (08:12→20:46)
[2018-12-27] MEDS: POTASSIUM CHLORIDE 10% LIQ 20 MEQ/15 ML UDC PO SCH (08:12)
[2018-12-27 14:00] VITALS: BP 136/83
--- NOTE | 2018-12-27 17:20 | REP ---
COOKIE SWALLOW The procedure was performed under the direct supervision of Dr. Tyson. The procedure was performed with Kanika Vazquez from speech pathology present. 5 ml aliquots of pudding, honey and crushed L consistency barium was administered. With honey consistency barium there is aspiration. The detailed report of this examination will be provided by speech pathology. 1.5 minutes of fluoroscopy time was utilized for this procedure. Reviewed by TORIBIO Sanchez 12/27/2018 02:08 P Electronically Signed by Ousmane Tyson MD 12/27/2018 05:11 P
[2018-12-27 22:00] VITALS: BP 121/74
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
[2018-12-28] MEDS: HumaLOG INSULIN (NovoLOG) PER UNIT SC SCH ×4 (00:06→17:43)
[2018-12-28] MEDS: MEROPENEM INJ 1 GM in APPROPRIATE DILUENT 1 EA IV SCH ×3 (01:44→17:51)
[2018-12-28] MEDS: ALBUTEROL SULFATE 2.5 MG/0.5 ML INH NEB SOLN NEB SCH ×5 (03:11→20:26)
[2018-12-28] MEDS: SLF 3 ML SYR IV SCH ×3 (05:41→21:37)
[2018-12-28 06:00] VITALS: BP 113/69
[2018-12-28 06:24] LABS: HEMOGLOBIN 10.6 g/dl (13.5-17.5); MEAN CORPUSCULAR HEMOGLOBIN 27.5 pg (27.0-33.0); MEAN CORPUSCULAR HGB CONC 31.2 g/dl (32.0-36.5); MEAN CORPUSCULAR VOLUME 88.1 fl (80.0-96.0); PLATELET COUNT, AUTOMATED 412 10^3/uL (150-450); RED BLOOD COUNT 3.86 10^6/uL (4.30-6.10); WHITE BLOOD COUNT 8.5 10^3/uL (4.0-10.0)
[2018-12-28 06:48] LABS: BLOOD UREA NITROGEN 12 MG/DL (7-18); CALCIUM LEVEL 8.1 MG/DL (8.5-10.1); CARBON DIOXIDE LEVEL 27 MEQ/L (21-32); CHLORIDE LEVEL 107 MEQ/L (98-107); CREATININE FOR GFR < 0.15 MG/DL (0.70-1.30); GLOMERULAR FILTRATION RATE > 60.0 (>56); GLUCOSE, FASTING 161 MG/DL (70-100); POTASSIUM SERUM 3.9 MEQ/L (3.5-5.1); SODIUM LEVEL 139 MEQ/L (136-145)
[2018-12-28 08:00] VITALS: BP 108/69
[2018-12-28] MEDS: PERCOCET 5MG/325MG TAB FT PRN ×2 (08:51→21:37)
[2018-12-28] MEDS: POTASSIUM CHLORIDE 10% LIQ 20 MEQ/15 ML UDC PO SCH (08:58)
[2018-12-28] MEDS: LANSOPRAZOLE SUSPENSION 30 MG/10 ML ORAL SYRINGE (FIRST-LANSOPRAZOLE) GT SCH ×2 (09:02→21:37)
[2018-12-28] MEDS: SIMETHICONE 80 MG CHEW TAB GT SCH ×3 (09:02→21:36)
[2018-12-28] MEDS: levETIRAcetam ORAL SOLUTION 500 MG/5 ML UDC GT SCH ×2 (09:02→21:37)
[2018-12-28] MEDS: NYSTATIN CREAM 15 GM TOP SCH ×2 (09:03→21:37)
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
[2018-12-28 14:00] VITALS: BP 132/75
--- NOTE | 2018-12-28 15:19 | IPNPDOC ---
Text Note Date of Service The patient was seen on 12/28/18. NOTE Patient looks comfortable at the bedside. I discussed the gastrostomy feeding with the nurses. He was put back to suction 2 days ago as he was complaining of severe abdominal pain. It seems to suction has relieve some off the discomfort being reported by the patient so we did not get that much out of the gastrostomy port site. Review of eyes and nose shows this straining about 600 yesterday on suction for 100 overnight on suction. They canister contains light tinge bilious fluid without any signs that the tube feedings refluxing back to the stomach. The wound VAC was changed yesterday and I examined the pictures of the wound left in the chart which looks to be clean. No further drainage from the wound after opening of the wound. Wound culture shows growth of organisms resistant to Levaquin. He is allergic to Bactrim and also to cephalosporins unfortunately. Otherwise patient has been stable. Impression: Gastrostomy tube feeding problems Bleeding from the gastrostomy tube status post wedge resection of the stomach and placement of a Devries gastroduodenostomy tube Patient seems to tolerate slightly faster introduction of the tube feeds. They're putting it in about 120 mls/hr to bolus one can every 6 hours. I was initially wondering whether the patient is having some dumping syndrome from the fast introduction of the tube feeds. Does not seem to have any flushing or severe diarrhea. I suggest continuing on bolus feedings. He is not getting much from the gastrostomy tube portion. He may be having some reflux or gastric distention thus I suggest leaving it open to gravity drainage to a Mao bag consider putting it to suction and see how he does. If he continued not to get much with this he probably can tolerate clamping the gastrostomy portion. Wound culture shows growth of Proteus and enterococcus images actually sensitive to ampicillin but patient reports allergy to cefuroxime and oxacillin as well as Bactrim. It is resistant to by mouth once unfortunately. Discontinue the Levaquin. I'll put him on clindamycin for now for 7 days. VS,Marce, I+O VS, Nayelie, I+O Laboratory Tests 12/28/18 06:05 Red Blood Count 3.86 L, Mean Corpuscular Volume 88.1, Mean Corpuscular Hemoglobin 27.5, Mean Corpuscular Hemoglobin Concent 31.2 L, Red Cell Distribution Width 15.2 H, Calcium Level 8.1 L Vital Signs Date Time Temp Pulse Resp B/P (MAP) Pulse Ox O2 Delivery O2 Flow Rate FiO2 12/28/18 14:00 97.6 92 17 132/75 (94) 98 5.0 28 12/26/18 04:01 Trach Collar I&O- Last 24 Hours up to 6 AM 12/28/18 06:00 Intake Total 2364 ml Output Total 475 ml Balance 1889 ml PAT GONZALEZ MD Dec 28, 2018 15:19
[2018-12-28 22:00] VITALS: BP 123/74
[2018-12-29] MEDS: ALBUTEROL SULFATE 2.5 MG/0.5 ML INH NEB SOLN NEB SCH ×7 (00:03→23:25)
[2018-12-29] MEDS: HumaLOG INSULIN (NovoLOG) PER UNIT SC SCH ×4 (00:26→18:00)
[2018-12-29] MEDS: MEROPENEM INJ 1 GM in APPROPRIATE DILUENT 1 EA IV SCH ×3 (01:03→17:33)
[2018-12-29] MEDS: SLF 3 ML SYR IV SCH ×3 (05:46→23:00)
[2018-12-29 06:00] VITALS: BP 119/78
[2018-12-29 06:10] LABS: HEMOGLOBIN 10.3 g/dl (13.5-17.5); MEAN CORPUSCULAR HEMOGLOBIN 27.1 pg (27.0-33.0); MEAN CORPUSCULAR HGB CONC 30.3 g/dl (32.0-36.5); MEAN CORPUSCULAR VOLUME 89.5 fl (80.0-96.0); PLATELET COUNT, AUTOMATED 403 10^3/uL (150-450); WHITE BLOOD COUNT 7.7 10^3/uL (4.0-10.0)
[2018-12-29 06:30] LABS: BLOOD UREA NITROGEN 14 MG/DL (7-18); CALCIUM LEVEL 8.5 MG/DL (8.5-10.1); CARBON DIOXIDE LEVEL 31 MEQ/L (21-32); CHLORIDE LEVEL 105 MEQ/L (98-107); CREATININE FOR GFR 0.19 MG/DL (0.70-1.30); GLOMERULAR FILTRATION RATE > 60.0 (>56); GLUCOSE, FASTING 88 MG/DL (70-100); POTASSIUM SERUM 4.2 MEQ/L (3.5-5.1); SODIUM LEVEL 141 MEQ/L (136-145)
[2018-12-29] MEDS: NYSTATIN CREAM 15 GM TOP SCH ×2 (09:00→21:56)
[2018-12-29] MEDS: LANSOPRAZOLE SUSPENSION 30 MG/10 ML ORAL SYRINGE (FIRST-LANSOPRAZOLE) GT SCH ×2 (09:03→21:56)
[2018-12-29] MEDS: levETIRAcetam ORAL SOLUTION 500 MG/5 ML UDC GT SCH ×2 (09:03→21:56)
[2018-12-29] MEDS: SIMETHICONE 80 MG CHEW TAB GT SCH ×3 (09:03→21:56)
[2018-12-29] MEDS: POTASSIUM CHLORIDE 10% LIQ 20 MEQ/15 ML UDC PO SCH (09:03)
[2018-12-29 14:00] VITALS: BP 168/88
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
[2018-12-29 22:00] VITALS: BP 103/50
[2018-12-30] MEDS: HumaLOG INSULIN (NovoLOG) PER UNIT SC SCH ×4 (00:28→17:51)
[2018-12-30] MEDS: MEROPENEM INJ 1 GM in APPROPRIATE DILUENT 1 EA IV SCH ×3 (01:57→17:51)
[2018-12-30] MEDS: ALBUTEROL SULFATE 2.5 MG/0.5 ML INH NEB SOLN NEB SCH ×6 (03:21→22:55)
[2018-12-30 06:00] VITALS: BP 138/73
[2018-12-30 06:08] LABS: HEMATOCRIT 32.7 % (42.0-52.0); MEAN CORPUSCULAR HEMOGLOBIN 27.7 pg (27.0-33.0); MEAN CORPUSCULAR HGB CONC 30.6 g/dl (32.0-36.5); MEAN CORPUSCULAR VOLUME 90.6 fl (80.0-96.0); PLATELET COUNT, AUTOMATED 338 10^3/uL (150-450); RED BLOOD COUNT 3.61 10^6/uL (4.30-6.10); WHITE BLOOD COUNT 6.4 10^3/uL (4.0-10.0)
[2018-12-30] MEDS: SLF 3 ML SYR IV SCH ×3 (06:12→22:03)
[2018-12-30 06:33] LABS: BLOOD UREA NITROGEN 10 MG/DL (7-18); CALCIUM LEVEL 8.3 MG/DL (8.5-10.1); CARBON DIOXIDE LEVEL 31 MEQ/L (21-32); CHLORIDE LEVEL 105 MEQ/L (98-107); CREATININE FOR GFR 0.15 MG/DL (0.70-1.30); GLOMERULAR FILTRATION RATE > 60.0 (>56); GLUCOSE, FASTING 120 MG/DL (70-100); POTASSIUM SERUM 3.8 MEQ/L (3.5-5.1); SODIUM LEVEL 141 MEQ/L (136-145)
[2018-12-30] MEDS: SIMETHICONE 80 MG CHEW TAB GT SCH ×3 (10:18→22:03)
[2018-12-30] MEDS: levETIRAcetam ORAL SOLUTION 500 MG/5 ML UDC GT SCH ×2 (10:18→22:03)
[2018-12-30] MEDS: POTASSIUM CHLORIDE 10% LIQ 20 MEQ/15 ML UDC PO SCH (10:18)
[2018-12-30] MEDS: LANSOPRAZOLE SUSPENSION 30 MG/10 ML ORAL SYRINGE (FIRST-LANSOPRAZOLE) GT SCH ×2 (10:18→22:03)
[2018-12-30] MEDS: NYSTATIN CREAM 15 GM TOP SCH ×2 (10:20→22:03)
[2018-12-30] MEDS: PERCOCET 5MG/325MG TAB FT PRN (10:34)
[2018-12-30 14:00] VITALS: BP 123/77
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
[2018-12-30 22:00] VITALS: BP 127/86
[2018-12-31] MEDS: HumaLOG INSULIN (NovoLOG) PER UNIT SC SCH ×4 (00:27→17:59)
[2018-12-31] MEDS: MEROPENEM INJ 1 GM in APPROPRIATE DILUENT 1 EA IV SCH ×3 (01:46→17:59)
[2018-12-31] MEDS: ALBUTEROL SULFATE 2.5 MG/0.5 ML INH NEB SOLN NEB SCH ×5 (03:38→20:03)
[2018-12-31 06:00] VITALS: BP 159/87
[2018-12-31] MEDS: SLF 3 ML SYR IV SCH ×3 (06:27→21:43)
[2018-12-31 07:00] LABS: HEMATOCRIT 34.4 % (42.0-52.0); HEMOGLOBIN 10.5 g/dl (13.5-17.5); MEAN CORPUSCULAR HEMOGLOBIN 27.1 pg (27.0-33.0); MEAN CORPUSCULAR HGB CONC 30.5 g/dl (32.0-36.5); MEAN CORPUSCULAR VOLUME 88.9 fl (80.0-96.0); PLATELET COUNT, AUTOMATED 352 10^3/uL (150-450); RED BLOOD COUNT 3.87 10^6/uL (4.30-6.10); WHITE BLOOD COUNT 6.9 10^3/uL (4.0-10.0)
[2018-12-31 07:19] LABS: BLOOD UREA NITROGEN 9 MG/DL (7-18); CALCIUM LEVEL 8.4 MG/DL (8.5-10.1); CARBON DIOXIDE LEVEL 30 MEQ/L (21-32); CHLORIDE LEVEL 106 MEQ/L (98-107); CREATININE FOR GFR 0.19 MG/DL (0.70-1.30); GLOMERULAR FILTRATION RATE > 60.0 (>56); GLUCOSE, FASTING 139 MG/DL (70-100); POTASSIUM SERUM 3.9 MEQ/L (3.5-5.1); SODIUM LEVEL 142 MEQ/L (136-145)
[2018-12-31] MEDS: SIMETHICONE 80 MG CHEW TAB GT SCH ×3 (09:48→21:43)
[2018-12-31] MEDS: POTASSIUM CHLORIDE 10% LIQ 20 MEQ/15 ML UDC PO SCH (09:48)
[2018-12-31] MEDS: levETIRAcetam ORAL SOLUTION 500 MG/5 ML UDC GT SCH ×2 (09:48→21:42)
[2018-12-31] MEDS: NYSTATIN CREAM 15 GM TOP SCH ×2 (09:49→21:43)
[2018-12-31] MEDS: LANSOPRAZOLE SUSPENSION 30 MG/10 ML ORAL SYRINGE (FIRST-LANSOPRAZOLE) GT SCH ×2 (09:49→21:42)
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
[2018-12-31 14:00] VITALS: BP 138/77
[2018-12-31 22:00] VITALS: BP 135/78
[2019-01-01] MEDS: ALBUTEROL SULFATE 2.5 MG/0.5 ML INH NEB SOLN NEB SCH ×6 (00:16→22:34)
[2019-01-01] MEDS: HumaLOG INSULIN (NovoLOG) PER UNIT SC SCH ×4 (00:29→17:52)
[2019-01-01] MEDS: MEROPENEM INJ 1 GM in APPROPRIATE DILUENT 1 EA IV SCH ×3 (02:01→17:21)
[2019-01-01 06:00] VITALS: BP 138/74
[2019-01-01] MEDS: SLF 3 ML SYR IV SCH ×3 (06:19→20:58)
[2019-01-01] MEDS: levETIRAcetam ORAL SOLUTION 500 MG/5 ML UDC GT SCH ×2 (08:55→20:56)
[2019-01-01] MEDS: POTASSIUM CHLORIDE 10% LIQ 20 MEQ/15 ML UDC PO SCH (08:55)
[2019-01-01] MEDS: SIMETHICONE 80 MG CHEW TAB GT SCH ×3 (08:55→20:56)
[2019-01-01] MEDS: NYSTATIN CREAM 15 GM TOP SCH ×2 (08:55→20:57)
[2019-01-01] MEDS: LANSOPRAZOLE SUSPENSION 30 MG/10 ML ORAL SYRINGE (FIRST-LANSOPRAZOLE) GT SCH ×2 (08:56→20:56)
[2019-01-01] MEDS: PERCOCET 5MG/325MG TAB FT PRN (10:31)
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
[2019-01-01 14:00] VITALS: BP 106/68
[2019-01-01 22:00] VITALS: BP 136/69
[2019-01-02] MEDS: ALBUTEROL SULFATE 2.5 MG/0.5 ML INH NEB SOLN NEB SCH ×6 (00:52→22:03)
[2019-01-02] MEDS: HumaLOG INSULIN (NovoLOG) PER UNIT SC SCH ×5 (05:55→21:53)
[2019-01-02] MEDS: SLF 3 ML SYR IV SCH ×3 (05:56→22:03)
[2019-01-02 06:00] VITALS: BP 132/63
[2019-01-02] MEDS: LANSOPRAZOLE SUSPENSION 30 MG/10 ML ORAL SYRINGE (FIRST-LANSOPRAZOLE) GT SCH ×2 (09:45→21:22)
[2019-01-02] MEDS: POTASSIUM CHLORIDE 10% LIQ 20 MEQ/15 ML UDC PO SCH (09:45)
[2019-01-02] MEDS: NYSTATIN CREAM 15 GM TOP SCH ×2 (09:45→21:00)
[2019-01-02] MEDS: levETIRAcetam ORAL SOLUTION 500 MG/5 ML UDC GT SCH ×2 (09:45→21:21)
[2019-01-02] MEDS: SIMETHICONE 80 MG CHEW TAB GT SCH ×3 (09:46→21:00)
[2019-01-02 14:00] VITALS: BP 152/83
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
[2019-01-02 22:00] VITALS: BP 149/79
[2019-01-03] MEDS: ALBUTEROL SULFATE 2.5 MG/0.5 ML INH NEB SOLN NEB SCH ×6 (00:33→20:44)
[2019-01-03 06:00] VITALS: BP 143/83
[2019-01-03] MEDS: SLF 3 ML SYR IV SCH ×3 (06:00→21:59)
[2019-01-03] MEDS: HumaLOG INSULIN (NovoLOG) PER UNIT SC SCH ×3 (06:00→18:22)
[2019-01-03 06:47] LABS: HEMATOCRIT 35.6 % (42.0-52.0); HEMOGLOBIN 11.1 g/dl (13.5-17.5); MEAN CORPUSCULAR HGB CONC 31.2 g/dl (32.0-36.5); MEAN CORPUSCULAR VOLUME 86.6 fl (80.0-96.0); PLATELET COUNT, AUTOMATED 339 10^3/uL (150-450); RED BLOOD COUNT 4.11 10^6/uL (4.30-6.10); WHITE BLOOD COUNT 7.9 10^3/uL (4.0-10.0)
[2019-01-03 07:07] LABS: BLOOD UREA NITROGEN 8 MG/DL (7-18); CALCIUM LEVEL 8.5 MG/DL (8.5-10.1); CARBON DIOXIDE LEVEL 30 MEQ/L (21-32); CHLORIDE LEVEL 108 MEQ/L (98-107); CREATININE FOR GFR < 0.15 MG/DL (0.70-1.30); GLOMERULAR FILTRATION RATE > 60.0 (>56); GLUCOSE, FASTING 113 MG/DL (70-100); POTASSIUM SERUM 3.5 MEQ/L (3.5-5.1); SODIUM LEVEL 144 MEQ/L (136-145)
[2019-01-03] MEDS: LANSOPRAZOLE SUSPENSION 30 MG/10 ML ORAL SYRINGE (FIRST-LANSOPRAZOLE) GT SCH ×2 (08:50→21:07)
[2019-01-03] MEDS: levETIRAcetam ORAL SOLUTION 500 MG/5 ML UDC GT SCH ×2 (08:51→21:07)
[2019-01-03] MEDS: SIMETHICONE 80 MG CHEW TAB GT SCH ×3 (08:51→21:00)
[2019-01-03] MEDS: POTASSIUM CHLORIDE 10% LIQ 20 MEQ/15 ML UDC PO SCH (08:51)
[2019-01-03] MEDS: NYSTATIN CREAM 15 GM TOP SCH ×2 (08:53→21:08)
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
[2019-01-03 14:00] VITALS: BP 124/79
[2019-01-03 22:00] VITALS: BP 135/88
[2019-01-04] MEDS: ALBUTEROL SULFATE 2.5 MG/0.5 ML INH NEB SOLN NEB SCH ×7 (00:14→23:40)
[2019-01-04] MEDS: SLF 3 ML SYR IV SCH ×3 (05:57→22:00)
[2019-01-04 06:00] VITALS: BP 118/73
[2019-01-04] MEDS: HumaLOG INSULIN (NovoLOG) PER UNIT SC SCH ×5 (06:00→23:53)
[2019-01-04 06:16] LABS: HEMATOCRIT 35.5 % (42.0-52.0); HEMOGLOBIN 10.8 g/dl (13.5-17.5); MEAN CORPUSCULAR HEMOGLOBIN 26.9 pg (27.0-33.0); MEAN CORPUSCULAR HGB CONC 30.4 g/dl (32.0-36.5); MEAN CORPUSCULAR VOLUME 88.5 fl (80.0-96.0); PLATELET COUNT, AUTOMATED 316 10^3/uL (150-450); RED BLOOD COUNT 4.01 10^6/uL (4.30-6.10); WHITE BLOOD COUNT 7.7 10^3/uL (4.0-10.0)
[2019-01-04 06:48] LABS: BLOOD UREA NITROGEN 14 MG/DL (7-18); CALCIUM LEVEL 8.2 MG/DL (8.5-10.1); CARBON DIOXIDE LEVEL 31 MEQ/L (21-32); CHLORIDE LEVEL 106 MEQ/L (98-107); CREATININE FOR GFR 0.15 MG/DL (0.70-1.30); GLOMERULAR FILTRATION RATE > 60.0 (>56); GLUCOSE, FASTING 99 MG/DL (70-100); POTASSIUM SERUM 3.6 MEQ/L (3.5-5.1); SODIUM LEVEL 142 MEQ/L (136-145)
[2019-01-04] MEDS: POTASSIUM CHLORIDE 10% LIQ 20 MEQ/15 ML UDC PO SCH (08:36)
[2019-01-04] MEDS: NYSTATIN CREAM 15 GM TOP SCH ×2 (08:36→21:55)
[2019-01-04] MEDS: levETIRAcetam ORAL SOLUTION 500 MG/5 ML UDC GT SCH ×2 (08:36→21:54)
[2019-01-04] MEDS: SIMETHICONE 80 MG CHEW TAB GT SCH ×3 (08:36→21:54)
[2019-01-04] MEDS: LANSOPRAZOLE SUSPENSION 30 MG/10 ML ORAL SYRINGE (FIRST-LANSOPRAZOLE) GT SCH ×2 (08:37→21:54)
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
[2019-01-04 14:00] VITALS: BP 131/88
[2019-01-04 22:00] VITALS: BP 131/73
[2019-01-05] MEDS: ALBUTEROL SULFATE 2.5 MG/0.5 ML INH NEB SOLN NEB SCH ×5 (03:39→21:02)
[2019-01-05 06:00] VITALS: BP 130/78
[2019-01-05 06:18] LABS: HEMATOCRIT 36.5 % (42.0-52.0); HEMOGLOBIN 11.2 g/dl (13.5-17.5); MEAN CORPUSCULAR HEMOGLOBIN 26.9 pg (27.0-33.0); MEAN CORPUSCULAR HGB CONC 30.7 g/dl (32.0-36.5); MEAN CORPUSCULAR VOLUME 87.7 fl (80.0-96.0); PLATELET COUNT, AUTOMATED 309 10^3/uL (150-450); RED BLOOD COUNT 4.16 10^6/uL (4.30-6.10); WHITE BLOOD COUNT 7.8 10^3/uL (4.0-10.0)
[2019-01-05] MEDS: HumaLOG INSULIN (NovoLOG) PER UNIT SC SCH ×3 (06:25→17:52)
[2019-01-05 06:46] LABS: BLOOD UREA NITROGEN 9 MG/DL (7-18); CALCIUM LEVEL 8.4 MG/DL (8.5-10.1); CARBON DIOXIDE LEVEL 30 MEQ/L (21-32); CHLORIDE LEVEL 107 MEQ/L (98-107); CREATININE FOR GFR 0.17 MG/DL (0.70-1.30); GLOMERULAR FILTRATION RATE > 60.0 (>56); GLUCOSE, FASTING 125 MG/DL (70-100); POTASSIUM SERUM 3.4 MEQ/L (3.5-5.1); SODIUM LEVEL 145 MEQ/L (136-145)
[2019-01-05] MEDS: NYSTATIN CREAM 15 GM TOP SCH ×2 (09:00→21:55)
[2019-01-05] MEDS: LANSOPRAZOLE SUSPENSION 30 MG/10 ML ORAL SYRINGE (FIRST-LANSOPRAZOLE) GT SCH ×2 (10:02→21:54)
[2019-01-05] MEDS: levETIRAcetam ORAL SOLUTION 500 MG/5 ML UDC GT SCH ×2 (10:02→21:54)
[2019-01-05] MEDS: POTASSIUM CHLORIDE 10% LIQ 20 MEQ/15 ML UDC PO SCH (10:02)
[2019-01-05] MEDS: SIMETHICONE 80 MG CHEW TAB GT SCH ×3 (10:03→21:54)
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
[2019-01-05 14:00] VITALS: BP 118/75
[2019-01-05 22:00] VITALS: BP 129/84
[2019-01-06] MEDS: ALBUTEROL SULFATE 2.5 MG/0.5 ML INH NEB SOLN NEB SCH ×7 (00:30→23:38)
[2019-01-06] MEDS: HumaLOG INSULIN (NovoLOG) PER UNIT SC SCH ×5 (00:44→23:40)
[2019-01-06 06:00] VITALS: BP 103/58
[2019-01-06 06:16] LABS: HEMATOCRIT 36.6 % (42.0-52.0); MEAN CORPUSCULAR HEMOGLOBIN 26.5 pg (27.0-33.0); MEAN CORPUSCULAR HGB CONC 30.1 g/dl (32.0-36.5); MEAN CORPUSCULAR VOLUME 88.2 fl (80.0-96.0); PLATELET COUNT, AUTOMATED 292 10^3/uL (150-450); RED BLOOD COUNT 4.15 10^6/uL (4.30-6.10)
[2019-01-06 06:48] LABS: BLOOD UREA NITROGEN 14 MG/DL (7-18); CALCIUM LEVEL 8.6 MG/DL (8.5-10.1); CARBON DIOXIDE LEVEL 32 MEQ/L (21-32); CHLORIDE LEVEL 105 MEQ/L (98-107); CREATININE FOR GFR 0.23 MG/DL (0.70-1.30); GLOMERULAR FILTRATION RATE > 60.0 (>56); GLUCOSE, FASTING 113 MG/DL (70-100); SODIUM LEVEL 142 MEQ/L (136-145)
[2019-01-06] MEDS: levETIRAcetam ORAL SOLUTION 500 MG/5 ML UDC GT SCH ×2 (09:04→20:28)
[2019-01-06] MEDS: LANSOPRAZOLE SUSPENSION 30 MG/10 ML ORAL SYRINGE (FIRST-LANSOPRAZOLE) GT SCH ×2 (09:04→20:28)
[2019-01-06] MEDS: POTASSIUM CHLORIDE 10% LIQ 20 MEQ/15 ML UDC PO SCH (09:04)
[2019-01-06] MEDS: SIMETHICONE 80 MG CHEW TAB GT SCH ×3 (09:04→20:26)
[2019-01-06] MEDS: NYSTATIN CREAM 15 GM TOP SCH ×2 (09:05→20:27)
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
[2019-01-06 11:21] VITALS: O2SAT 100
[2019-01-06] MEDS: KETOCONAZOLE 2% CREAM TOP SCH ×2 (12:34→20:27)
[2019-01-06 14:00] VITALS: BP 106/60
[2019-01-06 22:00] VITALS: BP 127/77
[2019-01-06] MEDS: PERCOCET 5MG/325MG TAB FT PRN (23:41)
[2019-01-07] MEDS: ALBUTEROL SULFATE 2.5 MG/0.5 ML INH NEB SOLN NEB SCH ×5 (04:16→21:10)
[2019-01-07] MEDS: HumaLOG INSULIN (NovoLOG) PER UNIT SC SCH ×3 (05:44→17:31)
[2019-01-07 06:00] VITALS: BP_SYST 127; BP_SYST 138; BP_DIAS 70; BP_DIAS 92
[2019-01-07 06:29] LABS: HEMATOCRIT 33.4 % (42.0-52.0); HEMOGLOBIN 10.4 g/dl (13.5-17.5); MEAN CORPUSCULAR HEMOGLOBIN 26.7 pg (27.0-33.0); MEAN CORPUSCULAR HGB CONC 31.1 g/dl (32.0-36.5); MEAN CORPUSCULAR VOLUME 85.9 fl (80.0-96.0); PLATELET COUNT, AUTOMATED 282 10^3/uL (150-450); RED BLOOD COUNT 3.89 10^6/uL (4.30-6.10); WHITE BLOOD COUNT 6.5 10^3/uL (4.0-10.0)
[2019-01-07 06:46] LABS: BLOOD UREA NITROGEN 11 MG/DL (7-18); CALCIUM LEVEL 8.2 MG/DL (8.5-10.1); CARBON DIOXIDE LEVEL 30 MEQ/L (21-32); CHLORIDE LEVEL 104 MEQ/L (98-107); CREATININE FOR GFR < 0.15 MG/DL (0.70-1.30); GLOMERULAR FILTRATION RATE > 60.0 (>56); GLUCOSE, FASTING 120 MG/DL (70-100); POTASSIUM SERUM 3.5 MEQ/L (3.5-5.1); SODIUM LEVEL 140 MEQ/L (136-145)
[2019-01-07] MEDS: NYSTATIN CREAM 15 GM TOP SCH ×2 (10:01→20:12)
[2019-01-07] MEDS: KETOCONAZOLE 2% CREAM TOP SCH ×2 (10:01→20:12)
[2019-01-07] MEDS: POTASSIUM CHLORIDE 10% LIQ 20 MEQ/15 ML UDC PO SCH (10:02)
[2019-01-07] MEDS: SIMETHICONE 80 MG CHEW TAB GT SCH ×3 (10:02→20:11)
[2019-01-07] MEDS: levETIRAcetam ORAL SOLUTION 500 MG/5 ML UDC GT SCH ×2 (10:02→20:11)
[2019-01-07] MEDS: LANSOPRAZOLE SUSPENSION 30 MG/10 ML ORAL SYRINGE (FIRST-LANSOPRAZOLE) GT SCH ×2 (10:02→20:11)
[2019-01-07 14:00] VITALS: BP 115/66
[2019-01-07 22:00] VITALS: BP 154/85
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
[2019-01-08] MEDS: ALBUTEROL SULFATE 2.5 MG/0.5 ML INH NEB SOLN NEB SCH ×7 (00:36→23:59)
[2019-01-08] MEDS: HumaLOG INSULIN (NovoLOG) PER UNIT SC SCH ×5 (05:55→23:52)
[2019-01-08 06:00] VITALS: BP 149/86
[2019-01-08 06:28] LABS: HEMATOCRIT 32.3 % (42.0-52.0); HEMOGLOBIN 10.1 g/dl (13.5-17.5); MEAN CORPUSCULAR HEMOGLOBIN 26.3 pg (27.0-33.0); MEAN CORPUSCULAR HGB CONC 31.3 g/dl (32.0-36.5); MEAN CORPUSCULAR VOLUME 84.1 fl (80.0-96.0); PLATELET COUNT, AUTOMATED 286 10^3/uL (150-450); RED BLOOD COUNT 3.84 10^6/uL (4.30-6.10); WHITE BLOOD COUNT 7.2 10^3/uL (4.0-10.0)
[2019-01-08 06:48] LABS: BLOOD UREA NITROGEN 8 MG/DL (7-18); CALCIUM LEVEL 8.2 MG/DL (8.5-10.1); CARBON DIOXIDE LEVEL 31 MEQ/L (21-32); CHLORIDE LEVEL 105 MEQ/L (98-107); CREATININE FOR GFR 0.16 MG/DL (0.70-1.30); GLOMERULAR FILTRATION RATE > 60.0 (>56); GLUCOSE, FASTING 109 MG/DL (70-100); POTASSIUM SERUM 3.2 MEQ/L (3.5-5.1); SODIUM LEVEL 142 MEQ/L (136-145)
[2019-01-08] MEDS: levETIRAcetam ORAL SOLUTION 500 MG/5 ML UDC GT SCH ×2 (09:45→21:43)
[2019-01-08] MEDS: NYSTATIN CREAM 15 GM TOP SCH ×2 (09:45→21:44)
[2019-01-08] MEDS: SIMETHICONE 80 MG CHEW TAB GT SCH ×3 (09:45→21:43)
[2019-01-08] MEDS: LANSOPRAZOLE SUSPENSION 30 MG/10 ML ORAL SYRINGE (FIRST-LANSOPRAZOLE) GT SCH ×2 (09:45→21:43)
[2019-01-08] MEDS: KETOCONAZOLE 2% CREAM TOP SCH ×2 (09:46→21:44)
[2019-01-08] MEDS: POTASSIUM CHLORIDE 10% LIQ 20 MEQ/15 ML UDC PO SCH (09:48)
[2019-01-08 14:00] VITALS: BP 131/79
[2019-01-08] MEDS: PERCOCET 5MG/325MG TAB FT PRN ×2 (16:35→21:56)
[2019-01-09] MEDS: ALBUTEROL SULFATE 2.5 MG/0.5 ML INH NEB SOLN NEB SCH ×5 (02:33→21:08)
[2019-01-09] MEDS: HumaLOG INSULIN (NovoLOG) PER UNIT SC SCH ×3 (05:23→17:38)
[2019-01-09 06:00] VITALS: BP 134/78
[2019-01-09 06:37] LABS: HEMATOCRIT 32.4 % (42.0-52.0); MEAN CORPUSCULAR HEMOGLOBIN 26.5 pg (27.0-33.0); MEAN CORPUSCULAR HGB CONC 30.9 g/dl (32.0-36.5); MEAN CORPUSCULAR VOLUME 85.7 fl (80.0-96.0); PLATELET COUNT, AUTOMATED 278 10^3/uL (150-450); RED BLOOD COUNT 3.78 10^6/uL (4.30-6.10); WHITE BLOOD COUNT 8.2 10^3/uL (4.0-10.0)
[2019-01-09 06:57] LABS: BLOOD UREA NITROGEN 10 MG/DL (7-18); CALCIUM LEVEL 8.4 MG/DL (8.5-10.1); CARBON DIOXIDE LEVEL 32 MEQ/L (21-32); CHLORIDE LEVEL 104 MEQ/L (98-107); CREATININE FOR GFR 0.16 MG/DL (0.70-1.30); GLOMERULAR FILTRATION RATE > 60.0 (>56); GLUCOSE, FASTING 100 MG/DL (70-100); POTASSIUM SERUM 3.6 MEQ/L (3.5-5.1); SODIUM LEVEL 141 MEQ/L (136-145)
[2019-01-09] MEDS: levETIRAcetam ORAL SOLUTION 500 MG/5 ML UDC GT SCH ×2 (08:52→21:28)
[2019-01-09] MEDS: KETOCONAZOLE 2% CREAM TOP SCH ×2 (08:53→21:28)
[2019-01-09] MEDS: SIMETHICONE 80 MG CHEW TAB GT SCH ×3 (08:53→21:28)
[2019-01-09] MEDS: NYSTATIN CREAM 15 GM TOP SCH ×2 (08:53→21:29)
[2019-01-09] MEDS: LANSOPRAZOLE SUSPENSION 30 MG/10 ML ORAL SYRINGE (FIRST-LANSOPRAZOLE) GT SCH ×2 (08:53→21:28)
[2019-01-09] MEDS: POTASSIUM CHLORIDE 10% LIQ 20 MEQ/15 ML UDC PO SCH (08:53)
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
[2019-01-09] MEDS: PERCOCET 5MG/325MG TAB FT PRN ×2 (15:36→21:27)
[2019-01-10] MEDS: ALBUTEROL SULFATE 2.5 MG/0.5 ML INH NEB SOLN NEB SCH ×7 (00:01→22:39)
[2019-01-10] MEDS: HumaLOG INSULIN (NovoLOG) PER UNIT SC SCH ×4 (00:09→18:32)
[2019-01-10 06:00] VITALS: BP 144/78
[2019-01-10] MEDS: POTASSIUM CHLORIDE 10% LIQ 20 MEQ/15 ML UDC PO SCH (10:28)
[2019-01-10] MEDS: LANSOPRAZOLE SUSPENSION 30 MG/10 ML ORAL SYRINGE (FIRST-LANSOPRAZOLE) GT SCH ×2 (10:29→21:29)
[2019-01-10] MEDS: SIMETHICONE 80 MG CHEW TAB GT SCH ×3 (10:29→21:30)
[2019-01-10] MEDS: levETIRAcetam ORAL SOLUTION 500 MG/5 ML UDC GT SCH ×2 (10:29→21:30)
[2019-01-10] MEDS: KETOCONAZOLE 2% CREAM TOP SCH ×2 (10:30→21:31)
[2019-01-10] MEDS: NYSTATIN CREAM 15 GM TOP SCH ×2 (10:30→21:30)
[2019-01-10] MEDS: PERCOCET 5MG/325MG TAB FT PRN (16:29)
[2019-01-11] MEDS: HumaLOG INSULIN (NovoLOG) PER UNIT SC SCH ×3 (00:53→12:00)
[2019-01-11] MEDS: ALBUTEROL SULFATE 2.5 MG/0.5 ML INH NEB SOLN NEB SCH ×3 (03:03→11:39)
[2019-01-11 06:00] VITALS: BP 145/69
[2019-01-11 06:26] LABS: HEMATOCRIT 34.8 % (42.0-52.0); HEMOGLOBIN 10.7 g/dl (13.5-17.5); MEAN CORPUSCULAR HEMOGLOBIN 26.1 pg (27.0-33.0); MEAN CORPUSCULAR HGB CONC 30.7 g/dl (32.0-36.5); MEAN CORPUSCULAR VOLUME 84.9 fl (80.0-96.0); PLATELET COUNT, AUTOMATED 270 10^3/uL (150-450); WHITE BLOOD COUNT 8.7 10^3/uL (4.0-10.0)
[2019-01-11 06:48] LABS: BLOOD UREA NITROGEN 8 MG/DL (7-18); CALCIUM LEVEL 8.2 MG/DL (8.5-10.1); CARBON DIOXIDE LEVEL 31 MEQ/L (21-32); CHLORIDE LEVEL 105 MEQ/L (98-107); CREATININE FOR GFR 0.17 MG/DL (0.70-1.30); GLOMERULAR FILTRATION RATE > 60.0 (>56); GLUCOSE, FASTING 95 MG/DL (70-100); POTASSIUM SERUM 3.3 MEQ/L (3.5-5.1); SODIUM LEVEL 140 MEQ/L (136-145)
[2019-01-11] MEDS: KETOCONAZOLE 2% CREAM TOP SCH (09:00)
[2019-01-11] MEDS: SIMETHICONE 80 MG CHEW TAB GT SCH ×2 (10:19→16:25)
[2019-01-11] MEDS: LANSOPRAZOLE SUSPENSION 30 MG/10 ML ORAL SYRINGE (FIRST-LANSOPRAZOLE) GT SCH (10:20)
[2019-01-11] MEDS: levETIRAcetam ORAL SOLUTION 500 MG/5 ML UDC GT SCH (10:20)
[2019-01-11] MEDS: POTASSIUM CHLORIDE 10% LIQ 20 MEQ/15 ML UDC PO SCH (10:20)
[2019-01-11] MEDS: NYSTATIN CREAM 15 GM TOP SCH (10:42)
[2019-01-11] MEDS ORDERED: SIME80TA GT (10:44)
[2019-01-11] MEDS ORDERED: SODI3NEB INH (10:44)
[2019-01-11] MEDS ORDERED: FIRS3SUS GT (10:44)
[2019-01-11] MEDS ORDERED: POTA20EL PO (10:44)
[2019-01-11] MEDS ORDERED: LEVE15SO GT (10:44)
[2019-01-11] MEDS ORDERED: INSUHUMDS SC (10:44)
[2019-01-11] MEDS ORDERED: KETO2CR TOP (10:44)
[2019-01-11] MEDS ORDERED: NYST10CR TOP (10:44)
[2019-01-11] MEDS ORDERED: PERCOCET FT (10:44)
--- NOTE | 2019-01-11 12:54 | DSES ---
DATE OF ADMISSION: 11/26/2018 DATE OF DISCHARGE: 01/11/2019 [facility]2019. There have been no changes in his status since the date of his SNF summary that was dictated on 01/08/2019. No changes in his discharge diagnoses. His medications the time of transfer to the [facility] on include: - lansoprazole 3 mg/mL 30 mg per G tube twice a day - Humalog insulin every 6 hours - ketoconazole 2% cream topically twice a day - Keppra 900 mg/5 mL 1500 mg via G tube twice a day - nystatin cream one dose topically twice a day - Percocet 5/325 one to two tablets every 4 hours as needed for moderate to severe pain - potassium 40 mEq daily - simethicone 80 mg via G tube twice a day - sodium chloride nebulized 3 mL every 4 hours as needed for rhonchi, secretion clearance - albuterol nebulizer four times a day and every 4 hours as needed - Dulcolax 10 mg per rectum daily as needed for constipation He has a tracheostomy that requires suctioning and trache care as per previous orders. He is on tube feedings and those will be held for his transport to the [facility], but should be restarted according to his current usual rate and dose. He is on oxygen 5 liters with some humidification via trach collar. At this point, his feedings he gets Glucerna 1.2 one can every 6 hours, bolus followed by 200 mL of free water and 50 mL flushes with medications. edited: 01/12/2019 0731 tkf MTDD
== END 2019-01-11 17:00 | DRG 3 ==
LOC: M ED 12:54 → EDBD 12:54 → M ED INP 14:16 → M ICU 15:03 → M PCU 12-04 18:11 → M ICU 12-12 15:57 → M PCU 12-14 16:41 → M ICU 12-16 00:17 → M MSPAV 12-20 23:00
PROVIDERS: ADMIT Internal Medicine Pulmonary Disease; ATTEND Family Medicine
PROC: 0B9K8ZX Drainage of Right Lung, Via Natural or Artificial Opening Endoscopic, Diagnostic (ICD-10-PCS; principal; 2018-11-26)
PROC: 5A1945Z Respiratory Ventilation, 24-96 Consecutive Hours (ICD-10-PCS; 2018-11-26)
PROC: 0B9K8ZZ Drainage of Right Lung, Via Natural or Artificial Opening Endoscopic (ICD-10-PCS; 2018-11-26)
PROC: 0B978ZZ Drainage of Left Main Bronchus, Via Natural or Artificial Opening Endoscopic (ICD-10-PCS; 2018-11-26)
PROC: 0B9D8ZX Drainage of Right Middle Lung Lobe, Via Natural or Artificial Opening Endoscopic, Diagnostic (ICD-10-PCS; 2018-11-26)
PROC: 0DH63UZ Insertion of Feeding Device into Stomach, Percutaneous Approach (ICD-10-PCS; 2018-12-01)
PROC: 0B110F4 Bypass Trachea to Cutaneous with Tracheostomy Device, Open Approach (ICD-10-PCS; 2018-12-01 14:00)
PROC: 30233N1 Transfusion of Nonautologous Red Blood Cells into Peripheral Vein, Percutaneous Approach (ICD-10-PCS; 2018-12-08)
PROC: 0DJ08ZZ Inspection of Upper Intestinal Tract, Via Natural or Artificial Opening Endoscopic (ICD-10-PCS; 2018-12-08)
PROC: 0DB60ZZ Excision of Stomach, Open Approach (ICD-10-PCS; 2018-12-12)
PROC: 02HV33Z Insertion of Infusion Device into Superior Vena Cava, Percutaneous Approach (ICD-10-PCS; 2018-12-12)
PROC: 04HY32Z Insertion of Monitoring Device into Lower Artery, Percutaneous Approach (ICD-10-PCS; 2018-12-12)
PROC: 30233K1 Transfusion of Nonautologous Frozen Plasma into Peripheral Vein, Percutaneous Approach (ICD-10-PCS; 2018-12-12)
DX: J96.01 Acute respiratory failure with hypoxia (principal); T81.19XA Other postprocedural shock, initial encounter; J69.0 Pneumonitis due to inhalation of food and vomit; J98.19 Other pulmonary collapse; L12.0 Bullous pemphigoid; G82.20 Paraplegia, unspecified; D62 Acute posthemorrhagic anemia; E87.0 Hyperosmolality and hypernatremia; T81.40XA Infection following a procedure, unspecified, initial encounter; J96.02 Acute respiratory failure with hypercapnia; B97.4 Respiratory syncytial virus as the cause of diseases classified elsewhere; E11.9 Type 2 diabetes mellitus without complications; S06.2X Diffuse traumatic brain injury; K94.21 Gastrostomy hemorrhage; L89.152 Pressure ulcer of sacral region, stage 2; I10 Essential (primary) hypertension; G40.909 Epilepsy, unspecified, not intractable, without status epilepticus; D63.8 Anemia in other chronic diseases classified elsewhere; L13.8 Other specified bullous disorders; Q03.1 Atresia of foramina of Magendie and Luschka; E78.5 Hyperlipidemia, unspecified; Z91.81 History of falling; Z88.2 Allergy status to sulfonamides; Z88.8 Allergy status to other drugs, medicaments and biological substances; Z79.82 Long term (current) use of aspirin; Z79.899 Other long term (current) drug therapy; E87.6 Hypokalemia; R13.10 Dysphagia, unspecified; I95.9 Hypotension, unspecified; Y83.8 Other surgical procedures as the cause of abnormal reaction of the patient, or of later complication, without mention of misadventure at the time of the procedure

== ENCOUNTER → 2018-11-26 | Outpatient (REF) | payer MEDICARE, OTHER ==
[~2018-11-26] MED LIST changes: -FIRS3SUS GT; -INSUHUMDS SC; -KETO2CR TOP; -LEVE15SO GT; -NYST10CR TOP; -PERCOCET FT; -POTA20EL PO; -SIME80TA GT; -SODI3NEB INH
[2018-11-26 13:23] LABS: BLOOD UREA NITROGEN 26 MG/DL (7-18); CALCIUM LEVEL 9.6 MG/DL (8.5-10.1); CARBON DIOXIDE LEVEL 36 MEQ/L (21-32); CHLORIDE LEVEL 103 MEQ/L (98-107); CREATININE FOR GFR 0.46 MG/DL (0.70-1.30); GLOMERULAR FILTRATION RATE > 60.0 (>56); GLUCOSE, FASTING 295 MG/DL (70-100); POTASSIUM SERUM 4.1 MEQ/L (3.5-5.1); SODIUM LEVEL 146 MEQ/L (136-145)
== END ==
LOC: SKLAB7 11:49
PROVIDERS: ATTEND Family Medicine
DX: R05 Cough (principal); R09.89 Other specified symptoms and signs involving the circulatory and respiratory systems

== ENCOUNTER → 2018-11-26 | Outpatient (REF) | payer MEDICARE, OTHER ==
--- NOTE | 2018-11-26 11:23 | REP ---
AP PORTABLE SEMI-ERECT CHEST: 11/26/2018. CLINICAL HISTORY: RSV. COMPARISON: 07/24/2015, 08/09/2014. FINDINGS: Lungs are hypoinflated bilaterally. There is also significant elevation of the right diaphragm compared to previous studies. Some air bronchograms are noted in the area below the right diaphragm suggesting infiltrate in the right base. Some linear atelectatic change in the left base. No left effusion. Right effusion difficult to exclude. Crowded markings in the right due to the elevated diaphragm and low level of inflation. Heart size not grossly enlarged. Bones intact. The aorta is normal for age. IMPRESSION: 1. Elevation of the right diaphragm and consolidation with air bronchograms in the right lower lobe extending below the diaphragm peak. This suggests infiltrate. Left lung clear, except for minor linear atelectatic change or scar. Small effusion difficult to exclude on the right, none seen on the left. Electronically Signed by Clarence Obrien MD 11/26/2018 11:28 A
== END ==
LOC: SKLAB7 07:51
PROVIDERS: ATTEND Family Medicine
DX: J12.1 Respiratory syncytial virus pneumonia (principal); B97.4 Respiratory syncytial virus as the cause of diseases classified elsewhere

== ENCOUNTER → 2018-11-26 | Outpatient (REF) | payer MEDICARE, OTHER | LOC: SKLAB7 11:43 | PROVIDERS: ATTEND Family Medicine | DX: R05 Cough (principal); R09.89 Other specified symptoms and signs involving the circulatory and respiratory systems ==

== ENCOUNTER 2020-02-19 13:08 | Emergency (ER) | payer MEDICARE, OTHER ==
[~2020-02-19 13:08] MED LIST changes: +FIRS3SUS GT; +INSUHUMDS SC; +KETO2CR TOP; +LEVE15SO GT; +NYST10CR TOP; +PERCOCET FT; +POTA20EL PO; +SIME80TA GT; +SODI3NEB INH
[2020-02-19] MEDS ORDERED: FERR5ELX (13:32)
[2020-02-19] MEDS ORDERED: LEVE15SO2 JT (13:32)
[2020-02-19] MEDS ORDERED: LANTINJ4 SC (13:32)
[2020-02-19] MEDS ORDERED: CALM1OIN TP (13:32)
[2020-02-19] MEDS ORDERED: PEG1POW JT (13:32)
[2020-02-19] MEDS ORDERED: GLUCLIQ37 PO (13:32)
[2020-02-19 14:06] LABS: HEMATOCRIT 44.9 % (42.0-52.0); HEMOGLOBIN 14.2 g/dl (13.5-17.5); MEAN CORPUSCULAR HEMOGLOBIN 25.6 pg (27.0-33.0); MEAN CORPUSCULAR HGB CONC 31.6 g/dl (32.0-36.5); PLATELET COUNT, AUTOMATED 258 10^3/uL (150-450); RED BLOOD COUNT 5.54 10^6/uL (4.30-6.10); WHITE BLOOD COUNT 8.1 10^3/uL (4.0-10.0)
[2020-02-19 14:26] LABS: AMPHETAMINES LEVEL URINE NEGATIVE (NEGATIVE); BARBITURATES URINE NEGATIVE (NEGATIVE); BENZODIAZEPINES URINE NEGATIVE (NEGATIVE); CANNABINOIDS URINE NEGATIVE (NEGATIVE); COCAINE METABOLITE URINE NEGATIVE (NEGATIVE); METHADONE URINE NEGATIVE (NEGATIVE); OPIATES URINE NEGATIVE (NEGATIVE); PHENCYCLIDINE URINE NEGATIVE (NEGATIVE)
[2020-02-19 14:56] LABS: ACETAMINOPHEN LEVEL 7.3 UG/ML (10.0-30.0); ALBUMIN 3.2 GM/DL (3.2-5.2); ALT/SGPT 17 U/L (12-78); BILIRUBIN,DIRECT 0.1 MG/DL (0.0-0.2); BILIRUBIN,TOTAL 0.6 MG/DL (0.2-1.0); BLOOD UREA NITROGEN 13 MG/DL (7-18); CALCIUM LEVEL 9.2 MG/DL (8.5-10.1); CARBON DIOXIDE LEVEL 33 MEQ/L (21-32); CHLORIDE LEVEL 102 MEQ/L (98-107); CREATININE FOR GFR 0.41 MG/DL (0.70-1.30); ETHYL ALCOHOL (ETHANOL) < 0.003 % (0.000-0.010); GLOMERULAR FILTRATION RATE > 60.0 (>56); GLUCOSE, FASTING 202 MG/DL (70-100); POTASSIUM SERUM 3.4 MEQ/L (3.5-5.1); SALICYLATE LEVEL < 1.7 MG/DL (5.0-30.0); SODIUM LEVEL 140 MEQ/L (136-145)
[2020-02-19 17:16] VITALS: BP 178/98
== END 2020-02-19 17:18 | disposition home or self-care (01) ==
LOC: M ED 13:08
DX: F43.0 Acute stress reaction (principal); G82.22 Paraplegia, incomplete; Z87.820 Personal history of traumatic brain injury; Z93.4 Other artificial openings of gastrointestinal tract status; E11.9 Type 2 diabetes mellitus without complications; R56.9 Unspecified convulsions; Z96.0 Presence of urogenital implants; Z88.2 Allergy status to sulfonamides; Z88.1 Allergy status to other antibiotic agents; Z79.899 Other long term (current) drug therapy; Z79.4 Long term (current) use of insulin
CPT/HCPCS: 36415; 80048; 80076; 80307; 84443; 85027; 99284; G0480

== ENCOUNTER → 2021-01-13 | Outpatient (POV) | payer MEDICARE, OTHER ==
[~2021-01-13] MED LIST changes: +AMLO1TAB24 PO; -AMLO5TAB6 PO; +ASPI-569 PO; -ASPI81TAEC PO; +CALM1OIN TP; +FERR5ELX; +GLUCLIQ37 PO; +LANTINJ4 SC; +LEVE15SO2 JT; +POLY17PO18 JT; +SIME80CH5 GT; -SIME80TA GT
[2021-01-13 08:50] VITALS: BP 129/72
--- NOTE | 2021-01-14 11:50 | IRCOV ---
[facility] IR Consult Office Visit IR Consult Office Visit DATE: Jan 13, 2021 REASON FOR CONSULTATION/CHIEF COMPLAINT: GJ not working. HISTORY OF PRESENT ILLNESS: 60-year-old male resident of [facility] with history of aphasia, quadriplegia and traumatic brain injury, presents to establish care for GJ catheter. Patient was recently admitted to [facility] for altered mental status where he was diagnosed with acute diverticulitis and urinary tract infection and treated. At that time, in August 2020 he had a GJ tube exchange. Patient has a history of partial gastrectomy and GERD. This is a chronic GJ tube, it is unclear when it was initially placed. He's had cellulitis of the abdominal wall around the insertion site previously. ALLERGIES: Please see below. HOME MEDICATIONS: Please see below. PAST MEDICAL HISTORY: Traumatic brain injury Quadriplegia aphasia Recurrent pneumonia Seizure disorder PAST SURGICAL HISTORY: Appendectomy Partial gastrectomy Gastrojejunostomy FAMILY HISTORY: None available. SOCIAL HISTORY: Resident of [facility]. nonsmoker. No alcohol or drugs. REVIEW OF SYSTEMS: None. Patient's carer is not with him and patient is aphasic. PHYSICAL EXAMINATION: VITAL SIGNS: Please see below. GENERAL APPEARANCE: Appears well. Comfortable at rest. HEENT: No scleral icterus. RESPIRATORY: Normal breathing at rest. CARDIOVASCULAR: Normal rate. ABDOMEN: Soft and Non-distended. GJ in place. No significant drainage around the insertion site. The jejunostomy port of the GJ was flushed but appears blocked and leaks around the ostomy site. The G port is patent. EXTREMITIES: No edema. NEUROLOGICAL: Aphasic. Does not communicate. LABORATORY DATA: None recent. Imaging: I personally reviewed the CT abdomen from 12/23/2020. Patient has a balloon gastrojejunostomy catheter. ASSESSMENT/PLAN: 60-year-old male, resident of [facility] with GJ catheter in place. Unclear when this was initially placed however it was exchanged in August at [facility]. The jejunostomy port is blocked. Patient will be scheduled for a GJ exchange. Thank you for this referral. Cc Dr. Kamala Melendez Allergies Coded Allergies: cefuroxime (Verified Allergy, Unknown, 01/03/19) dapagliflozin (Verified Allergy, Unknown, 01/03/19) oxacillin (Verified Allergy, Unknown, 01/03/19) sulfamethoxazole (Verified Allergy, Unknown, 01/03/19) trimethoprim (Verified Allergy, Unknown, 01/03/19) Home Medications Scheduled Albuterol Sulfate (Albuterol Sulfate), 2.5 MG INH QID, (Reported) Insulin Glargine,Hum.rec.anlog (Lantus Solostar), 5 UNIT SC QPM, (Reported) Insulin Human Lispro (Humalog), 0 UNITS SC Q6H Ketoconazole (Ketoconazole), 0 DOSE TOP BID Lansoprazole (First-Lansoprazole), 30 MG GT BID Levetiracetam (Levetiracetam), 1,500 MG GT BID Levetiracetam (Levetiracetam), 4 ML JT BID, (Reported) Menthol/Zinc Oxide (Calmoseptine Ointment Packet), 3.5 GM TP BID, (Reported) Nut.tx.gluc.intoler,Lac-Fr,Soy (Glucerna), 1 LIQ PO BID, (Reported) Nystatin (Nystatin), 1 DOSE TOP BID Polyethylene Glycol 3350 (Polyethylene Glycol 3350), 17 GRAM JT QHS, (Reported) Potassium Chloride (Potassium Chloride), 40 MEQ PO DAILY Simethicone (Simethicone), 80 MG GT TID Scheduled PRN Albuterol Sulfate (Albuterol Sulfate), 2.5 MG INH Q4H PRN for SHORTNESS OF BREATH, (Reported) Bisacodyl (Dulcolax), [address] DAILY PRN for CONSTIPATION, (Reported) Oxycodone/Acetaminophen (Oxycodone-Acetaminophen 5-325), 1 TAB FT Q4HP PRN for MILD/MODERATE PAIN (PS 1-7) Oxycodone/Acetaminophen (Oxycodone-Acetaminophen 5-325), 2 TAB FT Q4HP PRN for SEVERE PAIN (PS 8-10) Sodium Chloride (Sodium Chloride 3% Neb Casandra), 3 ML INH Q4HP PRN for rhonchi, secretion clearance Miscellaneous Medications Ferrous Sulfate (Ferrous Sulfate), (Reported) VS, I&O, 24H, Fishbone Vital Signs/I&O Vital Signs Date Time Temp Pulse Resp B/P (MAP) Pulse Ox O2 Delivery O2 Flow Rate FiO2 01/13/21 08:50 97.1 62 16 129/72 (91) 98 Room Air VINCENT CARO MD Jan 14, 2021 11:50
== END ==
LOC: M IRPOV 08:40
PROVIDERS: ATTEND Radiology Diagnostic Radiology
DX: K94.23 Gastrostomy malfunction (principal); R47.01 Aphasia; G82.50 Quadriplegia, unspecified; G40.909 Epilepsy, unspecified, not intractable, without status epilepticus; K21.9 Gastro-esophageal reflux disease without esophagitis; Z79.4 Long term (current) use of insulin; Z79.899 Other long term (current) drug therapy; Z87.01 Personal history of pneumonia (recurrent); Z87.820 Personal history of traumatic brain injury

== ENCOUNTER → 2021-01-15 | Outpatient (CLI) | payer MEDICARE, OTHER ==
[~2021-01-15] MED LIST changes: +ISOVUE-300 61% 50ML VIAL As Ordered ONE; +LIDOCAINE 1% MDV 20ML VIAL As Ordered ONE; +MIDAZOLAM INJ 2MG/2ML VIAL (J2250 PER 1MG) As Ordered ONE; +diphenhydrAMINE 50MG/ML VIAL (J1200) As Ordered ONE; +fentaNYL 100 MCG/2 ML INJECTION (J3010) As Ordered ONE
[2021-01-15 12:06] VITALS: BP 177/92
--- NOTE | 2021-01-16 10:16 | IRPON ---
IR Postoperative Note Date Of Procedure: Jan 15, 2021 Time Of Procedure: 16:00 IR Postoperative Note IR Gastrojejunostomy Catheter Exchange. Gastrojejunostomy catheter exchange with fluoroscopic guidance. Clinical Information:Traumatic brain injury. GJ tube dependent. J port clogged. Physician: Dr. Wakefield. Procedure: The patient's father was advised of the benefits, risks, and alternatives of the procedure and informed consent was obtained. A time out was performed with verification of the patient's name, MRN, site of procedure, and type of procedure to be performed. The patient was positioned in the supine position on the angiographic table. The site was prepped and draped in the usual sterile fashion. Moderate sedation was not required. The physician spent 30 minutes of continuous uzke-an-rsud time with the patient. A stem cleaning machine feeder radiograph reveals a GJ catheter in place. The gastric and jejunal ports of the catheter were injected with contrast demonstrating the J port is clogged. A stiff Curtis wire was advanced through the catheter into the mid jejunum under fluoroscopic guidance. The retention balloon was deflated and the catheter was removed over the wire without difficulty. A new 18 Syrian LORRIE gastrojejunostomy catheter was advanced over the wire into the proximal jejunum. The retention balloon was inflated and then retracted against the anterior stomach wall. Appropriate positioning of the ca theter was confirmed with injection of contrast through the gastric and jejunal ports. The retention disc was approximated to the skin of the abdominal wall and secured with 2-0 silk. A sterile dressing was applied. The patient tolerated the procedure well and was returned to the PRU in stable condition. EBL: < 5 mL. Complications: None. Conclusion: Successful exchange of 18 Syrian double lumen LORRIE gastrojejunostomy catheter. The catheter is ready for immediate use. Thank you for this referral CC VINCENT Navarrete MD Jan 16, 2021 10:16
== END ==
LOC: M IRPRO 11:14
PROVIDERS: ATTEND Radiology Diagnostic Radiology
DX: K94.23 Gastrostomy malfunction (principal)
CPT/HCPCS: 49450; C1729; C1769; J1644; Q9967